=== PATIENT | female | born 1955 | race Caucasian/White ===

== ENCOUNTER → 2016-12-19 | Outpatient (REF) | payer MEDICARE, MEDICAID ==
[~2016-12-19] MED LIST: ABIL15TA2 PO; AMBI10TA PO; ASPI81TA85 PO; BUPR15TA PO; CELE-19 PO; COMBAER6 INH; CYCL10TA PO; HYDR-2807 PO; LISI10TA4 PO; LYRI150C PO; METF1000 PO; MULTCAP8 PO; NEXI40CA PO; NORV5TAB PO; PLAV75TA38 PO; PLETAL PO; SIMV40TA2 PO; VITA100037 PO; VITAMIN B12
== END ==
LOC: M LAB REF 09:59
PROVIDERS: ATTEND Physician Assistant Medical
DX: R19.7 Diarrhea, unspecified (principal)

== ENCOUNTER → 2017-02-01 | Outpatient (CLI) | payer MEDICARE, MEDICAID ==
[2017-02-01 11:25] LABS: BASO % 0.5 % (0.0-1.0); EOS # 0.2 K/mm3 (0.0-0.50); EOS % 2.7 % (0.0-3.0); LARGE UNSTAINED CELL # 0.1 K/mm3 (0.0-0.4); LARGE UNSTAINED CELL % 1.5 % (0.0-4.0); LYMPH # 1.6 K/mm3 (1.5-4.5); LYMPH % 22.5 % (24.0-44.0); MEAN CORPUSCULAR HEMOGLOBIN 26.4 pg (27.0-33.0); MEAN CORPUSCULAR VOLUME 79.9 fl (80.0-96.0); MONO # 0.4 K/mm3 (0.0-0.8); MONO % 5.4 % (0.0-5.0); NEUTROPHILS # 4.5 K/mm3 (1.8-7.7); NEUTROPHILS % 67.5 % (36.0-66.0); PLATELET COUNT, AUTOMATED 337 k/mm3 (150-450); WHITE BLOOD COUNT 6.6 K/mm3 (4.0-10.0)
[2017-02-01 12:06] LABS: ALBUMIN 3.3 GM/DL (3.2-5.2); ALBUMIN/GLOBULIN RATIO 1.14 (1.00-1.93); ALKALINE PHOSPHATASE 115 U/L (45-117); ALT/SGPT 19 U/L (12-78); ANION GAP 9 MEQ/L (8-16); AST/SGOT 15 U/L (15-37); BILIRUBIN,TOTAL 0.2 MG/DL (0.2-1.0); BLOOD UREA NITROGEN 8 MG/DL (7-18); CALCIUM LEVEL 8.5 MG/DL (8.8-10.2); CARBON DIOXIDE LEVEL 29 MEQ/L (21-32); CHLORIDE LEVEL 99 MEQ/L (98-107); CHOLESTEROL LEVEL 149 MG/DL (<200); CREATININE FOR GFR 0.88 MG/DL (0.55-1.02); GLOMERULAR FILTRATION RATE > 60.0 (>45); GLUCOSE, FASTING 124 MG/DL (80-110); POTASSIUM SERUM 4.1 MEQ/L (3.5-5.1); SODIUM LEVEL 137 MEQ/L (136-145); TOTAL PROTEIN 6.2 GM/DL (6.4-8.2); TRIGLYCERIDES LEVEL 395 MG/DL (<150)
== END ==
LOC: M LAB 10:42
PROVIDERS: ATTEND Nurse Practitioner Family
DX: I10 Essential (primary) hypertension (principal); E78.4 Other hyperlipidemia; K21.9 Gastro-esophageal reflux disease without esophagitis; E11.9 Type 2 diabetes mellitus without complications; M81.0 Age-related osteoporosis without current pathological fracture

== ENCOUNTER → 2017-07-13 | Outpatient (CLI) | payer MEDICARE, MEDICAID ==
[~2017-07-13] MED LIST changes: -ABIL15TA2 PO; +ABIL1TAB12 PO; -CELE-19 PO; +CELE1CAP4 PO; -METF1000 PO; +METF10004 PO; +PLAV1TAB2 PO; -PLAV75TA38 PO; +RANI150T PO; -VITA100037 PO; +VITA100067 PO
--- NOTE | 2017-07-13 14:53 | REP ---
KUB: Two views. History: Sitz marker study. Sitz marker capsule ingested on July 08, 2017. Findings: No sitz markers are visible. Bowel gas pattern is unremarkable. There is a right common iliac artery vascular stent and there are clips in the groin bilaterally. There are surgical clips in the right upper quadrant of the abdomen and clips and sutures are seen in the left upper quadrant. Vascular calcification is noted. There are old healed rib fractures on the right. Impression: No observable sitz marker. Bowel gas pattern unremarkable. Clips and sutures. Signed by Xander Santos MD 07/13/2017 05:44 P
== END ==
LOC: M RAD 11:31
PROVIDERS: ATTEND Physician Assistant Medical
DX: R19.8 Other specified symptoms and signs involving the digestive system and abdomen (principal); R19.7 Diarrhea, unspecified

== ENCOUNTER 2017-08-05 08:20 | Day surgery (SDC) | payer MEDICARE, MEDICAID ==
[~2017-08-05] VITALS: Ht 162.6 cm; Wt 97.5 kg
[2017-08-05] MEDS ORDERED: NS 1,000 ML IV SCH (09:30)
[2017-08-05] MEDS ORDERED: LIDOCAINE 2% INJ 100 MG/5 ML SDV (FOR ANES.) As Ordered ONE (10:44)
[2017-08-05] MEDS ORDERED: PROPOFOL 200 MG/20 ML VIAL As Ordered ONE (10:44)
--- NOTE | 2017-08-05 11:04 | ROOR ---
Patient Name: Judy Lopez Procedure Date: 08/05/2017 10:30 AM Date of : 1955 Age: 61 Room: [facility] Gender: Female Note Status: Finalized Procedure: Colonoscopy Indications: High risk colon cancer surveillance: Personal history of colonic polyps Providers: Amol ARROYO MD Referring MD: Speedy Gallardo NP Requesting Provider: Medicines: Monitored Anesthesia Care Complications: No immediate complications. Procedure: Pre-Anesthesia Assessment: - The heart rate, respiratory rate, oxygen saturations, blood pressure, adequacy of pulmonary ventilation, and response to care were monitored throughout the procedure. The Colonoscope was introduced through the anus and advanced to the cecum, identified by appendiceal orifice and ileocecal valve. The colonoscopy was performed without difficulty. The patient tolerated the procedure well. The quality of the bowel preparation was good. Findings: The perianal and digital rectal examinations were normal. (Exam: Complete, Prep: Good or Excellent.) A 7 mm polyp was found in the appendiceal orifice. The polyp was semi-sessile. The polyp was removed with a piecemeal technique using a cold snare. Polyp resection was incomplete, and the resected tissue was partially retrieved. Two semi-sessile polyps were found in the hepatic flexure and ascending colon. The polyps were 5 mm in size. These polyps were removed with a hot snare. Resection and retrieval were complete. A 4 mm polyp was found in the rectum. The polyp was sessile. The polyp was removed with a cold snare. Resection and retrieval were complete. The exam was otherwise without abnormality. Impression: - (Exam: Complete, Prep: Good or Excellent.) - One 7 mm polyp in the appendiceal orifice, removed piecemeal using a cold snare. Polyp resection was incomplete, and the resected tissue was partially retrieved. - Two 5 mm polyps at the hepatic flexure and in the ascending colon, removed with a hot snare. Resected and retrieved. - One 4 mm polyp in the rectum, removed with a cold snare. Resected and retrieved. - The examination was otherwise normal. Recommendation: - Await pathology results. - Intra appendiceal polyp was unable to be completely removed, as a portion retracts into appendix after resection. IF appendiceal polyp is adenomatous, then recommend surgical resection of appendix with cecal floor surrounding appendix. IF polyp pathology is hyperplastic, then nothing else needs to be done. - Telephone endoscopist for pathology results in 2 weeks. Amol Arroyo MD Amol ARROYO MD 08/05/2017 11:04:21 AM This report has been signed electronically. Number of Addenda: 0 Note Initiated On: 08/05/2017 10:30 AM Estimated Blood Loss: Estimated blood loss: none.
[2017-08-05 11:20] VITALS: BP 141/65
== END 2017-08-05 11:30 | disposition home or self-care (01) ==
LOC: M OPP 08:20
PROVIDERS: ATTEND Internal Medicine Gastroenterology
DX: Z12.11 Encounter for screening for malignant neoplasm of colon (principal); K62.1 Rectal polyp; D12.3 Benign neoplasm of transverse colon; D12.2 Benign neoplasm of ascending colon; Z86.010 Personal history of colon polyps; I48.91 Unspecified atrial fibrillation; E11.9 Type 2 diabetes mellitus without complications; I10 Essential (primary) hypertension; K44.9 Diaphragmatic hernia without obstruction or gangrene; E78.00 Pure hypercholesterolemia, unspecified; K21.9 Gastro-esophageal reflux disease without esophagitis; I73.9 Peripheral vascular disease, unspecified; F32.9 Major depressive disorder, single episode, unspecified; M19.90 Unspecified osteoarthritis, unspecified site; Z79.82 Long term (current) use of aspirin; Z79.84 Long term (current) use of oral hypoglycemic drugs; Z79.899 Other long term (current) drug therapy; Z88.0 Allergy status to penicillin; Z91.041 Radiographic dye allergy status; Z88.1 Allergy status to other antibiotic agents; Z80.0 Family history of malignant neoplasm of digestive organs; Z80.49 Family history of malignant neoplasm of other genital organs

== ENCOUNTER → 2017-09-02 | Outpatient (CLI) | payer MEDICARE, MEDICAID ==
[2017-09-02 15:07] LABS: BASO # 0.1 10^3/uL (0.0-0.2); BASO % 0.7 % (0.0-1.0); EOS # 0.3 10^3/uL (0.0-0.50); EOS % 4.2 % (0.0-3.0); IMMATURE GRANULOCYTE % 0.6 % (0-0); LYMPH # 1.7 10^3/uL (1.5-4.5); LYMPH % 24.2 % (24.0-44.0); MEAN CORPUSCULAR HEMOGLOBIN 26.1 pg (27.0-33.0); MEAN CORPUSCULAR HGB CONC 32.5 g/dl (32.0-36.5); MEAN CORPUSCULAR VOLUME 80.1 fl (80.0-96.0); MONO # 0.4 10^3/uL (0.0-0.8); MONO % 5.8 % (0.0-5.0); NEUTROPHILS # 4.7 10^3/uL (1.8-7.7); NEUTROPHILS % 64.5 % (36.0-66.0); PLATELET COUNT, AUTOMATED 325 10^3/uL (150-450); RED CELL DISTRIBUTION WIDTH 14.3 % (11.5-14.5); WHITE BLOOD COUNT 7.2 10^3/uL (4.0-10.0)
[2017-09-02 15:31] LABS: ALKALINE PHOSPHATASE 118 U/L (45-117); ALT/SGPT 21 U/L (12-78); ANION GAP 9 MEQ/L (8-16); AST/SGOT 14 U/L (7-37); BILIRUBIN,TOTAL 0.2 MG/DL (0.2-1.0); BLOOD UREA NITROGEN 12 MG/DL (7-18); CALCIUM LEVEL 8.4 MG/DL (8.8-10.2); CARBON DIOXIDE LEVEL 27 MEQ/L (21-32); CHLORIDE LEVEL 100 MEQ/L (98-107); CHOLESTEROL LEVEL 157 MG/DL (<200); CREATININE FOR GFR 0.94 MG/DL (0.55-1.02); GLOMERULAR FILTRATION RATE > 60.0 (>45); GLUCOSE, FASTING 145 MG/DL (80-110); POTASSIUM SERUM 4.3 MEQ/L (3.5-5.1); SODIUM LEVEL 136 MEQ/L (136-145); TRIGLYCERIDES LEVEL 299 MG/DL (<150)
[2017-09-02 15:32] LABS: ALBUMIN 3.5 GM/DL (3.2-5.2); ALBUMIN/GLOBULIN RATIO 1.17 (1.00-1.93); TOTAL PROTEIN 6.5 GM/DL (6.4-8.2)
== END ==
LOC: M LAB 14:14
PROVIDERS: ATTEND Nurse Practitioner Family
DX: K21.9 Gastro-esophageal reflux disease without esophagitis (principal); M81.0 Age-related osteoporosis without current pathological fracture; E11.9 Type 2 diabetes mellitus without complications; E78.4 Other hyperlipidemia; I10 Essential (primary) hypertension

== ENCOUNTER → 2017-09-08 | Outpatient (CLI) | payer MEDICARE, MEDICAID ==
--- NOTE | 2017-09-08 15:23 | REPMRS ---
Patient History The patient states she has not had a clinical breast exam in over a year. Patient is postmenopausal and is nulliparous. Family history of unknown cancer in sister at age 35. Took hormonal contraceptives for 1 year. Took estrogen for 6 months. Took progesterone for 6 months. Digital Mammo Screening Bilat: September 08, 2017 - Exam #: [id number] Bilateral CC and MLO view(s) were taken. Technologist: Arabella Rivera, Technologist Prior study comparison: March 02, 2013, bilateral bilat screen digital mammo, performed at [facility] ([facility]). FINDINGS: There are scattered fibroglandular densities. There has been no change in the appearance of the mammogram from the prior studies. There is a mild amount of residual fibroglandular tissue which is fairly symmetric. There is no interval development of dominant mass, architectural distortion, or clustered microcalcification suggestive of malignancy. ASSESSMENT: BI-RADS/ACR category 1 mammogram. Negative. Recommendation Routine screening mammogram in 1 year (for women over age 40). This mammogram was interpreted with the aid of an FDA-approved computer-aided dectection system. Electronically Signed By: Mejia Flynn MD 09/08/17 [id number]
== END ==
LOC: M RAD 14:31
PROVIDERS: ATTEND Nurse Practitioner Family
DX: Z12.31 Encounter for screening mammogram for malignant neoplasm of breast (principal); Z78.0 Asymptomatic menopausal state; Z92.0 Personal history of contraception; Z92.23 Personal history of estrogen therapy

== ENCOUNTER → 2017-11-02 | Outpatient (CLI) | payer MEDICARE, MEDICAID ==
[2017-11-02 15:35] LABS: ESTIMATED AVERAGE GLUCOSE 223 MG/DL (60-110); HEMOGLOBIN A1c 9.4 %
== END ==
LOC: M LAB 14:43
DX: E11.9 Type 2 diabetes mellitus without complications (principal)
CPT/HCPCS: 83036

== ENCOUNTER → 2018-03-24 | Outpatient (CLI) | payer MEDICARE, MEDICAID ==
[2018-03-24 14:15] LABS: BASO % 0.4 % (0.0-1.0); EOS # 0.1 10^3/uL (0.0-0.50); EOS % 2.3 % (0.0-3.0); HEMATOCRIT 31.4 % (36.0-47.0); HEMOGLOBIN 9.4 g/dl (12.0-15.5); IMMATURE GRANULOCYTE % 0.2 % (0-3.0); LYMPH # 1.3 10^3/uL (1.5-4.5); LYMPH % 22.8 % (24.0-44.0); MEAN CORPUSCULAR HEMOGLOBIN 21.8 pg (27.0-33.0); MEAN CORPUSCULAR HGB CONC 29.9 g/dl (32.0-36.5); MEAN CORPUSCULAR VOLUME 72.9 fl (80.0-96.0); MONO # 0.3 10^3/uL (0.0-0.8); MONO % 5.6 % (0.0-5.0); NEUTROPHILS # 3.9 10^3/uL (1.8-7.7); NEUTROPHILS % 68.7 % (36.0-66.0); PLATELET COUNT, AUTOMATED 330 10^3/uL (150-450); RED BLOOD COUNT 4.31 10^6/uL (4.00-5.40); WHITE BLOOD COUNT 5.7 10^3/uL (4.0-10.0)
[2018-03-24 14:25] LABS: INR 0.93; PARTIAL THROMBOPLASTIN TIME 25.2 SECONDS (25.4-37.6); PROTHROMBIN TIME 12.6 SECONDS (12.1-14.4)
[2018-03-24 14:38] LABS: ANION GAP 10 MEQ/L (8-16); BLOOD UREA NITROGEN 11 MG/DL (7-18); CALCIUM LEVEL 8.9 MG/DL (8.8-10.2); CARBON DIOXIDE LEVEL 26 MEQ/L (21-32); CHLORIDE LEVEL 102 MEQ/L (98-107); CREATININE FOR GFR 1.05 MG/DL (0.55-1.30); GLOMERULAR FILTRATION RATE 56.3 (>45); GLUCOSE, FASTING 146 MG/DL (70-100); POTASSIUM SERUM 4.1 MEQ/L (3.5-5.1); SODIUM LEVEL 138 MEQ/L (136-145)
== END ==
LOC: M LAB 13:33
DX: D69.8 Other specified hemorrhagic conditions (principal)
CPT/HCPCS: 80048

== ENCOUNTER → 2018-04-04 | Outpatient (CLI) | payer MEDICARE, MEDICAID ==
[2018-04-04 14:43] LABS: CREATININE FOR GFR 0.89 MG/DL (0.55-1.30); GLOMERULAR FILTRATION RATE > 60.0 (>45)
[2018-04-04 14:43] LABS: BLOOD UREA NITROGEN 8 MG/DL (7-18)
== END ==
LOC: M LAB 13:49
DX: R94.4 Abnormal results of kidney function studies (principal)
CPT/HCPCS: 82565

== ENCOUNTER → 2018-04-25 | Outpatient (CLI) | payer MEDICARE, MEDICAID ==
[2018-04-25 16:02] LABS: IRON (FE) 27 UG/DL (50-170)
[2018-04-25 16:09] LABS: TOTAL 25(OH) VITAMIN D 48.8 NG/ML (30.0-100.0); VITAMIN B12 LEVEL 268 PG/ML (247-911)
[2018-05-01 14:28] LABS: VITAMIN B1 LEVEL WHOLE BLOOD 90.1 nmol/L (66.5-200.0)
== END ==
LOC: M LAB 14:53
DX: Z13.29 Encounter for screening for other suspected endocrine disorder (principal); Z13.21 Encounter for screening for nutritional disorder; Z13.0 Encounter for screening for diseases of the blood and blood-forming organs and certain disorders involving the immune mechanism; Z13.228 Encounter for screening for other metabolic disorders; E55.9 Vitamin D deficiency, unspecified
CPT/HCPCS: 83540

== ENCOUNTER → 2018-05-11 | Outpatient (CLI) | payer MEDICARE, MEDICAID | LOC: M EKG 13:43 | DX: Z01.818 Encounter for other preprocedural examination (principal); R00.1 Bradycardia, unspecified | CPT/HCPCS: 93005 ==

== ENCOUNTER → 2018-06-08 | Outpatient (CLI) | payer MEDICARE, MEDICAID ==
[2018-06-08 08:54] LABS: CHOLESTEROL LEVEL 116 MG/DL (<200); CHOLESTEROL RISK RATIO 2.468 (<5); ESTIMATED AVERAGE GLUCOSE 134 MG/DL (60-110); HDL CHOLESTEROL 47 MG/DL (>40); HEMOGLOBIN A1c 6.3 %; LDL CHOLESTEROL 32 MG/DL (<100); NON-HDL-C 69 MG/DL; TRIGLYCERIDES LEVEL 186 MG/DL (<150)
== END ==
LOC: M LAB 07:45
DX: E11.9 Type 2 diabetes mellitus without complications (principal); E78.5 Hyperlipidemia, unspecified
CPT/HCPCS: 83036

== ENCOUNTER 2018-10-22 12:42 | Emergency (ER) | payer MEDICARE, MEDICAID ==
[~2018-10-22] VITALS: Ht 160 cm; Wt 84.1 kg
[2018-10-22] MEDS ORDERED: CALC600T60 PO (12:55)
[2018-10-22] MEDS ORDERED: SERT-138 PO (12:55)
[2018-10-22] MEDS ORDERED: TRAZ-163 PO (12:55)
[2018-10-22] MEDS ORDERED: ONDANSETRON 4MG/2ML VIAL (J2405) IV ONE (13:00)
[2018-10-22] MEDS ORDERED: NS 1,000 ML IV ONE (13:00)
[2018-10-22 13:18] LABS: BASO # 0.1 10^3/uL (0.0-0.2); BASO % 0.7 % (0.0-1.0); EOS # 0.2 10^3/uL (0.0-0.50); EOS % 2.2 % (0.0-3.0); HEMATOCRIT 33.3 % (36.0-47.0); HEMOGLOBIN 10.9 g/dl (12.0-15.5); LYMPH # 1.9 10^3/uL (1.5-4.5); LYMPH % 25.9 % (24.0-44.0); MEAN CORPUSCULAR HEMOGLOBIN 25.5 pg (27.0-33.0); MEAN CORPUSCULAR HGB CONC 32.7 g/dl (32.0-36.5); MONO # 0.4 10^3/uL (0.0-0.8); MONO % 5.9 % (0.0-5.0); NEUTROPHILS # 4.7 10^3/uL (1.8-7.7); PLATELET COUNT, AUTOMATED 261 10^3/uL (150-450); RED BLOOD COUNT 4.27 10^6/uL (4.00-5.40); WHITE BLOOD COUNT 7.3 10^3/uL (4.0-10.0)
[2018-10-22] MEDS: GASTROGRAFIN SOLUTION 30ML PO SCH ×2 (13:29→14:00)
[2018-10-22 13:53] LABS: ALBUMIN 3.6 GM/DL (3.2-5.2); ALT/SGPT 22 U/L (12-78); BILIRUBIN,DIRECT < 0.1 MG/DL (0.0-0.2); BILIRUBIN,TOTAL 0.3 MG/DL (0.2-1.0); BLOOD UREA NITROGEN 10 MG/DL (7-18); CALCIUM LEVEL 8.4 MG/DL (8.8-10.2); CARBON DIOXIDE LEVEL 28 MEQ/L (21-32); CHLORIDE LEVEL 92 MEQ/L (98-107); CREATININE FOR GFR 0.86 MG/DL (0.55-1.30); GLOMERULAR FILTRATION RATE > 60.0 (>45); GLUCOSE, FASTING 102 MG/DL (70-100); POTASSIUM SERUM 4.2 MEQ/L (3.5-5.1); SODIUM LEVEL 128 MEQ/L (136-145); TOTAL PROTEIN 6.6 GM/DL (6.4-8.2)
--- NOTE | 2018-10-22 15:10 | REP ---
Clinical: Hernia. Technique: Axial noncontrast images from the lung bases to the pubic symphysis with coronal and sagittal re-formations. Comparison: 07/24/2016. Findings: A broad-based ventral hernia and/or eventration of the rectus sheath contains mesenteric fat (images 70-100). Liver, spleen, pancreas, bilateral adrenal glands are normal. Evidence of prior cholecystectomy. Kidneys demonstrate bilateral cysts similar to prior examination. The enteric system demonstrates prior gastric bypass surgery along with prior appendectomy and no evidence for bowel obstruction or acute inflammatory process. Pelvis demonstrates normal bladder and age-appropriate uterus/right adnexa. 3.4 cm septated cystic left adnexal lesion is nonspecific. No ascites. No free air. No adenopathy. Evidence for aorto right iliac stent graft as well as fem-fem graft. Musculoskeletal structures demonstrate age-related degenerative changes without focal osseous abnormality. Lung bases are clear. Impression: 1. Broad-based fat containing ventral hernia and/or eventration of the rectus sheath. 2. Bilateral renal cysts similar to prior examination. 3. 3.4 cm septated left adnexal cyst lesion may warrant pelvic ultrasound confirmation. 4. Postsurgical changes. Electronically Signed by Juwan Sanchez MD 10/22/2018 03:02 P
--- NOTE | 2018-10-22 16:30 | REP ---
Clinical: Left adnexal cyst . Technique: Transabdominal pelvic ultrasound followed by transvaginal examination for better evaluation of the endometrium and adnexa with color Doppler evaluation of the ovaries. Findings: Bladder is unremarkable and measures 10.4 x 8.7 x 10.4 cm . Normal anteverted uterus measures 4.3 x 1.9 x 2.7 cm. The endometrial complex measures 1.0 mm thickness. No discrete uterine or endometrial abnormalities are appreciated. The patient is status post right oophorectomy. The left ovary measures 4.2 x 2.6 x 4.2 cm and includes 3.6 x 2.2 x 3.7 cm septated cyst. No evidence for ovarian torsion; RI 0.50. Impression: 1. 3.7 cm septated left ovarian cyst. Findings otherwise nonspecific in appearance. No left ovarian torsion. 2. Normal age-appropriate uterus. Status post right oophorectomy. Electronically Signed by Juwan Sanchez MD 10/22/2018 04:22 P
[2018-10-22 16:34] VITALS: BP 141/64
[2018-10-22] MEDS ORDERED: ZOFR4TAB16 PO (16:41)
--- NOTE | 2018-10-23 17:12 | ED PDOC ---
Post-Departure Follow-Up carolyn lopez faxed formal report of ct abd/p for fu William Becker MD Oct 23, 2018 17:12
== END 2018-10-22 17:05 | disposition home or self-care (01) ==
LOC: M ED 12:42
DX: N83.202 Unspecified ovarian cyst, left side (principal); I10 Essential (primary) hypertension; E78.5 Hyperlipidemia, unspecified; Z98.84 Bariatric surgery status; Z79.899 Other long term (current) drug therapy; Z79.82 Long term (current) use of aspirin; Z88.0 Allergy status to penicillin; Z88.1 Allergy status to other antibiotic agents; Z91.041 Radiographic dye allergy status
CPT/HCPCS: 36415; 74176; 76830; 76856; 80048; 80076; 85025; 93976; 96361; 96374; 99284; J2405; Q9963

== ENCOUNTER 2018-11-05 15:40 | Emergency (ER) | payer MEDICARE, MEDICAID ==
[~2018-11-05] VITALS: Ht 160 cm; Wt 86.4 kg
[~2018-11-05 15:40] MED LIST changes: +CALC600T60 PO; +SERT-138 PO; +TRAZ-163 PO; +ZOFR4TAB16 PO
[2018-11-05] MEDS ORDERED: MULTCAP PO (16:07)
[2018-11-05] MEDS ORDERED: FISH7.5C PO (16:07)
[2018-11-05] MEDS ORDERED: LOSA25TA14 PO (16:07)
[2018-11-05] MEDS ORDERED: ATOR1TAB21 PO (16:07)
[2018-11-05 16:43] LABS: BASO % 0.5 % (0.0-1.0); EOS # 0.2 10^3/uL (0.0-0.50); EOS % 2.6 % (0.0-3.0); HEMATOCRIT 35.9 % (36.0-47.0); HEMOGLOBIN 11.7 g/dl (12.0-15.5); LYMPH # 1.7 10^3/uL (1.5-4.5); LYMPH % 22.2 % (24.0-44.0); MEAN CORPUSCULAR HEMOGLOBIN 25.4 pg (27.0-33.0); MEAN CORPUSCULAR HGB CONC 32.6 g/dl (32.0-36.5); MONO # 0.4 10^3/uL (0.0-0.8); MONO % 5.1 % (0.0-5.0); NEUTROPHILS # 5.4 10^3/uL (1.8-7.7); NEUTROPHILS % 69.3 % (36.0-66.0); PLATELET COUNT, AUTOMATED 307 10^3/uL (150-450); WHITE BLOOD COUNT 7.8 10^3/uL (4.0-10.0)
[2018-11-05 16:54] LABS: INR 0.93; PROTHROMBIN TIME 12.6 SECONDS (12.1-14.4)
[2018-11-05 16:55] LABS: PARTIAL THROMBOPLASTIN TIME 25.3 SECONDS (25.4-37.6)
[2018-11-05 17:17] LABS: ALBUMIN 3.7 GM/DL (3.2-5.2); ALT/SGPT 23 U/L (12-78); BILIRUBIN,DIRECT 0.1 MG/DL (0.0-0.2); BILIRUBIN,TOTAL 0.3 MG/DL (0.2-1.0); BLOOD UREA NITROGEN 10 MG/DL (7-18); CALCIUM LEVEL 8.6 MG/DL (8.8-10.2); CARBON DIOXIDE LEVEL 30 MEQ/L (21-32); CHLORIDE LEVEL 92 MEQ/L (98-107); CPK CREATINE PHOSPHOKINASE 123 U/L (26-192); CREATININE FOR GFR 0.99 MG/DL (0.55-1.30); FREE T4 0.98 NG/DL (0.76-1.46); GLOMERULAR FILTRATION RATE > 60.0 (>45); GLUCOSE, FASTING 139 MG/DL (70-100); LIPASE 233 U/L (73-393); MB/CK RELATIVE INDEX 1.79 (< OR =4); SODIUM LEVEL 130 MEQ/L (136-145); TOTAL PROTEIN 6.4 GM/DL (6.4-8.2); TROPONIN I < 0.02 NG/ML (< 0.10)
[2018-11-05] MEDS ORDERED: NORCO, ANEXSIA 5/325MG TABLET (HYDROcodone/ACETAMINOPHEN) PO ONE (22:30)
[2018-11-05 23:01] LABS: CPK CREATINE PHOSPHOKINASE 189 U/L (26-192); MB/CK RELATIVE INDEX 1.16 (< OR =4); TROPONIN I < 0.02 NG/ML (< 0.10)
[2018-11-06 00:15] VITALS: BP 164/72
--- NOTE | 2018-11-06 08:18 | REP ---
AP PORTABLE CHEST: 11/05/2018. COMPARISON: PA chest 04/30/2016. CLINICAL HISTORY: Chest pain. FINDINGS: Lungs are well inflated. CP angles are sharply defined. There is some minor linear scarring left lateral base unchanged and minimally in the right CP angle. Some minor atelectatic or fibrotic change just above the right diaphragm. There is no effusion, dense consolidation, or parenchymal mass visible. Heart not enlarged. The aorta is mildly tortuous. Airway is intact. Bones show some degenerative changes in the spine. There is an anterior cervical discectomy plate and screw fusion device in the lower cervical spine as before. Visualized ribs intact with an old healed and remodeled right posterolateral 6th rib, unchanged. Shoulders and the clavicles intact. IMPRESSION: 1. No gross cardiomegaly, vascular redistribution or effusion. There is linear fibrotic change left lateral base and right CP angle and some likely along the diaphragmatic surface on the right. 2. Aorta without aneurysm or interval change. The airway is intact. There is no abnormal widening of the mediastinum. Electronically Signed by Job Fung MD 11/06/2018 08:26 A
--- NOTE | 2018-11-06 16:32 | ECGEPIP ---
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
--- NOTE | 2018-11-06 16:37 | ECGEPIP ---
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
== END 2018-11-06 00:56 | disposition home or self-care (01) ==
LOC: M ED 15:40 → EDBD 15:40 → M ED 11-06 00:56
DX: R07.89 Other chest pain (principal); R00.1 Bradycardia, unspecified; I25.10 Atherosclerotic heart disease of native coronary artery without angina pectoris; I20.1 Angina pectoris with documented spasm; I73.9 Peripheral vascular disease, unspecified; Z98.61 Coronary angioplasty status; Z87.891 Personal history of nicotine dependence; Z79.82 Long term (current) use of aspirin; Z79.899 Other long term (current) drug therapy; Z88.0 Allergy status to penicillin; Z88.1 Allergy status to other antibiotic agents; Z91.041 Radiographic dye allergy status

== ENCOUNTER → 2019-01-03 | Outpatient (REF) | payer MEDICARE, MEDICAID ==
[~2019-01-03] MED LIST changes: +ATOR1TAB21 PO; +FISH7.5C PO; +LOSA25TA14 PO; +MULTCAP PO
== END ==
LOC: M SFHCWAGY 15:53
PROVIDERS: ATTEND Nurse Practitioner Family
DX: Z12.4 Encounter for screening for malignant neoplasm of cervix (principal); N95.2 Postmenopausal atrophic vaginitis
CPT/HCPCS: G0101; G0123

== ENCOUNTER → 2019-01-17 | Outpatient (CLI) | payer MEDICARE, MEDICAID ==
--- NOTE | 2019-01-17 15:41 | REPMRS ---
Patient History The patient states she had a clinical breast exam in 12/2018. Patient is postmenopausal and is nulliparous. Family history of colorectal cancer at age 78 in brother. Took hormonal contraceptives for 1 year. Took estrogen for 6 months. Took progesterone for 6 months. 3D TOMOSYNTHESIS WAS PERFORMED. Digital Woman Screen Mammo: January 17, 2019 - Exam #: [id number] Bilateral CC and MLO view(s) were taken. Technologist: Kourtney Yusuf, Technologist Prior study comparison: September 08, 2017, bilateral digital mammo screening bilat, performed at [facility]. March 02, 2013, bilateral bilat screen digital mammo, performed at [facility] ([facility]). FINDINGS: There are scattered fibroglandular densities. There has been no change in the appearance of the mammogram from the prior studies. There is a mild amount of residual fibroglandular tissue which is fairly symmetric. There is no interval development of dominant mass, architectural distortion, or clustered microcalcification suggestive of malignancy. Assessment: BI-RADS/ACR category 1 mammogram. Negative Mammogram. Recommendation Routine screening mammogram in 1 year (for women over age 40). This mammogram was interpreted with the aid of an FDA-approved computer-aided dectection system. Electronically Signed By: Mejia Flynn MD 01/17/19 [id number]
== END ==
LOC: M WHC 14:55
PROVIDERS: ATTEND Nurse Practitioner Family
DX: Z12.31 Encounter for screening mammogram for malignant neoplasm of breast (principal); Z80.0 Family history of malignant neoplasm of digestive organs

== ENCOUNTER → 2019-01-20 | Outpatient (CLI) | payer MEDICAID, MEDICARE ==
[2019-01-20 08:50] LABS: BASO % 0.6 % (0.0-1.0); EOS # 0.1 10^3/uL (0.0-0.50); EOS % 2.2 % (0.0-3.0); HEMATOCRIT 34.1 % (36.0-47.0); HEMOGLOBIN 11.2 g/dl (12.0-15.5); LYMPH # 1.8 10^3/uL (1.5-4.5); LYMPH % 29.5 % (24.0-44.0); MEAN CORPUSCULAR HEMOGLOBIN 26.4 pg (27.0-33.0); MEAN CORPUSCULAR HGB CONC 32.8 g/dl (32.0-36.5); MEAN CORPUSCULAR VOLUME 80.4 fl (80.0-96.0); MONO # 0.4 10^3/uL (0.0-0.8); MONO % 5.9 % (0.0-5.0); NEUTROPHILS # 3.8 10^3/uL (1.8-7.7); NEUTROPHILS % 61.6 % (36.0-66.0); PLATELET COUNT, AUTOMATED 244 10^3/uL (150-450); RED BLOOD COUNT 4.24 10^6/uL (4.00-5.40); WHITE BLOOD COUNT 6.2 10^3/uL (4.0-10.0)
[2019-01-20 09:25] LABS: ALBUMIN 3.7 GM/DL (3.2-5.2); ALT/SGPT 20 U/L (12-78); BILIRUBIN,TOTAL 0.2 MG/DL (0.2-1.0); BLOOD UREA NITROGEN 11 MG/DL (7-18); CALCIUM LEVEL 8.7 MG/DL (8.8-10.2); CARBON DIOXIDE LEVEL 30 MEQ/L (21-32); CHLORIDE LEVEL 96 MEQ/L (98-107); CHOLESTEROL LEVEL 119 MG/DL (<200); CHOLESTEROL RISK RATIO 2.902 (<5); CREATININE FOR GFR 0.85 MG/DL (0.55-1.30); GLOMERULAR FILTRATION RATE > 60.0 (>45); GLUCOSE, FASTING 113 MG/DL (70-100); HDL CHOLESTEROL 41 MG/DL (>40); IRON (FE) 32 UG/DL (50-170); LDL CHOLESTEROL 43 MG/DL (<100); NON-HDL-C 78 MG/DL; POTASSIUM SERUM 4.5 MEQ/L (3.5-5.1); SODIUM LEVEL 131 MEQ/L (136-145); TOTAL PROTEIN 5.9 GM/DL (6.4-8.2); TRIGLYCERIDES LEVEL 174 MG/DL (<150)
[2019-01-20 09:32] LABS: TOTAL 25(OH) VITAMIN D 58.8 NG/ML (30.0-100.0)
[2019-01-20 09:33] LABS: VITAMIN B12 LEVEL 1468 PG/ML (247-911)
== END ==
LOC: M LAB 08:09
PROVIDERS: ATTEND Nurse Practitioner Family
DX: I10 Essential (primary) hypertension (principal); E66.09 Other obesity due to excess calories; E11.9 Type 2 diabetes mellitus without complications; E78.5 Hyperlipidemia, unspecified

== ENCOUNTER 2019-05-03 11:01 | Emergency (ER) | payer MEDICARE, MEDICAID ==
[~2019-05-03] VITALS: Ht 162.6 cm; Wt 86.4 kg
[2019-05-03] MEDS ORDERED: MM S100C PO (11:33)
[2019-05-03] MEDS ORDERED: FERR1TAB8 PO (11:33)
[2019-05-03] MEDS ORDERED: NEUR100C PO (11:33)
[2019-05-03] MEDS ORDERED: CALC250T PO (11:33)
[2019-05-03] MEDS ORDERED: CHOL100029 PO (11:33)
--- NOTE | 2019-05-03 12:29 | REP ---
REASON: Trauma. COMPARISON: None. Patient complains of lower rib pain. There is no accompanying frontal view of the chest. Four views of the right ribs shows an old healed fracture of the 6th rib. There is no evidence of an acute fracture or destructive osseous lesion. IMPRESSION: Old healed rib fracture as described above. Electronically Signed by Oswaldo Kim DO 05/03/2019 12:30 P
[2019-05-03] MEDS ORDERED: ACETAMINOPHEN 325 MG TAB PO ONE (13:00)
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
--- NOTE | 2019-05-03 14:11 | REP ---
Right shoulder: Three views. History: Right shoulder pain. After a fall. Comparison study: March 01, 2015. Findings: Right acromioclavicular joint is normally aligned. There is moderate osteoarthritic spurring and narrowing. This is new when compared with the 2015 study. There is mild inferolateral acromion process spurring. Glenohumeral joint is normally aligned. No fractures seen. There is diffuse osteopenia. There is an old appearing fracture involving the right posterior 6th rib. This is new in the interval since the 2014 prior study as well but appears to be healed. The patient is status post cervical discectomy and fusion plating. Impression: No acute fracture seen. 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 Old healed right posterior 6th rib fracture. Electronically Signed by Xander Santos MD 05/03/2019 08:59 P
[2019-05-03 14:46] VITALS: BP 135/61
== END 2019-05-03 15:02 | disposition home or self-care (01) ==
LOC: M ED 11:01
DX: S40.011A Contusion of right shoulder, initial encounter (principal); S20.211A Contusion of right front wall of thorax, initial encounter; M19.011 Primary osteoarthritis, right shoulder; V00.831A Fall from motorized mobility scooter, initial encounter; Y92.410 Unspecified street and highway as the place of occurrence of the external cause; I67.82 Cerebral ischemia; Z87.81 Personal history of (healed) traumatic fracture; E11.40 Type 2 diabetes mellitus with diabetic neuropathy, unspecified; E78.5 Hyperlipidemia, unspecified; I10 Essential (primary) hypertension; J44.9 Chronic obstructive pulmonary disease, unspecified; F41.9 Anxiety disorder, unspecified; F32.9 Major depressive disorder, single episode, unspecified; D50.9 Iron deficiency anemia, unspecified; M81.0 Age-related osteoporosis without current pathological fracture; Z98.84 Bariatric surgery status; Z87.891 Personal history of nicotine dependence; Z91.041 Radiographic dye allergy status; Z88.0 Allergy status to penicillin; Z88.1 Allergy status to other antibiotic agents; Z79.899 Other long term (current) drug therapy; Z79.82 Long term (current) use of aspirin

== ENCOUNTER → 2019-05-12 | Outpatient (CLI) | payer MEDICARE, MEDICAID ==
[~2019-05-12] MED LIST changes: +ARIP1TAB10 PO; +ATOR1TAB21; +CALC250T PO; +CELE1CAP9; +CHOL100029 PO; +ESOM40CA35 PO; +FERR1TAB8 PO; +HYDR-4517 PO; +MAGN400T2 PO; +MM S100C PO; +NEUR100C PO; +PRED20TA PO; -SIMV40TA2 PO; +SIMV40TA20 PO; +TRAM50TA2 PO; -TRAZ-163 PO; +TRAZ-252 PO; +TRAZ-257 PO; +ULTR50TA8 PO; +VITA500045
[2019-05-12 13:34] LABS: BASO % 0.5 % (0.0-1.0); EOS # 0.1 10^3/uL (0.0-0.50); EOS % 2.3 % (0.0-3.0); HEMATOCRIT 37.4 % (36.0-47.0); HEMOGLOBIN 12.3 g/dl (12.0-15.5); INR 0.94; LYMPH # 1.1 10^3/uL (1.5-4.5); LYMPH % 17.3 % (24.0-44.0); MEAN CORPUSCULAR HEMOGLOBIN 27.4 pg (27.0-33.0); MEAN CORPUSCULAR HGB CONC 32.9 g/dl (32.0-36.5); MEAN CORPUSCULAR VOLUME 83.3 fl (80.0-96.0); MONO # 0.3 10^3/uL (0.0-0.8); MONO % 4.4 % (0.0-5.0); NEUTROPHILS # 4.7 10^3/uL (1.8-7.7); NEUTROPHILS % 75.2 % (36.0-66.0); PLATELET COUNT, AUTOMATED 251 10^3/uL (150-450); PROTHROMBIN TIME 12.3 SECONDS (11.8-14.0); RED BLOOD COUNT 4.49 10^6/uL (4.00-5.40); WHITE BLOOD COUNT 6.2 10^3/uL (4.0-10.0)
[2019-05-12 13:35] LABS: PARTIAL THROMBOPLASTIN TIME 27.5 SECONDS (25.0-38.4)
[2019-05-12 13:47] LABS: BLOOD UREA NITROGEN 10 MG/DL (7-18); CALCIUM LEVEL 8.4 MG/DL (8.8-10.2); CARBON DIOXIDE LEVEL 29 MEQ/L (21-32); CHLORIDE LEVEL 98 MEQ/L (98-107); CREATININE FOR GFR 0.83 MG/DL (0.55-1.30); GLOMERULAR FILTRATION RATE > 60.0 (>45); GLUCOSE, FASTING 141 MG/DL (70-100); POTASSIUM SERUM 4.6 MEQ/L (3.5-5.1); SODIUM LEVEL 134 MEQ/L (136-145)
== END ==
LOC: M LAB 12:48
PROVIDERS: ATTEND Surgery Vascular Surgery
DX: Z01.818 Encounter for other preprocedural examination (principal); I70.211 Atherosclerosis of native arteries of extremities with intermittent claudication, right leg; D69.8 Other specified hemorrhagic conditions

== ENCOUNTER 2019-05-25 12:27 | Emergency (ER) | payer MEDICARE, MEDICAID ==
[~2019-05-25] VITALS: Ht 160 cm; Wt 88.6 kg
[~2019-05-25 12:27] MED LIST changes: -ARIP1TAB10 PO; -ATOR1TAB21; -CELE1CAP9; -ESOM40CA35 PO; -HYDR-4517 PO; -MAGN400T2 PO; -PRED20TA PO; +SIMV40TA2 PO; -SIMV40TA20 PO; -TRAM50TA2 PO; +TRAZ-163 PO; -TRAZ-252 PO; -TRAZ-257 PO; -ULTR50TA8 PO; -VITA500045
[2019-05-25 12:28] VITALS: BP 162/70
[2019-05-25] MEDS ORDERED: CELE1CAP9 (12:35)
[2019-05-25] MEDS ORDERED: VITA500045 (12:35)
[2019-05-25] MEDS ORDERED: ATOR1TAB21 (12:35)
[2019-05-25] MEDS ORDERED: CYCL10TA PO (13:14)
[2019-05-25] MEDS ORDERED: TRAM50TA2 PO (13:14)
== END 2019-05-25 13:19 | disposition home or self-care (01) ==
LOC: M ED 12:27
DX: S46.001A Unspecified injury of muscle(s) and tendon(s) of the rotator cuff of right shoulder, initial encounter (principal); W05.2XXA Fall from non-moving motorized mobility scooter, initial encounter; Y92.9 Unspecified place or not applicable; Y99.8 Other external cause status; E78.00 Pure hypercholesterolemia, unspecified; I10 Essential (primary) hypertension; J44.9 Chronic obstructive pulmonary disease, unspecified; Z87.891 Personal history of nicotine dependence; G47.30 Sleep apnea, unspecified; Z79.82 Long term (current) use of aspirin; Z79.899 Other long term (current) drug therapy; Z98.84 Bariatric surgery status; Z88.0 Allergy status to penicillin; Z88.1 Allergy status to other antibiotic agents; Z91.041 Radiographic dye allergy status

== ENCOUNTER → 2019-06-13 | Outpatient (REF) | payer MEDICARE, MEDICAID ==
[~2019-06-13] MED LIST changes: +ATOR1TAB21; +CELE1CAP9; +PRED20TA PO; +TRAM50TA2 PO; +ULTR50TA8 PO; +VITA500045
[2019-06-13 13:12] LABS: BASO % 0.6 % (0.0-1.0); EOS % 1.5 % (0.0-3.0); LYMPH # 1.2 10^3/uL (1.5-5.0); LYMPH % 18.3 % (24.0-44.0); MEAN CORPUSCULAR HEMOGLOBIN 27.3 pg (27.0-33.0); MEAN CORPUSCULAR HGB CONC 33.3 g/dl (32.0-36.5); MEAN CORPUSCULAR VOLUME 81.8 fl (80.0-96.0); MONO % 5.9 % (0.0-5.0); NEUTROPHILS % 73.4 % (36.0-66.0); PLATELET COUNT, AUTOMATED 262 10^3/uL (150-450); RED BLOOD COUNT 4.77 10^6/uL (4.00-5.40); WHITE BLOOD COUNT 6.8 10^3/uL (4.0-10.0)
[2019-06-13 13:13] LABS: EOS # 0.1 10^3/uL (0.0-0.5); MONO # 0.4 10^3/uL (0.0-0.8)
[2019-06-13 13:40] LABS: ALBUMIN 3.8 GM/DL (3.2-5.2); ALT/SGPT 21 U/L (12-78); BILIRUBIN,TOTAL 0.3 MG/DL (0.2-1.0); BLOOD UREA NITROGEN 9 MG/DL (7-18); CALCIUM LEVEL 9.2 MG/DL (8.8-10.2); CARBON DIOXIDE LEVEL 29 MEQ/L (21-32); CHLORIDE LEVEL 96 MEQ/L (98-107); CREATININE FOR GFR 0.82 MG/DL (0.55-1.30); FERRITIN 29 NG/ML (8-252); GLOMERULAR FILTRATION RATE > 60.0 (>45); GLUCOSE, FASTING 112 MG/DL (70-100); IRON (FE) 50 UG/DL (50-170); MAGNESIUM LEVEL 1.4 MG/DL (1.8-2.4); PERCENT SATURATION 14.2 % (13.2-45.0); PHOSPHORUS LEVEL 4.2 MG/DL (2.5-4.9); POTASSIUM SERUM 4.3 MEQ/L (3.5-5.1); SODIUM LEVEL 132 MEQ/L (136-145); TOTAL IRON BINDING CAPACITY 351 UG/DL (250-450); TOTAL PROTEIN 6.6 GM/DL (6.4-8.2)
[2019-06-13 13:45] LABS: HEMOGLOBIN A1c 6.3 %
[2019-06-13 13:47] LABS: CREATININE, URINE 44.1 MG/DL; MALB URINE SIEMENS < 5.0 MG/L; MAU/CREAT RATIO 11.3 MCG/MG (0.0-30.0)
[2019-06-18 00:12] LABS: CREATININE, URINE 48.7 mg/dL (20.0-300.0); VITAMIN A, RETINOL LEVEL 67.2 ug/dL (22.0-69.5); VITAMIN B1 LEVEL WHOLE BLOOD 119.4 nmol/L (66.5-200.0)
== END ==
LOC: M SFHCPLAZ 09:40
PROVIDERS: ATTEND Family Medicine
DX: D50.9 Iron deficiency anemia, unspecified (principal); E87.1 Hypo-osmolality and hyponatremia; E11.9 Type 2 diabetes mellitus without complications; K91.2 Postsurgical malabsorption, not elsewhere classified; M25.572 Pain in left ankle and joints of left foot; Z51.81 Encounter for therapeutic drug level monitoring
CPT/HCPCS: 36415; 80053; 80307; 82043; 82728; 83036; 83550; 83735; 84100; 84425; 84590; 85025; G0463

== ENCOUNTER → 2019-06-14 | Outpatient (CLI) | payer MEDICARE, MEDICAID ==
--- NOTE | 2019-06-14 11:32 | REP ---
LEFT ANKLE SERIES: Four views. HISTORY: Left ankle pain. FINDINGS: Four views left ankle demonstrate an intact ankle mortise. There is talonavicular spurring visible on the lateral view. There is also an Achilles calcaneal spur. There is mild anterior soft tissue swelling at the ankle joint. No fractures seen. IMPRESSION: No fracture noted. Achilles calcaneal spurring and mild midfoot spurring noted. Electronically Signed by Xander Santos MD 06/14/2019 03:37 P
== END ==
LOC: M RAD 10:58
PROVIDERS: ATTEND Family Medicine
DX: M25.572 Pain in left ankle and joints of left foot (principal)

== ENCOUNTER 2019-06-18 18:23 | Emergency (ER) | payer MEDICARE, MEDICAID ==
[~2019-06-18] VITALS: Ht 162.6 cm; Wt 90.8 kg
[~2019-06-18 18:23] MED LIST changes: -PRED20TA PO; -ULTR50TA8 PO
[2019-06-18] MEDS ORDERED: ACETAMINOPHEN 325 MG TAB PO ONE (19:00)
[2019-06-18] MEDS ORDERED: traMADol 50 MG TAB PO ONE (19:00)
[2019-06-18] MEDS ORDERED: predniSONE 20 MG TAB PO ONE (19:00)
[2019-06-18] MEDS ORDERED: ULTR50TA8 PO (19:03)
[2019-06-18] MEDS ORDERED: PRED20TA PO (19:03)
[2019-06-18 19:25] VITALS: BP 133/60
== END 2019-06-18 19:25 | disposition home or self-care (01) ==
LOC: M ED 18:23
DX: M48.07 Spinal stenosis, lumbosacral region (principal); M62.830 Muscle spasm of back; Z98.84 Bariatric surgery status; E78.00 Pure hypercholesterolemia, unspecified; I10 Essential (primary) hypertension; J44.9 Chronic obstructive pulmonary disease, unspecified; G47.30 Sleep apnea, unspecified; E11.9 Type 2 diabetes mellitus without complications; M81.0 Age-related osteoporosis without current pathological fracture; D64.9 Anemia, unspecified; F31.89 Other bipolar disorder; Z79.82 Long term (current) use of aspirin; Z79.899 Other long term (current) drug therapy; Z91.041 Radiographic dye allergy status; Z88.0 Allergy status to penicillin; Z88.1 Allergy status to other antibiotic agents

== ENCOUNTER 2019-07-07 13:25 | Emergency (ER) | payer MEDICARE, MEDICAID ==
[~2019-07-07] VITALS: Ht 162.6 cm; Wt 90.9 kg
[~2019-07-07 13:25] MED LIST changes: +PRED20TA PO; +ULTR50TA8 PO
[2019-07-07] MEDS ORDERED: MAGN400T2 PO (14:30)
[2019-07-07] MEDS ORDERED: HYDR-4517 PO (14:30)
[2019-07-07] MEDS ORDERED: TRAZ-252 PO (14:30)
[2019-07-07] MEDS ORDERED: ARIP1TAB10 PO (14:30)
[2019-07-07] MEDS ORDERED: ESOM40CA35 PO (14:30)
--- NOTE | 2019-07-07 15:57 | REP ---
Five views right ribs. Comparison: . Findings: There is no evidence of acute fracture. Multiple chronic right-sided rib fractures are present. There is no evidence of lung contusion or additional abnormalities within the thorax. Impression: No acute fracture detected. Multiple right-sided chronic rib fractures. Electronically Signed by Burton Klein DO 07/07/2019 03:48 P
[2019-07-07 16:21] VITALS: BP 177/76
== END 2019-07-07 16:28 | disposition home or self-care (01) ==
LOC: M ED 13:25
DX: S22.41XA Multiple fractures of ribs, right side, initial encounter for closed fracture (principal); W19.XXXA Unspecified fall, initial encounter; Y92.9 Unspecified place or not applicable; Y93.9 Activity, unspecified; Y99.9 Unspecified external cause status; I10 Essential (primary) hypertension; E78.5 Hyperlipidemia, unspecified; Z98.84 Bariatric surgery status; Z95.820 Peripheral vascular angioplasty status with implants and grafts; Z95.1 Presence of aortocoronary bypass graft; Z87.891 Personal history of nicotine dependence; Z79.82 Long term (current) use of aspirin; Z79.899 Other long term (current) drug therapy; Z91.041 Radiographic dye allergy status; Z88.0 Allergy status to penicillin; Z88.1 Allergy status to other antibiotic agents

== ENCOUNTER 2019-08-11 13:28 | Outpatient (RCR) | payer MEDICARE, MEDICAID ==
[~2019-08-11 13:28] MED LIST changes: -SIMV40TA2 PO; +SIMV40TA20 PO
== END 2019-08-19 ==
LOC: M PT 13:28
PROVIDERS: ATTEND Physician Assistant
DX: M41.26 Other idiopathic scoliosis, lumbar region (principal); M43.16 Spondylolisthesis, lumbar region; M47.817 Spondylosis without myelopathy or radiculopathy, lumbosacral region; M51.37 Other intervertebral disc degeneration, lumbosacral region

== ENCOUNTER → 2019-08-11 | Outpatient (CLI) | payer MEDICARE, MEDICAID ==
[~2019-08-11] MED LIST changes: +ARIP1TAB10 PO; +ESOM40CA35 PO; +HYDR-4517 PO; +MAGN400T2 PO; +TRAZ-252 PO
== END ==
LOC: M LAB 13:06
PROVIDERS: ATTEND Family Medicine
DX: E83.42 Hypomagnesemia (principal)

== ENCOUNTER 2019-08-29 07:18 | Outpatient (RCR) | payer MEDICARE, MEDICAID | END 2019-09-19 | LOC: M PT 07:18 | PROVIDERS: ATTEND Physician Assistant | DX: M41.26 Other idiopathic scoliosis, lumbar region (principal); M43.16 Spondylolisthesis, lumbar region; M47.817 Spondylosis without myelopathy or radiculopathy, lumbosacral region; M51.37 Other intervertebral disc degeneration, lumbosacral region ==

== ENCOUNTER → 2019-09-25 | Outpatient (CLI) | payer MEDICARE, MEDICAID ==
[2019-09-25 09:55] LABS: BLOOD UREA NITROGEN 12 MG/DL (7-18); CALCIUM LEVEL 8.7 MG/DL (8.8-10.2); CARBON DIOXIDE LEVEL 28 MEQ/L (21-32); CHLORIDE LEVEL 98 MEQ/L (98-107); CREATININE FOR GFR 0.91 MG/DL (0.55-1.30); GLOMERULAR FILTRATION RATE > 60.0 (>45); GLUCOSE, FASTING 129 MG/DL (70-100); POTASSIUM SERUM 4.2 MEQ/L (3.5-5.1); SODIUM LEVEL 135 MEQ/L (136-145)
== END ==
LOC: M LAB 08:53
PROVIDERS: ATTEND Family Medicine
DX: I10 Essential (primary) hypertension (principal)

== ENCOUNTER 2019-10-03 08:15 | Outpatient (RCR) | payer MEDICARE, MEDICAID ==
[~2019-10-03 08:15] MED LIST changes: -TRAZ-163 PO; +TRAZ-257 PO
== END 2019-10-03 12:33 | disposition home or self-care (01) ==
LOC: M PT 08:15
DX: M19.072 Primary osteoarthritis, left ankle and foot (principal)

== ENCOUNTER → 2019-10-11 | Outpatient (CLI) | payer MEDICARE, MEDICAID ==
[2019-10-11 15:01] LABS: HEMOGLOBIN 12.5 g/dl (12.0-15.5); MEAN CORPUSCULAR HEMOGLOBIN 27.7 pg (27.0-33.0); MEAN CORPUSCULAR HGB CONC 32.1 g/dl (32.0-36.5); MEAN CORPUSCULAR VOLUME 86.3 fl (80.0-96.0); PLATELET COUNT, AUTOMATED 255 10^3/uL (150-450); RED BLOOD COUNT 4.52 10^6/uL (4.00-5.40); WHITE BLOOD COUNT 7.7 10^3/uL (4.0-10.0)
[2019-10-11 15:28] LABS: ALBUMIN 3.6 GM/DL (3.2-5.2); ALT/SGPT 28 U/L (12-78); BILIRUBIN,TOTAL 0.2 MG/DL (0.2-1.0); BLOOD UREA NITROGEN 8 MG/DL (7-18); CALCIUM LEVEL 8.6 MG/DL (8.8-10.2); CARBON DIOXIDE LEVEL 29 MEQ/L (21-32); CHLORIDE LEVEL 93 MEQ/L (98-107); FERRITIN 23 NG/ML (8-252); GLOMERULAR FILTRATION RATE > 60.0 (>45); GLUCOSE, FASTING 118 MG/DL (70-100); POTASSIUM SERUM 4.4 MEQ/L (3.5-5.1); SODIUM LEVEL 131 MEQ/L (136-145); TOTAL PROTEIN 6.2 GM/DL (6.4-8.2)
[2019-10-11 15:29] LABS: FOLATE > 24.0 NG/ML (>5.4); TOTAL 25(OH) VITAMIN D 57.9 NG/ML (30.0-100.0); VITAMIN B12 LEVEL 1484 PG/ML (247-911)
== END ==
LOC: M LAB 13:21
PROVIDERS: ATTEND Surgery
DX: Z98.84 Bariatric surgery status (principal); R63.5 Abnormal weight gain; R53.83 Other fatigue; Z86.39 Personal history of other endocrine, nutritional and metabolic disease; Z86.2 Personal history of diseases of the blood and blood-forming organs and certain disorders involving the immune mechanism; E55.9 Vitamin D deficiency, unspecified

== ENCOUNTER → 2019-10-13 | Outpatient (CLI) | payer MEDICARE, MEDICAID ==
--- NOTE | 2019-10-16 08:00 | REP ---
MRI LUMBAR SPINE WITHOUT CONTRAST 10/13/2019. CLINICAL HISTORY: Low back pain, stenosis. Prior laminectomy at L4-5 TECHNIQUE: Sagittal T1, T2 STIR with axial T1 - and T2 sequences. COMPARISON: Bone windows, CT abdomen and pelvis 10/22/2018. FINDINGS: Normal lordosis maintained on the sagittal images. Disc space heights and water signal are normal and T12-L1, L1-2 and L3-4. Disc height maintained with loss of water signal at L2-3. Loss of disc height and water signal at L4-5 and L5-S1. There is no compression deformity. There is a few millimeters of anterolisthesis of L4 on 5 on the sagittal images. There are postoperative changes at that level. Partial laminectomy. Pars defects are suggested. The conus terminates at L1-2. At T12-L1, L1-2, L2-3 and L3-4 disc levels all show no central canal stenosis, disc bulge herniation. There is no foraminal encroachment at these levels. L4-5, partial laminectomy with sclerosis and diffusion of posterior elements with spondylolysis suggested. The central canal is deformed by the grade 1 anterolisthesis. There is facet and ligamentum hypertrophy, left greater than right. There is foraminal encroachment bilaterally with loss of perineural fat present but the L4 nerve roots do not show significant compression within the foramina. At L5-S1, there is extensive facet and ligamentous hypertrophy and a central disc protrusion. This causes a tight spinal stenosis. The foramina show some encroachment with loss of perineural fat bilaterally and mild nerve root compression on the right L5 root as well as the left. IMPRESSION: 1. 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 Central canal stenosis is mild at the lateral recesses. Cross-sectional area of the canal adequate. 2. Combined factors causing tight spinal stenosis of L5-S1 with central disc protrusion and prominent ligamentum and facet hypertrophy at this level. Some foraminal encroachment with mild compression L5 nerve roots on both sides. 3. The L3-4 levels and above do not show any spinal or foraminal stenosis. Electronically Signed by Job Fung MD 10/16/2019 09:33 A
== END ==
LOC: M RAD 17:21
PROVIDERS: ATTEND Physician Assistant
DX: M41.26 Other idiopathic scoliosis, lumbar region (principal); M48.061 Spinal stenosis, lumbar region without neurogenic claudication; M51.26 Other intervertebral disc displacement, lumbar region

== ENCOUNTER → 2019-10-17 | Outpatient (CLI) | payer MEDICARE, MEDICAID ==
--- NOTE | 2019-10-24 15:46 | DEXA ---
AP SPINE L1 - L4 1.218 0.2 1.8 LT FEMUR TOTAL 0.870 -1.1 0.1 LT NECK 0.772 -1.9 -0.8 RT FEMUR TOTAL 0.924 -0.7 0.5 RT NECK 0.806 -1.7 -0.2 TOTAL BODY TOTAL OTHER COMMENTS: Normal bone densitometry of the spine. There is low bone density of the hips. FOLLOW-UP: Recommendation for the next bone density exam: 2 years. [place]
== END ==
LOC: M WHC 09:31
PROVIDERS: ATTEND Family Medicine
DX: M81.0 Age-related osteoporosis without current pathological fracture (principal); M85.851 Other specified disorders of bone density and structure, right thigh; M85.852 Other specified disorders of bone density and structure, left thigh

== ENCOUNTER 2019-10-18 08:51 | Outpatient (RCR) | payer MEDICARE, MEDICAID | END 2019-10-20 | LOC: M PT 08:51 | PROVIDERS: ATTEND Physician Assistant Surgical | DX: M17.12 Unilateral primary osteoarthritis, left knee (principal); M22.2X2 Patellofemoral disorders, left knee ==

== ENCOUNTER → 2019-11-07 | Outpatient (CLI) | payer MEDICARE, MEDICAID ==
[~2019-11-07] MED LIST changes: +GABA-845 PO; +LATU40TA PO; +VITA200028 PO
[2019-11-07 09:24] LABS: BLOOD UREA NITROGEN 12 MG/DL (7-18); CALCIUM LEVEL 8.9 MG/DL (8.8-10.2); CARBON DIOXIDE LEVEL 31 MEQ/L (21-32); CHLORIDE LEVEL 95 MEQ/L (98-107); CHOLESTEROL LEVEL 135 MG/DL (<200); CHOLESTEROL RISK RATIO 3.214 (<5); CREATININE FOR GFR 0.93 MG/DL (0.55-1.30); FREE T4 1.03 NG/DL (0.76-1.46); GLOMERULAR FILTRATION RATE > 60.0 (>45); GLUCOSE, FASTING 172 MG/DL (70-100); HDL CHOLESTEROL 42 MG/DL (>40); LDL CHOLESTEROL 29 MG/DL (<100); MAGNESIUM LEVEL 1.7 MG/DL (1.8-2.4); NON-HDL-C 93 MG/DL; POTASSIUM SERUM 4.3 MEQ/L (3.5-5.1); SODIUM LEVEL 132 MEQ/L (136-145); TRIGLYCERIDES LEVEL 319 MG/DL (<150)
[2019-11-07 10:30] LABS: HEMOGLOBIN A1c 6.5 %
== END ==
LOC: M LAB 07:43
PROVIDERS: ATTEND Family Medicine
DX: Z01.812 Encounter for preprocedural laboratory examination (principal); R79.89 Other specified abnormal findings of blood chemistry; E78.2 Mixed hyperlipidemia; E11.9 Type 2 diabetes mellitus without complications; E83.42 Hypomagnesemia; I10 Essential (primary) hypertension; M47.817 Spondylosis without myelopathy or radiculopathy, lumbosacral region

== ENCOUNTER → 2019-11-07 | Outpatient (CLI) | payer MEDICARE, MEDICAID ==
[2019-11-07 08:57] LABS: PLATELET COUNT, AUTOMATED 256 10^3/uL (150-450)
[2019-11-07 09:25] LABS: INR 0.9; PROTHROMBIN TIME 11.8 SECONDS (11.8-14.0)
[2019-11-07 09:26] LABS: PARTIAL THROMBOPLASTIN TIME 25.5 SECONDS (25.0-38.4)
== END ==
LOC: M LAB 07:47
PROVIDERS: ATTEND Physician Assistant
DX: Z01.812 Encounter for preprocedural laboratory examination (principal); M47.817 Spondylosis without myelopathy or radiculopathy, lumbosacral region

== ENCOUNTER → 2020-01-12 | Outpatient (CLI) | payer MEDICARE, MEDICAID ==
[~2020-01-12] MED LIST changes: -ASPI81TA85 PO; +ASPI81TA86 PO; -CELE1CAP9; +CELE1CAP9 PO; +CYCL-707 PO; -CYCL10TA PO; +D31000TA2 PO; +FLUT44IN INH; -HYDR-2807 PO; +HYDR-3713 PO; +HYDR-4433 PO; +LISI10TA22 PO; -LISI10TA4 PO; +METF750T36 PO; +VENTAER INH; +VITA50005 PO
--- NOTE | 2020-01-12 17:32 | REP ---
BILATERAL MAMMOGRAM WITH 3D TOMOSYNTHESIS, DIAGNOSTIC MAMMOGRAM LEFT BREAST, AND LEFT BREAST ULTRASOUND: Patient reports a history of a small palpable lump upper outer quadrant left breast. She cannot palpate it today, nor can the referring provider. She does complain of pain in the upper outer quadrant of the left breast. There is no family history of breast cancer. [facility] lifetime risk of breast cancer 8.6%. COMPARISON: Mammogram 01/17/2019 and 09/08/2017. There is scattered fibroglandular density bilaterally, more so on the right than on the left. The findings are stable. There is no new mass or architectural distortion. No clustered microcalcifications are seen. There are coarse benign-type calcifications seen bilaterally. Real-time sonographic evaluation of left breast performed in the upper outer quadrant demonstrates no cystic or solid nodule. IMPRESSION: BIRADS 2: BI-RADS/ACR category 2 mammogram. Benign Findings. ACR 2 benign. No mass or clustered microcalcifications. There is no mammographic or sonographic evidence of a mass in the upper outer quadrant of the left breast where the patient reports a history of a small palpable lump and pain. Followup mammogram recommended in 1 year. This mammogram was interpreted with the aid of an FDA-approved computer-aided detection system. The patient states she/he had a clinical breast exam in 12/2019. The patient letter being requested is M2. [place] breast density score A.
== END ==
LOC: M WHC 10:44
PROVIDERS: ATTEND Nurse Practitioner Family
DX: N63.21 Unspecified lump in the left breast, upper outer quadrant (principal)
CPT/HCPCS: 76642; 77066; G0279; G0463

== ENCOUNTER → 2020-02-14 | Outpatient (CLI) | payer MEDICARE, MEDICAID ==
[~2020-02-14] MED LIST changes: +ASPI81TA85 PO; -ASPI81TA86 PO; +CELE1CAP9; -CELE1CAP9 PO; -D31000TA2 PO; -FLUT44IN INH; +HYDR-2807 PO; -HYDR-3713 PO; -HYDR-4433 PO; -LISI10TA22 PO; +LISI10TA4 PO; -METF750T36 PO; -VENTAER INH; -VITA50005 PO
[2020-02-14 14:49] LABS: BLOOD UREA NITROGEN 11 MG/DL (7-18); CALCIUM LEVEL 8.7 MG/DL (8.8-10.2); CARBON DIOXIDE LEVEL 28 MEQ/L (21-32); CHLORIDE LEVEL 98 MEQ/L (98-107); CREATININE FOR GFR 0.82 MG/DL (0.55-1.30); GLOMERULAR FILTRATION RATE > 60.0 (>45); GLUCOSE, FASTING 131 MG/DL (70-100); POTASSIUM SERUM 4.4 MEQ/L (3.5-5.1); SODIUM LEVEL 132 MEQ/L (136-145)
== END ==
LOC: M LAB 13:39
PROVIDERS: ATTEND Family Medicine
DX: E03.9 Hypothyroidism, unspecified (principal)

== ENCOUNTER → 2020-02-18 | Outpatient (CLI) | payer MEDICARE, MEDICAID | LOC: M LABSMTC 09:05 | PROVIDERS: ATTEND Orthopaedic Surgery Hand Surgery ==

== ENCOUNTER → 2020-03-12 | Outpatient (CLI) | payer MEDICARE, MEDICAID | LOC: M LABSMTC 10:35 | PROVIDERS: ATTEND Physical Medicine & Rehabilitation | DX: Z03.818 Encounter for observation for suspected exposure to other biological agents ruled out (principal); Z11.59 Encounter for screening for other viral diseases ==

== ENCOUNTER → 2020-03-28 | Outpatient (REF) | payer MEDICARE, MEDICAID ==
[~2020-03-28] MED LIST changes: -ASPI81TA85 PO; +ASPI81TA86 PO; -CELE1CAP9; +CELE1CAP9 PO; +D31000TA2 PO; +FLUT44IN INH; -HYDR-2807 PO; +HYDR-3713 PO; +HYDR-4433 PO; +METF750T36 PO; +VENTAER INH; +VITA50005 PO
[2020-03-28 17:05] LABS: HEMATOCRIT 36.9 % (36.0-47.0); HEMOGLOBIN 12.4 g/dl (12.0-15.5); MEAN CORPUSCULAR HEMOGLOBIN 28.3 pg (27.0-33.0); MEAN CORPUSCULAR HGB CONC 33.6 g/dl (32.0-36.5); MEAN CORPUSCULAR VOLUME 84.2 fl (80.0-96.0); PLATELET COUNT, AUTOMATED 230 10^3/uL (150-450); RED BLOOD COUNT 4.38 10^6/uL (4.00-5.40)
[2020-03-28 17:21] LABS: BLOOD UREA NITROGEN 12 MG/DL (7-18); CALCIUM LEVEL 9.1 MG/DL (8.8-10.2); CARBON DIOXIDE LEVEL 29 MEQ/L (21-32); CHLORIDE LEVEL 97 MEQ/L (98-107); CREATININE FOR GFR 0.86 MG/DL (0.55-1.30); GLOMERULAR FILTRATION RATE > 60.0 (>45); GLUCOSE, FASTING 137 MG/DL (70-100); POTASSIUM SERUM 4.1 MEQ/L (3.5-5.1); SODIUM LEVEL 134 MEQ/L (136-145)
[2020-03-28 17:52] LABS: HEMOGLOBIN A1c 7.6 %
== END ==
LOC: M SFHCPLAZ 14:25
PROVIDERS: ATTEND Family Medicine
DX: Z01.818 Encounter for other preprocedural examination (principal); E11.9 Type 2 diabetes mellitus without complications; I10 Essential (primary) hypertension
CPT/HCPCS: 36415; 80048; 83036; 85027; 93005; G0463

== ENCOUNTER → 2020-03-31 | Outpatient (CLI) | payer MEDICARE, MEDICAID | LOC: M LABSMTC 09:18 | PROVIDERS: ATTEND Anesthesiology | DX: Z01.818 Encounter for other preprocedural examination (principal); Z11.59 Encounter for screening for other viral diseases; Z20.828 Contact with and (suspected) exposure to other viral communicable diseases ==

== ENCOUNTER → 2020-05-06 | Outpatient (CLI) | payer MEDICARE, MEDICAID ==
--- NOTE | 2020-06-26 17:55 | REP ---
EXAM: CHEST X-RAY: TWO VIEWS. HISTORY: Cough. FINDINGS: Patient is status post ventral discectomy and fusion plating in the cervical spine. There are scattered upper abdominal clips. The lungs are well inflated and free of infiltrates. There is minimal linear fibrosis in both lung bases. An old healed rib fracture is noted on the right. Pleural angles are sharp. Heart is not enlarged. Pulmonary vascular is not increased. IMPRESSION: No infiltrate seen. Minimal bilateral basilar linear fibrosis. Otherwise, no acute disease. MTDD
== END ==
LOC: M RAD 08:50
PROVIDERS: ATTEND Family Medicine
DX: R05 Cough (principal); M43.22 Fusion of spine, cervical region; Z87.81 Personal history of (healed) traumatic fracture

== ENCOUNTER → 2020-05-12 | Outpatient (CLI) | payer MEDICARE, MEDICAID | LOC: M LABSMTC 08:11 | PROVIDERS: ATTEND Anesthesiology | DX: Z11.59 Encounter for screening for other viral diseases (principal) ==

== ENCOUNTER 2020-05-17 10:11 | Day surgery (SDC) | payer MEDICARE, MEDICAID ==
[~2020-05-17] VITALS: Ht 162.6 cm; Wt 97.1 kg
[~2020-05-17 10:11] MED LIST changes: -FLUT44IN INH; -HYDR-3713 PO; -METF750T36 PO; -VENTAER INH; -VITA50005 PO
[2020-05-17] MEDS ORDERED: NS 1,000 ML IV ONE (10:45)
[2020-05-17] MEDS ORDERED: GLUCAGON INJ 1MG VIAL As Ordered ONE (11:18)
[2020-05-17] MEDS ORDERED: LIDOCAINE 2% 100MG/5ML SDV (FOR ANES.) As Ordered ONE (11:35)
[2020-05-17] MEDS ORDERED: propofoL 200 MG/20 ML VIAL As Ordered ONE (11:35)
[2020-05-17 11:55] VITALS: BP 137/63
[2020-05-23] MEDS ORDERED: METF750T36 PO (14:32)
[2020-05-23] MEDS ORDERED: VITA50005 PO (14:32)
--- NOTE | 2020-05-29 11:36 | ROOR ---
Patient Name: Judy Lopez Procedure Date: 05/17/2020 8:29 AM Date of : 1955 Age: 64 Room: [facility] Gender: Female Note Status: Finalized Procedure: Colonoscopy Indications: High risk colon cancer surveillance: Personal history of colonic polyps Providers: Amol COLE MD Referring MD: Chrissy Mckeon MD Requesting Provider: Medicines: Monitored Anesthesia Care Complications: No immediate complications. Procedure: Pre-Anesthesia Assessment: - The heart rate, respiratory rate, oxygen saturations, blood pressure, adequacy of pulmonary ventilation, and response to care were monitored throughout the procedure. The Colonoscope was introduced through the anus and advanced to the cecum, identified by appendiceal orifice and ileocecal valve. The colonoscopy was performed without difficulty. The patient tolerated the procedure well. The quality of the bowel preparation was adequate. Findings: The perianal and digital rectal examinations were normal. A diminutive polyp was found in the cecum. The polyp was sessile. The polyp was removed with a cold snare. Resection and retrieval were complete. A diminutive polyp was found in the hepatic flexure. The polyp was sessile. The polyp was removed with a cold snare. Resection and retrieval were complete. Mild sigmoid diverticulosis and small internal hemorrhoids. The exam was otherwise without abnormality on direct and retroflexion views. Impression: - One diminutive polyp in the cecum, removed with a cold snare. Resected and retrieved. - One diminutive polyp at the hepatic flexure, removed with a cold snare. Resected and retrieved. - Mild sigmoid diverticulosis and small internal hemorrhoids. - The examination was otherwise normal on direct and retroflexion views. Recommendation: - Repeat colonoscopy in 5 years for surveillance. Amol COLE MD 05/17/2020 11:38:13 AM Number of Addenda: 0 Note Initiated On: 05/17/2020 8:29 AM Estimated Blood Loss: Estimated blood loss: none.
== END 2020-05-17 12:08 | disposition home or self-care (01) ==
LOC: M OPP 10:11
PROVIDERS: ATTEND Internal Medicine Gastroenterology
DX: Z12.11 Encounter for screening for malignant neoplasm of colon (principal); Z86.010 Personal history of colon polyps; Z80.0 Family history of malignant neoplasm of digestive organs; D12.0 Benign neoplasm of cecum; D12.4 Benign neoplasm of descending colon; K57.30 Diverticulosis of large intestine without perforation or abscess without bleeding; K64.8 Other hemorrhoids; K21.9 Gastro-esophageal reflux disease without esophagitis; E11.9 Type 2 diabetes mellitus without complications; J44.9 Chronic obstructive pulmonary disease, unspecified; Z79.82 Long term (current) use of aspirin; Z79.899 Other long term (current) drug therapy; Z88.0 Allergy status to penicillin; Z88.1 Allergy status to other antibiotic agents; Z91.041 Radiographic dye allergy status; Z98.84 Bariatric surgery status; Z87.891 Personal history of nicotine dependence
CPT/HCPCS: 45385; 88305; J1610

== ENCOUNTER → 2020-05-20 | Outpatient (CLI) | payer MEDICARE, MEDICAID ==
[~2020-05-20] MED LIST changes: +FLUT44IN INH; +HYDR-3713 PO; +METF750T36 PO; +VENTAER INH; +VITA50005 PO
--- NOTE | 2020-05-30 11:55 | PFTRPT ---
Height: 64.00 Inches Weight: 215.00 Lbs BSA: 2.02 Diagnosis: CHRONIC COUGH DATE OF STUDY: 05/20/2020 ORDERING PHYSICIAN: Dr. Mckeon Pre and post bronchodilator therapy have excellent technical quality. Forced vital capacity is normal. FEV1 proportionate with adequate exchange normal. Despite these normal parameters, a significant bronchodilator response is identified in both flow rates and volumes. Total lung capacity elevated. Residual volumes suggest air trapping. Diffusion capacity is normal. No hemoglobin available for correction. Airway resistance minimally elevated with concomitant decrease in airway conductance. IMPRESSION: Improvement in flow rates and volumes after post bronchodilator administer despite normal baseline values with underlying air trapping. Please correlate clinically. MTDD
== END ==
LOC: M CARPUL 12:32
PROVIDERS: ATTEND Family Medicine
DX: R05 Cough (principal)

== ENCOUNTER → 2020-06-01 | Outpatient (CLI) | payer MEDICARE, MEDICAID | LOC: M LABSMTC 08:06 | PROVIDERS: ATTEND Anesthesiology | DX: Z01.812 Encounter for preprocedural laboratory examination (principal); Z20.828 Contact with and (suspected) exposure to other viral communicable diseases | CPT/HCPCS: C9803; U0003 ==

== ENCOUNTER → 2020-06-28 | Outpatient (CLI) | payer MEDICARE, MEDICAID ==
[2020-06-28 10:23] LABS: BLOOD UREA NITROGEN 12 MG/DL (7-18); CALCIUM LEVEL 8.4 MG/DL (8.8-10.2); CARBON DIOXIDE LEVEL 28 MEQ/L (21-32); CHLORIDE LEVEL 93 MEQ/L (98-107); CREATININE FOR GFR 0.92 MG/DL (0.55-1.30); GLOMERULAR FILTRATION RATE > 60.0 (>45); GLUCOSE, FASTING 210 MG/DL (70-100); SODIUM LEVEL 130 MEQ/L (136-145)
[2020-06-28 10:46] LABS: HEMOGLOBIN A1c 6.4 %
== END ==
LOC: M LAB 08:09
PROVIDERS: ATTEND Family Medicine
DX: E11.9 Type 2 diabetes mellitus without complications (principal); I10 Essential (primary) hypertension

== ENCOUNTER → 2020-06-29 | Outpatient (CLI) | payer MEDICARE, MEDICAID | LOC: M LABSMTC 07:58 | PROVIDERS: ATTEND Anesthesiology | DX: Z01.812 Encounter for preprocedural laboratory examination (principal); Z20.828 Contact with and (suspected) exposure to other viral communicable diseases | CPT/HCPCS: C9803; U0003 ==

== ENCOUNTER → 2020-07-03 | Outpatient (REF) | payer MEDICARE, MEDICAID ==
[2020-07-03 16:13] LABS: OSMOLALITY URINE 214 MOSM/KG (500-800)
[2020-07-03 16:45] LABS: SODIUM,RANDOM URINE 44 MEQ/L
== END ==
LOC: M PLALAB 13:46
PROVIDERS: ATTEND Family Medicine
DX: E87.1 Hypo-osmolality and hyponatremia (principal)

== ENCOUNTER 2020-07-04 11:05 | Inpatient (IN) | payer MEDICARE, MEDICAID ==
[2020-07-04] VITALS (7 sets, daily range): BP systolic 118–159; BP diastolic 60–74
[~2020-07-04] VITALS: Ht 162.6 cm; Wt 97.8 kg
[~2020-07-04 11:05] MED LIST changes: +CLINDAMYCIN 900 MG in IV 1 EA IV ONE; -FLUT44IN INH; -HYDR-3713 PO; +LR 1,000 ML IV ONE; -VENTAER INH
[2020-07-04] MEDS ORDERED: VENTAER INH (11:37)
[2020-07-04] MEDS ORDERED: FLUT44IN INH (11:37)
[2020-07-04] MEDS ORDERED: fentaNYL 100 MCG/2 ML INJECTION (J3010) As Ordered ONE ×2 (11:48→12:19)
[2020-07-04] MEDS ORDERED: propofoL 200 MG/20 ML VIAL As Ordered ONE (11:48)
[2020-07-04] MEDS ORDERED: LIDOCAINE 2% 100MG/5ML SDV (FOR ANES.) As Ordered ONE (11:48)
[2020-07-04] MEDS ORDERED: MIDAZOLAM INJ 2MG/2ML VIAL (J2250 PER 1MG) As Ordered ONE ×2 (11:48→12:19)
[2020-07-04] MEDS ORDERED: dexameTHASONE 4 MG/ML 1ML VIAL (J1100 PER 1MG) As Ordered ONE (11:48)
[2020-07-04] MEDS ORDERED: ONDANSETRON 4MG/2ML VIAL As Ordered ONE (11:48)
[2020-07-04] MEDS: MIDAZOLAM INJ 2MG/2ML VIAL (J2250 PER 1MG) IV SCH ×2 (12:33→12:34)
[2020-07-04] MEDS: fentaNYL 100 MCG/2 ML INJECTION (J3010) IV SCH ×2 (12:33→12:35)
--- NOTE | 2020-07-04 14:26 | HPE ---
DATE OF ADMISSION: 07/04/2020 PHYSICIAN: Dr. Rica Coon CHIEF COMPLAINT: Left foot pain. HISTORY OF PRESENT ILLNESS: Judy presented with a left foot navicular fracture approximately a year ago. She did to on to partially heal but has failed to fully improve with conservative treatment. She has pain with weightbearing and her activities of daily living. CT was notable for partial healing of a nondisplaced navicular fracture on the left. She has consented for left navicular open reduction, internal fixation (ORIF). MEDICAL HISTORY: 1. Hypertension. 2. Hyperlipidemia. 3. Type 2 diabetes. 4. Spinal stenosis. 5. Spinal osteoarthritis. 6. Obstructive sleep apnea. 7. Chronic opioid use. 8. History of anemia since gastric bypass. 9. Vitamin D deficiency. 10. Bilateral sciatica. 11. Osteopenia. CURRENT MEDICATIONS: - trazodone 5 mg at bedtime - aspirin 81 mg a day - calcium citrate 315/200 mg/units by mouth twice a day - sertraline 100 mg a day - Latuda 80 mg a day - multivitamin once a day - cyclobenzaprine 10 mg by mouth three times a day - gabapentin 800 mg by mouth twice a day - celecoxib 100 mg by mouth daily - Voltaren 1% gel to the left foot topically as needed - atorvastatin 20 mg - omeprazole 40 mg - amlodipine 10 mg - vitamin D 50,000 units a week - metformin 750 twice a day - losartan 50 mg two tablets once a day - magnesium oxide 400 mg twice a day - hydrocodone/acetaminophen 10/325 ALLERGIES: PENICILLIN, KEFLEX, and CONTRAST DYE PAST SURGICAL HISTORY: 1. Cholecystectomy. 2. Tubal in 1981. 3. Right oophorectomy in 2002. 4. Appendectomy in 2017. 5. Gastric bypass in 2017. 6. Hernia repair January 2019. 7. Left knee meniscectomy and chondroplasty in March 2020. REVIEW OF SYSTEMS: Patient denies chest pain, heart palpitations, cough, wheezing, difficulty, and shortness of breath. She denies abdominal pain, nausea, vomiting, diarrhea, or constipation. She denies recent upper respiratory infection or urinary tract infection symptoms. She does complain of persistent pain in the left foot. PHYSICAL EXAMINATION: GENERAL: She is alert and oriented times three. NECK: Supple. There were no carotid bruits appreciated upon auscultation. LUNGS: Clear to auscultation. HEART: Regular rate and rhythm . ABDOMEN: Bowel sounds were present. Inspection of the foot revealed intact skin. She is tender over the navicular on the left. Otherwise shows good range of motion in the ankle and foot and is neurovascularly intact. IMAGES: As above. IMPRESSION: Partial union of a left nondisplaced navicular fracture. PLAN: Consented for a left foot ORIF for nondisplaced navicular fracture with partial healing. AIYANAD
[2020-07-04] MEDS ORDERED: ROPIvacaine 0.5% 30ML INJECTION (J2795 PER 1MG) ONE (14:44)
[2020-07-04] MEDS ORDERED: dexameTHASONE 10MG/1ML VIAL PRES.FREE (J1100 PER 1MG) ONE (14:44)
[2020-07-04] MEDS ORDERED: LIDOCAINE 1% MDV 20ML VIAL ONE (14:44)
--- NOTE | 2020-07-04 16:18 | REP ---
INDICATION: LEFT FOOT NAVICULAR FRACTURE NONUNION COMPARISON: None. TECHNIQUE: Intraoperative fluoroscopic imaging using portable C-arm technique. FINDINGS: Multiple images demonstrate the patient to be status post fixation for navicular fracture. Total fluoroscopic time 116 seconds. IMPRESSION: Status post fixation for navicular fracture. <Electronically signed by Juwan Sanchez > 07/04/20 [id number]
[2020-07-04] MEDS ORDERED: traZODone 50 MG TAB PO PRN (17:00)
[2020-07-04] MEDS ORDERED: DEXTROSE 50% 50 ML SYRINGE IV PRN (17:00)
[2020-07-04] MEDS ORDERED: GLUCOSE 4GM CHEW TABLET PO PRN (17:00)
[2020-07-04] MEDS ORDERED: GLUCAGON INJ 1MG VIAL SC PRN (17:00)
--- NOTE | 2020-07-04 17:07 | HPEPDOC ---
[facility] Medical History & Physical Date of Admission Jul 04, 2020 Date of Service: Jul 04, 2020 Attending Physician: KELLIE LÓPEZ MD History and Physical CHIEF COMPLAINT: Observation s/p left foot ORIF for nondisplaced navicular fracture with partial healing. HISTORY OF PRESENT ILLNESS: 64 yo W with a history of NIDDM, HTN, HLD, osteopenia, CBP with spinal stenosis and osteoarthritic disease, sciatica, on chronic opioid therapies and obesity who had a left foot navicular fracture ~1 year ago that was managed conservatively without complete healing and persistent pain prompting her presentation today for an elective left navicular open reduction, internal fixation (ORIF) with Dr. Coon. PAST MEDICAL HISTORY: 1. Hypertension. 2. Hyperlipidemia. 3. Type 2 diabetes. 4. Spinal stenosis. 5. Spinal osteoarthritis. 6. Obstructive sleep apnea. 7. Chronic opioid use. 8. History of anemia since gastric bypass. 9. Vitamin D deficiency. 10. Bilateral sciatica. 11. Osteopenia. ALLERGIES: PENICILLIN, KEFLEX, and CONTRAST DYE PAST SURGICAL HISTORY: 1. Cholecystectomy. 2. Tubal in 1981. 3. Right oophorectomy in 2002. 4. Appendectomy in 2017. 5. Gastric bypass in 2017. 6. Hernia repair January 2019. 7. Left knee meniscectomy and chondroplasty in March 2020. REVIEW OF SYSTEMS: On evaluation, she denies recent experience of fevers, chills, shortness of breath, palpitations, cough, nasal congestion, abdominal pain, nausea, emesis, diarrhea or constipation. A 10 point ROS was otherwise negative except for the L foot pain as described above. PHYSICAL EXAMINATION: GENERAL: NAD, pleasant, cooperative Head: NCAT Eyes: Anicteric, PERRLA, EOMI ENT: MMM, no oral lesions NECK: Supple. There were no carotid bruits appreciated upon auscultation. LUNGS: Clear to auscultation bilaterally, breathing comfortably on room air HEART: Regular rate and rhythm, no noted mrg ABDOMEN: Normoactive bowel sounds in all 4 quadrants, obese, soft, NTND Ext: WWP, L foot with postop dressing, c/d/i NEURO: CN3-12 intact, moving all 4 extremities Assessment: 64 yo W with a history of NIDDM, HTN, HLD, osteopenia, CBP with spinal stenosis and osteoarthritic disease, sciatica, on chronic opioid therapy and obesity who had a left foot navicular fracture ~1 year ago that was managed conservatively without complete healing and persistent pain prompting her presentation today for an elective left navicular open reduction, internal fixation. L foot pain s/p ORIF: -Pain management, DVT ppx and PT/OT per surgical team Chronic back wilfredo: -for now will follow pain regimen per surgical team while immediately post op and hold off automatically starting home pain regimen until surgery team recomm ends it DM: -hold home metformin and place on SSI -FSBG AC/HS -hypoglycemia protocol HTN: -hold home ARB, to restart tomorrow AM HLD: -continue statin therapy GERD: -substitute esomeprazole to protonix 40 PO daily while inpatient COPD: -continue home mdi Depression: -continue home meds ROBERT: -home CPAP DVT ppx: per ortho primary team Vital Signs Vital Signs Date Time Temp Pulse Resp B/P (MAP) Pulse Ox O2 Delivery O2 Flow Rate FiO2 07/04/20 16:06 96.8 88 18 138/63 (88) 98 Non-Rebreather 10 Laboratory Data Labs 24H Laboratory Tests 2 07/04/20 12:00: Bedside Glucose (Misc Panel) 137H Home Medications Scheduled Aspirin (Aspir 81) 81 Mg Tab, 81 MG PO DAILY Atorvastatin Calcium (Atorvastatin Calcium) 20 Mg Tablet, DAILY Calcium Citrate (Calcium Citrate) 250 Mg Tablet, 2 TAB PO BID Docusate Sodium (Stool Softener) 100 Mg Capsule, 2 CAP PO DAILY Ergocalciferol (Vitamin D2) (Vitamin D2) 50,000 Units Cap, 1 CAP PO QWEEK Esomeprazole Magnesium (Esomeprazole Magnesium Dr) 40 Mg Capsule.dr, PO DAILY Fluticasone Propionate (Flovent Hfa) 44 Mcg/Act Aer.w.adap, 2 PUFF INH BID Gabapentin (Neurontin) 100 Mg Capsule, 800 MG PO BID Gabapentin (Gabapentin) 400 Mg Capsule, 1,100 MG PO QHS Losartan Potassium (Losartan Potassium) 25 Mg Tab, 100 MG PO DAILY Lurasidone Hydrochloride (Latuda) 40 Mg Tablet, 80 MG PO DAILY Magnesium Oxide (Magnesium Oxide) 400 Mg Tablet, PO BID Metformin HCl (Metformin HCl ER) 750 Mg Tab.er.24h, 750 MG PO BID Multivitamin (Multivitamins) 1 Cap Cap, 1 CAP PO DAILY Sertraline HCl (Sertraline HCl) 100 Mg Tab, 150 MG PO DAILY Scheduled PRN Albuterol Sulfate (Ventolin Hfa) 18 Gm Hfa.aer.ad, 2 PUFF INH Q4-6HP PRN for wheezing Celecoxib (Celecoxib) 200 Mg Capsule, 100 MG PO QAM PRN for PAIN additional 100mg as needed Cyclobenzaprine HCl (Cyclobenzaprine HCl) 10 Mg Tablet, 10 MG PO PRN PRN for MUSCLE SPASMS Hydrocodone/Acetaminophen (Hydrocodone-Acetamin 10-325 mg) 1 Each Tablet, PO PRN PRN for pain Trazodone HCl (Trazodone HCl) 50 Mg Tablet, PO QHS PRN for SLEEP Allergies Coded Allergies: Contrast Media (Verified Allergy, Mild, rash, 06/27/20) Penicillins (Verified Allergy, Mild, rash, 06/27/20) cephalexin (Verified Allergy, Mild, rash, 06/27/20) A-FIB/CHADSVASC A-FIB History Current/History of A-Fib/PAF?: No Current PO Anticoag Therapy: No Age/Risk Factor Scoring CHADSVASC: CHADSVASC Response (Comments) Value Age Risk Factor Age 65-74 years old 1 Gender Risk Factor Female 1 Hx of CHF No 0 Hx of HTN Yes 1 Hx of Stroke/TIA/or VTE No 0 Hx of Diabetes Yes 1 Hx of Vascular Disease No 0 Total 4 Treatment Treatment ordered: NONE Reason Anticoagulant not given: Not indicated/[id number] KELLIE LÓPEZ MD Jul 04, 2020 16:40
[2020-07-04] MEDS ORDERED: oxyCODONE 5MG TAB PO PRN (17:15)
[2020-07-04] MEDS ORDERED: LR 1,000 ML IV SCH ×2 (17:15→17:30)
[2020-07-04] MEDS ORDERED: fentaNYL 100 MCG/2 ML INJECTION (J3010) IV PRN (17:15)
[2020-07-04] MEDS ORDERED: ONDANSETRON 4MG/2ML VIAL IV PRN (17:15)
[2020-07-04] MEDS ORDERED: traMADol 50 MG TAB PO PRN (17:30)
[2020-07-04] MEDS: HumaLOG INSULIN (NovoLOG) PER UNIT SC SCH (18:33)
[2020-07-04] MEDS ORDERED: NORCO, ANEXSIA 5/325MG TABLET (HYDROcodone/ACETAMINOPHEN) PO PRN (18:45)
[2020-07-04] MEDS ORDERED: HumaLOG INSULIN (NovoLOG) PER UNIT SC SCH (21:00)
[2020-07-04] MEDS: MAGNESIUM OXIDE 400 MG TAB (MAG-OX) PO SCH (21:47)
[2020-07-04] MEDS: CLINDAMYCIN 900 MG in IV 1 EA IV SCH (21:47)
[2020-07-04] MEDS: ACETAMINOPHEN 500 MG TAB PO SCH (21:48)
[2020-07-04] MEDS: NORCO, ANEXSIA 5/325MG TABLET (HYDROcodone/ACETAMINOPHEN) PO PRN (23:26)
[2020-07-05 02:00] VITALS: BP 140/66
[2020-07-05] MEDS: CLINDAMYCIN 900 MG in IV 1 EA IV SCH (03:22)
[2020-07-05 03:23] VITALS: O2SAT 95
[2020-07-05] MEDS: NORCO, ANEXSIA 5/325MG TABLET (HYDROcodone/ACETAMINOPHEN) PO PRN ×2 (04:34→08:42)
[2020-07-05] MEDS: ACETAMINOPHEN 500 MG TAB PO SCH (05:58)
[2020-07-05 06:00] VITALS: BP 133/68
[2020-07-05 06:02] LABS: HEMATOCRIT 36.5 % (36.0-47.0); HEMOGLOBIN 11.9 g/dl (12.0-15.5); MEAN CORPUSCULAR HEMOGLOBIN 27.2 pg (27.0-33.0); MEAN CORPUSCULAR HGB CONC 32.6 g/dl (32.0-36.5); MEAN CORPUSCULAR VOLUME 83.3 fl (80.0-96.0); PLATELET COUNT, AUTOMATED 224 10^3/uL (150-450); RED BLOOD COUNT 4.38 10^6/uL (4.00-5.40); WHITE BLOOD COUNT 7.2 10^3/uL (4.0-10.0)
[2020-07-05 06:09] LABS: BLOOD UREA NITROGEN 13 MG/DL (7-18); CALCIUM LEVEL 8.2 MG/DL (8.8-10.2); CARBON DIOXIDE LEVEL 26 MEQ/L (21-32); CHLORIDE LEVEL 97 MEQ/L (98-107); CREATININE FOR GFR 0.83 MG/DL (0.55-1.30); GLOMERULAR FILTRATION RATE > 60.0 (>45); GLUCOSE, FASTING 149 MG/DL (70-100); POTASSIUM SERUM 4.1 MEQ/L (3.5-5.1); SODIUM LEVEL 131 MEQ/L (136-145)
[2020-07-05] MEDS ORDERED: HYDR-3713 PO (06:21)
[2020-07-05] MEDS ORDERED: PREVNAR 13 VACCINE SYRINGE IM ONE (06:30)
[2020-07-05] MEDS: HumaLOG INSULIN (NovoLOG) PER UNIT SC SCH (07:58)
[2020-07-05] MEDS: MAGNESIUM OXIDE 400 MG TAB (MAG-OX) PO SCH (07:59)
[2020-07-05 08:00] VITALS: BP 133/68
[2020-07-05] MEDS ORDERED: LURASIDONE HCL 40 MG TAB (LATUDA) PO SCH (09:00)
[2020-07-05] MEDS ORDERED: PANTOPRAZOLE 40MG TAB (PROTONIX) PO SCH (09:00)
[2020-07-05] MEDS ORDERED: ASPIRIN 81 MG CHEW TABLET PO SCH (09:00)
[2020-07-05] MEDS ORDERED: MULTIVITAMINS/MINERALS THERAP 1 TAB PO SCH (09:00)
[2020-07-05] MEDS ORDERED: SERTRALINE HCL 50 MG TAB PO SCH (09:00)
[2020-07-05] MEDS ORDERED: LOSARTAN 50MG TABLET PO SCH (09:00)
[2020-07-05] MEDS ORDERED: DOCUSATE SODIUM 100 MG CAP PO SCH (09:00)
[2020-07-05] MEDS ORDERED: ATORVASTATIN 20 MG TAB PO SCH (09:00)
--- NOTE | 2020-07-05 10:40 | RO ---
DATE OF OPERATION: 07/04/2020 PREOPERATIVE DIAGNOSIS: Left navicular stress fracture. POSTOPERATIVE DIAGNOSIS: Left navicular stress fracture. PROCEDURE: Left navicular open reduction and internal fixation; use of mini C- arm. SURGEON: Rica Coon MD CONTINUITY EDITOR: CAREN Hassan EBL: 25 mL. ANESTHESIA: LMA. COMPLICATIONS: None. CONDITION: Stable to recovery. IMPLANTS: Arthrex 3.5 mm cannulated mini compression screw which is headless. INDICATIONS: Judy Humphreys is a 64-year-old female who has had longstanding pain due to a stress fracture of the navicular. There is a small amount of healing evident on CT but fracture is still visible. She wishes to proceed with ORIF. Risks and benefits of surgery were discussed with her which include but are not limited to infection, damage to nerves and blood vessels, continued pain and stiffness, need for additional procedures. Informed consent was obtained. DESCRIPTION OF PROCEDURE: The patient was met in the holding area where her left lower extremity was marked as the correct operative side. She was taken to the operating room where the left lower extremity was prepped and draped in normal sterile fashion. She received antibiotics within 60 minutes prior to incision. An official time out was held where correct patient, operative side and operative procedure were verified. Using the mini C-arm the lateral aspect of the navicular was identified. Incision was made over the dorsolateral foot. Careful dissection to avoid the superficial peroneal nerve branches was performed. The lateral aspect of the navicular was identified and confirmed on mini C-arm. There was a small area of the fracture line visible and this area was debrided. There was some partial healing here but again a small area of the fracture was apparent. I did do drilling of this apparent region of the fracture site with 0.045 K-wire. Following this a 3.5 mm cannulated headless screw was placed in the fracture fragment laterally to medially into the body of the navicular. There was good compression. There was not enough of a gap to be able to warrant calcaneal bone graft so a small amount of fresh frozen Allograft mixed with DBX putty was placed in the region of the fracture site. X-rays performed in AP, oblique and lateral views using the mini C-arm showed satisfactory reduction and hardware placement. Irrigation was performed. Wound was closed using 3-0 Vicryl and 3-0 nylon. The patient was placed into a well padded splint. She was extubated and brought to the recovery room in stable condition. PLAN: The patient will be nonweightbearing on left lower extremity for six weeks. She will return in two weeks for suture removal and placement into a cast. [place]
--- NOTE | 2020-07-05 11:36 | IPNPDOC ---
Text Note Date of Service The patient was seen on 07/05/20. NOTE SUBJECTIVE: -No acute issues overnight PHYSICAL EXAMINATION: GENERAL: NAD, pleasant, cooperative Head: NCAT Eyes: Anicteric, PERRLA, EOMI ENT: MMM, no oral lesions NECK: Supple. There were no carotid bruits appreciated upon auscultation. LUNGS: Clear to auscultation bilaterally, breathing comfortably on room air HEART: Regular rate and rhythm, no noted mrg ABDOMEN: Normoactive bowel sounds in all 4 quadrants, obese, soft, NTND Ext: WWP, L foot dressed with postop bandaging/cast, still some numbness from block NEURO: CN3-12 intact, moving all 4 extremities Labs: WBC 7.2 Hgb 11.9 platelets 224 Na 131 K 4.1 Cr 0.83 Assessment: 64 yo W with a history of NIDDM, HTN, HLD, osteopenia, CBP with spinal stenosis and osteoarthritic disease, sciatica, on chronic opioid therapy and obesity who had a left foot navicular fracture ~1 year ago that was managed conservatively without complete healing and persistent pain prompting s/p elective left navicular open reduction, internal fixation. L foot pain s/p ORIF: -Pain management, DVT ppx and PT/OT per surgical team Chronic back wilfredo: -pain regimen per surgical team DM: -continue holding home metformin -SSI -FSBG AC/HS -hypoglycemia protocol HTN: -continue home ARB HLD: -continue statin therapy GERD: -continue protonix 40 PO daily while inpatient COPD: -continue home mdi Depression: -continue home meds ROBERT: -home CPAP DVT ppx: per ortho primary team. Medically stable, dispo per primary ortho team. VS,Fishbone, I+O VS, Fishbone, I+O Laboratory Tests 07/05/20 05:38 Vital Signs Date Time Temp Pulse Resp B/P (MAP) Pulse Ox O2 Delivery O2 Flow Rate FiO2 07/05/20 06:00 97.6 76 16 133/68 (89) 95 NIPPV (BIPAP/CPAP) 07/04/20 22:00 2.0 I&O- Last 24 Hours up to 6 AM 07/05/20 06:00 Intake Total 3095 ml Output Total 2900 ml Balance 195 ml KELLIE LÓPEZ MD Jul 05, 2020 07:12
[2020-07-07] MEDS ORDERED: VITAMIN D 50,000 UNITS CAPSULE (ERGOCALCIFEROL 1.25MG) PO SCH (09:00)
--- NOTE | 2020-07-10 07:24 | DS ---
DATE OF ADMISSION: 07/04/2020 DATE OF DISCHARGE: 07/05/2020 ATTENDING PHYSICIAN: Dr. Rica Coon ADMITTING DIAGNOSIS: Nondisplaced left navicular fracture of the ankle. OTHER DIAGNOSES: 1. Hypertension. 2. Hyperlipidemia. 3. Diabetes. 4. Obstructive sleep apnea. 5. Vitamin D deficiency. 6. Sciatica. 7. Spinal stenosis. 8. Chronic opioid use. 9. Osteopenia. DISCHARGE DIAGNOSIS: Left ankle navicular fracture, status post open reduction, internal fixation. HISTORY: Patient is a 64-year-old female who had a nondisplaced left ankle navicular fracture. Injury was sustained greater than 1 year ago. She had advanced imaging showing only partial healing. She was continuing to have symptoms despite multiple conservative treatments. She was having symptoms with weightbearing activities and activities of daily living. She elected for an open reduction, internal fixation of this fracture with Dr. Rica Coon. OPERATION PERFORMED: Left navicular open reduction, internal fixation. HOSPITAL COURSE: The patient underwent a left ankle navicular open reduction, internal fixation with laryngeal mask airway (LMA) anesthesia. Surgery was uneventful, and her hospital course was without complication. She was discharged on oral pain medications and will resume her preoperative medications and diet. She will remain nonweightbearing in her cast for 6 weeks. she will followup in our office in 2 weeks for suture removal and cast exchange. She will give us a call sooner if there is any increase in pain, redness, drainage, numbness or tingling in the extremity, fever greater than 101 degrees, or any other concerns. Please see medical records for additional details. leatha Jaime [facility] HOSPITALPardeep
== END 2020-07-05 11:25 | disposition home or self-care (01) | DRG 505 ==
LOC: M OR 11:05 → M MS5PR 16:40
PROVIDERS: ADMIT Orthopaedic Surgery; ATTEND Orthopaedic Surgery
PROC: 0QSL04Z Reposition Right Tarsal with Internal Fixation Device, Open Approach (ICD-10-PCS; principal; 2020-07-04 12:45)
DX: S92.254K Nondisplaced fracture of navicular [scaphoid] of right foot, subsequent encounter for fracture with nonunion (principal); I10 Essential (primary) hypertension; E78.5 Hyperlipidemia, unspecified; E11.9 Type 2 diabetes mellitus without complications; G47.33 Obstructive sleep apnea (adult) (pediatric); E55.9 Vitamin D deficiency, unspecified; M54.31 Sciatica, right side; M54.32 Sciatica, left side; M85.80 Other specified disorders of bone density and structure, unspecified site; Z79.82 Long term (current) use of aspirin; Z79.899 Other long term (current) drug therapy; Z79.84 Long term (current) use of oral hypoglycemic drugs; Z79.891 Long term (current) use of opiate analgesic; Z90.49 Acquired absence of other specified parts of digestive tract; Z87.891 Personal history of nicotine dependence; Z88.0 Allergy status to penicillin; Z88.1 Allergy status to other antibiotic agents; X50.0XXA Overexertion from strenuous movement or load, initial encounter; Y92.9 Unspecified place or not applicable; Y99.9 Unspecified external cause status

== ENCOUNTER → 2020-07-09 | Outpatient (CLI) | payer MEDICARE, MEDICAID ==
[~2020-07-09] MED LIST changes: -CLINDAMYCIN 900 MG in IV 1 EA IV ONE; +FLUT44IN INH; +HYDR-3713 PO; -LR 1,000 ML IV ONE; +VENTAER INH
== END ==
LOC: M LAB 06:05
PROVIDERS: ATTEND Family Medicine
DX: E87.1 Hypo-osmolality and hyponatremia (principal)

== ENCOUNTER → 2020-09-24 | Outpatient (CLI) | payer MEDICARE, MEDICAID | LOC: M LABSMTC 11:36 | PROVIDERS: ATTEND Family Medicine | DX: Z20.822 Contact with and (suspected) exposure to COVID-19 (principal) ==

== ENCOUNTER → 2020-10-22 | Outpatient (CLI) | payer SELFPAY | LOC: M LABSMTC 09:44 | PROVIDERS: ATTEND Pediatrics | DX: Z20.822 Contact with and (suspected) exposure to COVID-19 (principal) ==

== ENCOUNTER → 2020-10-23 | Outpatient (CLI) | payer MEDICARE, MEDICAID ==
[~2020-10-23] MED LIST changes: +LISI10TA22 PO; -LISI10TA4 PO
--- NOTE | 2020-10-23 15:31 | REP ---
INDICATION: CIGARETTE DEPENDENCE IN REMISSION COMPARISON: None. TECHNIQUE: Axial noncontrast images from the thoracic inlet to the upper abdomen using low-dose lung screening technique (LDCT). FINDINGS: Lung dumont are well aerated and relatively symmetric/clear. Minimal age-related basilar scarring noted. 3 mm noncalcified nodule in the lateral subpleural left lower lobe (series 301; image 67). No further consolidation, significant nodule, or mass lesion. Tracheobronchial tree is patent. No effusion. No pneumothorax. Atherosclerotic changes to the thoracic aorta and coronary arteries noted. IMPRESSION: Lung rads category 2. 3 mm likely benign subpleural nodule in the left lower lobe. Management recommendations include annual low-dose CT evaluation. <Electronically signed by Juwan Sanchez > 10/23/20 [id number]
== END ==
LOC: M RAD 13:58
PROVIDERS: ATTEND Family Medicine
DX: Z12.2 Encounter for screening for malignant neoplasm of respiratory organs (principal); F17.211 Nicotine dependence, cigarettes, in remission

== ENCOUNTER → 2020-11-29 | Outpatient (REF) | payer MEDICARE, MEDICAID ==
[2020-11-29 19:29] LABS: APPEARANCE, URINE CLOUDY (CLEAR); BACTERIA, URINE AUTO NEGATIVE (NEGATIVE); BILIRUBIN, URINE AUTO NEGATIVE (NEGATIVE); BLOOD, URINE BLOOD NEGATIVE (NEGATIVE); COLOR, URINE YELLOW (YELLOW); GLUCOSE, URINE (UA) AUTO NEGATIVE (NEGATIVE); KETONE, URINE AUTO NEGATIVE (NEGATIVE); LEUKOCYTE ESTERASE, URINE AUTO 3+ (NEGATIVE); MUCUS, URINE SMALL (NEGATIVE); NITRITE, URINE AUTO NEGATIVE (NEGATIVE); PROTEIN, URINE AUTO NEGATIVE (NEGATIVE); RBC, URINE AUTO 3 /HPF (0-3); SPECIFIC GRAVITY URINE AUTO 1.012 (1.002-1.035); SQUAMOUS EPITHELIAL CELL UR AU 7 /HPF (0-6); TRANSITIONAL EPITHELIAL AUTO 2 /HPF; UROBILINOGEN, URINE AUTO 0.2 mg/dL (0.0-2.0); WBC, URINE AUTO 95 /HPF (0-3)
== END ==
LOC: M SFHCPLAZ 17:50
PROVIDERS: ATTEND Family Medicine
DX: N39.43 Post-void dribbling (principal)

== ENCOUNTER → 2020-11-30 | Outpatient (CLI) | payer MEDICARE, MEDICAID ==
[2020-11-30 08:50] LABS: HEMATOCRIT 35.5 % (36.0-47.0); HEMOGLOBIN 12.1 g/dl (12.0-15.5); MEAN CORPUSCULAR HEMOGLOBIN 28.5 pg (27.0-33.0); MEAN CORPUSCULAR HGB CONC 34.1 g/dl (32.0-36.5); MEAN CORPUSCULAR VOLUME 83.5 fl (80.0-96.0); PLATELET COUNT, AUTOMATED 254 10^3/uL (150-450); RED BLOOD COUNT 4.25 10^6/uL (4.00-5.40); WHITE BLOOD COUNT 6.1 10^3/uL (4.0-10.0)
[2020-11-30 09:15] LABS: HEMOGLOBIN A1c 5.9 %
[2020-11-30 09:24] LABS: ALBUMIN 3.8 GM/DL (3.2-5.2); ALT/SGPT 20 U/L (12-78); BILIRUBIN,TOTAL 0.3 MG/DL (0.2-1.0); BLOOD UREA NITROGEN 10 MG/DL (7-18); CALCIUM LEVEL 8.5 MG/DL (8.8-10.2); CARBON DIOXIDE LEVEL 28 MEQ/L (21-32); CHLORIDE LEVEL 95 MEQ/L (98-107); CHOLESTEROL LEVEL 115 MG/DL (<200); CHOLESTEROL RISK RATIO 3.026 (<5); CREATININE FOR GFR 0.82 MG/DL (0.55-1.30); FERRITIN 40 NG/ML (8-252); FREE T4 0.98 NG/DL (0.76-1.46); GLOMERULAR FILTRATION RATE > 60.0 (>45); GLUCOSE, FASTING 124 MG/DL (70-100); HDL CHOLESTEROL 38 MG/DL (>40); IRON (FE) 58 UG/DL (50-170); LDL CHOLESTEROL 27 MG/DL (<100); MAGNESIUM LEVEL 1.6 MG/DL (1.8-2.4); NON-HDL-C 77 MG/DL; PERCENT SATURATION 19.3 % (13.2-45.0); PHOSPHORUS LEVEL 4.2 MG/DL (2.5-4.9); POTASSIUM SERUM 4.5 MEQ/L (3.5-5.1); SODIUM LEVEL 130 MEQ/L (136-145); TOTAL IRON BINDING CAPACITY 300 UG/DL (250-450); TOTAL PROTEIN 6.1 GM/DL (6.4-8.2); TRIGLYCERIDES LEVEL 248 MG/DL (<150)
[2020-11-30 09:24] LABS: CREATININE, URINE 31.6 MG/DL; MALB URINE SIEMENS 12.5 MG/L; MAU/CREAT RATIO 39.5 MCG/MG (0.0-30.0)
[2020-12-02 10:45] LABS: TOTAL 25(OH) VITAMIN D 72.5 NG/ML (30.0-100.0); VITAMIN B12 LEVEL 415 PG/ML (247-911)
== END ==
LOC: M LAB 08:15
PROVIDERS: ATTEND Family Medicine
DX: E78.2 Mixed hyperlipidemia (principal); I10 Essential (primary) hypertension; E11.9 Type 2 diabetes mellitus without complications; K91.2 Postsurgical malabsorption, not elsewhere classified; E55.9 Vitamin D deficiency, unspecified; E03.9 Hypothyroidism, unspecified

== ENCOUNTER → 2020-12-11 | Outpatient (CLI) | payer SELFPAY | LOC: M LABSMTC 12:59 | PROVIDERS: ATTEND Pediatrics | DX: Z20.822 Contact with and (suspected) exposure to COVID-19 (principal) ==

== ENCOUNTER → 2020-12-17 | Outpatient (REF) | payer MEDICARE, MEDICAID ==
[2020-12-17 11:27] LABS: APPEARANCE, URINE CLEAR (CLEAR); BACTERIA, URINE AUTO NEGATIVE (NEGATIVE); BILIRUBIN, URINE AUTO NEGATIVE (NEGATIVE); BLOOD, URINE BLOOD NEGATIVE (NEGATIVE); COLOR, URINE STRAW (YELLOW); GLUCOSE, URINE (UA) AUTO NEGATIVE (NEGATIVE); KETONE, URINE AUTO NEGATIVE (NEGATIVE); LEUKOCYTE ESTERASE, URINE AUTO TRACE (NEGATIVE); MUCUS, URINE SMALL (NEGATIVE); NITRITE, URINE AUTO POSITIVE (NEGATIVE); PROTEIN, URINE AUTO NEGATIVE (NEGATIVE); RBC, URINE AUTO 0 /HPF (0-3); SPECIFIC GRAVITY URINE AUTO 1.002 (1.002-1.035); SQUAMOUS EPITHELIAL CELL UR AU 0 /HPF (0-6); UROBILINOGEN, URINE AUTO 0.2 mg/dL (0.0-2.0); WBC, URINE AUTO 2 /HPF (0-3)
== END ==
LOC: M SMT 09:39
PROVIDERS: ATTEND Nurse Practitioner Women's Health
DX: R39.198 Other difficulties with micturition (principal)

== ENCOUNTER → 2020-12-27 | Outpatient (CLI) | payer MEDICARE, MEDICAID ==
--- NOTE | 2020-12-27 14:43 | REP ---
INDICATION: DIFFICULTY VOIDING, UTI, INCOMPLETE BLADDER EMPTYING. COMPARISON: None. TECHNIQUE: Real-time sonographic evaluation of the kidneys is performed. FINDINGS: Renal cortical echogenicity pattern is normal bilaterally and contours are smooth. There is no hydronephrosis bilaterally. There are multiple bilateral renal cysts present. A cyst in the mid right kidney measures 3.1 cm in diameter and another in the lower pole measures 9 mm. The cyst in the upper left kidney measures 1.6 cm, mid aspect 4.0 cm and lower pole 3.6 cm. The right kidney measures 10.6 x 4.3 x 4.8 cm. Left renal dimensions are 12.5 x 5.7 x 6.0 cm. Incidental note is made of diffuse increased echotexture of the liver suggesting diffuse fibrofatty infiltration. IMPRESSION: Bilateral renal cysts. No hydronephrosis. <Electronically signed by Mejia Flynn > 12/27/20 [id number]
--- NOTE | 2020-12-27 14:44 | REP ---
INDICATION: DIFFICULTY VOIDING, UTI, INCOMPLETE BLADDER EMPTYING. COMPARISON: None. TECHNIQUE: Real-time sonographic evaluation of urinary bladder performed. FINDINGS: Bladder measures 10.1 x 6.5 x 9.7 cm for total volume of 416 cc. Postvoid residual is 53 cc which is 13% of the regional volume. No bladder wall thickening or mass is seen. No bladder calculus is seen. Ureteral jets are seen in the urinary bladder bilaterally with Doppler color evaluation. IMPRESSION: Unremarkable bladder ultrasound. Mild postvoid residual 13%. <Electronically signed by Mejia Flynn > 12/27/20 [id number]
== END ==
LOC: M RAD 12:53
PROVIDERS: ATTEND Nurse Practitioner Women's Health
DX: R39.198 Other difficulties with micturition (principal); N39.0 Urinary tract infection, site not specified; R33.9 Retention of urine, unspecified; N28.1 Cyst of kidney, acquired

== ENCOUNTER → 2021-01-06 | Outpatient (CLI) | payer MEDICARE, MEDICAID ==
[2021-01-06 16:40] LABS: APPEARANCE, URINE HAZY (CLEAR); BACTERIA, URINE AUTO 1+ (NEGATIVE); BILIRUBIN, URINE AUTO NEGATIVE (NEGATIVE); BLOOD, URINE BLOOD NEGATIVE (NEGATIVE); COLOR, URINE STRAW (YELLOW); GLUCOSE, URINE (UA) AUTO NEGATIVE (NEGATIVE); KETONE, URINE AUTO NEGATIVE (NEGATIVE); LEUKOCYTE ESTERASE, URINE AUTO 2+ (NEGATIVE); NITRITE, URINE AUTO NEGATIVE (NEGATIVE); PROTEIN, URINE AUTO NEGATIVE (NEGATIVE); RBC, URINE AUTO 2 /HPF (0-3); SPECIFIC GRAVITY URINE AUTO 1.004 (1.002-1.035); SQUAMOUS EPITHELIAL CELL UR AU 2 /HPF (0-6); UROBILINOGEN, URINE AUTO 0.2 mg/dL (0.0-2.0); WBC, URINE AUTO 16 /HPF (0-3)
== END ==
LOC: M LAB 15:55
PROVIDERS: ATTEND Nurse Practitioner Women's Health
DX: N39.0 Urinary tract infection, site not specified (principal)

== ENCOUNTER → 2021-02-22 | Outpatient (CLI) | payer MEDICARE, MEDICAID ==
[~2021-02-22] MED LIST changes: +GABA-283 PO; -GABA-845 PO
--- NOTE | 2021-02-23 11:44 | REPVR ---
PROCEDURE INFORMATION: Exam: CT Cervical Spine Without Contrast Exam date and time: 02/22/2021 1:47 PM Age: 65 years old Clinical indication: Condition or disease; Spondylosis; Cervical region; Additional info: Cervical spondylosis w/ fusion ? hnp vs stenosis TECHNIQUE: Imaging protocol: Computed tomography images of the cervical spine without contrast. Radiation optimization: All CT scans at this facility use at least one of these dose optimization techniques: automated exposure control; mA and/or kV adjustment per patient size (includes targeted exams where dose is matched to clinical indication); or iterative reconstruction. COMPARISON: CT Spine,cervical w/o contrast 06/30/2016 8:11 AM FINDINGS: Vertebrae: Anterior cervical fusion with disc spacer placement at C5/C6. Surgical hardware is intact. Minimal anterolisthesis of C3 on C4. Multilevel anterior osteophyte formation and facet joint arthropathy. C2-C3: No significant disc protrusion. No severe spinal canal stenosis. No significant neural foraminal narrowing. C3-C4: Mild posterior disc osteophyte formation, and bilateral facet joint arthropathy with uncovertebral hypertrophy causing mild indentation on thecal sac, severe left and mild to moderate right neural foraminal narrowing. C4-C5: Mild posterior disc osteophyte formation, bilateral facet joint arthropathy and uncovertebral hypertrophy causing mild indentation on thecal sac, and mild right neural foraminal narrowing. Severe left neural foraminal narrowing. C5-C6: Bilateral uncovertebral hypertrophy and facet joint arthropathy without any significant central spinal canal stenosis or neural foraminal narrowing. C6-C7: Posterior disc osteophyte formation with bilateral uncovertebral hypertrophy and facet joint arthropathy resulting in moderate central spinal canal stenosis and severe bilateral neural foraminal narrowing. C7-T1: No significant disc protrusion. No severe spinal canal stenosis. No significant neural foraminal narrowing. Soft tissues: Unremarkable. Thyroid: Nodule in the right lobe of the thyroid gland measuring 11.2 x 11.8 mm. Left lobe of the thyroid gland is unremarkable. Lungs: Lung apices are normal. IMPRESSION: Multilevel degenerative changes as described in detail above. Please see above dictation for individual levels. No acute fracture or traumatic subluxation. Stables surgical hardware. COMMENTS: Consistent with the [employer]'s Incidental Findings Committee white paper (J Am Laney Radiol 2015): In patients aged 35 years and older with an incidental thyroid nodule equal to or greater than 1.[address], MRI or extrathyroidal US, further evaluation with dedicated thyroid US is recommended for patients with normal life expectancy and without comorbidities. For smaller nodules without suspicious features, no further evaluation or follow up is recommended. Electronically signed by: Miriam Garcia On 02/23/2021 11:44:00 AM
== END ==
LOC: M RAD 13:38
PROVIDERS: ATTEND Physician Assistant
DX: M47.892 Other spondylosis, cervical region (principal); M50.321 Other cervical disc degeneration at C4-C5 level; M50.31 Other cervical disc degeneration, high cervical region; M50.322 Other cervical disc degeneration at C5-C6 level; M50.323 Other cervical disc degeneration at C6-C7 level; Z98.1 Arthrodesis status

== ENCOUNTER 2021-03-13 11:36 | Outpatient (RCR) | payer MEDICARE, MEDICAID ==
[~2021-03-13 11:36] MED LIST changes: +ERGO500029 PO; -VITA50005 PO
== END 2021-03-19 ==
LOC: M PT 11:36
PROVIDERS: ATTEND Physician Assistant
DX: M50.30 Other cervical disc degeneration, unspecified cervical region (principal); M48.00 Spinal stenosis, site unspecified; M54.10 Radiculopathy, site unspecified

== ENCOUNTER 2021-03-20 13:14 | Outpatient (RCR) | payer MEDICARE, MEDICAID | END 2021-04-19 | LOC: M PT 13:14 | PROVIDERS: ATTEND Physician Assistant | DX: M47.812 Spondylosis without myelopathy or radiculopathy, cervical region (principal); M50.30 Other cervical disc degeneration, unspecified cervical region ==

== ENCOUNTER → 2021-04-03 | Outpatient (CLI) | payer MEDICARE, MEDICAID ==
--- NOTE | 2021-04-03 08:50 | REP ---
INDICATION: E04.1 THYROID NODULE. COMPARISON: Comparison CT study of the cervical spine 22 February 2021.. TECHNIQUE: High-resolution bilateral thyroid sonography. FINDINGS: Thyroid isthmus measures 0.3 cm in thickness. Right thyroid lobe dimensions are 3.9 x 2.3 x 1.7 cm. The left lobe measures 3.8 x 1.7 x 1.8 cm. No extrathyroidal mass or adenopathy is seen. There is a mixed cystic and solid nodule in the right lobe measuring 1.8 x 1.1 x 1.4 cm. This is felt to correspond with the low-density areas seen in the right thyroid on C-spine CT images. It has a somewhat irregular lobulated margin. There is also a 0.6 cm complex nodule deep or posterior to this in the right lobe. In the left thyroid lobe, there is a solid 0.6 cm x 0.5 cm x 0.3 cm nodule in the upper pole. There is a complex 1.0 x 1.1 x 0.7 cm nodule in which appears predominantly cystic in the lower pole. IMPRESSION: Mixed cystic and solid nodule right thyroid lobe 1.8 cm in greatest diameter. Consider FNA of this lesion. Multiple smaller complex nodules. <Electronically signed by David Santos > 04/03/21 [id number]
== END ==
LOC: M WHC 07:52
PROVIDERS: ATTEND Family Medicine
DX: E04.1 Nontoxic single thyroid nodule (principal)

== ENCOUNTER → 2021-05-06 | Outpatient (REF) | payer MEDICARE, MEDICAID | LOC: M LAB REF 19:15 | PROVIDERS: ATTEND Internal Medicine Endocrinology, Diabetes & Metabolism | DX: E04.1 Nontoxic single thyroid nodule (principal) ==

== ENCOUNTER 2021-06-09 14:15 | Emergency (ER) | payer MEDICARE, MEDICAID ==
[~2021-06-09] VITALS: Ht 162.6 cm; Wt 93.4 kg
[2021-06-09] MEDS ORDERED: LYRI150C PO (17:55)
--- NOTE | 2021-06-09 19:08 | REP ---
INDICATION: pain. COMPARISON: None. TECHNIQUE: AP view of the pelvis and AP and frogleg views of the right hip are provided. FINDINGS: Bony pelvic ring is intact. No sacral fracture is seen. There is some sclerosis of the SI joints mild in degree, right more so than left. There are bilateral inguinal surgical clips in the soft tissues. The femoral heads are smooth and rounded. Periarticular soft tissues are unremarkable. Mild vascular calcification is seen. No fracture or bony destructive lesion. IMPRESSION: No acute bony abnormality. Mild vascular calcification. <Electronically signed by David Santos > 06/09/21 [id number]
[2021-06-09 19:41] VITALS: BP 136/63
== END 2021-06-09 19:43 | disposition home or self-care (01) ==
LOC: M ED 14:15
DX: M25.551 Pain in right hip (principal); I10 Essential (primary) hypertension; E78.5 Hyperlipidemia, unspecified; Z88.0 Allergy status to penicillin; Z91.041 Radiographic dye allergy status; Z98.84 Bariatric surgery status

== ENCOUNTER → 2021-06-13 | Outpatient (CLI) | payer MEDICARE, MEDICAID ==
[2021-06-13 18:24] LABS: BLOOD UREA NITROGEN 12 MG/DL (7-18); CALCIUM LEVEL 8.6 MG/DL (8.8-10.2); CARBON DIOXIDE LEVEL 29 MEQ/L (21-32); CHLORIDE LEVEL 94 MEQ/L (98-107); CREATININE FOR GFR 0.82 MG/DL (0.55-1.30); GLOMERULAR FILTRATION RATE > 60.0 (>45); GLUCOSE, FASTING 126 MG/DL (70-100); POTASSIUM SERUM 4.4 MEQ/L (3.5-5.1); SODIUM LEVEL 130 MEQ/L (136-145)
[2021-06-13 21:20] LABS: HEMOGLOBIN A1c 6.1 %
== END ==
LOC: M PLALAB 14:56
PROVIDERS: ATTEND Family Medicine
DX: I10 Essential (primary) hypertension (principal); E11.9 Type 2 diabetes mellitus without complications

== ENCOUNTER 2021-07-16 10:12 | Outpatient (RCR) | payer MEDICARE, MEDICAID ==
[~2021-07-16 10:12] MED LIST changes: -ATOR1TAB21
[2021-07-17] MEDS ORDERED: AMLO1TAB25 PO (12:54)
[2021-07-17] MEDS ORDERED: LATU80TA PO (20:15)
[2021-07-17] MEDS ORDERED: ZOLO50TA PO (20:15)
[2021-07-17] MEDS ORDERED: VITMTA PO (20:15)
[2021-07-17] MEDS ORDERED: CELE1CAP7 PO (20:15)
[2021-07-17] MEDS ORDERED: ECOT81TA5 PO (20:15)
[2021-07-17] MEDS ORDERED: ZOLO100T PO (20:15)
[2021-07-17] MEDS ORDERED: LOSA50TA88 PO (20:21)
== END 2021-07-20 ==
LOC: M PT 10:12
PROVIDERS: ATTEND Physician Assistant
DX: M48.07 Spinal stenosis, lumbosacral region (principal); M43.16 Spondylolisthesis, lumbar region; M54.2 Cervicalgia

== ENCOUNTER 2021-07-17 12:36 | Inpatient (IN) | payer MEDICARE, MEDICAID ==
[~2021-07-17] VITALS: Ht 162.6 cm; Wt 92.4 kg
[2021-07-17] MEDS ORDERED: AMLO1TAB25 PO (12:54)
[2021-07-17] MEDS ORDERED: MECLIZINE 25 MG TABLET PO ONE (13:05)
--- OUTSIDE RECORDS SUMMARY | 2021-07-17 13:15 | CCD | Continuity of Care Document ---
Author Author Judy Vickers Organization Unknown Address [address] [place] [address] Phone [phone] Care Team Providers Care Sack Department Supervisor Name Role Phone Speedy Gallardo LOSS PREVENTION MANAGER AUTM [phone] Chrissy Mckeon MD AUTM [phone] Problems Active Problems Provider Date Abdominal pain Onset: Arthritis of acromioclavicular joint Ons et: Atypical chest pain Onset: Cerebrovascular disease Onset: 0 Contusion of rib Onset: Contusion of shoulder region Onset: Cyst of ovary Onset: Patient encounter status Onset: 00 Injury of right rotator cuff Onset: Low back pain Onset: Spasm Onset: Spinal stenosis Onset: Essential hypertension CAREN Ryan Onset: 07/28/2019 Pure hypercholesterolemia CAREN Ryan Onset: 019 Social History Type Date Description Comments Sex Unknown ETOH Use Denies alcohol use Tobacco Use Start: Unknown Patient is a current smoker, smo kes every day Smoking Status Reviewed: 07/28/19 Patient is a current smoker, smokes every day Allergies and adverse reactions Active Allergies Criticality Reaction | Severity Comments Date IVP Dye Unable to assess criticality 07/28/2019 Penicillin Unable to assess criticality 07/28/2019 Keflex Unable to assess criticality 07/28/2019 Cephalexin Unable to assess criticality 06/19/2019 Medications Active Medications SIG Qnty Indications Ordering Provide r Date Celebrex 100mg Capsules 1 by mouth daily with food, january increase to twice a day as needed 60marion Almeida MD 05/02/2021 Flovent HFA 44mcg/Act Aerosol Inhale 1 puff By Mouth Twice Daily Unknown Nitrofurantoin Monohydrate/Macrocrystals 100mg Capsules Taniya Laguerre WHNP Vitamin D (Ergocalciferol) 1.25mg (78518 Ut) Capsules Take One Capsule By Mouth Every Wednesday @8Am Unknown Nitrofurantoin Monohydrate/Macrocrystals 100mg Capsules Take One Capsule By Mouth Twice Daily Unk nown Trazodone HCL 50mg Tablets Take One Tablet By Mouth @8PM as Needed Bottle Unknown 0 Hydrocodone-Acetaminophen 10-325mg Tablets Take One Tablet By Mouth Three Times Key ly as Needed For Pain Max Daily Dose Three Tablets Unknown Pregabalin 150mg Capsules Take One Capsule By Mouth Twice Daily Max Daily Dose Two Capsules 60marion Clement MD Vitamin D (Ergocalciferol) 1.25mg (96532 Ut) Capsules Take One Capsule By Mouth Every Wednesday @8Am Unknown Latuda 80mg Tablets Take One Tablet By Mouth @8Am Unknown Sertraline HCL 100mg Tablets Unknown Atorvastatin Calcium 20mg Tablets Take One Tablet By Mouth @8Am Unknown Celecoxib 100mg Capsules Take One Capsule By Mouth @8Am and Take One Capsule By Mouth @8PM Unknown Losartan Potassium 50mg Tablets Take Two Tablets By Mouth @8Am Unknown Magnesium Oxide 400(241.3Mg) mg Ta blets Take One Tablet By Mouth @8Am and Take One Tablet @8PM Unknown Metformin HCL ER 750mg Tablets ER 24HR Take One Tablet By Mouth @8Am and Take One Tablet By Mouth @5PM Unknown Omeprazole 40mg Capsules DR Take One Capsule By Mouth @8Am (30 Minutes Before Morning Meal) Unknown Sertraline HCL 100mg Tablets Take 1 And 1/2 Tablets By Mouth @8Am Unknown Amlodipine Besylate 10mg Tablets Alexis Celaya MD Ventolin HFA 108(90Base) mcg/Act A erosol Inhale Two Puffs By Mouth Every 4 Hours as Needed Unknown History Medications Pregabalin 150mg Capsules take one capsule by mouth twice a day 60caps Lamonte De Paz MD 03/04/20 21 - 04/30/2021 Immunizations Description No Information Available Vital Signs Date Vital Result Comment 07/14/2021 10:27am Body Temperature 98.0 F 06/13/2021 2:00pm Body Temperature 97.2 F Results Test Acquired Date Facility Test Result H/L Range Note Laboratory test finding 06/13/2021 In House Covid Rapid Testing Negative Laboratory test finding 06/04/2021 In House Covid Rapid Testing NEGATIVE 1 1 [facility] COVID-19 ANTIGEN LOT #[id number] 06/30/21 1:21 P.M. Procedures Date Code Description Status 06/16/2021 21247 Office/Outpatient Established Mo d MDM 30-39 Min Completed 06/16/2021 03198 X-Ray Spine Lumbosacral Complete Inc Bending Views Min Of 6 Completed 05/01/2021 02250 Office/Outpatient Established Mo d MDM 30-39 Min Completed 05/01/2021 78265 X-Ray Foot Complete Completed 03/04/2021 61191 Office/Outpatient Established Lo w MDM 20-29 Min Completed 01/17/2021 46821 Office/Outpatient Established Mo d MDM 30-39 Min Completed 01/17/2021 18436 X-Ray Spine Cervical 6 Or More V iews Completed Medical Devices Description No Information Available Encounters Type Date Location Provider Dx Diagnosis Office Visit 06/16/2021 3:30p Rigoberto Munoz PA-C M4 3.16 Spondylolisthesis, lumbar region M48.07 Spinal stenosis, lumbosacral region M70.61 Trochanteric bursitis, right hip M54.2 Cervicalgia Office Visit 05/01/2021 1:00p Rigoberto Munoz PA-C M7 7.52 Other enthesopathy of left foot and ankle M50.30 Other cervical disc degenera tion, unsp cervical region Z98.1 Arthrodesis status Office Visit 03/04/2021 1:45p [place] Derrick Munoz PA-C M5 0.30 Other cervical disc degeneration, unsp cervical region Z98.1 Arthrodesis status Office Visit 01/17/2021 9:30a [place] Derrick Munoz PA-C M5 0.30 Other cervical disc degeneration, unsp cervical region Z98.1 Arthrodesis status Assessments Date Code Description Provider 07/14/2021 M43.16 Spondylolisthesis, lumbar region Derrick Munoz PA-C 07/14/2021 Z01.818 Encounter for other preprocedura l examination Lab 07/14/2021 M48.07 Spinal stenosis, lumbosacral reg ion Derrick Munoz PA-C 07/14/2021 Z20.828 Contact with and (recinos spected) exposure to other viral communicable diseases Lab 07/14/2021 M70.61 Trochanteric bursitis, right hip Derrick Munoz PA-C 07/14/2021 M54.2 Cervicalgia Derrick zhao PA-C 06/30/2021 Z01.818 Encounter for other preprocedura l examination Holden Clement MD 06/30/2021 Z01.818 Encounter for other preprocedura l examination Lab 06/30/2021 Z20.828 Contact with and (recinos spected) exposure to other viral communicable diseases Holden Clement MD 06/30/2021 Z20.828 Contact with and (recinos spected) exposure to other viral communicable diseases Lab 06/16/2021 M43.16 Spondylolisthesis, lumbar region Derrick Munoz PA-C 06/16/2021 M48.07 Spinal stenosis, lumbosacral reg ion Derrick Munoz PA-C 06/16/2021 M70.61 Trochanteric bursitis, right hip Derrick Munoz PA-C 06/16/2021 M54.2 Cervicalgia Derrick zhao PA-C 06/13/2021 Z01.818 Encounter for other preprocedura l examination Holden Clement MD 06/13/2021 Z01.818 Encounter for other preprocedura l examination Lab 06/13/2021 Z20.828 Contact with and (recinos spected) exposure to other viral communicable diseases Holden Clement MD 06/13/2021 Z20.828 Contact with and (recinos spected) exposure to other viral communicable diseases Lab 06/13/2021 Z20.828 Contact with and (recinos spected) exposure to other viral communicable diseases Derrick Munoz PA-C 05/01/2021 M77.52 Other enthesopathy of left foot and ankle Derrick Munoz PA-C 05/01/2021 M50.30 Other cervical disc degeneration , unspecified cervical region Derrick Munoz PA-C 05/01/2021 Z98.1 Arthrodesis status Derrick monroe PA-C 03/04/2021 M50.30 Other cervical disc degeneration , unspecified cervical region Derrick Munoz PA-C 03/04/2021 Z98.1 Arthrodesis status Derrick monroe PA-C 01/17/2021 M50.30 Other cervical disc degeneration , unspecified cervical region Derrick Munoz PA-C 01/17/2021 Z98.1 Arthrodesis status Derrick monroe PA-C Plan of Treatment Future Appointment(s):* 07/17/2021 3:35 pm - [facility] 07/14/2021 - Derrick Munoz PA-C* M43.16 Spondylolisthesis, lumbar region * M48.07 Spinal stenosis, lumbosacral region * M70.61 Trochanteric bursitis, right hip * M54.2 Cervicalgia Functional Status Description No Information Available Mental Status Description No Information Available Referrals Refer to Dr Reason for Referral Status Appt Date Derrick Munoz PA-C [facility]([id number] [place] [id number]) NO AUTH REQUIRED TO SURGERY NT Created [address] [place] [address] [phone] Derrick Munoz PA-C CT NO AUTH REQUIRED FOR CT O F CERVICAL SPINE ([id number]) TO NATALY Yang DG Created [address] [place] [address] [phone] Derrick Munoz PA-C CT NO AUTH REQUIRED FOR CT O F CERVICAL SPINE ([id number]) TO NATALY ISSA Created [address] [place], [place] [id number] [phone]"
--- OUTSIDE RECORDS SUMMARY | 2021-07-17 13:15 | CCD | Continuity of Care Document ---
Author Organization Unknown Address Unknown Phone Unavailable Care Team Providers Care Babbitt Spinner Name Role Phone Speedy Gallardo AUTM [phone] Chrissy Mckeon MD AUTM [phone] Problems Active Problems Provider Date Abdominal pain [...] Capsules 1 by mouth daily with food, may increase to twice a day as needed 60caps D. Sd Almeida MD 05/02/2021 Flovent HFA 44mcg/Act Aerosol Inhale 1 puff By Mouth Twice Daily Unknown Nitrofurantoin Monohydrate/Macrocrystals 100mg Capsules Taniya Laguerre WHNP Vitamin D (Ergocalciferol) 1.25mg (31731 Ut) Capsules Take One Capsule By Mouth [...] Twice Daily Max Daily Dose Two Capsules 60caps Holden Clement MD Vitamin D (Ergocalciferol) 1.25mg (97493 Ut) Capsules Take One Capsule By Mouth [...] Available Vital Signs Date Vital Result Comment 06/13/2021 2:00pm Body Temperature 97.2 F 05/01/2021 1:11pm Height 63 inches 5'3" Weight 195.00 lb BMI (Body Mass Index) 34.5 kg/m2 Results Test Acquired Date Facility Test Result H/L Range Note Laboratory test finding 06/13/2021 In House Covid Rapid Testing Negative Procedures Date Code Description Status 06/16/2021 08066 Office/Outpatient Established Mo d MDM 30-39 Min Completed 06/16/2021 81415 X-Ray Spine Lumbosacral Complete Inc Bending Views Min Of 6 Completed 05/01/2021 63777 Office/Outpatient Established Mo d MDM 30-39 Min Completed 05/01/2021 54067 X-Ray Foot Complete Completed 03/04/2021 64773 Office/Outpatient Established Lo w MDM 20-29 Min Completed 01/17/2021 14537 Office/Outpatient Established Mo d MDM 30-39 Min Completed 01/17/2021 78249 X-Ray Spine Cervical 6 Or More V [...] Z98.1 Arthrodesis status Office Visit 03/04/2021 1:45p Rigoberto Munoz PA-C M5 0.30 Other cervical disc degeneration, unsp cervical region Z98.1 Arthrodesis status Office Visit 01/17/2021 9:30a Rigoberto Munoz PA-C M5 0.30 Other cervical disc degeneration, unsp cervical region Z98.1 Arthrodesis status Assessments Date Code Description Provider 06/16/2021 M43.16 Spondylolisthesis, lumbar region Derrick Munoz [...] monroe PA-C Plan of Treatment Future Appointment(s):* 07/14/2021 10:30 am - Derrick Munoz PA-C at [place] * 07/17/2021 3:35 pm - [facility] * 07/02/2021 1:30 pm - [facility] * 07/14/2021 10:30 am - [facility] * 06/30/2021 1:30 pm - [facility] 06/16/2021 - Derrick Munoz PA-C* M43.16 Spondylolisthesis, lumbar region* Follow up:* f/u 4 weeks for back recheck with BMS * M48.07 Spinal stenosis, lumbosacral region * M70.61 Trochanteric bursitis, right hip * M54.2 Cervicalgia Functional Status Description No Information Available Mental Status Description No Information Available Referrals Refer to Reason for Referral Status Appt Date Derrick Munoz PA-C [facility]([id number] [place] [id number]) NO AUTH REQUIRED TO SURGERY NT Created [address] [place] [address] [phone] Derrick Munoz PA-C CT NO AUTH REQUIRED FOR CT O F CERVICAL SPINE ([id number]) TO NATALY Yang DG Created [address] [place] [address] [phone] [address]rick Munoz PA-C CT NO AUTH REQUIRED FOR CT O F CERVICAL SPINE ([id number]) TO NATALY ISSA Created [address] [place] [address] [phone]
--- OUTSIDE RECORDS SUMMARY | 2021-07-17 13:15 | CCD ---
"Continuity of Care Document (CCD) Created on: 07/14/2021 Judy Humphreys External Reference #: [id number] : [id number] Sex: Female Author Author Judy Vickers Organization Unknown Address [address] [place] [address] Phone [phone] Care Team Providers Care Switch House Operator Name Role Phone Speedy Gallardo INTERNATIONAL GUEST COORDINATOR AUTM [phone] Chrissy Mckeon MD AUTM [phone] Problems Active Problems Provider Date Abdominal pain [...] Taniya Laguerre WHNP Vitamin D (Ergocalciferol) 1.25mg (22868 Ut) Capsules Take One Capsule By Mouth [...] 60marion Clement MD Vitamin D (Ergocalciferol) 1.25mg (06385 Ut) Capsules Take One Capsule By Mouth [...] Result H/L Range Note Laboratory test finding 07/14/2021 In House Covid Rapid Testing Negative 1 Laboratory test finding 06/13/2021 In House Covid Rapid Testing Negative Laboratory test finding 06/04/2021 In House Covid Rapid Testing NEGATIVE 2 1 [facility] Covid-19 Antigen T est Lot# [id number] 07/14/21 at 10:36am 2 [facility] COVID-19 ANTIGEN LOT #[id number] 06/30/21 1:21 P.M. Procedures Date Code Description Status 07/14/2021 89304 Office/Outpatient Established Mo d MDM 30-39 Min Completed 06/16/2021 03087 Office/Outpatient Established Mo d MDM 30-39 Min Completed 06/16/2021 79913 X-Ray Spine Lumbosacral Complete Inc Bending Views Min Of 6 Completed 05/01/2021 11242 Office/Outpatient Established Mo d MDM 30-39 Min Completed 05/01/2021 91352 X-Ray Foot Complete Completed 03/04/2021 92097 Office/Outpatient Established Lo w MDM 20-29 Min Completed 01/17/2021 12516 Office/Outpatient Established Mo d MDM 30-39 Min Completed 01/17/2021 64467 X-Ray Spine Cervical 6 Or More V iews Completed Medical Devices Description No Information Available Encounters Type Date Location Provider Dx Diagnosis Office Visit 07/14/2021 10:30a Rigoberto Munoz PA-C M4 3.16 Spondylolisthesis, lumbar region M48.07 Spinal stenosis, lumbosacral region M70.61 Trochanteric bursitis, right hip M54.2 Cervicalgia M54.6 Pain in thoracic spine Office Visit 06/16/2021 3:30p [place] Derrick Munoz PA-C M4 3.16 Spondylolisthesis, lumbar region M48.07 Spinal stenosis, lumbosacral region M70.61 Trochanteric bursitis, right hip M54.2 Cervicalgia Office Visit 05/01/2021 1:00p [place] Derrick Munoz PA-C M7 7.52 Other enthesopathy of left foot and ankle M50.30 Other cervical disc degenera tion, unsp cervical region Z98.1 Arthrodesis status Office Visit 03/04/2021 1:45p [place] Derrick Munoz PA-C M5 0.30 Other cervical disc degeneration, unsp cervical region Z98.1 Arthrodesis status Office Visit 01/17/2021 9:30a [place] Derrick Munoz PA-C M5 0.30 Other cervical disc degeneration, unsp cervical region Z98.1 Arthrodesis status Assessments Date Code Description Provider 07/14/2021 Z01.818 Encounter for other preprocedura l examination Holden Clement MD 07/14/2021 M43.16 Spondylolisthesis, lumbar region Derrick Munoz PA-C 07/14/2021 Z20.828 Contact with and (recinos spected) exposure to other viral communicable diseases Holden Clement MD 07/14/2021 M48.07 Spinal stenosis, lumbosacral reg ion Derrick Munoz PA-C 07/14/2021 M43.16 Spondylolisthesis, lumbar region Holden Clement MD 07/14/2021 Z01.818 Encounter for other preprocedura l examination Lab 07/14/2021 M70.61 Trochanteric bursitis, right hip Derrick Munoz PA-C 07/14/2021 M54.2 Cervicalgia Derrick zhao PA-C 07/14/2021 Z20.828 Contact with and (recinos spected) exposure to other viral communicable diseases Lab 07/14/2021 M54.6 Pain in thoracic spine Derrick Munoz PA-C 07/14/2021 M43.16 Spondylolisthesis, lumbar region Lab 06/30/2021 Z01.818 Encounter for other preprocedura l [...] - [facility] 07/14/2021 - Derrick Munoz PA-C* M43.16 Spondylolisthesis, lumbar region* New Xrays:* MRI Lumbar Spine, Ordered: 07/14/21 * Follow up:* lumbar/thoracic mri results with BMS * M48.07 Spinal stenosis, lumbosacral region * M70.61 Trochanteric bursitis, right hip * M54.2 Cervicalgia * M54.6 Pain in thoracic spine* New Xrays:* MRI Thoracic Spine, Ordered: 07/14/21 Functional Status Description No Information Available Mental Status Description No Information Available Referrals Refer to Dr Reason for Referral Status Appt Date Derrick Munoz PA-C [facility]([id number] [place] [address]) NO AUTH REQUIRED TO SURGERY NT Created [address] [place] [address] [phone] Derrick Munoz PA-C CT NO AUTH REQUIRED FOR CT O F CERVICAL SPINE ([id number]) TO NATALY ISSA Created [address] [place] [address] [phone] Derrick Munoz PA-C CT NO AUTH REQUIRED FOR CT O F CERVICAL SPINE ([id number]) TO NATALY ISSA Created [address] [place] [address] [phone]"
--- OUTSIDE RECORDS SUMMARY | 2021-07-17 13:15 | CCD | Continuity of Care Document ---
Author Author Judy Vickers Organization Unknown Address [address] [place] [address] Phone [phone] Care Team Providers Care Acute Care Surgeon Name Role Phone Speedy Gallardo FOLDER TIER AUTM [phone] Chrissy Mckeon MD AUTM [phone] Problems Active Problems Provider Date Abdominal pain [...] Taniya Laguerre WHNP Vitamin D (Ergocalciferol) 1.25mg (17709 Ut) Capsules Take One Capsule By Mouth [...] 60marion Clement MD Vitamin D (Ergocalciferol) 1.25mg (02944 Ut) Capsules Take One Capsule By Mouth [...] 1 1 [facility] COVID-19 ANTIGEN LOT #[id number] 06/30/21 1:21 P.M. Procedures Date Code Description Status 06/16/2021 64205 Office/Outpatient Established Mo d MDM 30-39 Min Completed 06/16/2021 15666 X-Ray Spine Lumbosacral Complete Inc Bending Views Min Of 6 Completed 05/01/2021 77658 Office/Outpatient Established Mo d MDM 30-39 Min Completed 05/01/2021 46525 X-Ray Foot Complete Completed 03/04/2021 91833 Office/Outpatient Established Lo w MDM 20-29 Min Completed 01/17/2021 81062 Office/Outpatient Established Mo d MDM 30-39 Min Completed 01/17/2021 41476 X-Ray Spine Cervical 6 Or More V iews Completed Medical Devices Description No Information Available Encounters Type Date Location Provider Dx Diagnosis Office Visit 06/16/2021 3:30p [place] Derrick Munoz PA-C M4 3.16 Spondylolisthesis, lumbar region M48.07 Spinal stenosis, lumbosacral region M70.61 Trochanteric bursitis, right hip M54.2 Cervicalgia Office Visit 05/01/2021 1:00p [place] Derrick Munoz PA-C M7 7.52 Other enthesopathy of left foot and ankle M50.30 Other cervical disc degenera tion, unsp cervical region Z98.1 Arthrodesis status Office Visit 03/04/2021 1:45p [place] Derrick Munoz PA-C M5 0.30 Other cervical disc degeneration, unsp cervical region Z98.1 Arthrodesis status Office Visit 01/17/2021 9:30a [place] Derrick Munoz PA-C M5 0.30 Other cervical disc degeneration, unsp cervical region Z98.1 Arthrodesis status Assessments Date Code Description Provider 06/30/2021 Z01.818 Encounter for other preprocedura l [...] 10:30 am - Derrick Munoz PA-C at [place] * 07/17/2021 3:35 pm - [facility] * 07/02/2021 1:30 pm - [facility] * 07/14/2021 10:30 am - Lab at [facility] 06/16/2021 - [...] Status Appt Date Derrick Munoz PA-C [facility]([id number] [place] [address]) NO AUTH REQUIRED TO SURGERY NT Created [address] [place] [address] [phone] Derrick Munoz PA-C CT NO AUTH REQUIRED FOR CT O F CERVICAL SPINE ([id number]) TO NATALY ISSA Created [address] [place] [address] [phone] [address]rick Munoz PA-C CT NO AUTH REQUIRED FOR CT O F CERVICAL SPINE ([id number]) TO NATALY ISSA Created [address] [place] [address] [phone] [place] [id number] [phone]
--- OUTSIDE RECORDS SUMMARY | 2021-07-17 13:15 | CCD | Continuity of Care Document ---
Author Author Judy MUNOZ PAJerodC Organization Unknown Address [address] [address] Phone [phone] Care Team Providers Care Carbider Name Role Phone Speedy Gallardo AUTM [phone] Chrissy Mckeon MD AUTM [phone] Problems Active Problems Provider Date Abdominal pain [...] increase to twice a day as needed pennie Almeida MD 05/02/2021 Flovent HFA 44mcg/Act Aerosol Inhale 1 puff By Mouth Twice Daily Unknown Nitrofurantoin Monohydrate/Macrocrystals 100mg Capsules Taniya Laguerre WHNP Vitamin D (Ergocalciferol) 1.25mg (36625 Ut) Capsules Take One Capsule By Mouth [...] Twice Daily Max Daily Dose Two Capsules pennie Clement MD Vitamin D (Ergocalciferol) 1.25mg (21256 Ut) Capsules Take One Capsule By Mouth [...] 1 [facility] Covid-19 Antigen T est Lot# [id number] 07/14/21 at 10:36am 2 [facility] COVID-19 ANTIGEN LOT #[id number] 06/30/21 1:21 P.M. Procedures Date Code Description Status 07/14/2021 92452 Office/Outpatient Established Mo d MDM 30-39 Min Completed 06/16/2021 76628 Office/Outpatient Established Mo d MDM 30-39 Min Completed 06/16/2021 44252 X-Ray Spine Lumbosacral Complete Inc Bending Views Min Of 6 Completed 05/01/2021 96518 Office/Outpatient Established Mo d MDM 30-39 Min Completed 05/01/2021 10447 X-Ray Foot Complete Completed 03/04/2021 80245 Office/Outpatient Established Lo w MDM 20-29 Min Completed 01/17/2021 43419 Office/Outpatient Established Mo d MDM 30-39 Min Completed 01/17/2021 97463 X-Ray Spine Cervical 6 Or More V iews Completed Medical Devices Description No Information Available Encounters Type Date Location Provider Dx Diagnosis Office Visit 07/14/2021 10:30a Rigoberto Munoz PA-C M4 3.16 Spondylolisthesis, lumbar region M48.07 Spinal stenosis, lumbosacral region M70.61 Trochanteric bursitis, right hip M54.2 Cervicalgia M54.6 Pain in thoracic spine Office Visit 06/16/2021 3:30p [place] Derrick Munoz PA-C M4 3.16 Spondylolisthesis, lumbar region M48.07 Spinal stenosis, lumbosacral region M70.61 Trochanteric bursitis, right hip M54.2 Cervicalgia Office Visit 05/01/2021 1:00p [place] Derrick Munoz PA-C M7 7.52 Other enthesopathy of left foot and ankle M50.30 Other cervical disc degenera tion, unsp cervical region Z98.1 Arthrodesis status Office Visit 03/04/2021 1:45p [place] Derrick Munoz PA-C M5 0.30 Other cervical disc degeneration, unsp cervical region Z98.1 Arthrodesis status Office Visit 01/17/2021 9:30a [place] Munoz PA-C M5 0.30 Other cervical disc degeneration, unsp cervical region Z98.1 Arthrodesis status Assessments Date Code Description Provider 07/14/2021 M43.16 Spondylolisthesis, lumbar region Derrick Munoz PA-C 07/14/2021 M48.07 Spinal stenosis, lumbosacral reg ion Derrick Munoz PA-C 07/14/2021 Z01.818 Encounter for other preprocedura l examination Lab 07/14/2021 M70.61 Trochanteric bursitis, right hip Derrick Munoz PA-C 07/14/2021 M54.2 Cervicalgia Derrick hzao PA-C 07/14/2021 Z20.828 Contact with and (recinos [...] exposure to other viral communicable diseases Derrick uMnoz PA-C 05/01/2021 M77.52 Other enthesopathy of left [...] Status Appt Date Derrick Munoz PA-C [facility]([id number] [place] [id number]) NO AUTH REQUIRED TO SURGERY NT Created [address] [place] [address] [phone] Derrick Munoz PA-C CT NO AUTH REQUIRED FOR CT O F CERVICAL SPINE ([id number]) TO NATALY ISSA Created [address] [place] [address] [phone] [address]rick Munoz PA-C CT NO AUTH REQUIRED FOR CT O F CERVICAL SPINE ([id number]) TO NATALY ISSA Created [address] [place] [address] [phone]"
--- OUTSIDE RECORDS SUMMARY | 2021-07-17 13:15 | CCD | Continuity of Care Document ---
Author Author Judy MUNOZ PAJerodC Organization Unknown Address [address] [address] Phone [phone] Care Team Providers Care Violin Mechanic Name Role Phone Speedy Gallardo AUTM [phone] Chrissy Mckeon MD AUTM [phone] Problems Active Problems Provider Date Abdominal pain [...] is a current smoker, smokes every day Allergies, Adverse Reactions, Alerts Active Allergies Criticality Reaction | Severity Comments [...] Twice Daily Unknown Nitrofurantoin Monohydrate/Macrocrystals 100mg Capsules AcostateeTaniya WHNP Vitamin D (Ergocalciferol) 1.25mg (26961 Ut) Capsules Take One Capsule By Mouth [...] 60marion Clement MD Vitamin D (Ergocalciferol) 1.25mg (22811 Ut) Capsules Take One Capsule By Mouth [...] Negative Procedures Date Code Description Status 06/16/2021 28532 Office/Outpatient Established Mo d MDM 30-39 Min Completed 06/16/2021 99985 X-Ray Spine Lumbosacral Complete Inc Bending Views Min Of 6 Completed 05/01/2021 59784 Office/Outpatient Established Mo d MDM 30-39 Min Completed 05/01/2021 48083 X-Ray Foot Complete Completed 03/04/2021 13211 Office/Outpatient Established Lo w MDM 20-29 Min Completed 01/17/2021 52042 Office/Outpatient Established Mo d MDM 30-39 Min Completed 01/17/2021 69041 X-Ray Spine Cervical 6 Or More V [...] Z98.1 Arthrodesis status Office Visit 01/17/2021 9:30a [place] Derrick Munoz PA-C M5 0.30 Other cervical [...] 10:30 am - Derrick Munoz PA-C at [place] * 07/17/2021 3:35 pm - [facility] * 07/02/2021 1:30 pm - [facility] * 07/14/2021 10:30 am - Lab [...] Status Appt Date Derrick Munoz PA-C [place]([id number] [place] [id number]) NO AUTH REQUIRED TO SURGERY NT Created [address] [place] [address] [phone] Derrick Munoz PA-C CT NO AUTH REQUIRED FOR CT O F CERVICAL SPINE ([id number]) TO NATALY ISSA Created [address] [place] [address] [phone] Derrick Munoz PA-C CT NO AUTH REQUIRED FOR CT O F CERVICAL SPINE ([id number]) TO NATALY ISSA Created [address] [place] [address] [phone]
--- OUTSIDE RECORDS SUMMARY | 2021-07-17 13:15 | CCD ---
Continuity of Care Document (CCD) Created on: 07/01/2021 Judy Humphreys External Reference #: [id number] : [id number] Sex: Female Author Author Judy FANG Organization Unknown Address [address] [place] [address] Phone [phone] Care Team Providers Care Sheet Finisher Name Role Phone Speedy GallardoP AUTM [phone] Chrissy Mckeon MD AUTM [phone] Problems Active Problems Provider Date Abdominal pain [...] Taniya Laguerre WHNP Vitamin D (Ergocalciferol) 1.25mg (93682 Ut) Capsules Take One Capsule By Mouth [...] 60marion Clement MD Vitamin D (Ergocalciferol) 1.25mg (13192 Ut) Capsules Take One Capsule By Mouth [...] Mouth @8Am Unknown Amlodipine Besylate 10mg Tablets Yomi, Espinoza, MD Ventolin HFA 108(90Base) mcg/Act A erosol [...] 1 1 CARE START COVID-19 ANTIGEN LOT #[id number] 06/30/21 1:21 P.M. Procedures Date Code Description Status 06/16/2021 00683 Office/Outpatient Established Mo d MDM 30-39 Min Completed 06/16/2021 27375 X-Ray Spine Lumbosacral Complete Inc Bending Views Min Of 6 Completed 05/01/2021 79928 Office/Outpatient Established Mo d MDM 30-39 Min Completed 05/01/2021 26704 X-Ray Foot Complete Completed 03/04/2021 64946 Office/Outpatient Established Lo w MDM 20-29 Min Completed 01/17/2021 17991 Office/Outpatient Established Mo d MDM 30-39 Min Completed 01/17/2021 26177 X-Ray Spine Cervical 6 Or More V iews Completed Medical Devices Description No Information Available Encounters Type Date Location Provider Dx Diagnosis Office Visit 06/16/2021 3:30p [place] Derrick Munoz PA-C M4 3.16 Spondylolisthesis, lumbar region M48.07 Spinal stenosis, lumbosacral region M70.61 Trochanteric bursitis, right hip M54.2 Cervicalgia Office Visit 05/01/2021 1:00p [place] Derrick Munoz PA-C M7 7.52 Other enthesopathy of left foot and ankle M50.30 Other cervical disc degenera tion, unsp cervical region Z98.1 Arthrodesis status Office Visit 03/04/2021 1:45p [place] Derrick Munoz PA-C M5 0.30 Other cervical disc degeneration, unsp cervical region Z98.1 Arthrodesis status Office Visit 01/17/2021 9:30a [place] Derrcik Munoz PA-C M5 0.30 Other cervical disc [...] exposure to other viral communicable diseases Holden Cleemnt MD 06/13/2021 Z20.828 Contact with and (recinos [...] 10:30 am - Derrick Munoz PA-C at [place] * 07/17/2021 3:35 pm - [facility] * 07/02/2021 1:30 pm - [facility] * 07/14/2021 10:30 am - Lab [...] Status Appt Date Derrick Munoz PA-C [place]([id number] [place] [id number]) NO AUTH REQUIRED TO SURGERY NT Created [address] [place] [address] [phone] Derrick Munoz PA-C CT NO AUTH REQUIRED FOR CT O F CERVICAL SPINE ([id number]) TO NATALY ISSA Created [address] [place] [address] [phone] Derrick Munoz PA-C CT NO AUTH REQUIRED FOR CT O F CERVICAL SPINE ([id number]) TO NATALY ISSA Created [facility] [id number] [place] [id number] [phone]
--- OUTSIDE RECORDS SUMMARY | 2021-07-17 13:15 | CCD | Continuity of Care Document ---
Author Author Judy SANDOVAL HISTORY TUTOR-C Organization Unknown Address [address], [address] [place] [address] Phone [phone] Care Team Providers Care Stock Preparation Operator Name Role Phone Chrissy Mckeon MD [facility] [phone] Problems Description No Information Available Social History Type Date Description Comments Sex Unknown ETOH Use Rarely consumes alcohol Tobacco Use Start: Unknown End: Unknown Patient is a former smoker Quit 2015 Sun Exposure minimum amount of sun exposure Sun Exposure Has experienced blistering from sunburns Sun Exposure Uses > 30 SPF Allergies and adverse reactions Active Allergies Criticality Reaction | Severity Comments Date Keflex Unable to assess criticality 10/16/2016 IVP Dye Unable to assess criticality 10/16/2016 Penicillin Unable to assess criticality 10/16/2016 Medications Active Medications SIG Qnty Indications Ordering Provide r Date Clindamycin Phosphate 1% Solution apply to labia sparingly twice daily x 5 days and then as needed if flaring. 60ml L72.3 RICKEY Moore 06/24/2021 Sertraline HCL Unknown Hydroxyzine HCL Unknown 0 Magnesium Oxide Unknown 0 Multivitamin Adult Unknown Calcium 500 + D3 Unknown 00 Colace Unknown Voltaren Unknown Aspirin 81 Unknown Cyclobenzaprine HCL Unknown Celecoxib Unknown Metformin HCL Unknown Latuda Unknown Losartan Potassium Unknown Omeprazole Unknown Atorvastatin Calcium Unknown Proair HFA Unknown Flovent HFA Unknown Vitamin D Unknown Lyrica Unknown Amlodipine Besylate Unknown Trazodone HCL Unknown Immunizations Description No Information Available Vital Signs Date Vital Result Comment 01/07/2021 1:31pm BP Systolic 139 mmHg BP Diastolic 74 mmHg Weight 194.00 lb Body Temperature 96.5 F 01/01/2021 9:43am BP Systolic 146 mmHg BP Diastolic 72 mmHg Weight 194.00 lb Body Temperature 97.4 F Results Description No Information Available Procedures Date Code Description Status 06/24/2021 10610 Office/Outpatient Established Mo d MDM 30-39 Min Completed 06/24/2021 81421 I & D Abscess Simple Completed 01/07/2021 07349 Destruction Benign L esions Other Than Skin Tags Or Cutan Vascular Completed Medical Devices Description No Information Available Encounters Type Date Location Provider Dx Diagnosis Office Visit 06/24/2021 2:30p Main Office RICKEY Moore L 72.3 Sebaceous cyst R20.8 Other disturbances of skin s ensation Assessments Date Code Description Provider 06/24/2021 L72.3 Sebaceous cyst RICKEY Melvin 06/24/2021 R20.8 Other disturbances of skin sensa tion RICKEY Moore 01/07/2021 L82.1 Other seborrheic keratosis RICKEY Bautista 01/07/2021 R20.8 Other disturbances of skin sensa tion RICKEY Moore Plan of Treatment Future Appointment(s):* 07/31/2021 3:15 pm - RICKEY Moore at Main Office * 01/05/2022 1:15 pm - RICKEY Moore at Main Office 06/24/2021 - RICKEY Moore* L72.3 Sebaceous cyst* New Medication:* Clindamycin Phosphate 1 % - apply to labia sparingly twice daily x 5 days and then as needed if flaring. * Comments:* I&D to 6 cysts today, due to irritation.Judy tolerated procedure well.Start Clindamycin Phosphate 1% solution, BID x 5 days and as needed for flares. Call with any problems. * R20.8 Other disturbances of skin sensation* Comments:* See above. * Follow up:* 1 month - cyst follow up Functional Status Description No Information Available Mental Status Description No Information Available Referrals Refer to Reason for Referral Status Appt Date Callie Sandoval NP Created [address] [place] [address] [phone]"
--- OUTSIDE RECORDS SUMMARY | 2021-07-17 13:15 | CCD | Continuity of Care Document ---
Author Author Judy GEORGES MD Organization Unknown Address [address] [place] [address] Phone [phone] Care Team Providers Care Medical Record Transcriber Name Role Phone Speedy Gallardo TESTING CONSULTANT AUTM [phone] Chrissy Mckeon MD AUTM [phone] Problems Active Problems Provider Date Abdominal pain [...] Taniya Laguerre WHNP Vitamin D (Ergocalciferol) 1.25mg (96966 Ut) Capsules Take One Capsule By Mouth [...] 60marion Clement MD Vitamin D (Ergocalciferol) 1.25mg (49523 Ut) Capsules Take One Capsule By Mouth [...] 1 1 CARE START COVID-19 ANTIGEN LOT #[id number] 06/30/21 1:21 P.M. Procedures Date Code Description Status 06/16/2021 89217 Office/Outpatient Established Mo d MDM 30-39 Min Completed 06/16/2021 69665 X-Ray Spine Lumbosacral Complete Inc Bending Views Min Of 6 Completed 05/01/2021 40536 Office/Outpatient Established Mo d MDM 30-39 Min Completed 05/01/2021 00252 X-Ray Foot Complete Completed 03/04/2021 48429 Office/Outpatient Established Lo w MDM 20-29 Min Completed 01/17/2021 51355 Office/Outpatient Established Mo d MDM 30-39 Min Completed 01/17/2021 18802 X-Ray Spine Cervical 6 Or More V iews Completed Medical Devices Description No Information Available Encounters Type Date Location Provider Dx Diagnosis Office Visit 06/16/2021 3:30p [place] Derrick Munoz PA-C M4 3.16 Spondylolisthesis, lumbar region M48.07 Spinal stenosis, lumbosacral region M70.61 Trochanteric bursitis, right hip M54.2 Cervicalgia Office Visit 05/01/2021 1:00p [place] Derrick Munoz PA-C M7 7.52 Other enthesopathy of left foot and ankle M50.30 Other cervical disc degenera tion, unsp cervical region Z98.1 Arthrodesis status Office Visit 03/04/2021 1:45p [place] Derrick Munoz PA-C M5 0.30 Other cervical disc degeneration, unsp cervical region Z98.1 Arthrodesis status Office Visit 01/17/2021 9:30a [place] Derrick Munoz PA-C M5 0.30 Other cervical [...] 10:30 am - Derrick Munoz PA-C at [place] * 07/17/2021 3:35 pm - [facility] * 07/02/2021 1:30 pm - [facility] * 07/14/2021 10:30 am - Lab [...] Status Appt Date Derrick Munoz PA-C [place]([id number] [place] [id number]) NO AUTH REQUIRED TO SURGERY NT Created [address] [place] [address] [phone] Derrick Munoz PA-C CT NO AUTH REQUIRED FOR CT O F CERVICAL SPINE ([id number]) TO NATALY ISSA Created [address] [place] [address] [phone] Derrick Munoz PA-C CT NO AUTH REQUIRED FOR CT O F CERVICAL SPINE ([id number]) TO NATALY ISSA Created [facility] [id number] [place] [phone]
--- OUTSIDE RECORDS SUMMARY | 2021-07-17 13:15 | CCD | Continuity of Care Document ---
Author Author Judy Vickers Organization Unknown Address [address] [place] [address] Phone [phone] Care Team Providers Care Manager Drilling Name Role Phone Speedy Gallardo TILESETTER AUTM [phone] Chrissy Mckeon MD AUTM [phone] Problems Active Problems Provider Date Abdominal pain [...] Taniya Laguerre WHNP Vitamin D (Ergocalciferol) 1.25mg (60259 Ut) Capsules Take One Capsule By Mouth [...] 60marion Clement MD Vitamin D (Ergocalciferol) 1.25mg (15971 Ut) Capsules Take One Capsule By Mouth [...] 1 1 CARE START COVID-19 ANTIGEN LOT #[id number] 06/30/21 1:21 P.M. Procedures Date Code Description Status 06/16/2021 56033 Office/Outpatient Established Mo d MDM 30-39 Min Completed 06/16/2021 48349 X-Ray Spine Lumbosacral Complete Inc Bending Views Min Of 6 Completed 05/01/2021 65484 Office/Outpatient Established Mo d MDM 30-39 Min Completed 05/01/2021 32900 X-Ray Foot Complete Completed 03/04/2021 75489 Office/Outpatient Established Lo w MDM 20-29 Min Completed 01/17/2021 50076 Office/Outpatient Established Mo d MDM 30-39 Min Completed 01/17/2021 71787 X-Ray Spine Cervical 6 Or More V iews Completed Medical Devices Description No Information Available Encounters Type Date Location Provider Dx Diagnosis Office Visit 06/16/2021 3:30p [place] Derrick Munoz PA-C M4 3.16 Spondylolisthesis, lumbar region M48.07 Spinal stenosis, lumbosacral region M70.61 Trochanteric bursitis, right hip M54.2 Cervicalgia Office Visit 05/01/2021 1:00p [place] Derrick Munoz PA-C M7 7.52 Other enthesopathy of left foot and ankle M50.30 Other cervical disc degenera tion, unsp cervical region Z98.1 Arthrodesis status Office Visit 03/04/2021 1:45p [place] Derrick Munoz PA-C M5 0.30 Other cervical disc degeneration, unsp cervical region Z98.1 Arthrodesis status Office Visit 01/17/2021 9:30a [place] Derrick Munoz PA-C M5 0.30 Other cervical [...] 10:30 am - Derrick Munoz PA-C at [place] * 07/17/2021 3:35 pm - [facility] * 07/02/2021 1:30 pm - [facility] * 07/14/2021 10:30 am - Lab at [...] Status Appt Date Derrick Munoz PA-C [place]([id number] [place] [address]) NO AUTH REQUIRED TO SURGERY NT Created [address] [place] [address] [phone] Derrick Munoz PA-C CT NO AUTH REQUIRED FOR CT O F CERVICAL SPINE ([id number]) TO NATALY ISSA Created [address] [place] [address] [phone] Derrick Munoz PA-C CT NO AUTH REQUIRED FOR CT O F CERVICAL SPINE ([id number]) TO NATALY ISSA Created [address] [place] [address] [address] [place] [phone]
--- OUTSIDE RECORDS SUMMARY | 2021-07-17 13:15 | CCD | Continuity of Care Document ---
Author Author Judy FANG Organization Unknown Address [address] [place] [address] Phone [phone] Care Team Providers Care Weaving Professor Name Role Phone Speedy GallardoP AUTM [phone] Chrissy Mckeon MD AUTM [phone] Problems Active Problems Provider Date Abdominal pain [...] Taniya Laguerre WHNP Vitamin D (Ergocalciferol) 1.25mg (43821 Ut) Capsules Take One Capsule By Mouth [...] 60marion Clement MD Vitamin D (Ergocalciferol) 1.25mg (89709 Ut) Capsules Take One Capsule By Mouth [...] 1 1 CARE START COVID-19 ANTIGEN LOT #[id number] 06/30/21 1:21 P.M. Procedures Date Code Description Status 06/16/2021 93818 Office/Outpatient Established Mo d MDM 30-39 Min Completed 06/16/2021 84525 X-Ray Spine Lumbosacral Complete Inc Bending Views Min Of 6 Completed 05/01/2021 95447 Office/Outpatient Established Mo d MDM 30-39 Min Completed 05/01/2021 81046 X-Ray Foot Complete Completed 03/04/2021 70810 Office/Outpatient Established Lo w MDM 20-29 Min Completed 01/17/2021 31152 Office/Outpatient Established Mo d MDM 30-39 Min Completed 01/17/2021 19145 X-Ray Spine Cervical 6 Or More V iews Completed Medical Devices Description No Information Available Encounters Type Date Location Provider Dx Diagnosis Office Visit 06/16/2021 3:30p [place] Derrick Munoz PA-C M4 3.16 Spondylolisthesis, lumbar region M48.07 Spinal stenosis, lumbosacral region M70.61 Trochanteric bursitis, right hip M54.2 Cervicalgia Office Visit 05/01/2021 1:00p [place] Derrick Munoz PA-C M7 7.52 Other enthesopathy of left foot and ankle M50.30 Other cervical disc degenera tion, unsp cervical region Z98.1 Arthrodesis status Office Visit 03/04/2021 1:45p [place] Derrick Munoz PA-C M5 0.30 Other cervical disc degeneration, unsp cervical region Z98.1 Arthrodesis status Office Visit 01/17/2021 9:30a [place] Derrick Munoz PA-C M5 0.30 Other cervical [...] 10:30 am - Derrick Munoz PA-C at [place] * 07/17/2021 3:35 pm - [facility] * 07/02/2021 1:30 pm - [facility] * 07/14/2021 10:30 am - Lab [...] Status Appt Date Derrick Munoz PA-C [place]([id number] [place] [address]) NO AUTH REQUIRED TO SURGERY NT Created [address] [place] [address] [phone] [address]rick Munoz PA-C CT NO AUTH REQUIRED FOR CT O F CERVICAL SPINE ([id number]) TO NATALY ISSA Created [address] [place] [address] [phone] Derrick Munoz PA-C CT NO AUTH REQUIRED FOR CT O F CERVICAL SPINE ([id number]) TO NATALY ISSA Created [facility] [address] [place] [phone]
--- OUTSIDE RECORDS SUMMARY | 2021-07-17 13:16 | CCD | Continuity of Care Document ---
Author Author Judy Vickers Organization Unknown Address [address] [place] [address] Phone [phone] Care Team Providers Care Licensed Therapist Name Role Phone Speedy Gallardo DOCTOR OF MEDICINE AUTM [phone] Chrissy Mckeon MD AUTM [phone] Problems Active Problems Provider Date Abdominal pain [...] Taniya Laguerre WHNP Vitamin D (Ergocalciferol) 1.25mg (02647 Ut) Capsules Take One Capsule By Mouth [...] 60marion Clement MD Vitamin D (Ergocalciferol) 1.25mg (36602 Ut) Capsules Take One Capsule By Mouth [...] day 60caps Lamonte De Paz MD 03/04/20 - 04/30/2021 Gabapentin 800mg Tablets Take One Tablet By Mouth @8Am and Take One Tablet @2PM and Take One Tablet @8PM 90tabs Baudilio Luu MD 12/16/2020 - 04/30/2021 Immunizations Description No Information Available Vital Signs Date Vital Result Comment 06/13/2021 2:00pm Body Temperature 97.2 F 05/01/2021 1:11pm Height 63 inches 5'3" Weight 195.00 lb BMI (Body Mass Index) 34.5 kg/m2 Results Test Acquired Date Facility Test Result H/L Range Note Laboratory test finding 06/13/2021 In House Covid Rapid Testing Negative Procedures Date Code Description Status 05/01/2021 23207 Office/Outpatient Established Mo d MDM 30-39 Min Completed 05/01/2021 61160 X-Ray Foot Complete Completed 03/04/2021 67612 Office/Outpatient Established Lo w MDM 20-29 Min Completed 01/17/2021 36792 Office/Outpatient Established Mo d MDM 30-39 Min Completed 01/17/2021 73795 X-Ray Spine Cervical 6 Or More V iews Completed Medical Devices Description No Information Available Encounters Type Date Location Provider Dx Diagnosis Office Visit 05/01/2021 1:00p [place] Munoz PA-C M7 7.52 Other enthesopathy of left foot and ankle M50.30 Other cervical disc degenera tion, unsp cervical region Z98.1 Arthrodesis status Office Visit 03/04/2021 1:45p Rigoberto Munoz PA-C M5 0.30 Other cervical disc degeneration, unsp cervical region Z98.1 Arthrodesis status Office Visit 01/17/2021 9:30a Rigoberto Muonz PA-C M5 0.30 Other cervical disc degeneration, unsp cervical region Z98.1 Arthrodesis status Assessments Date Code Description Provider 06/13/2021 Z01.818 Encounter for other preprocedura l [...] 3:35 pm - [facility] * 07/02/2021 1:30 pm - [facility] * 06/17/2021 2:45 pm - [facility] * 07/14/2021 10:30 am - Lab at [facility] * 06/30/2021 1:30 pm - Lab at [facility] * 06/16/2021 3:30 pm - Derrick Munoz PA-C at [place] 05/01/2021 - Derrick Munoz PA-C* M77.52 Other enthesopathy of left foot and ankle * M50.30 Other cervical disc degeneration, unspecified cervical region* Follow up:* with bms after inj 2 weeks for lt foot re-check * Z98.1 Arthrodesis status Functional Status Description No Information Available Mental Status Description No Information Available Referrals Refer to Reason for Referral Status Appt Date Derrick Munoz PA-C [place]([id number] [place] [address]) NO AUTH REQUIRED TO SURGERY NT Created [address] [place] [address] [phone] Derrick Munoz PA-C CT NO AUTH REQUIRED FOR CT O F CERVICAL SPINE ([id number]) TO NATALY ISSA Created [address] [place] [address] [phone] [address]rick Munoz PA-C CT NO AUTH REQUIRED FOR CT O F CERVICAL SPINE ([id number]) TO NATALY ISSA Created [address] [place] [address] [phone]
--- OUTSIDE RECORDS SUMMARY | 2021-07-17 13:16 | CCD | Continuity of Care Document ---
Author Author Judy ARMSTRONG Organization Unknown Address [address] [place] [address] Phone [phone] Care Team Providers Care Associate Attorney Name Role Phone Marco Zaragoza D.P.M. AUTM [phone] [facility] AUTM [phone] [facility] Care Everywhere AUTM Chrissy Mckeon M.D. AUTM [phone] Problems Active Problems Provider Date Anemia Justice Armstrong M.D. Onset: 11/30/2013 Angina pectoris Justice Armstrong M.D. Onset: 11/30/2013 Pure hypercholesterolemia Justice Armstrong M.D. Onset: 014 Essential hypertension Justice Armstrong M.D. Onset: 11/30/2013 Varicose veins of lower extremity Justice Armstrong M.D. Onset: 11/30/2013 Anxiety state Justice Armstrong M.D. Onset: 12/01/2013 Atherosclerosis of arteries of the extremities Justice Armstrong M.D. Onset: 12/01/2013 Intermittent claudication due to atherosclerosis of ar alexys of limb Justice Armstrong M.D. Onset: 06/10/2015 Social History Type Date Description Comments Sex Unknown ETOH Use Denies alcohol use Tobacco Use Start: Unknown End: Patient is a former smoker Smoking Status Reviewed: 04/23/21 Patient is a former smoker Allergies, Adverse Reactions, Alerts Active Allergies Reaction Severity Comments Date Contrast Dye rash 12/22/2013 Keflex Contact dermatitis 4 Penicillins rash 11/28/2013 Medications Active Medications SIG Qnty Indications Ordering Provide r Date Abilify 15mg Tablets qd Unknown Hydrocodone/Acetaminophen 10-325mg 1 bid, prn Unknown Aspirin [address] qd Unknown Celebrex 200mg Capsules qd Unknown Bath/Shower Seat Misc as nee ded 1units Justice Armstrong M.D. Nexium 40mg Capsules DR every day Unknown Zoloft 100mg qd Unknown Losartan Potassium 25mg Tablets qd Speedy Gallardo N.P. Ondansetron 4mg Tablets Dispers take 1 tablet (4 mg total) by mouth every 8 (eight) hours as needed for nausea Unknown Atorvastatin Calcium 40mg Tablets every day Unknown Bariatric Multivitamins/Iron Capsules qd Unknown Cyclobenzaprine HCL 10mg Tablets Take One Tablet By Mouth Every Evening Unknown Lyrica 150mg Capsules 1 by mouth once a day Unknown Latuda 120mg Tablets Unknown Sertraline HCL 25mg Tablets e very day Unknown Immunizations Description No Information Available Vital Signs Date Vital Result Comment 04/23/2021 8:33am BP Systolic Right Arm 150 mmHg BP Diastolic Right Arm 90 mmHg BP Systolic Left Arm 140 mmHg BP Diastolic Left Arm 72 mmHg Heart Rate 70 /min Body Temperature 91.8 F Height 62.5 inches 5'2.50" Weight 195.00 lb Weight 88.452 kg BMI (Body Mass Index) 35.1 kg/m2 12/12/2020 2:09pm Body Temperature 91.8 F Results Test Acquired Date Facility Test Result H/L Range Note Xray 04/23/2021 Main Office [phone] [facility] Ultrasound <pending> Xray 12/12/2020 Main Office [phone] Cross Femoral Bypass Ultrasound <pending> Procedures Date Code Description Status 12/12/2020 48061 Duplex Scan Lower Extremity, Fol low-Up Or Limited Completed 12/12/2020 84440 Duplex Scan Lower Extremity, Fol low-Up Or Limited Completed Medical Devices Description No Information Available Encounters Type Date Location Provider Dx Diagnosis Office Visit 04/23/2021 8:30a Main Office Justice Armstrong M.D. Z48.81 2 Encntr for surgical aftcr following surgery on the circ sys R20.8 Other disturbances of skin s ensation I70.213 [facility] [place] arteries of ex trm w intrmt krysta, bi legs Assessments Date Code Description Provider 04/23/2021 Z48.812 Encounter for surgic al aftercare following surgery on the circulatory system Justice Armstrong M.D. 04/23/2021 I70.213 [facility] [place] arteries of extrm w intrmt krysta, bi legs Vascular Lab 04/23/2021 R20.8 Other disturbances of skin sensa tion Justice Armstrong M.D. 04/23/2021 I70.213 Atherosclerosis of n ative arteries of extremities with intermittent claudication, bilateral legs Justice Armstrong M.D. 12/12/2020 Z48.812 Encounter for surgic al aftercare following surgery on the circulatory system Justice Armstrong M.D. 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
--- OUTSIDE RECORDS SUMMARY | 2021-07-17 13:16 | CCD | Continuity of Care Document ---
Author Author Judy MUNOZ PAJerodC Organization Unknown Address [address] [address] Phone [phone] Care Team Providers Care Cable Swager Name Role Phone Speedy Gallardo AUTM [phone] Chrissy Mckeon MD AUTM [phone] Problems Active Problems Provider Date Abdominal pain [...] to twice a day as needed 60caps DNeil Almeida MD 05/02/2021 Flovent HFA 44mcg/Act Aerosol Inhale 1 puff By Mouth Twice Daily Unknown Nitrofurantoin Monohydrate/Macrocrystals 100mg Capsules Taniya Laguerre WHNP Vitamin D (Ergocalciferol) 1.25mg (54425 Ut) Capsules Take One Capsule By Mouth [...] Twice Daily Max Daily Dose Two Capsules Unknown Vitamin D (Ergocalciferol) 1.25mg (89032 Ut) Capsules Take One Capsule By Mouth [...] De Paz MD 03/04/20 21 - 04/30/2021 Gabapentin 800mg Tablets Take One Tablet By Mouth @8Am and Take One Tablet @2PM and Take One Tablet @8PM 90tabs Baudilio Luu MD 12/16/2020 - 04/30/2021 Immunizations Description No Information Available Vital Signs Date Vital Result Comment 05/01/2021 1:11pm Height 63 inches 5'3" Weight 195.00 lb BMI (Body Mass Index) 34.5 kg/m2 09/19/2020 3:18pm Body Temperature 96.6 F Results Test Acquired Date Facility Test Result H/L Range Note Order 05/06/2021 [facility] [address] [address] [facility] <pending> Procedures Date Code Description Status 05/01/2021 54035 Office/Outpatient Established Mo d MDM 30-39 Min Completed 05/01/2021 51488 X-Ray Foot Complete Completed 03/04/2021 26006 Office/Outpatient Established Lo w MDM 20-29 Min Completed 01/17/2021 51639 Office/Outpatient Established Mo d MDM 30-39 Min Completed 01/17/2021 27893 X-Ray Spine Cervical 6 Or More V iews Completed Medical Devices Description No Information Available Encounters Type Date Location Provider Dx Diagnosis Office Visit 05/01/2021 1:00p iRgoberto Munoz PA-C M7 7.52 Other enthesopathy of [...] Arthrodesis status Assessments Date Code Description Provider 05/01/2021 M77.52 Other enthesopathy of left foot [...] status Derrick monroe PA-C Plan of Treatment 05/01/2021 - Derrick Munoz PA-C* M77.52 Other [...] Status Appt Date Derrick Munoz PA-C [facility]([id number] [place] [id number]) NO AUTH REQUIRED TO SURGERY NT Created [address] [place] [address] [phone] Derrick Munoz PA-C CT NO AUTH REQUIRED FOR CT O F CERVICAL SPINE ([id number]) TO NATALY ISSA Created [address] [place] [address] [phone] Derrick Munoz PA-C CT NO AUTH REQUIRED FOR CT O F CERVICAL SPINE ([id number]) TO NATALY ISSA Created [address] [place] [address] [phone]
--- OUTSIDE RECORDS SUMMARY | 2021-07-17 13:16 | CCD | Continuity of Care Document ---
Author Author Judy MUNOZ PAJerodC Organization Unknown Address [address] [address] Phone [phone] Care Team Providers Care Paper Folding Machine Operator Name Role Phone Speedy Gallardo AUTM [phone] Chrissy Mckeon MD AUTM [phone] Problems Active Problems Provider Date Abdominal pain [...] Capsules AcostateeTaniya WHNP Vitamin D (Ergocalciferol) 1.25mg (57719 Ut) Capsules Take One Capsule By Mouth [...] 60marion Clement MD Vitamin D (Ergocalciferol) 1.25mg (20199 Ut) Capsules Take One Capsule By Mouth [...] Negative Procedures Date Code Description Status 06/16/2021 30790 X-Ray Spine Lumbosacral Complete Inc Bending Views Min Of 6 Completed 05/01/2021 38064 Office/Outpatient Established Mo d MDM 30-39 Min Completed 05/01/2021 14888 X-Ray Foot Complete Completed 03/04/2021 29126 Office/Outpatient Established Lo w MDM 20-29 Min Completed 01/17/2021 79624 Office/Outpatient Established Mo d MDM 30-39 Min Completed 01/17/2021 80688 X-Ray Spine Cervical 6 Or More V [...] Z98.1 Arthrodesis status Office Visit 01/17/2021 9:30a CAREN Holcomb-C M5 0.30 Other cervical disc degeneration, unsp cervical region Z98.1 Arthrodesis status Assessments Date Code Description Provider 06/16/2021 M43.16 Spondylolisthesis, lumbar region Derrick Munoz PA-C 06/16/2021 M48.07 Spinal stenosis, lumbosacral reg ion Derrick Munoz PA-C 06/16/2021 M70.61 Trochanteric bursitis, right hip Derrick Munoz PA-C 06/16/2021 Z47.89 Encounter for other orthopedic a ftercare Derrick Munoz PA-C 06/16/2021 M54.2 Cervicalgia Derrick [...] 10:30 am - Derrick Munoz PA-C at [facility] * 07/17/2021 3:35 pm - [facility] * 07/02/2021 1:30 pm - [facility] * 06/17/2021 2:45 pm - [facility] * 07/14/2021 10:30 am - Lab at [facility] * 06/30/2021 1:30 pm - Lab at [facility] 06/16/2021 - Derrick Munoz PA-C* M43.16 Spondylolisthesis, lumbar region* Follow up:* f/u 4 weeks for back recheck with BMS * M48.07 Spinal stenosis, lumbosacral region * M70.61 Trochanteric bursitis, right hip * Z47.89 Encounter for other orthopedic aftercare * M54.2 Cervicalgia Functional Status Description No Information Available Mental Status Description No Information Available Referrals Refer to Dr Reason for Referral Status Appt Date Derrick Munoz PA-C [place]([id number] [place] [id number]) NO AUTH REQUIRED TO SURGERY NT Created [facility] [place] [address] [phone] Derrick Munoz PA-C CT NO AUTH REQUIRED FOR CT O F CERVICAL SPINE ([id number]) TO NATALY ISSA Created [address] [place] [address] [phone] Derrick Munoz PA-C CT NO AUTH REQUIRED FOR CT O F CERVICAL SPINE ([id number]) TO NATALY ISSA Created [address] [place] [address] [phone]
--- OUTSIDE RECORDS SUMMARY | 2021-07-17 13:16 | CCD | Continuity of Care Document ---
Author Author Judy CRAWFORD MD Organization Unknown Address [address] [place] [address], [address] [place] [address] Phone [phone] Care Team Providers Care Leasing Sales Consultant Name Role Phone Chrissy Mckeon MD [facility] [phone] Problems Active Problems Provider Date Essential hypertension Onset: 04/14/2021 Social History Type Date Description Comments Sex Unknown Cigarette Use Former Cigarette Smoker 1 Pack D aily quit > 7 years ago ETOH Use Never used alcohol Tobacco Use Start: Unknown End: Unknown Patient is a former smoker Smoking Status Reviewed: 04/17/21 Patient is a former smoker Allergies, Adverse Reactions, Alerts Active Allergies Criticality Reaction | Severity Comments Date Penicillin V Unable to assess criticality 04/14/2021 Keflex Unable to assess criticality 04/14/2021 Medications Active Medications SIG Qnty Indications Ordering Provide r Date Ventolin HFA 108(90Base) mcg/Act A erosol Chrissy Mckeon MD Flovent HFA 44mcg/Act Aerosol prn Chrissy Mckeon MD Omeprazole 40mg Capsules DR Take One Capsule By Mouth @8Am (30 Minutes Before Morning Meal) Unknown Sertraline HCL 100mg Tablets Take 1 And 1/2 Tablets By Mouth @8Am Unknown Metformin HCL ER 750mg Tablets ER 24HR Take One Tablet By Mouth @8Am and Take One Tablet By Mouth @5PM Unknown Magnesium Oxide 400(241.3Mg) mg Ta blets Take One Tablet By Mouth @8Am and Take One Tablet @8PM Unknown Losartan Potassium 50mg Tablets Take Two Tablets By Mouth @8Am Unknown Atorvastatin Calcium 20mg Tablets Take One Tablet By Mouth @8Am Unknown Amlodipine Besylate 10mg Tablets Take One Tablet By Mouth @8Am Unknown Latuda 80mg Tablets Take One Tablet By Mouth @8Am Unknown Pregabalin 150mg Capsules Take One Capsule By Mouth Twice Daily Max Daily Dose Two Capsules Unknown Hydrocodone-Acetaminophen 10-325mg Tablets Take One Tablet By Mouth Three Times Key ly as Needed For Pain Max Daily Dose Three Tablets Unknown Vitamin D (Ergocalciferol) 1.25mg (07041 Ut) Capsules Take One Capsule By Mouth Every Wednesday @8Am Unknown Hydroxyzine HCL 25mg Tablets Take One Tablet By Mouth Twice Daily as Needed For Anxiety Max Daily Dose Two Tablets Unknown Immunizations Description No Information Available Vital Signs Date Vital Result Comment 05/06/2021 10:40am BP Systolic 136 mmHg BP Diastolic 80 mmHg Heart Rate 80 /min Height 61.7 inches 5'1.70" Weight 201.00 lb BMI (Body Mass Index) 37.1 kg/m2 O2 % BldC Oximetry 96 % 04/17/2021 2:46pm BP Systolic 142 mmHg BP Diastolic 64 mmHg Heart Rate 78 /min Height 61.7 inches 5'1.70" Weight 199.25 lb BMI (Body Mass Index) 36.8 kg/m2 O2 % BldC Oximetry 95 % Results Test Acquired Date Facility Test Result H/L Range Note Laboratory test finding 05/06/[facility] [address] [place] [address] [phone] Non Facility Specialist/Cytology Req For Servi (SEE NOTE) 1 1 SPECIMEN: FNA Rig ht upper lobe thyroid nodule Specimen received in Cytolyt (pink tinged) SPECIMEN ADEQUACY: Satisfactory for evaluation CATEGORIZATION: Benign DESCRIPTIONS: Reactive follicular cells some exhibiting hurthle cell changes. The background consists of abundant hemosiderin laden macrophages and scattered lymphocytes. 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 05/07/2021 - 1046 Signed KALANI RIVERA(ASCP) 05/07/2021 0733 (Prelim) Signed Sacha Sy MD 05/07/2021 1046 Procedures Date Code Description Status 05/06/2021 13927 Fine Needle Aspiration Biopsy In lcd Ultrasound Guidance Completed 04/17/2021 19832 Office/Outpatient [facility] 6 0-74 Minutes Completed Medical Devices Description No Information Available Encounters Type Date Location Provider Dx Diagnosis Office Visit 05/06/2021 10:30a DR. 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 Magalys Crawford 05/06/2021 - Magalys Crawford MD* E04.2 Nontoxic multinodular goiter* Comments: * Patient is referred for complex nodule in the right upper lobe. Per the patient she has never had a thyroid nodule noticed before even though she has been scan due to chronic neck pain.. She had Covid in October 2020. It may be that this was a solid nodule that now has a cystic component due to "inflammation". Thyroid function tests are normal. 12/02/20, TSH = 2.45, free T4 = 0.8 Biopsy completed without difficulty. Follow up in one week. * Follow up:* virtual follow up- results biopsy- dc or steffany * All * Comments:* Procedure:Informed consent was obtained. Risk and benefits including but not limited to the possibility of bleeding infection and medication reaction was discussed. The patient signed informed consent.Patient was placed in the supine position with the head and neck slightly hyperextended.Dr. Crawford performed both PRE- procedure screening Ultrasound with permanently recorded images and also performed the biopsy with needle site verification (localization) and additionally obtained permanently recorded images of the localization process.Procedure:1% lidocaine was used for anesthesia.Under ultrasound guidance 4 passes were made into the right upper lobe mixed nodule thyroid nodule with needle site verification. Permanent images were obtained under ultrasound guidance Functional Status Description No Information Available Mental Status Description No Information Available Referrals Description No Information Available
--- OUTSIDE RECORDS SUMMARY | 2021-07-17 13:16 | CCD | Continuity of Care Document ---
Author Author Judy MUNOZ PAJerodC Organization Unknown Address [address] [address] Phone [phone] Care Team Providers Care Lunch Counter Manager Name Role Phone Speedy Gallardo AUTM [phone] Chrissy Mckeon MD AUTM [phone] Problems Active Problems Provider Date Abdominal pain [...] Capsules AcostateeTaniya WHNP Vitamin D (Ergocalciferol) 1.25mg (71192 Ut) Capsules Take One Capsule By Mouth [...] 60marion Clement MD Vitamin D (Ergocalciferol) 1.25mg (93693 Ut) Capsules Take One Capsule By Mouth [...] Negative Procedures Date Code Description Status 06/16/2021 13113 X-Ray Spine Lumbosacral Complete Inc Bending Views Min Of 6 Completed 05/01/2021 70578 Office/Outpatient Established Mo d MDM 30-39 Min Completed 05/01/2021 55186 X-Ray Foot Complete Completed 03/04/2021 09820 Office/Outpatient Established Lo w MDM 20-29 Min Completed 01/17/2021 98050 Office/Outpatient Established Mo d MDM 30-39 Min Completed 01/17/2021 48312 X-Ray Spine Cervical 6 Or More V [...] 10:30 am - Derrick Munoz PA-C at [facility] * 07/17/2021 3:35 pm - [facility] [...] Status Appt Date Derrick Munoz PA-C [facility]([id number] [place] [address]) NO AUTH REQUIRED TO SURGERY NT Created [facility] [place] [address] [phone] Derrick Munoz PA-C CT NO AUTH REQUIRED FOR CT O F CERVICAL SPINE ([id number]) TO NATALY ISSA Created [address] [place] [address] [phone] [address]rick Munoz PA-C CT NO AUTH REQUIRED FOR CT O F CERVICAL SPINE ([id number]) TO NATALY ISSA Created [address] [place] [address] [phone]
--- OUTSIDE RECORDS SUMMARY | 2021-07-17 13:16 | CCD | Continuity of Care Document ---
Author Author Judy Vickers Organization Unknown Address [address] [place] [address] Phone [phone] Care Team Providers Care Outside Industrial Sales Representative Name Role Phone Speedy Gallardo INSTRUMENTAL MUSICIAN AUTM [phone] Chrissy Mckeon MD AUTM [phone] Problems Active Problems Provider Date Abdominal pain [...] Taniya Laguerre WHNP Vitamin D (Ergocalciferol) 1.25mg (00884 Ut) Capsules Take One Capsule By Mouth [...] 60marion Clement MD Vitamin D (Ergocalciferol) 1.25mg (55753 Ut) Capsules Take One Capsule By Mouth [...] BMI (Body Mass Index) 34.5 kg/m2 Results Description No Information Available Procedures Date Code Description Status 05/01/2021 43708 Office/Outpatient Established Mo d MDM 30-39 Min Completed 05/01/2021 62760 X-Ray Foot Complete Completed 03/04/2021 24968 Office/Outpatient Established Lo w MDM 20-29 Min Completed 01/17/2021 90602 Office/Outpatient Established Mo d MDM 30-39 Min Completed 01/17/2021 19668 X-Ray Spine Cervical 6 Or More V [...] cervical disc degeneration , unspecified cervical region Drerick Munoz PA-C 01/17/2021 Z98.1 Arthrodesis status Derrick monroe PA-C Plan of Treatment Future Appointment(s):* 07/17/2021 3:35 pm - [facility] * 07/02/2021 1:30 pm - [facility] * 06/17/2021 2:45 pm - [facility] * 07/14/2021 10:30 am - Lab at [facility] * 06/30/2021 1:30 pm - Lab at [facility] * 06/16/2021 3:30 pm - Derrick Munoz PA-C at [facility] 05/01/2021 - Derrick Munoz PA-C* M77.52 Other [...] Status Appt Date Derrick Munoz PA-C [place]([address] [place] [address]) NO AUTH REQUIRED TO SURGERY NT Created [address] [place] [address] [phone] Derrick Munoz PA-C CT NO AUTH REQUIRED FOR CT O F CERVICAL SPINE ([id number]) TO NATALY ISSA Created [address] [place] [address] [phone] Derrick Munoz PA-C CT NO AUTH REQUIRED FOR CT O F CERVICAL SPINE ([id number]) TO NATALY ISSA Created [address] [place] [address] [phone]
--- OUTSIDE RECORDS SUMMARY | 2021-07-17 13:16 | CCD ---
Author Author [facility] Organization [facility] Address Unknown Phone Unavailable Care Team Providers Care Corporate Account Executive Name Role Phone Chrissy Mckeon Unavailable PROBLEMS Type Condition ICD9-CM Code VDJ56-[id number] Code Onset Dates Condition S tatus W/U Status Risk SNOMED Code Notes Problem Psychophysiologic insomnia F51.04 Active confirmed 097800203 Problem Other chronic pain G89.29 Active confirmed 8 8117751 Problem Mixed hyperlipidemia E78.2 Active confirmed 632255960 Problem Generalized anxiety disorder F41.1 Active confirme d 47677974 Problem Essential hypertension I10 Active confirmed 55490275 Problem ROBERT (obstructive sleep apnea) G47.33 Active confirm ed 52363303 Problem Sciatica, left side M54.32 Active confirmed 42139601 Problem Iron deficiency anemia, unspecified iron deficiency an emia type D50.9 Active confirmed 68322032 Problem Spinal stenosis of lumbar re gion, unspecified whether neurogenic claudication present M48.061 Active confirmed 87288396 Problem 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.211 Active confirmed 337402585 Problem Chronic instability of left knee M23.52 Active confirmed 482346841986052 Problem Unable to balance when standing R27.8 Active confi rmed 310158766 Problem Type 2 diabetes mellitus wit hout complication, without long-term current use of insulin E11.9 Active confirmed 604488186 Problem Vitamin D deficiency E55.9 Active confirmed 38737666 Problem Postsurgical malabsorption K91.2 Active confirmed 818465210 Problem Thyroid nodule E04.1 Active confirmed 29318 5005 Problem Sciatica, right side M54.31 Active confirmed 54449903810405145 Problem Gastroesophageal reflux disease without esophagitis K21.9 Active confirmed 080785289 Problem Recurrent major depressive disorder, in partial remission F33.41 Active confirmed 68016376 Problem Scoliosis of lumbar spine, unspecified scoliosis type M41.9 Active confirmed 190681722 Problem DDD (degenerative disc disease), lumbar M51.36 Active confirmed 08333890 Problem Moderate persistent asthma without complication J4 5.40 Active confirmed 983853892 Problem Urinary dribbling N39.43 Active confirmed 58 055090 ALLERGIES Allergen (clinical drug ingredient) Drug/Non Drug Allergy do cumented on EMR Reaction Allergy Type Onset Date Status cephalexin Keflex([facility] Code:[address]-53) rash Drug Allergy Active contrast dye itching Non Drug Allergy Active Penicillin (For Allergies Use Only) rash Drug Allerg y Active ENCOUNTERS from 1955 to 2021-06-17 Encounter Location Date Provider Diagnosis [facility] [address] [facility] [address] [phone] [place] [address] May, Chrissy Mckeon Essential hypertension I10 ; Type 2 diabetes mellitus without complication, without long-term current use of insulin E11.9 ; Thyroid nodule E04.1 ; 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.211 and Moderate persistent asthma without complication J45.40 IMMUNIZATIONS Vaccine Route Administration Date Status Influenza 18 yrs & older Flublok Unknown Jun 20, 2020 Administered Influenza 18 yrs & older Flublok IM Intramuscular Jul 20, 2019 Administered Pneumococcal 0.5mL Prevnar 13 IM Intramuscular Aug 23, 2019 A dministered SOCIAL HISTORY Tobacco Use: Social History Observation Description Date Details (start date - stop date) Former Smoker Sex Assigned At : Social History Observation Description Sex Assigned At Unknown Education: Question Answer Notes 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 No LMP: overy removal Have you ever had an STD? No Drug and Alcohol Question Answer Notes Total Score: 0 Interpretation: No problems reported Alcohol Screening: Question Answer Notes Did you have a drink containing alcohol in the past year? No Points 0 Interpretation Negative BMI Care Goal Follow-Up Question Answer Notes Above Normal BMI Follow-Up Lifestyle education regarding t Tobacco Use: Question Answer Notes Are you a: former smoker 1 PPD x 20 years How long has it been since you last smoked? 1-5 years REASON FOR REFERRAL No Information VITAL SIGNS Weight 197 lbs May, Height 63.5 in May, BMI 34.35 kg/m2 May, Heart Rate 88 /min May, Respiratory Rate 18 /min May, Temperature 97.2 degrees Fahrenheit May, Oximetry 98 May, Blood pressure systolic 130 mm Hg May, Blood pressure diastolic 70 mm Hg May, MEDICATIONS Medication SIG (Take, Route, Frequency, Duration) Notes Start Da te End Date Status Walker - with wheels and seat Dx M23.52, R27.8 duplicate January, Not-Taking Matheny 10-325 MG 1 tablet as needed Orally bid; MDD__#2 Sep, Active Latuda 80 MG 1 tablet with food Orally Once a day Active amLODIPine Besylate 10 MG 1 tablet Orally Once a day Active ProAir HFA 108 (90 Base) MCG/ACT 2 puff as needed Inhalation capri ry 4 hrs Jun, Active traZODone HCl 50 MG 1 tablet at bedtime Orally Once a day as needed Active Voltaren 1 % to left foot topically as needed Active Colace 100 MG 1 capsule as needed Orally Once a day for 30 day(s) Active Celecoxib 100 MG 1 capsule with food Orally Twice a day as neede d Oct, Active metFORMIN HCl ER 750 MG Take 1 tablet By Mouth twice a day Active Cyclobenzaprine HCl 5 MG 1 tablet as needed Orally Three times a day Active Losartan Potassium 50 MG 2 tablets to equal 100mg Orally Once a day Active Vitamin D (Ergocalciferol) 1.25 MG (94920 UT) TAKE ONE CAPSULE BY MOUTH Every Wednesday @8AM for 27 Active Omeprazole 40 MG 1 capsule 30 minutes before morning meal Orally Once a day for 28 Active Lyrica 150 MG 1 capsule Orally twice a day Active Walker - with seat and wheels Dx: M25.56 January, Active Magnesium Oxide 400 MG 1 tablet Orally twice daily for 28 Active Aspir-81 81 MG 1 tablet Orally Once a day Active hydrOXYzine HCl 25 mg 1 tablet as needed Orally BID Active Atorvastatin Calcium 20 MG TAKE ONE TABLET BY MOUTH @8AM for 28 Active Calcium Citrate + 315-200 MG-UNIT 1 tablet Orally Twice a day Active Multivital 1 tab orally Daily/bariatric with iron Active Flovent HFA 44 MCG/ACT 1 puff Inhalation Twice a day 08 , 2019 Active PROCEDURES No Information RESULTS Component Value Reference Range HEMOGLOBIN A1c Reviewed date:06/16/2021 06:53:26 Interpretation:Abnormal Performing Lab:[facility] [address] [facility] [address] , ,[place] [address] HEMOGLOBIN A1c 6.1 ESTIMATED AVERAGE GLUCOSE 128 60-110 Basic Metabolic Profile (BMP) Reviewed date:06/16/2021 06:53:26 Interpretation:Abnormal Performing Lab:[facility] [address] [facility] [address] , ,[place] [address] GLUCOSE, FASTING 126 70-100 BLOOD UREA NITROGEN 12 7-18 CREATININE FOR GFR 0.82 0.55-1.30 GLOMERULAR FILTRATION RATE > 60.0 >45 SODIUM LEVEL 130 136-145 POTASSIUM SERUM 4.4 3.5-5.1 CHLORIDE LEVEL 94 98-107 CARBON DIOXIDE LEVEL 29 21-32 CALCIUM LEVEL 8.6 8.8-10.2 REASON FOR VISIT F/u thyroid nodule MEDICAL (GENERAL) HISTORY Type Description Date Medical History HTN Medical History Hyperlipidemia Medical History Arthritis in back, left foot Medical History Spinal stenosis - Celia Leiva Medical History DM2 - diet controlled Medical History Depression/anxiety - Saray Kelly Medical History ROBERT - uses CPAP; Dr. Saenz Medical History Chronic opioid use Medical History History of gastric bypass surgery Medical History Anemia since gastric bypass surgery Medical History Vitamin D deficiency Medical History Former tobacco use - quit in 2013, smoked 1 ppd x 30 years; 3 mm nodule in LLL on LDLCT 10/2020 Medical History Left foot fracture without trauma - Dr. Lopez Medical History Bilateral sciatica Medical History Osteopenia - FRAX risk Major fx 13%, hip fx 1.3% on Dexa in 10/2019 Surgical History Cholecystectomy 1981 Surgical History Tubal 1981 Surgical History Right oopherectomy 2002 Surgical History Colonoscopy/EGD- adenomatous polyps - Dr Neil Arroyo 07/2017 Surgical History Appendectomy 2018 Surgical History Gastric bypass 2018 Surgical History Hernia repair 01/2019 Surgical History left foot surgery 06/2020 Hospitalization History surgery related Goals Section No Information Health Concerns No Information MEDICAL EQUIPMENT No Information MENTAL STATUS No Information FUNCTIONAL STATUS No Information ASSESSMENTS Encounter Date Diagnosis Assessment Notes Treatment Notes Treatm ent Clinical Notes May, Essential hypertension (ICD-10 - I10) Per JNC 8 guidelines, goal BP < 140/90; is meeting goal on current regimen. Advised heart-healthy diet, sodium restriction. May, Type 2 diabetes mellitus wit hout complication, without long-term current use of insulin (ICD-10 - E11.9) A1c has been at goal; recheck. May, Thyroid nodule (ICD-10 - E04.1) FNA benign; Dr. De Paz recommended f/u u/s in 1 year. May, Cigarette nicotine dependence in remission (ICD- 10 - F17.211) I discussed increased risk of lung cancer due to smoking history, and demonstrated benefit from selective screening with low-dose CT scanning. I counseled the patient on importance of adherence to annual screening, impact of comorbidities, and subsequent testing and treatment that may be indicated if test is positive. I reinforced abstinence. May, Moderate persistent asthma without compl ication (ICD-10 - J45.40) She has only used proair a couple of times in the last 6 months. PLAN OF TREATMENT Medication Medication Name Sig Start Date Stop Date ProAir HFA 108 (90 Base) MCG/ACT 2 puff as needed Inhalation every 4 hrs Jun, metFORMIN HCl ER 750 MG Take 1 tablet By Mouth twice a day Aspir-81 81 MG 1 tablet Orally Once a day Losartan Potassium 50 MG 2 tablets to equal 100mg Orally Once a day amLODIPine Besylate 10 MG 1 tablet Orally Once a day Flovent HFA 44 MCG/ACT 1 puff Inhalation Twice a day Jun, 0 Treatment Notes Assessment Notes Clinical Notes Essential hypertension Per JNC 8 guideli soren, goal BP < 140/90; is meeting goal on current regimen. Advised heart-healthy diet, sodium restriction. Type 2 diabetes mellitus without complic ation, without long-term current use of insulin A1c has been at goal; rechec k. Thyroid nodule FNA benign; Dr. De Paz recommended f/u u/s in 1 year. Cigarette nicotine dependence in remission I discussed increased risk of lung cancer due to smoking history, and demonstrated benefit from selective screening with low-dose CT scanning. I counseled the patient on importance of adherence to annual screening, impact of comorbidities, and subsequent testing and treatment that may be indicated if test is positive. I reinforced abstinence. Moderate persistent asthma without complication She has only used proair a couple of times in the last 6 months. Future Test Test Name Order Date Low Dose Lung Screening CT Chest 20211023 Basic Metabolic Profile (BMP) 20210613 HEMOGLOBIN A1c 20210613 Next Appt Details 11/2021; 30 min Reason:AWV Provider Name:Gabrielle Norwood, 2021-08-07 04:00:00 PM, [address] [place] [address], , [place], [address], Provider Name:Chrissy Bryan Mckeon, 2021-12-12 01:00:00 PM, [address] [facility] [facility] [address], , [place], [address], Follow Up:11/2021; 30 minAWV Insurance Providers Payer Name Payer Address Payer Phone Insured Name Patient Relati onship to Insured Coverage Start Date Coverage End Date MEDICARE Part A and B [address] [facility] [id number] ANDREW CHAIDEZ self [id number] [address] [facility] [address] [phone] ANDREW CHAIDEZ self
--- OUTSIDE RECORDS SUMMARY | 2021-07-17 13:16 | CCD | Continuity of Care Document ---
Author Author Judy CRAWFORD MD Organization Unknown Address [address] [place] [address], [address] [place] [address] Phone [phone] Care Team Providers Care Helper Animal Laboratory Name Role Phone Chrissy Mckeon MD [facility] [phone] Problems Active Problems Provider Date Essential hypertension [...] Three Tablets Unknown Vitamin D (Ergocalciferol) 1.25mg (38920 Ut) Capsules Take One Capsule By Mouth [...] H/L Range Note Laboratory test finding [facility]20[facility] [address] [place] [address] [phone] - Non Crack Off Person/Cytology Req For Servi (SEE NOTE) 1 1 [...] 05/07/2021 1046 Procedures Date Code Description Status 05/19/2021 33911 Office/Outpatient Established Lo w MDM 20-29 Min Completed 05/06/2021 96552 Fine Needle Aspiration Biopsy In lcd Ultrasound Guidance Completed 04/17/2021 74278 Office/Outpatient New High MDM 6 0-74 Minutes Completed Medical Devices Description No Information Available Encounters Type Date Location Provider Dx Diagnosis Office Visit 05/19/2021 12:45p DR. 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
--- OUTSIDE RECORDS SUMMARY | 2021-07-17 13:17 | CCD ---
Author Author [facility] Organization [facility] Address Unknown Phone Unavailable Care Team Providers Care Scrum Project Manager Name Role Phone Ruma Munoz Unavailable Unavailable Ruma Munoz Unavailable Unavailable Ruma Munoz Unavailable Unavailable Ruma Munoz Unavailable Unavailable Ruma Munoz Unavailable Unavailable Ruma Munoz Unavailable Unavailable Ruma Munoz Unavailable Unavailable Ruma Munoz Unavailable Unavailable Ruma Munoz Unavailable Unavailable Ruma Munoz Unavailable Unavailable Ruma Munoz Unavailable Unavailable Ruma Munoz Unavailable Unavailable Ruma Munoz Unavailable Unavailable Ruma Munoz Unavailable Unavailable Ruma Munoz Unavailable Unavailable Ruma Munoz Unavailable Unavailable Ruma Munoz Unavailable Unavailable Ruma Munoz Unavailable Unavailable Ruma Munoz Unavailable Unavailable Ruma Munoz Unavailable Unavailable Ruma Munoz Unavailable Unavailable Munoz, M Barratt PA Unavailable Unavailable Munoz, M Barratt PA Unavailable Unavailable Munoz, M Barratt PA Unavailable Unavailable Munoz, M Barratt PA Unavailable Unavailable Munoz, M Barratt PA Unavailable Unavailable Munoz, M Barratt PA Unavailable Unavailable Munoz, M Barratt PA Unavailable Unavailable Munoz, M Barratt PA Unavailable Unavailable Jamey NICHOLS [id number] Unavailable Unavailable RICA GERMAN MD Unavailable Unavailable RICA GERMAN MD Unavailable Unavailable RICA GERMAN MD Unavailable Unavailable RICA GERMAN MD Unavailable Unavailable RICA GERMAN MD Unavailable Unavailable RICA GERMAN MD Unavailable Unavailable RICA GERMAN MD Unavailable Unavailable RICA GERMAN MD Unavailable Unavailable RICA GERMAN MD Unavailable Unavailable RICA GERMAN MD Unavailable Unavailable RICA GERMAN MD Unavailable Unavailable RICA GERMAN MD Unavailable Unavailable RICA GERMAN MD Unavailable Unavailable RICA GERMAN MD Unavailable Unavailable RICA GERMAN MD Unavailable Unavailable RICA GERMAN MD Unavailable Unavailable RICA GERMAN MD Unavailable Unavailable RICA GERMAN MD Unavailable Unavailable RICA GERMAN MD Unavailable Unavailable RICA GERMAN MD Unavailable Unavailable RICA GERMAN MD Unavailable Unavailable RICA GERMAN MD Unavailable Unavailable RICA GERMAN MD Unavailable Unavailable RICA GERMAN MD Unavailable Unavailable RICA GERMAN MD Unavailable Unavailable RICA GERMAN MD Unavailable Unavailable RICA GERMAN MD Unavailable Unavailable RICA GERMAN MD Unavailable Unavailable RICA GERMAN MD Unavailable Unavailable RICA GERMAN MD Unavailable Unavailable RICA GERMAN MD Unavailable Unavailable LEONCIO, M SINTIA PA Unavailable Unavailable LEONCIO, M SINTIA PA Unavailable Unavailable LEONCIO, M SINTIA PA Unavailable Unavailable LEONCIO, M SINTIA PA Unavailable Unavailable LEONCIO, M SINTIA PA Unavailable Unavailable LEONCIO, M SINTIA PA Unavailable Unavailable LEONCIO, M SINTIA PA Unavailable Unavailable LEONCIO, M SINTIA PA Unavailable Unavailable LEONCIO, M SINTIA PA Unavailable Unavailable LEONCIO, M SINTIA PA Unavailable Unavailable LEONCIO, M SINTIA PA Unavailable Unavailable LEONCIO, M SINTIA PA Unavailable Unavailable LEONCIO, M SINTIA PA Unavailable Unavailable LEONCIO, M SINTIA PA Unavailable Unavailable LEONCIO, M SINTIA PA Unavailable Unavailable LEONCIO, M SINTIA PA Unavailable Unavailable LEONCIO, M SINTIA PA Unavailable Unavailable LEONCIO, M SINTIA PA Unavailable Unavailable LEONCIO, M SINTIA PA Unavailable Unavailable LEONCIO, M SINTIA PA Unavailable Unavailable LEONCIO, M SINTIA PA Unavailable Unavailable LEONCIO, M SINTIA PA Unavailable Unavailable LEONCIO, M SINTIA PA Unavailable Unavailable LEONCIO, M SINTIA PA Unavailable Unavailable EASTON, AOM MOUSTAFA Unavailable Unavailable MARQUES, FARZANA VENEGAS Unavailable Unavailable MARQUES, FARZANA VENEGAS Unavailable Unavailable MARQUES, FARZANA VENEGAS Unavailable Unavailable MARQUES, YANES MD Unavailable Unavailable MARQUES, YANES MD Unavailable Unavailable MARQUES, YANES MD Unavailable Unavailable MARQUES, YANES MD Unavailable Unavailable MARQUES, YANES MD Unavailable Unavailable MARQUES, YANES MD Unavailable Unavailable MARQUES, YANES MD Unavailable Unavailable MARQUES, YANES MD Unavailable Unavailable MARQUES, YANES MD Unavailable Unavailable MARQUES, YANES MD Unavailable Unavailable MARQUES, YANES MD Unavailable Unavailable MARQUES, YANES MD Unavailable Unavailable MARQUES, YANES MD Unavailable Unavailable MARQUES, YANES MD Unavailable Unavailable MARQUES, YANES MD Unavailable Unavailable MARQUES, YANES MD Unavailable Unavailable MARQUES, YANES MD Unavailable Unavailable MARQUES, YANES MD Unavailable Unavailable MARQUES, YANES MD Unavailable Unavailable MARQUES, YANES MD Unavailable Unavailable MARQUES, YANES MD Unavailable Unavailable MARQUES, YANES MD Unavailable Unavailable MARQUES, YANES MD Unavailable Unavailable MARQUES, YANES MD Unavailable Unavailable MARQUES, YANES MD Unavailable Unavailable MARQUES, YANES MD Unavailable Unavailable MARQUES, YANES MD Unavailable Unavailable MARQUES, YANES MD Unavailable Unavailable MARQUES, YANES MD Unavailable Unavailable MARQUES, YANES MD Unavailable Unavailable MARQUES, YANES MD Unavailable Unavailable MARQUES, YANES MD Unavailable Unavailable MARQUES, YANES MD Unavailable Unavailable MARQUES, YANES MD Unavailable Unavailable MARQUES, YANES MD Unavailable Unavailable MARQUES, YANES MD Unavailable Unavailable MARQUES, YANES MD Unavailable Unavailable MARQUES, YANES MD Unavailable Unavailable MARQUES, YANES MD Unavailable Unavailable MARQUES, YANES MD Unavailable Unavailable MARQUES, YANES MD Unavailable Unavailable MARQUES, YANES MD Unavailable Unavailable MARQUES, YANES MD Unavailable Unavailable MARQUES, YANES MD Unavailable Unavailable MARQUES, YANES MD Unavailable Unavailable MARQUES, YANES MD Unavailable Unavailable MARQUES, YANES MD Unavailable Unavailable MARQUES, FARZANA VENEGAS Unavailable Unavailable MARQUES, FARZANA VENEGAS Unavailable Unavailable MARQUES, FARZANA VENEGAS Unavailable Unavailable MARQUES, FARZANA VENEGAS Unavailable Unavailable MARQUES, FARZANA VENEGAS Unavailable Unavailable MEREDITH GEORGES MD Unavailable Unavailable MEREDITH GEORGES MD Unavailable Unavailable MEREDITH GEORGES MD Unavailable Unavailable MEREDITH GEORGES MD Unavailable Unavailable MEREDITH GEORGES MD Unavailable Unavailable MEREDITH GEORGES MD Unavailable Unavailable MEREDITH GEORGES MD Unavailable Unavailable MEREDITH GEORGES MD Unavailable Unavailable MEREDITH GEORGES MD Unavailable Unavailable MEREDITH GEORGES MD Unavailable Unavailable MEREDITH GEORGES MD Unavailable Unavailable MEREDITH GEORGES MD Unavailable Unavailable MEREDITH GEORGES MD Unavailable Unavailable MEREDITH GEORGES MD Unavailable Unavailable MEREDITH GEORGES MD Unavailable Unavailable MEREDITH GEORGES MD Unavailable Unavailable MEREDITH GEORGES MD Unavailable Unavailable MEREDITH GEORGES MD Unavailable Unavailable MEREDITH GEORGES MD Unavailable Unavailable MEREDITH GEORGES MD Unavailable Unavailable MEREDITH GEORGES MD Unavailable Unavailable MEREDITH GEORGES MD Unavailable Unavailable MEREDITH GEORGES MD Unavailable Unavailable MEREDITH GEORGES MD Unavailable Unavailable MEREDITH GEORGES MD Unavailable Unavailable MEREDITH GEORGES MD Unavailable Unavailable MEREDITH GEORGES MD Unavailable Unavailable MEREDITH GEORGES MD Unavailable Unavailable MEREDITH GEORGES MD Unavailable Unavailable MEREDITH GEORGES MD Unavailable Unavailable MEREDITH EGORGES MD Unavailable Unavailable MEREDITH GEORGES MD Unavailable Unavailable MEREDITH GEORGES MD Unavailable Unavailable Ali Dottie MD Unavailable Unavailable Ali Dottie Unavailable Unavailable AliDottie MD Unavailable Unavailable Ali Dottie Unavailable Unavailable Ali, Dottie MD Unavailable Unavailable Ali, Dottie MD Unavailable Unavailable Ali, Dottie MD Unavailable Unavailable Ali, Dottie MD Unavailable Unavailable Ali, Dottie MD Unavailable Unavailable Ali, Dottie MD Unavailable Unavailable Ali, Dottie MD Unavailable Unavailable Ali, Dottie MD Unavailable Unavailable Ali, Dottie MD Unavailable Unavailable Ali, Dottie MD Unavailable Unavailable Ali, Dottie MD Unavailable Unavailable Ali, Dottie MD Unavailable Unavailable Ali, Dottie MD Unavailable Unavailable Ali, Dottie MD Unavailable Unavailable Ali, Dottie MD Unavailable Unavailable Ali, Dottie MD Unavailable Unavailable Ali Dottie MD Unavailable Unavailable Ali, Dottie MD Unavailable Unavailable Ali, Dottie MD Unavailable Unavailable Ali, Dottie MD Unavailable Unavailable Ali, Dottie MD Unavailable Unavailable Ali, Dottie MD Unavailable Unavailable Ali, Dottie MD Unavailable Unavailable Ali, Dottie MD Unavailable Unavailable Ali, Dottie MD Unavailable Unavailable Ali, Dottie MD Unavailable Unavailable Ali, Dottie MD Unavailable Unavailable Ali, Dottie MD Unavailable Unavailable Ali, Dottie MD Unavailable Unavailable Ali, Dottie MD Unavailable Unavailable Ali, Dottie MD Unavailable Unavailable Ali, Dottie MD Unavailable Unavailable Ali, Dottie MD Unavailable Unavailable Ali, Dottie MD Unavailable Unavailable Ali, Dottie MD Unavailable Unavailable Ali Dottie Unavailable Unavailable Ali, Dottie MD Unavailable Unavailable Ali, Dottie MD Unavailable Unavailable Ali, Dottie MD Unavailable Unavailable Ali, Dottie MD Unavailable Unavailable Dottie Saenz MD Unavailable Unavailable Dottie Saenz MD Unavailable Unavailable Dottie Saenz MD Unavailable Unavailable Dottie Saenz MD Unavailable Unavailable Dottie Saenz MD Unavailable Unavailable Dottie Saenz MD Unavailable Unavailable Ashby, D Callie FILM PRINTER-C Unavailable Unavailable Ashby, D Callie FILM PRINTER-C Unavailable Unavailable Ashby, D Callie FILM PRINTER-C Unavailable Unavailable Ashby, D Callie FILM PRINTER-C Unavailable Unavailable Ashby, D Callie FILM PRINTER-C Unavailable Unavailable Ashby, D Callie FILM PRINTER-C Unavailable Unavailable Ashby, D Callie FILM PRINTER-C Unavailable Unavailable Fish, B Magalys VENEGAS Unavailable Unavailable Fish, B Magalys VENEGAS Unavailable Unavailable Fish, B Magalys VENEGAS Unavailable Unavailable Fish, B Magalys VENEGAS Unavailable Unavailable Fish, B Magalys VENEGAS Unavailable Unavailable Fish, B Magalys VENEGAS Unavailable Unavailable Fish, B Magalys VENEGAS Unavailable Unavailable Fish, B Magalys VENEGAS Unavailable Unavailable Fish, B Magalys VENEGAS Unavailable Unavailable Fish, B Magalys VENEGAS Unavailable Unavailable Fish, B Magalys VENEGAS Unavailable Unavailable Fish, B Magalys VENEGAS Unavailable Unavailable Fish, B Magalys VENEGAS Unavailable Unavailable Fish, B Magalys VENEGAS Unavailable Unavailable Fish, B Magalys VENEGAS Unavailable Unavailable Fish, B Magalys VENEGAS Unavailable Unavailable Fish, B Magalys VENEGAS Unavailable Unavailable Fish, B Magalys VENEGAS Unavailable Unavailable Fish, B Magalys VENEGAS Unavailable Unavailable Fish, B Magalys VENEGAS Unavailable Unavailable Fish, B Magalys VENEGAS Unavailable Unavailable Fish, B Magalys VENEGAS Unavailable Unavailable Fish, B Magalys VENEGAS Unavailable Unavailable Fish, B Magalys VENEGAS Unavailable Unavailable Fish, B Magalys VENEGAS Unavailable Unavailable Fish, B Magalys VENEGAS Unavailable Unavailable Fish, B Magalys VENEGAS Unavailable Unavailable Fish, B Magalys VENEGAS Unavailable Unavailable Fish, B Magalys VENEGAS Unavailable Unavailable Fish, Lyle Dowell MD Unavailable Unavailable Fish, B Magalys VENEGAS Unavailable Unavailable Fish, Lyle Dowell MD Unavailable Unavailable Fish, Lyle Dowell MD Unavailable Unavailable Fish, B Magalys VENEGAS Unavailable Unavailable Fish, B Magalys VENEGAS Unavailable Unavailable Fish, B Magalys VENEGAS Unavailable Unavailable Fish, B Magalys VENEGAS Unavailable Unavailable Fish, B Magalys VENEGAS Unavailable Unavailable Fish, B Magalys VENEGAS Unavailable Unavailable Fish, B Magalys VENEGAS Unavailable Unavailable Fish, B Magalys VENEGAS Unavailable Unavailable Fish, B Magalys VENEGAS Unavailable Unavailable Fish, B Magalys VENEGAS Unavailable Unavailable Fish, B Magalys VENEGAS Unavailable Unavailable Fish, B Magalys VENEGAS Unavailable Unavailable Fish, B Magalys VENEGAS Unavailable Unavailable Fish, B Magalys MD Unavailable Unavailable Lyle De Paz MD Unavailable Unavailable Lyle De Paz MD Unavailable Unavailable Lyle De Paz MD Unavailable Unavailable Lyle De Paz MD Unavailable Unavailable Lyle De Paz MD Unavailable Unavailable Lyle De Paz MD Unavailable Unavailable Lyle De Paz MD Unavailable Unavailable Lyle De Paz MD Unavailable Unavailable Lyle De Paz MD Unavailable Unavailable Baldev B Magalys VENEGAS Unavailable Unavailable Baldev B Magalys VENEGAS Unavailable Unavailable Baldev B Magalys VNEEGAS Unavailable Unavailable Baldev B Magalys VENEGAS Unavailable Unavailable Baldev B Magalys VENEGAS Unavailable Unavailable Baldev B Magalys VENEGAS Unavailable Unavailable Baldev B Magalys VENEGAS Unavailable Unavailable Baldev B Magalys VENEGAS Unavailable Unavailable Baldev B Magalys VENEGAS Unavailable Unavailable Fabien Farah MD Unavailable Unavailable Fabien Farahed Unavailable Unavailable Fabien Farah MD Unavailable Unavailable Fabien Farah Justice MD Unavailable Unavailable Fabien Farah Justice MD Unavailable Unavailable Fabien Farah Justice MD Unavailable Unavailable Fabien Farah Justice Unavailable Unavailable Fabien Farah Justice MD Unavailable Unavailable Fabien Farah Justice MD Unavailable Unavailable Fabien Farah Justice MD Unavailable Unavailable GaganFabien fernandez Justice MD Unavailable Unavailable Fabien Farah Justice MD Unavailable Unavailable GaganFabien fernandez Justice MD Unavailable Unavailable Fabien Farah Justice MD Unavailable Unavailable Fabien Farah Justice MD Unavailable Unavailable Fabien Farah Justice MD Unavailable Unavailable GaganFabien fernandez Justice MD Unavailable Unavailable GaganFabien fernandez Justice MD Unavailable Unavailable Fabien Farah Justice MD Unavailable Unavailable Fabien Farah Justice MD Unavailable Unavailable Fabien Farah Justice MD Unavailable Unavailable Fabien Farah Justice MD Unavailable Unavailable GaganFabien fernandez Justice MD Unavailable Unavailable Gagan N Justice MD Unavailable Unavailable Gagan N Justice MD Unavailable Unavailable Gagan N Justice MD Unavailable Unavailable Gagan N Justice MD Unavailable Unavailable Gagan N Justice MD Unavailable Unavailable Fabien Farah Justice MD Unavailable Unavailable GaganFabien fernandez Justice MD Unavailable Unavailable GaganFabien Justice MD Unavailable Unavailable Gagan N Justice MD Unavailable Unavailable Gagan N Justice MD Unavailable Unavailable Gagan N Justice MD Unavailable Unavailable Gagan N Justice MD Unavailable Unavailable GaganFabien Justice MD Unavailable Unavailable Gagan N Justice MD Unavailable Unavailable Gagan N Justice MD Unavailable Unavailable Gagan, N Justice MD Unavailable Unavailable Gagan, N Justice MD Unavailable Unavailable Gagan, N Justice MD Unavailable Unavailable Gagan, N Justice MD Unavailable Unavailable Gagan, N Justice MD Unavailable Unavailable Gagan, N Justice MD Unavailable Unavailable Gagan, N Justice MD Unavailable Unavailable Gagan, N Justice MD Unavailable Unavailable Gagan, N Justice MD Unavailable Unavailable Gagan, N Justice MD Unavailable Unavailable Gagan, N Justice MD Unavailable Unavailable Gagan, N Justice MD Unavailable Unavailable Gagan, N Justice MD Unavailable Unavailable Gagan, N Justice MD Unavailable Unavailable Gagan, N Justice MD Unavailable Unavailable Gagan, N Justice MD Unavailable Unavailable Gagan, N Justice MD Unavailable Unavailable Gagan, N Justice MD Unavailable Unavailable Gagan, N Justice MD Unavailable Unavailable Gagan, N Justice MD Unavailable Unavailable Gagan, N Justice MD Unavailable Unavailable Gagan, N Justice MD Unavailable Unavailable Gagan, N Justice MD Unavailable Unavailable Gagan, N Justice MD Unavailable Unavailable Gagan, N Justice MD Unavailable Unavailable Gagan, N Justice MD Unavailable Unavailable Gagan, N Jsutice MD Unavailable Unavailable Gagan, N Justice MD Unavailable Unavailable Gagan, N Justice MD Unavailable Unavailable Gagan, N Justice MD Unavailable Unavailable Gagan, N Justice MD Unavailable Unavailable Gagan, N Justice MD Unavailable Unavailable Gagan, N Justice MD Unavailable Unavailable Gagan, N Justice MD Unavailable Unavailable Gagan, N Justice MD Unavailable Unavailable Gagan, N Justice MD Unavailable Unavailable Gagan, N Justice MD Unavailable Unavailable Gagan, N Justice MD Unavailable Unavailable Gagan, N Justice MD Unavailable Unavailable Gagan, N Justice MD Unavailable Unavailable Gagan, N Justice MD Unavailable Unavailable Gagan, N Justice MD Unavailable Unavailable Gagan, N Justice MD Unavailable Unavailable Gagan, N Justice MD Unavailable Unavailable Gagan, N Justice MD Unavailable Unavailable Gagan, N Justice MD Unavailable Unavailable MACQUEEN, MARCELLA COLLATING MACHINE OPERATOR Unavailable Unavailable MACQUEEN, MARCELLA COLLATING MACHINE OPERATOR Unavailable Unavailable MACQUEEN, MARCELLA COLLATING MACHINE OPERATOR Unavailable Unavailable MACQUEEN, MARCELLA COLLATING MACHINE OPERATOR Unavailable Unavailable MACQUEEN, MARCELLA COLLATING MACHINE OPERATOR Unavailable Unavailable MACQUEEN, MARCELLA COLLATING MACHINE OPERATOR Unavailable Unavailable MACQUEEN, MARCELLA COLLATING MACHINE OPERATOR Unavailable Unavailable MACQUEEN, MARCELLA COLLATING MACHINE OPERATOR Unavailable Unavailable MACQUEEN, MARCELLA COLLATING MACHINE OPERATOR Unavailable Unavailable MACQUEEN, MARCELLA COLLATING MACHINE OPERATOR Unavailable Unavailable SCOT I WILLY PA Unavailable Unavailable DRAZEK, I WILLY PA Unavailable Unavailable DRAZEK, I WILLY PA Unavailable Unavailable DRAZEK, I WILLY PA Unavailable Unavailable DRAZEK, I WILLY PA Unavailable Unavailable DRAZEK, I WILLY PA Unavailable Unavailable DRAZEK, I WILLY PA Unavailable Unavailable DRAZEK, I WILLY PA Unavailable Unavailable DRAZEK, I WILLY PA Unavailable Unavailable DRAZEK, I WILLY PA Unavailable Unavailable DRAZEK, I WILLY PA Unavailable Unavailable DRAZEK, I WILLY PA Unavailable Unavailable DRAZEK, I WILLY PA Unavailable Unavailable DRAZEK, I WILLY PA Unavailable Unavailable DRAZEK, I WILLY PA Unavailable Unavailable DRAZEK, I WILLY PA Unavailable Unavailable DRAZEK, I WILLY PA Unavailable Unavailable DRAZEK, I WILLY PA Unavailable Unavailable DRAZEK, I WILLY PA Unavailable Unavailable DRAZEK, I WILLY PA Unavailable Unavailable DRAZEK, I WILLY PA Unavailable Unavailable DRAZEK, I WILLY PA Unavailable Unavailable DRAZEK, I WILLY PA Unavailable Unavailable DRAZEK, I WILLY PA Unavailable Unavailable DRAZEK, I WILLY PA Unavailable Unavailable DRAZEK, I WILLY PA Unavailable Unavailable DRAZEK, I WILLY PA Unavailable Unavailable DRAZEK, I WILLY PA Unavailable Unavailable DRAZEK, I WILLY PA Unavailable Unavailable DRAZEK, I WILLY PA Unavailable Unavailable Re-disclosure Warning The records that you are about to access may contain information from federally-assisted alcohol or drug abuse programs. If such information is present, then the following federally mandated warning applies: This information has been disclosed to you from records protected by federal confidentiality rules (42 CFR part 2). The federal rules prohibit you from making any further disclosure of this information unless further disclosure is expressly permitted by the written consent of the person to whom it pertains or as otherwise permitted by 42 CFR part 2. A general authorization for the release of medical or other information is NOT sufficient for this purpose. The Federal rules restrict any use of the information to criminally investigate or prosecute any alcohol or drug abuse patient.The records that you are about to access may contain highly sensitive health information, the redisclosure of which is protected by Article 27-F of the [place] Public Health law. If you continue you may have access to information: Regarding HIV / AIDS; Provided by facilities licensed or operated by the [facility] Office of Mental Health; or Provided by the [facility] Office for People With Developmental Disabilities. If such information is present, then the following [facility] mandated warning applies: This information has been disclosed to you from confidential records which are protected by state law. State law prohibits you from making any further disclosure of this information without the specific written consent of the person to whom it pertains, or as otherwise permitted by law. Any unauthorized further disclosure in violation of state law may result in a fine or usp sentence or both. A general authorization for the release of medical or other information is NOT sufficient authorization for further disc losure. Allergies and Adverse Reactions Type Description Substance Reaction Status Data Source(s ) Propensity to adverse reactions to substance Penicillins Penicillins Active [facility] ([facility]) Propensity to adverse reactions to substance Keflex Cephalexin 250 MG Oral Capsule [Keflex] Active [facility] ([facility] Propensity to adverse reactions to substance Chantix S tarting Month Box (varenicline) Chantix Starting Month Box (varenicline) Active [facility] ([facility]) Family History Family Member Name Family Member Gender Family Member Status Date o f Status Description Data Source(s) Unknown Unknown Problem [facility] ([facility]) sister Dx age 50s Unknown Female Problem [facility] ([facility] ) Encounters Encounter Providers Location Date Indications Data Source(s ) Outpatient Attender: Derrick FABIAN Physical Therapy 10:30:00 AM EDT [facility] ([facility] ) Outpatient Attender: Callie GONZALEZ-C Main Office 06/24/2021 02:30:00 PM EDT [facility] ([facility]) Outpatient Attender: Derrick FABIAN Physical Therapy 03:30:00 PM EDT [facility] ([facility] ) Office Visit, Est Pt., Level [address] [place] [address] 06/13/2021 12:00:00 AM EDT eCW1 ([facility]) OFFICE OUTPATIENT VISIT 15 MINUTES Attender: Magalys De Paz MD Phy sical Therapy 05/19/2021 12:45:00 PM EDT [facility] ([facility]) Office Visit Attender: Magalys De Paz MD Physical Therapy 05/06 10:30:00 AM EDT [facility] ([facility]) Outpatient Attender: Derrick FABIAN Physical Therapy 01:00:00 PM EDT [facility] ([facility]) Outpatient Attender: MARCELLA COLE NP [facility] 04/30/2021 02:30:00 AM EDT - 04/30/2021 02:30:00 AM EDT [facility] ([facility]) Attender: MARCELLA COLE NP 04/30/2021 12:00:00 AM EDT [facility] ([facility]) [place] [address] [facility] [address] 04/25/2021 12:00:00 AM EDT [facility] Outpatient Attender: Justice Farah MD Main Office 04/23/2021 08:30:00 AM EDT [facility] ([facility]) OFFICE OUTPATIENT NEW 60 MINUTES Attender: Magalys De Paz MD Physi cindy Therapy 04/17/2021 02:45:00 PM EDT [facility] ([facility]) [place] [address] [facility] [address] 04/03/2021 12:00:00 AM EDT eCW1 ([facility]) [place] [address] [facility] [facility] [address] 04/03/2021 12:00:00 AM EDT eCW1 ([facility]) [place] [address] [facility] [address] 03/18/2021 12:00:00 AM EDT eCW1 ([facility]) [place] [address] [facility] [address] 03/07/2021 12:00:00 AM EDT eCW1 ([facility]) [place] [address] [facility] [address] 03/05/2021 12:00:00 AM EDT eCW1 ([facility]) [place] [address] [facility] [address] 03/05/2021 12:00:00 AM EDT eCW1 ([facility]) OFFICE OUTPATIENT VISIT 15 MINUTES Attender: Derrick FABIAN Physical Therapy 03/04/2021 01:45:00 PM EDT [facility] ([facility]) Outpatient Attender: MARCELLA COLE NP [facility] 01/30/2021 02:30:00 AM EDT - 01/30/2021 02:30:00 AM EDT [facility] ([facility]) Attender: MARCELLA COLE NP 01/30/2021 12:00:00 AM EDT [facility] ([facility]) [place] [address] [facility] [address] 01/29/2021 12:00:00 AM EDT eCW1 ([facility]) [place] [address] [facility] [address] 01/21/2021 12:00:00 AM EDT eCW1 ([facility]) Outpatient Attender: Derrick FABIAN Physical Therapy 09:30:00 AM EDT [facility] ([facility]) Outpatient Attender: FARZANA MOHAN MD [email or web address] 12:00:00 AM EDT - 01/10/2021 03:35:46 PM EDT [facility] Unknown [address] [facility] [address] 01/01/2021 12:00:00 AM EDT eCW1 ([facility]) [place] [address] [facility] [address] 12/31/2020 12:00:00 AM EDT eCW1 ([facility]) Unknown [address] [facility] [address] 12/24/2020 12:00:00 AM EDT eCW1 ([facility]) [place] [address] [facility] [address] 12/19/2020 12:00:00 AM EDT eCW1 ([facility]) Outpatient [address] [facility] [address] 12/16/2020 12:00:00 AM EDT eCW1 ([facility]) [place] [address] [facility] [address] 12/02/2020 12:00:00 AM EDT eCW1 ([facility]) Outpatient [address] [facility] [address] 11/29/2020 12:00:00 AM EST eCW1 ([facility]) Unknown [address] [facility] [address] 10/24/2020 12:00:00 AM EST eCW1 ([facility]) Unknown [address] [facility] [address] 10/11/2020 12:00:00 AM EST eCW1 ([facility]) Unknown [address] [facility] [address] 10/10/2020 12:00:00 AM EST eCW1 ([facility]) Unknown [address] [facility] [address] 10/10/2020 12:00:00 AM EST eCW1 ([facility]) Outpatient Attender: PEG NICHOLS [id number] 10/04/2020 12:00 :00 AM [facility] Office Visit Attender: MEREDITH GEORGES MD Physical Therapy 10:00:00 AM EST [facility] ([facility]) Office Visit Attender: RICA GERMAN MD Physical Therapy 02:15:00 PM EST [facility] ([facility]) Unknown [address] [facility] [address] 09/11/2020 12:00:00 AM EST eCW1 ([facility]) Unknown [address] [facility] [address] 09/10/2020 12:00:00 AM EST eCW1 ([facility]) Outpatient Attender: MEREDITH GEORGES MD Physical Therapy 01:15:00 PM EST [facility] ([facility]) Outpatient Attender: SINTIA FABIAN Physical Therapy 08/20 04:00:00 PM EST [facility] ([facility]) Outpatient [address] [facility] [address] 09/05/2020 12:00:00 AM EST eCW1 ([facility]) Outpatient Attender: Dottie Saenz MD Main office - [place] 09/04/2020 10:45:00 AM EST [facility] ([facility]) Unknown [address] [facility] [address] 08/28/2020 12:00:00 AM EST eCW1 ([facility]) Office Visit Attender: RICA GERMAN MD Physical Therapy 12:30:00 PM EST [facility] ([facility]) Office Visit Attender: WILLY FABIAN Physical Therapy 2019 10:15:00 AM EST [facility] ([facility]) Office Visit Attender: RICA GERMAN MD Physical Therapy 07:00:00 AM EST [facility] ([facility]) Unknown [address] [facility] [address] 07/16/2020 12:00:00 AM EDT eCW1 ([facility]) Unknown [address] [facility] [address] 07/16/2020 12:00:00 AM EDT eCW1 ([facility]) Unknown [address] [facility] [address] 07/10/2020 12:00:00 AM EDT eCW1 ([facility]) Unknown [address] [facility] [address] 07/08/2020 12:00:00 AM EDT eCW1 ([facility]) Unknown [address] [facility] [address] 07/05/2020 12:00:00 AM EDT eCW1 ([facility]) Outpatient Attender: MARCELLA COLE NP [facility] 07/04/2020 02:00:00 AM EDT - 07/04/2020 02:00:00 AM EDT [facility] ([facility]) Attender: MARCELLA COLE NP 07/04/2020 12:00:00 AM EDT [facility] ([facility]) Unknown [address] [facility] [address] 07/01/2020 12:00:00 AM EDT eCW1 ([facility]) Outpatient [address] [facility] [address] 06/27/2020 12:00:00 AM EDT eCW1 ([facility]) Unknown [address] [facility] [address] 06/24/2020 12:00:00 AM EDT eCW1 ([facility]) Unknown [address] [facility] [address] 06/24/2020 12:00:00 AM EDT eCW1 ([facility]) Outpatient Attender: MAGALIS EASTON 06/10/2020 12:00:00 A [facility] Outpatient Attender: Dottie Saenz MD Main office - [place] 06/05/2020 10:30:00 AM EDT [facility] ([facility]) Outpatient Attender: RICA GERMAN MD Physical Therapy 02:45:00 PM EDT [facility] ([facility]) Functional Status Immunizations Vaccine Date Status Description Data Source(s) COVID-19 VACCINE Moderna 12/20/2020 12:00:00 AM EDT completed [facility] Vaccine Series Complete: YESThis Data wa s Submitted to [facility]. COVID-19 VACCINE, MRNA-1273, LNP-S (MODERNA)/PF 12/20/2020 1 2:00:00 AM EDT completed [facility] COVID-19 VACCINE Moderna 11/22/2020 12:00:00 AM EST completed [facility] Vaccine Series Complete: NOThis Data was Submitted to [facility] Via [facility]. COVID-19 VACCINE, MRNA-1273, LNP-S (MODERNA)/PF 11/22/2020 1 2:00:00 AM EST completed [facility] influenza, recombinant, quadrIvalent,injectable, prese rvative free 06/20/2020 02:36:00 PM EDT completed eCW1 ([facility]) influenza, recombinant, quadrIvalent,injectable, prese rvative free 06/20/2020 02:36:00 PM EDT completed eCW1 ([facility]) influenza, recombinant, quadrIvalent,injectable, prese rvative free 06/20/2020 02:36:00 PM EDT completed eCW1 ([facility]) influenza, recombinant, quadrIvalent,injectable, prese rvative free 06/20/2020 02:36:00 PM EDT completed eCW1 ([facility]) influenza, recombinant, quadrIvalent,injectable, prese rvative free 06/20/2020 02:36:00 PM EDT completed eCW1 ([facility]) influenza, recombinant, quadrIvalent,injectable, prese rvative free 06/20/2020 02:36:00 PM EDT completed eCW1 ([facility]) influenza, recombinant, quadrIvalent,injectable, prese rvative free 06/20/2020 02:36:00 PM EDT completed eCW1 ([facility]) influenza, recombinant, quadrIvalent,injectable, prese rvative free 06/20/2020 02:36:00 PM EDT completed eCW1 ([facility]) influenza, recombinant, quadrIvalent,injectable, prese rvative free 06/20/2020 02:36:00 PM EDT completed eCW1 ([facility]) influenza, recombinant, quadrIvalent,injectable, prese rvative free 06/20/2020 02:36:00 PM EDT completed eCW1 ([facility]) influenza, recombinant, quadrIvalent,injectable, prese rvative free 06/20/2020 02:36:00 PM EDT completed eCW1 ([facility]) influenza, recombinant, quadrIvalent,injectable, prese rvative free 06/20/2020 02:36:00 PM EDT completed eCW1 ([facility]) influenza, recombinant, quadrIvalent,injectable, prese rvative free 06/20/2020 02:36:00 PM EDT completed eCW1 ([facility]) influenza, recombinant, quadrIvalent,injectable, prese rvative free 06/20/2020 02:36:00 PM EDT completed eCW1 ([facility]) influenza, recombinant, quadrIvalent,injectable, prese rvative free 06/20/2020 02:36:00 PM EDT completed eCW1 ([facility]) influenza, recombinant, quadrIvalent,injectable, prese rvative free 06/20/2020 02:36:00 PM EDT completed eCW1 ([facility]) influenza, recombinant, quadrIvalent,injectable, prese rvative free 06/20/2020 02:36:00 PM EDT completed eCW1 ([facility]) influenza, recombinant, quadrIvalent,injectable, prese rvative free 06/20/2020 02:36:00 PM EDT completed eCW1 ([facility]) influenza, recombinant, quadrIvalent,injectable, prese rvative free 06/20/2020 02:36:00 PM EDT completed eCW1 ([facility]) influenza, recombinant, quadrIvalent,injectable, prese rvative free 06/20/2020 02:36:00 PM EDT completed eCW1 ([facility]) influenza, recombinant, quadrIvalent,injectable, prese rvative free 06/20/2020 02:36:00 PM EDT completed eCW1 ([facility]) influenza, recombinant, quadrIvalent,injectable, prese rvative free 06/20/2020 02:36:00 PM EDT completed eCW1 ([facility]) influenza, recombinant, quadrIvalent,injectable, prese rvative free 06/20/2020 02:36:00 PM EDT completed eCW1 ([facility]) influenza, recombinant, quadrIvalent,injectable, prese rvative free 06/20/2020 02:36:00 PM EDT completed eCW1 ([facility]) influenza, recombinant, quadrIvalent,injectable, prese rvative free 06/20/2020 02:36:00 PM EDT completed eCW1 ([facility]) influenza, recombinant, quadrIvalent,injectable, prese rvative free 06/20/2020 02:36:00 PM EDT completed eCW1 ([facility]) influenza, recombinant, quadrIvalent,injectable, prese rvative free 06/20/2020 02:36:00 PM EDT completed eCW1 ([facility]) influenza, recombinant, quadrIvalent,injectable, prese rvative free 06/20/2020 02:36:00 PM EDT completed eCW1 ([facility]) influenza, recombinant, quadrIvalent,injectable, prese rvative free 06/20/2020 02:36:00 PM EDT completed eCW1 ([facility]) influenza, recombinant, quadrIvalent,injectable, prese rvative free 06/20/2020 02:36:00 PM EDT completed eCW1 ([facility]) influenza, recombinant, quadrIvalent,injectable, prese rvative free 06/20/2020 02:36:00 PM EDT completed eCW1 ([facility]) influenza, recombinant, quadrIvalent,injectable, prese rvative free 06/20/2020 02:36:00 PM EDT completed eCW1 ([facility]) INFLUENZA VIRUS VACCINE QUADRIVAL [id number](6 MOS AND UP)/PF 06/18/2020 12:00:00 AM EDT completed [facility] Medications Medication Brand Name Start Date Product Form Dose Route Admi nistrative Instructions Pharmacy Instructions Status Indications Reaction Description Data Source(s) Clindamycin 10 MG/ML Topical Solution Clindamycin Phosphate 06/24/2021 12:00:00 AM EDT active [facility] ([facility] celecoxib 100 MG Oral Capsule [Celebrex] Celebrex 05/02/2021 12 :00:00 AM EDT ORAL active [facility] ([facility] ) pregabalin 150 MG Oral Capsule Pregabalin 03/04/2021 12:00:00 AM EDT ORAL completed [facility] ([facility] ) Amlodipine 10 MG Oral Tablet amLODIPine (NORVASC) 10 M G tablet amLODIPine (NORVASC) 10 MG tablet 01/10/2021 12:00:00 AM EDT 10 mg Oral active Hypertension, essentialCoronary artery disease involving [place] tribes coronary artery of [place] tribes heart without angina pectoris Take 1 tablet (10 mg total) by mouth daily [facility] Hypertension, essential Coronary artery disease involving [place] coronary artery of [place] heart without angina pectoris pregabalin 100 MG Oral Capsule pregabalin (LYRICA) 100 MG capsule pregabalin (LYRICA) 100 MG capsule 12/24/2020 12:00:00 AM EDT active TAKE ONE CAPSULE BY MOUTH TWICE DAILY MAX DAILY DOSE TWO CAPSULES [facility] NITROFURANTOIN, MACROCRYSTALS 25 MG / Ni trofurantoin, Monohydrate 75 MG Oral Capsule [Macrobid] Macrobid 100 MG Macrobid 100 MG 12/19/2020 12:00:00 AM EDT active Macrobid 100 MG eCW1 ([facility]) NITROFURANTOIN, MACROCRYSTALS 25 MG / Ni trofurantoin, Monohydrate 75 MG Oral Capsule [Macrobid] Macrobid 100 MG Macrobid 100 MG 12/19/2020 12:00:00 AM EDT suspended Macrobid 100 MG eCW1 ( [facility]) NITROFURANTOIN, MACROCRYSTALS 25 MG / Ni trofurantoin, Monohydrate 75 MG Oral Capsule [Macrobid] Macrobid 100 MG Macrobid 100 MG 12/19/2020 12:00:00 AM EDT active Macrobid 100 MG eCW1 ([facility]) NITROFURANTOIN, MACROCRYSTALS 25 MG / Ni trofurantoin, Monohydrate 75 MG Oral Capsule [Macrobid] Macrobid 100 MG Macrobid 100 MG 12/19/2020 12:00:00 AM EDT suspended Macrobid 100 MG eCW1 ( [facility]) NITROFURANTOIN, MACROCRYSTALS 25 MG / Ni trofurantoin, Monohydrate 75 MG Oral Capsule [Macrobid] Macrobid 100 MG Macrobid 100 MG 12/19/2020 12:00:00 AM EDT suspended Macrobid 100 MG eCW1 ( [facility]) NITROFURANTOIN, MACROCRYSTALS 25 MG / Ni trofurantoin, Monohydrate 75 MG Oral Capsule [Macrobid] Macrobid 100 MG Macrobid 100 MG 12/19/2020 12:00:00 AM EDT suspended Macrobid 100 MG eCW1 ( [facility]) NITROFURANTOIN, MACROCRYSTALS 25 MG / Ni trofurantoin, Monohydrate 75 MG Oral Capsule [Macrobid] Macrobid 100 MG Macrobid 100 MG 12/19/2020 12:00:00 AM EDT suspended Macrobid 100 MG eCW1 ( [facility]) NITROFURANTOIN, MACROCRYSTALS 25 MG / Ni trofurantoin, Monohydrate 75 MG Oral Capsule [Macrobid] Macrobid 100 MG Macrobid 100 MG 12/19/2020 12:00:00 AM EDT active Macrobid 100 MG eCW1 ([facility]) NITROFURANTOIN, MACROCRYSTALS 25 MG / Ni trofurantoin, Monohydrate 75 MG Oral Capsule [Macrobid] Macrobid 100 MG Macrobid 100 MG 12/19/2020 12:00:00 AM EDT active Macrobid 100 MG eCW1 ([facility]) NITROFURANTOIN, MACROCRYSTALS 25 MG / Ni trofurantoin, Monohydrate 75 MG Oral Capsule [Macrobid] Macrobid 100 MG Macrobid 100 MG 12/19/2020 12:00:00 AM EDT suspended Macrobid 100 MG eCW1 ( [facility]) NITROFURANTOIN, MACROCRYSTALS 25 MG / Ni trofurantoin, Monohydrate 75 MG Oral Capsule [Macrobid] Macrobid 100 MG Macrobid 100 MG 12/19/2020 12:00:00 AM EDT active Macrobid 100 MG eCW1 ([facility]) NITROFURANTOIN, MACROCRYSTALS 25 MG / Ni trofurantoin, Monohydrate 75 MG Oral Capsule [Macrobid] Macrobid 100 MG Macrobid 100 MG 12/19/2020 12:00:00 AM EDT suspended Macrobid 100 MG eCW1 ( [facility]) NITROFURANTOIN, MACROCRYSTALS 25 MG / Ni trofurantoin, Monohydrate 75 MG Oral Capsule [Macrobid] Macrobid 100 MG Macrobid 100 MG 12/19/2020 12:00:00 AM EDT suspended Macrobid 100 MG eCW1 ( [facility]) gabapentin 800 MG Oral Tablet Gabapentin 12/16/2020 12:00:00 AM EDT completed [facility] ([facility]) NITROFURANTOIN, MACROCRYSTALS 25 MG / Ni trofurantoin, Monohydrate 75 MG Oral Capsule Nitrofurantoin Monohyd Macro 100 MG Nitrofurantoin Monohyd Macro 100 MG 12/02/2020 12:00:00 AM EDT suspended Nitrofurantoin Monohyd Macro 100 MG eCW1 ([facility]) NITROFURANTOIN, MACROCRYSTALS 25 MG / Ni trofurantoin, Monohydrate 75 MG Oral Capsule Nitrofurantoin Monohyd Macro 100 MG Nitrofurantoin Monohyd Macro 100 MG 12/02/2020 12:00:00 AM EDT active Nitrofurantoin Monohyd Macro 100 MG eCW1 ([facility]) NITROFURANTOIN, MACROCRYSTALS 25 MG / Ni trofurantoin, Monohydrate 75 MG Oral Capsule Nitrofurantoin Monohyd Macro 100 MG Nitrofurantoin Monohyd Macro 100 MG 12/02/2020 12:00:00 AM EDT active Nitrofurantoin Monohyd Macro 100 MG eCW1 ([facility]) NITROFURANTOIN, MACROCRYSTALS 25 MG / Ni trofurantoin, Monohydrate 75 MG Oral Capsule Nitrofurantoin Monohyd Macro 100 MG Nitrofurantoin Monohyd Macro 100 MG 12/02/2020 12:00:00 AM EDT suspended Nitrofurantoin Monohyd Macro 100 MG eCW1 ([facility]) NITROFURANTOIN, MACROCRYSTALS 25 MG / Ni trofurantoin, Monohydrate 75 MG Oral Capsule Nitrofurantoin Monohyd Macro 100 MG Nitrofurantoin Monohyd Macro 100 MG 12/02/2020 12:00:00 AM EDT suspended Nitrofurantoin Monohyd Macro 100 MG eCW1 ([facility]) NITROFURANTOIN, MACROCRYSTALS 25 MG / Ni trofurantoin, Monohydrate 75 MG Oral Capsule Nitrofurantoin Monohyd Macro 100 MG Nitrofurantoin Monohyd Macro 100 MG 12/02/2020 12:00:00 AM EDT suspended Nitrofurantoin Monohyd Macro 100 MG eCW1 ([facility]) NITROFURANTOIN, MACROCRYSTALS 25 MG / Ni trofurantoin, Monohydrate 75 MG Oral Capsule Nitrofurantoin Monohyd Macro 100 MG Nitrofurantoin Monohyd Macro 100 MG 12/02/2020 12:00:00 AM EDT suspended Nitrofurantoin Monohyd Macro 100 MG eCW1 ([facility]) NITROFURANTOIN, MACROCRYSTALS 25 MG / Ni trofurantoin, Monohydrate 75 MG Oral Capsule Nitrofurantoin Monohyd Macro 100 MG Nitrofurantoin Monohyd Macro 100 MG 12/02/2020 12:00:00 AM EDT active Nitrofurantoin Monohyd Macro 100 MG eCW1 ([facility]) NITROFURANTOIN, MACROCRYSTALS 25 MG / Ni trofurantoin, Monohydrate 75 MG Oral Capsule Nitrofurantoin Monohyd Macro 100 MG Nitrofurantoin Monohyd Macro 100 MG 12/02/2020 12:00:00 AM EDT active Nitrofurantoin Monohyd Macro 100 MG eCW1 ([facility]) NITROFURANTOIN, MACROCRYSTALS 25 MG / Ni trofurantoin, Monohydrate 75 MG Oral Capsule Nitrofurantoin Monohyd Macro 100 MG Nitrofurantoin Monohyd Macro 100 MG 12/02/2020 12:00:00 AM EDT suspended Nitrofurantoin Monohyd Macro 100 MG eCW1 ([facility]) NITROFURANTOIN, MACROCRYSTALS 25 MG / Ni trofurantoin, Monohydrate 75 MG Oral Capsule Nitrofurantoin Monohyd Macro 100 MG Nitrofurantoin Monohyd Macro 100 MG 12/02/2020 12:00:00 AM EDT active Nitrofurantoin Monohyd Macro 100 MG eCW1 ([facility]) NITROFURANTOIN, MACROCRYSTALS 25 MG / Ni trofurantoin, Monohydrate 75 MG Oral Capsule Nitrofurantoin Monohyd Macro 100 MG Nitrofurantoin Monohyd Macro 100 MG 12/02/2020 12:00:00 AM EDT suspended Nitrofurantoin Monohyd Macro 100 MG eCW1 ([facility]) NITROFURANTOIN, MACROCRYSTALS 25 MG / Ni trofurantoin, Monohydrate 75 MG Oral Capsule Nitrofurantoin Monohyd Macro 100 MG Nitrofurantoin Monohyd Macro 100 MG 12/02/2020 12:00:00 AM EDT active Nitrofurantoin Monohyd Macro 100 MG eCW1 ([facility]) NITROFURANTOIN, MACROCRYSTALS 25 MG / Ni trofurantoin, Monohydrate 75 MG Oral Capsule Nitrofurantoin Monohyd Macro 100 MG Nitrofurantoin Monohyd Macro 100 MG 12/02/2020 12:00:00 AM EDT active Nitrofurantoin Monohyd Macro 100 MG eCW1 ([facility]) NITROFURANTOIN, MACROCRYSTALS 25 MG / Ni trofurantoin, Monohydrate 75 MG Oral Capsule Nitrofurantoin Monohyd Macro 100 MG Nitrofurantoin Monohyd Macro 100 MG 12/02/2020 12:00:00 AM EDT active Nitrofurantoin Monohyd Macro 100 MG eCW1 ([facility]) NITROFURANTOIN, MACROCRYSTALS 25 MG / Ni trofurantoin, Monohydrate 75 MG Oral Capsule Nitrofurantoin Monohyd Macro 100 MG Nitrofurantoin Monohyd Macro 100 MG 12/02/2020 12:00:00 AM EDT suspended Nitrofurantoin Monohyd Macro 100 MG eCW1 ([facility]) gabapentin 300 MG Oral Capsule Gabapentin 10/15/2020 12:00:00 AM EST active [facility] Acetaminophen 325 MG / Hydrocodone Karli trate 10 MG Oral Tablet [[place]] [place] 10-325 MG [place] 10-325 MG 10/11/2020 12:00:00 AM EST 1.0 {tablet_as_ needed} active [place] 10-325 MG eCW1 ([facility]) Acetaminophen 325 MG / Hydrocodone Karli trate 10 MG Oral Tablet [[place]] [place] 10-325 MG [place] 10-325 MG 10/11/2020 12:00:00 AM EST 1.0 {tablet_as_ needed} active [place] 10-325 MG eCW1 ([facility]) [place] 10-325 MG UNK 10/11/2020 12:00:00 AM EST 1.0 {tablet_a s_needed} active [place] 10-325 MG eCW1 ([facility]) [place] 10-325 MG UNK 10/11/2020 12:00:00 AM EST 1.0 {tablet_a s_needed} active [place] 10-325 MG eCW1 ([facility]) [place] 10-325 MG UNK 10/11/2020 12:00:00 AM EST 1.0 {tablet_a s_needed} active [place] 10-325 MG eCW1 ([facility]) Acetaminophen 325 MG / Hydrocodone Karli trate 10 MG Oral Tablet [[place]] [place] 10-325 MG [place] 10-325 MG 10/11/2020 12:00:00 AM EST 1.0 {tablet_as_ needed} active [place] 10-325 MG eCW1 ([facility]) [place] 10-325 MG UNK 10/11/2020 12:00:00 AM EST 1.0 {tablet_a s_needed} active [place] 10-325 MG eCW1 ([facility]) [place] 10-325 MG UNK 10/11/2020 12:00:00 AM EST 1.0 {tablet_a s_needed} active [place] 10-325 MG eCW1 ([facility]) [place] 10-325 MG UNK 10/11/2020 12:00:00 AM EST 1.0 {tablet_a s_needed} active [place] 10-325 MG eCW1 ([facility]) [place] 10-325 MG UNK 10/11/2020 12:00:00 AM EST 1.0 {tablet_a s_needed} active [place] 10-325 MG eCW1 ([facility]) [place] 10-325 MG UNK 10/11/2020 12:00:00 AM EST 1.0 {tablet_a s_needed} active [place] 10-325 MG eCW1 ([facility]) [place] 10-325 MG UNK 10/11/2020 12:00:00 AM EST 1.0 {tablet_a s_needed} active [place] 10-325 MG eCW1 ([facility]) [place] 10-325 MG UNK 10/11/2020 12:00:00 AM EST 1.0 {tablet_a s_needed} active [place] 10-325 MG eCW1 ([facility]) [place] 10-325 MG UNK 10/11/2020 12:00:00 AM EST 1.0 {tablet_a s_needed} active [place] 10-325 MG eCW1 ([facility]) [place] 10-325 MG UNK 10/11/2020 12:00:00 AM EST 1.0 {tablet_a s_needed} active [place] 10-325 MG eCW1 ([facility]) [place] 10-325 MG UNK 10/11/2020 12:00:00 AM EST 1.0 {tablet_a s_needed} active [place] 10-325 MG eCW1 ([facility]) [place] 10-325 MG UNK 10/11/2020 12:00:00 AM EST 1.0 {tablet_a s_needed} active [place] 10-325 MG eCW1 ([facility]) [place] 10-325 MG UNK 10/11/2020 12:00:00 AM EST 1.0 {tablet_a s_needed} active [place] 10-325 MG eCW1 ([facility]) [place] 10-325 MG UNK 10/11/2020 12:00:00 AM EST 1.0 {tablet_a s_needed} active [place] 10-325 MG eCW1 ([facility]) Acetaminophen 325 MG / Hydrocodone Karli trate 10 MG Oral Tablet [[place]] [place] 10-325 MG [place] 10-325 MG 10/11/2020 12:00:00 AM EST 1.0 {tablet_as_ needed} active [place] 10-325 MG eCW1 ([facility]) [place] 10-325 MG UNK 10/11/2020 12:00:00 AM EST 1.0 {tablet_a s_needed} active [place] 10-325 MG eCW1 ([facility]) pregabalin 100 MG Oral Capsule Pregabalin 10/10/2020 12:00:00 AM EST ORAL active [facility] ([facility] ) Acetaminophen 325 MG / Hydrocodone Karli trate 10 MG Oral Tablet [[place]] [place] 10-325 MG [place] 10-325 MG 09/11/2020 12:00:00 AM EST 1.0 {tablet_as_ needed} active [place] 10-325 MG eCW1 ([facility]) pregabalin 50 MG Oral Capsule Pregabalin 09/05/2020 12:00:00 AM EST ORAL completed [facility] ([facility] ) Acetaminophen 325 MG / Hydrocodone Karli trate 10 MG Oral Tablet [[place]] [place] 10-325 MG [place] 10-325 MG 08/14/2020 12:00:00 AM EST 1.0 {tablet_as_ needed} active [place] 10-325 MG eCW1 ([facility]) Acetaminophen 325 MG / Hydrocodone Karli trate 10 MG Oral Tablet [[place]] [place] 10-325 MG [place] 10-325 MG 08/14/2020 12:00:00 AM EST 1.0 {tablet_as_ needed} active [place] 10-325 MG eCW1 ([facility]) Acetaminophen 325 MG / Hydrocodone Karli trate 10 MG Oral Tablet [[place]] [place] 10-325 MG [place] 10-325 MG 08/14/2020 12:00:00 AM EST 1.0 {tablet_as_ needed} active [place] 10-325 MG eCW1 ([facility]) Amlodipine 10 MG Oral Tablet amLODIPine (NORVASC) 10 M G tablet amLODIPine (NORVASC) 10 MG tablet 08/09/2020 12:00:00 AM EST aborted Coronary artery disease involving [place] coronary artery of [place] heart without angina pectorisHypertension, essential TAKE ONE TABLET BY MOUTH @8A M [facility] Coronary artery disease involving [place] coronary artery of [place] heart without angina pectoris Hypertension, essential Acetaminophen 325 MG / Hydrocodone Karli trate 10 MG Oral Tablet [[place]] [place] 10-325 MG [place] 10-325 MG 07/16/2020 12:00:00 AM EDT 1.0 {tablet_as_ needed} active [place] 10-325 MG eCW1 ([facility]) Acetaminophen 325 MG / Hydrocodone Karli trate 10 MG Oral Tablet [[place]] [place] 10-325 MG [place] 10-325 MG 07/16/2020 12:00:00 AM EDT 1.0 {tablet_as_ needed} active [place] 10-325 MG eCW1 ([facility]) 200 ACTUAT Albuterol 0.09 MG/ACTUAT Mete red Dose Inhaler [ProAir] ProAir HFA 108 (90 Base) MCG/ACT ProAir HFA 108 (90 Base) MCG/ACT 06/27/2020 12:00:00 AM EDT 2.0 {puff_as_needed} active Pro Air HFA 108 (90 Base) MCG/ACT eCW1 ([facility]) 120 ACTUAT Fluticasone propionate 0.044 MG/ACTUAT Metered Dose Inhaler [Flovent] Flovent HFA 44 MCG/ACT Flovent HFA 44 MCG/ACT 06/27/2020 12:00:00 AM EDT 1.0 {puff} active Flovent HFA 44 MCG/ACT e CW1 ([facility]) 200 ACTUAT Albuterol 0.09 MG/ACTUAT Mete red Dose Inhaler [ProAir] ProAir HFA 108 (90 Base) MCG/ACT ProAir HFA 108 (90 Base) MCG/ACT 06/27/2020 12:00:00 AM EDT 2.0 {puff_as_needed} active Pro Air HFA 108 (90 Base) MCG/ACT eCW1 ([facility]) 200 ACTUAT Albuterol 0.09 MG/ACTUAT Mete red Dose Inhaler [ProAir] ProAir HFA 108 (90 Base) MCG/ACT ProAir HFA 108 (90 Base) MCG/ACT 06/27/2020 12:00:00 AM EDT 2.0 {puff_as_needed} active Pro Air HFA 108 (90 Base) MCG/ACT eCW1 ([facility]) 200 ACTUAT Albuterol 0.09 MG/ACTUAT Mete red Dose Inhaler [ProAir] ProAir HFA 108 (90 Base) MCG/ACT ProAir HFA 108 (90 Base) MCG/ACT 06/27/2020 12:00:00 AM EDT 2.0 {puff_as_needed} active Pro Air HFA 108 (90 Base) MCG/ACT eCW1 ([facility]) 120 ACTUAT Fluticasone propionate 0.044 MG/ACTUAT Metered Dose Inhaler [Flovent] Flovent HFA 44 MCG/ACT Flovent HFA 44 MCG/ACT 06/27/2020 12:00:00 AM EDT 1.0 {puff} active Flovent HFA 44 MCG/ACT e CW1 ([facility]) 120 ACTUAT Fluticasone propionate 0.044 MG/ACTUAT Metered Dose Inhaler [Flovent] Flovent HFA 44 MCG/ACT Flovent HFA 44 MCG/ACT 06/27/2020 12:00:00 AM EDT 1.0 {puff} active Flovent HFA 44 MCG/ACT e CW1 ([facility]) 120 ACTUAT Fluticasone propionate 0.044 MG/ACTUAT Metered Dose Inhaler [Flovent] Flovent HFA 44 MCG/ACT Flovent HFA 44 MCG/ACT 06/27/2020 12:00:00 AM EDT 1.0 {puff} active Flovent HFA 44 MCG/ACT e CW1 ([facility]) 200 ACTUAT Albuterol 0.09 MG/ACTUAT Mete red Dose Inhaler [ProAir] ProAir HFA 108 (90 Base) MCG/ACT ProAir HFA 108 (90 Base) MCG/ACT 06/27/2020 12:00:00 AM EDT 2.0 {puff_as_needed} active Pro Air HFA 108 (90 Base) MCG/ACT eCW1 ([facility]) 120 ACTUAT Fluticasone propionate 0.044 MG/ACTUAT Metered Dose Inhaler [Flovent] Flovent HFA 44 MCG/ACT Flovent HFA 44 MCG/ACT 06/27/2020 12:00:00 AM EDT 1.0 {puff} active Flovent HFA 44 MCG/ACT e CW1 ([facility]) 200 ACTUAT Albuterol 0.09 MG/ACTUAT Mete red Dose Inhaler [ProAir] ProAir HFA 108 (90 Base) MCG/ACT ProAir HFA 108 (90 Base) MCG/ACT 06/27/2020 12:00:00 AM EDT 2.0 {puff_as_needed} active Pro Air HFA 108 (90 Base) MCG/ACT eCW1 ([facility]) 120 ACTUAT Fluticasone propionate 0.044 MG/ACTUAT Metered Dose Inhaler [Flovent] Flovent HFA 44 MCG/ACT Flovent HFA 44 MCG/ACT 06/27/2020 12:00:00 AM EDT 1.0 {puff} active Flovent HFA 44 MCG/ACT e CW1 ([facility]) 120 ACTUAT Fluticasone propionate 0.044 MG/ACTUAT Metered Dose Inhaler [Flovent] Flovent HFA 44 MCG/ACT Flovent HFA 44 MCG/ACT 06/27/2020 12:00:00 AM EDT 1.0 {puff} active Flovent HFA 44 MCG/ACT e CW1 ([facility]) 120 ACTUAT Fluticasone propionate 0.044 MG/ACTUAT Metered Dose Inhaler [Flovent] Flovent HFA 44 MCG/ACT Flovent HFA 44 MCG/ACT 06/27/2020 12:00:00 AM EDT 1.0 {puff} active Flovent HFA 44 MCG/ACT e CW1 ([facility]) 120 ACTUAT Fluticasone propionate 0.044 MG/ACTUAT Metered Dose Inhaler [Flovent] Flovent HFA 44 MCG/ACT Flovent HFA 44 MCG/ACT 06/27/2020 12:00:00 AM EDT 1.0 {puff} active Flovent HFA 44 MCG/ACT e CW1 ([facility]) 120 ACTUAT Fluticasone propionate 0.044 MG/ACTUAT Metered Dose Inhaler [Flovent] Flovent HFA 44 MCG/ACT Flovent HFA 44 MCG/ACT 06/27/2020 12:00:00 AM EDT 1.0 {puff} active Flovent HFA 44 MCG/ACT e CW1 ([facility]) 200 ACTUAT Albuterol 0.09 MG/ACTUAT Mete red Dose Inhaler [ProAir] ProAir HFA 108 (90 Base) MCG/ACT ProAir HFA 108 (90 Base) MCG/ACT 06/27/2020 12:00:00 AM EDT 2.0 {puff_as_needed} active Pro Air HFA 108 (90 Base) MCG/ACT eCW1 ([facility]) 120 ACTUAT Fluticasone propionate 0.044 MG/ACTUAT Metered Dose Inhaler [Flovent] Flovent HFA 44 MCG/ACT Flovent HFA 44 MCG/ACT 06/27/2020 12:00:00 AM EDT 1.0 {puff} active Flovent HFA 44 MCG/ACT e CW1 ([facility]) 120 ACTUAT Fluticasone propionate 0.044 MG/ACTUAT Metered Dose Inhaler [Flovent] Flovent HFA 44 MCG/ACT Flovent HFA 44 MCG/ACT 06/27/2020 12:00:00 AM EDT 1.0 {puff} active Flovent HFA 44 MCG/ACT e CW1 ([facility]) 120 ACTUAT Fluticasone propionate 0.044 MG/ACTUAT Metered Dose Inhaler [Flovent] Flovent HFA 44 MCG/ACT Flovent HFA 44 MCG/ACT 06/27/2020 12:00:00 AM EDT 1.0 {puff} active Flovent HFA 44 MCG/ACT e CW1 ([facility]) 120 ACTUAT Fluticasone propionate 0.044 MG/ACTUAT Metered Dose Inhaler [Flovent] Flovent HFA 44 MCG/ACT Flovent HFA 44 MCG/ACT 06/27/2020 12:00:00 AM EDT 1.0 {puff} active Flovent HFA 44 MCG/ACT e CW1 ([facility]) 120 ACTUAT Fluticasone propionate 0.044 MG/ACTUAT Metered Dose Inhaler [Flovent] Flovent HFA 44 MCG/ACT Flovent HFA 44 MCG/ACT 06/27/2020 12:00:00 AM EDT 1.0 {puff} active Flovent HFA 44 MCG/ACT e CW1 ([facility]) 200 ACTUAT Albuterol 0.09 MG/ACTUAT Mete red Dose Inhaler [ProAir] ProAir HFA 108 (90 Base) MCG/ACT ProAir HFA 108 (90 Base) MCG/ACT 06/27/2020 12:00:00 AM EDT 2.0 {puff_as_needed} active Pro Air HFA 108 (90 Base) MCG/ACT eCW1 ([facility]) 200 ACTUAT Albuterol 0.09 MG/ACTUAT Mete red Dose Inhaler [ProAir] ProAir HFA 108 (90 Base) MCG/ACT ProAir HFA 108 (90 Base) MCG/ACT 06/27/2020 12:00:00 AM EDT 2.0 {puff_as_needed} active Pro Air HFA 108 (90 Base) MCG/ACT eCW1 ([facility]) 120 ACTUAT Fluticasone propionate 0.044 MG/ACTUAT Metered Dose Inhaler [Flovent] Flovent HFA 44 MCG/ACT Flovent HFA 44 MCG/ACT 06/27/2020 12:00:00 AM EDT 1.0 {puff} active Flovent HFA 44 MCG/ACT e CW1 ([facility]) 200 ACTUAT Albuterol 0.09 MG/ACTUAT Mete red Dose Inhaler [ProAir] ProAir HFA 108 (90 Base) MCG/ACT ProAir HFA 108 (90 Base) MCG/ACT 06/27/2020 12:00:00 AM EDT 2.0 {puff_as_needed} active Pro Air HFA 108 (90 Base) MCG/ACT eCW1 ([facility]) 120 ACTUAT Fluticasone propionate 0.044 MG/ACTUAT Metered Dose Inhaler [Flovent] Flovent HFA 44 MCG/ACT Flovent HFA 44 MCG/ACT 06/27/2020 12:00:00 AM EDT 1.0 {puff} active Flovent HFA 44 MCG/ACT e CW1 ([facility]) 200 ACTUAT Albuterol 0.09 MG/ACTUAT Mete red Dose Inhaler [ProAir] ProAir HFA 108 (90 Base) MCG/ACT ProAir HFA 108 (90 Base) MCG/ACT 06/27/2020 12:00:00 AM EDT 2.0 {puff_as_needed} active Pro Air HFA 108 (90 Base) MCG/ACT eCW1 ([facility]) 200 ACTUAT Albuterol 0.09 MG/ACTUAT Mete red Dose Inhaler [ProAir] ProAir HFA 108 (90 Base) MCG/ACT ProAir HFA 108 (90 Base) MCG/ACT 06/27/2020 12:00:00 AM EDT 2.0 {puff_as_needed} active Pro Air HFA 108 (90 Base) MCG/ACT eCW1 ([facility]) 120 ACTUAT Fluticasone propionate 0.044 MG/ACTUAT Metered Dose Inhaler [Flovent] Flovent HFA 44 MCG/ACT Flovent HFA 44 MCG/ACT 06/27/2020 12:00:00 AM EDT 1.0 {puff} active Flovent HFA 44 MCG/ACT e CW1 ([facility]) 200 ACTUAT Albuterol 0.09 MG/ACTUAT Mete red Dose Inhaler [ProAir] ProAir HFA 108 (90 Base) MCG/ACT ProAir HFA 108 (90 Base) MCG/ACT 06/27/2020 12:00:00 AM EDT 2.0 {puff_as_needed} active Pro Air HFA 108 (90 Base) MCG/ACT eCW1 ([facility]) 120 ACTUAT Fluticasone propionate 0.044 MG/ACTUAT Metered Dose Inhaler [Flovent] Flovent HFA 44 MCG/ACT Flovent HFA 44 MCG/ACT 06/27/2020 12:00:00 AM EDT 1.0 {puff} active Flovent HFA 44 MCG/ACT e CW1 ([facility]) 200 ACTUAT Albuterol 0.09 MG/ACTUAT Mete red Dose Inhaler [ProAir] ProAir HFA 108 (90 Base) MCG/ACT ProAir HFA 108 (90 Base) MCG/ACT 06/27/2020 12:00:00 AM EDT 2.0 {puff_as_needed} active Pro Air HFA 108 (90 Base) MCG/ACT eCW1 ([facility]) 200 ACTUAT Albuterol 0.09 MG/ACTUAT Mete red Dose Inhaler [ProAir] ProAir HFA 108 (90 Base) MCG/ACT ProAir HFA 108 (90 Base) MCG/ACT 06/27/2020 12:00:00 AM EDT 2.0 {puff_as_needed} active Pro Air HFA 108 (90 Base) MCG/ACT eCW1 ([facility]) 200 ACTUAT Albuterol 0.09 MG/ACTUAT Mete red Dose Inhaler [ProAir] ProAir HFA 108 (90 Base) MCG/ACT ProAir HFA 108 (90 Base) MCG/ACT 06/27/2020 12:00:00 AM EDT 2.0 {puff_as_needed} active Pro Air HFA 108 (90 Base) MCG/ACT eCW1 ([facility]) 120 ACTUAT Fluticasone propionate 0.044 MG/ACTUAT Metered Dose Inhaler [Flovent] Flovent HFA 44 MCG/ACT Flovent HFA 44 MCG/ACT 06/27/2020 12:00:00 AM EDT 1.0 {puff} active Flovent HFA 44 MCG/ACT e CW1 ([facility]) 120 ACTUAT Fluticasone propionate 0.044 MG/ACTUAT Metered Dose Inhaler [Flovent] Flovent HFA 44 MCG/ACT Flovent HFA 44 MCG/ACT 06/27/2020 12:00:00 AM EDT 1.0 {puff} active Flovent HFA 44 MCG/ACT e CW1 ([facility]) 200 ACTUAT Albuterol 0.09 MG/ACTUAT Mete red Dose Inhaler [ProAir] ProAir HFA 108 (90 Base) MCG/ACT ProAir HFA 108 (90 Base) MCG/ACT 06/27/2020 12:00:00 AM EDT 2.0 {puff_as_needed} active Pro Air HFA 108 (90 Base) MCG/ACT eCW1 ([facility]) 200 ACTUAT Albuterol 0.09 MG/ACTUAT Mete red Dose Inhaler [ProAir] ProAir HFA 108 (90 Base) MCG/ACT ProAir HFA 108 (90 Base) MCG/ACT 06/27/2020 12:00:00 AM EDT 2.0 {puff_as_needed} active Pro Air HFA 108 (90 Base) MCG/ACT eCW1 ([facility]) 200 ACTUAT Albuterol 0.09 MG/ACTUAT Mete red Dose Inhaler [ProAir] ProAir HFA 108 (90 Base) MCG/ACT ProAir HFA 108 (90 Base) MCG/ACT 06/27/2020 12:00:00 AM EDT 2.0 {puff_as_needed} active Pro Air HFA 108 (90 Base) MCG/ACT eCW1 ([facility]) 120 ACTUAT Fluticasone propionate 0.044 MG/ACTUAT Metered Dose Inhaler [Flovent] Flovent HFA 44 MCG/ACT Flovent HFA 44 MCG/ACT 06/27/2020 12:00:00 AM EDT 1.0 {puff} active Flovent HFA 44 MCG/ACT e CW1 ([facility]) 120 ACTUAT Fluticasone propionate 0.044 MG/ACTUAT Metered Dose Inhaler [Flovent] Flovent HFA 44 MCG/ACT Flovent HFA 44 MCG/ACT 06/27/2020 12:00:00 AM EDT 1.0 {puff} active Flovent HFA 44 MCG/ACT e CW1 ([facility]) 120 ACTUAT Fluticasone propionate 0.044 MG/ACTUAT Metered Dose Inhaler [Flovent] Flovent HFA 44 MCG/ACT Flovent HFA 44 MCG/ACT 06/27/2020 12:00:00 AM EDT 1.0 {puff} active Flovent HFA 44 MCG/ACT e CW1 ([facility]) 120 ACTUAT Fluticasone propionate 0.044 MG/ACTUAT Metered Dose Inhaler [Flovent] Flovent HFA 44 MCG/ACT Flovent HFA 44 MCG/ACT 06/27/2020 12:00:00 AM EDT 1.0 {puff} active Flovent HFA 44 MCG/ACT e CW1 ([facility]) 200 ACTUAT Albuterol 0.09 MG/ACTUAT Mete red Dose Inhaler [ProAir] ProAir HFA 108 (90 Base) MCG/ACT ProAir HFA 108 (90 Base) MCG/ACT 06/27/2020 12:00:00 AM EDT 2.0 {puff_as_needed} active Pro Air HFA 108 (90 Base) MCG/ACT eCW1 ([facility]) 120 ACTUAT Fluticasone propionate 0.044 MG/ACTUAT Metered Dose Inhaler [Flovent] Flovent HFA 44 MCG/ACT Flovent HFA 44 MCG/ACT 06/27/2020 12:00:00 AM EDT 1.0 {puff} active Flovent HFA 44 MCG/ACT e CW1 ([facility]) 200 ACTUAT Albuterol 0.09 MG/ACTUAT Mete red Dose Inhaler [ProAir] ProAir HFA 108 (90 Base) MCG/ACT ProAir HFA 108 (90 Base) MCG/ACT 06/27/2020 12:00:00 AM EDT 2.0 {puff_as_needed} active Pro Air HFA 108 (90 Base) MCG/ACT eCW1 ([facility]) 200 ACTUAT Albuterol 0.09 MG/ACTUAT Mete red Dose Inhaler [ProAir] ProAir HFA 108 (90 Base) MCG/ACT ProAir HFA 108 (90 Base) MCG/ACT 06/27/2020 12:00:00 AM EDT 2.0 {puff_as_needed} active Pro Air HFA 108 (90 Base) MCG/ACT eCW1 ([facility]) 200 ACTUAT Albuterol 0.09 MG/ACTUAT Mete red Dose Inhaler [ProAir] ProAir HFA 108 (90 Base) MCG/ACT ProAir HFA 108 (90 Base) MCG/ACT 06/27/2020 12:00:00 AM EDT 2.0 {puff_as_needed} active Pro Air HFA 108 (90 Base) MCG/ACT eCW1 ([facility]) 120 ACTUAT Fluticasone propionate 0.044 MG/ACTUAT Metered Dose Inhaler [Flovent] Flovent HFA 44 MCG/ACT Flovent HFA 44 MCG/ACT 06/27/2020 12:00:00 AM EDT 1.0 {puff} active Flovent HFA 44 MCG/ACT e CW1 ([facility]) 200 ACTUAT Albuterol 0.09 MG/ACTUAT Mete red Dose Inhaler [ProAir] ProAir HFA 108 (90 Base) MCG/ACT ProAir HFA 108 (90 Base) MCG/ACT 06/27/2020 12:00:00 AM EDT 2.0 {puff_as_needed} active Pro Air HFA 108 (90 Base) MCG/ACT eCW1 ([facility]) 200 ACTUAT Albuterol 0.09 MG/ACTUAT Mete red Dose Inhaler [ProAir] ProAir HFA 108 (90 Base) MCG/ACT ProAir HFA 108 (90 Base) MCG/ACT 06/27/2020 12:00:00 AM EDT 2.0 {puff_as_needed} active Pro Air HFA 108 (90 Base) MCG/ACT eCW1 ([facility]) 200 ACTUAT Albuterol 0.09 MG/ACTUAT Mete red Dose Inhaler [ProAir] ProAir HFA 108 (90 Base) MCG/ACT ProAir HFA 108 (90 Base) MCG/ACT 06/27/2020 12:00:00 AM EDT 2.0 {puff_as_needed} active Pro Air HFA 108 (90 Base) MCG/ACT eCW1 ([facility]) 200 ACTUAT Albuterol 0.09 MG/ACTUAT Mete red Dose Inhaler [ProAir] ProAir HFA 108 (90 Base) MCG/ACT ProAir HFA 108 (90 Base) MCG/ACT 06/27/2020 12:00:00 AM EDT 2.0 {puff_as_needed} active Pro Air HFA 108 (90 Base) MCG/ACT eCW1 ([facility]) 120 ACTUAT Fluticasone propionate 0.044 MG/ACTUAT Metered Dose Inhaler [Flovent] Flovent HFA 44 MCG/ACT Flovent HFA 44 MCG/ACT 06/27/2020 12:00:00 AM EDT 1.0 {puff} active Flovent HFA 44 MCG/ACT e CW1 ([facility]) 200 ACTUAT Albuterol 0.09 MG/ACTUAT Mete red Dose Inhaler [ProAir] ProAir HFA 108 (90 Base) MCG/ACT ProAir HFA 108 (90 Base) MCG/ACT 06/27/2020 12:00:00 AM EDT 2.0 {puff_as_needed} active Pro Air HFA 108 (90 Base) MCG/ACT eCW1 ([facility]) 200 ACTUAT Albuterol 0.09 MG/ACTUAT Mete red Dose Inhaler [ProAir] ProAir HFA 108 (90 Base) MCG/ACT ProAir HFA 108 (90 Base) MCG/ACT 06/27/2020 12:00:00 AM EDT 2.0 {puff_as_needed} active Pro Air HFA 108 (90 Base) MCG/ACT eCW1 ([facility]) 120 ACTUAT Fluticasone propionate 0.044 MG/ACTUAT Metered Dose Inhaler [Flovent] Flovent HFA 44 MCG/ACT Flovent HFA 44 MCG/ACT 06/27/2020 12:00:00 AM EDT 1.0 {puff} active Flovent HFA 44 MCG/ACT e CW1 ([facility]) 120 ACTUAT Fluticasone propionate 0.044 MG/ACTUAT Metered Dose Inhaler [Flovent] Flovent HFA 44 MCG/ACT Flovent HFA 44 MCG/ACT 06/27/2020 12:00:00 AM EDT 1.0 {puff} active Flovent HFA 44 MCG/ACT e CW1 ([facility]) 120 ACTUAT Fluticasone propionate 0.044 MG/ACTUAT Metered Dose Inhaler [Flovent] Flovent HFA 44 MCG/ACT Flovent HFA 44 MCG/ACT 06/27/2020 12:00:00 AM EDT 1.0 {puff} active Flovent HFA 44 MCG/ACT e CW1 ([facility]) 200 ACTUAT Albuterol 0.09 MG/ACTUAT Mete red Dose Inhaler [ProAir] ProAir HFA 108 (90 Base) MCG/ACT ProAir HFA 108 (90 Base) MCG/ACT 06/27/2020 12:00:00 AM EDT 2.0 {puff_as_needed} active Pro Air HFA 108 (90 Base) MCG/ACT eCW1 ([facility]) 200 ACTUAT Albuterol 0.09 MG/ACTUAT Mete red Dose Inhaler [ProAir] ProAir HFA 108 (90 Base) MCG/ACT ProAir HFA 108 (90 Base) MCG/ACT 06/27/2020 12:00:00 AM EDT 2.0 {puff_as_needed} active Pro Air HFA 108 (90 Base) MCG/ACT eCW1 ([facility]) 120 ACTUAT Fluticasone propionate 0.044 MG/ACTUAT Metered Dose Inhaler [Flovent] Flovent HFA 44 MCG/ACT Flovent HFA 44 MCG/ACT 06/27/2020 12:00:00 AM EDT 1.0 {puff} active Flovent HFA 44 MCG/ACT e CW1 ([facility]) 200 ACTUAT Albuterol 0.09 MG/ACTUAT Mete red Dose Inhaler [ProAir] ProAir HFA 108 (90 Base) MCG/ACT ProAir HFA 108 (90 Base) MCG/ACT 06/27/2020 12:00:00 AM EDT 2.0 {puff_as_needed} active Pro Air HFA 108 (90 Base) MCG/ACT eCW1 ([facility]) Trazodone Hydrochloride 50 MG Oral Tablet trazodone 2019 12:00:00 AM EDT 50 mg by mouth completed <td ID="Medic ationRxNorm_3">170289</td><td ID="MedicationMedication_3">trazodone</td><td ID="MedicationRoute_3">by mouth</td><td ID="MedicationRouteConcept_3">W38148</td><td ID="MedicationStartDate_3">06/19/2020</td><td ID="MedicationStopDate_3"></td><td ID="MedicationDosageFrequency_3">at bedtime</td><td ID="MedicationDuration_3"></td><td ID="MedicationFormulaStrength_3">50 mg</td><td ID="MedicationDosageForm_3">tablet</td><td ID="MedicationDosageFormCode_3"></td><td ID="MedicationDosageDescription_3">as needed</td><td ID="MedicationMedicationId_3">[id number]</td><td ID="MedicationAccount_3">[id number]</td><td ID="MedicationNpid_3">[id number]</td><td ID="MedicationAuthorFirstName_3">Chloe</td><td ID="MedicationAuthorLastName_3">Kareem</td><td ID="MedicationTaxonomyCode_3">[id number]</td><td ID="MedicationTaxonomyDesc_3">Psychiatric/Mental Health</td><td ID="MedicationPhoneNumber_3">[phone]</td> [facility] ([facility]) chlorhexidine gluconate 40 MG/ML Medicated Liquid Soap [Hibi clens] Hibiclens 06/12/2020 12:00:00 AM EDT TOPICAL active MED[facility] ([facility] ) gabapentin 300 MG Oral Capsule gabapentin (NEURONTIN) 300 MG capsule gabapentin (NEURONTIN) 300 MG capsule 04/15/2020 12:00:00 AM EDT aborted TAKE ONE CAPSULE BY MOUTH @8PM [facility] Famotidine 10 MG Oral Tablet ACID FIXING MACHINE OPERATOR 10 MG tablet ACID FIXING MACHINE OPERATOR 10 MG tablet 04/03/2020 12:00:00 AM EDT aborted TAKE ONE TABLET BY MOUTH ONE HOUR PRIOR TO PROCEDURE [facility] Methylprednisolone 32 MG Oral Tablet methylPREDNISolon e (MEDROL) 32 MG tablet methylPREDNISolone (MEDROL) 32 MG tablet 02/20/2020 12:00:00 AM EDT aborted TAKE ONE TABLET BY M OUTH 12 HOURS BEFORE PROCEDURE, THEN TAKE ONE TABLET TWO HOURS BEFORE PROCEDURE [facility] Diphenhydramine Hydrochloride 25 MG Oral Capsule [Banophen] BANOPHEN 25 MG capsule BANOPHEN 25 MG capsule 02/20/2020 12:00:00 AM EDT aborted TAKE TWO CAPSULES BY MOUTH ONE HOUR BEFORE PROCEDURE [facility] gabapentin 800 MG Oral Tablet gabapentin (NEURONTIN) 8 00 MG tablet gabapentin (NEURONTIN) 800 MG tablet 02/19/2020 12:00:00 AM EDT aborted TAKE ONE TABLET BY MOUTH @8AM and TAKE ONE TABLET BY MOUTH @2PM and TAKE ONE TABLET BY MOUTH @8PM [facility] Estradiol 0.1 MG/ML Vaginal Cream [Estra ce] ESTRACE VAGINAL 0.1 MG/GM vaginal cream ESTRACE VAGINAL 0.1 MG/GM vaginal cream 07/11/2019 12:00:00 AM EDT aborted INSERT ONE GRAM VAGINALLY TWICE A WEEK [facility] Insurance Providers Payer name Policy type / Coverage type Policy ID Covered democrat ID Covered democrat's relationship to terry Policy Terry Plan Information MEDICARE 4 [id number] A MEDICARE [id number] Liz [id number] A MEDICARE [id number] Liz [id number] MEDICARE A [id number] Self [id number] [id number] MEDICARE [id number] SP [id number] A MEDICARE [id number] SP [id number] A MEDICARE [id number] [id number] MEDICARE [id number] SP [id number] [id number] MEDICARE A [id number] Self [id number] A MEDICARE [id number] SP [id number] A MEDICAID [id number] Liz [id number] MEDICAID [id number] Liz [id number] MEDICAID [id number] xxxxxxxx [id number] MEDICAID [id number] SP [id number] MEDICAID [id number] SP [id number] MEDICAID M [id number] Self [id number] MEDICAID PENDING [id number] Liz [id number] Medicaid [facility] Part B [id number] Self [id number] MEDICARE C [id number] S [id number] [place] [id number] Self [id number] [place] [id number] Self [id number] Medicaid [facility] Part B [id number] [place] Primary [id number] Self SELF PAY UNAVAILABLE SP UNAVAILA BLE SELF PAY 2 UNAVAILABLE 1 UNAVAILA BLE MEDICAID [facility] 3 [id number] T [facility] MEDICAID [id number] SP [id number] T [id number] A MEDICARE [id number] SP [id number] [id number] [place] [id number] SP [id number] SELF PAY ONLY [id number] SP [id number] MEDICARE C [id number] S [id number] MEDICAID M [id number] S [id number] MEDICARE C [id number] S [id number] [id number] Medicare P [id number] S [id number] [id number] Medicaid S UNAVAILABLE S UNAVAILA BLE MEDICAID [id number] SP [id number] ANS-Medicare Part [id number] ANS-Medicaid [id number] [place] Medicare Primary [id number] Self [id number] [place] Medicare Primary [id number] Self [id number] MEDICARE PI PI MEDICAID PI PI Problems, Conditions, and Diagnoses Code Display Name Description Problem Type Effective Dates Data Source(s) I10 Essential (primary) hypertension Essential (primary) h ypertension Diagnosis 01/10/2021 02:56:28 PM EDT [facility] I25.10 Atherosclerotic heart diseas e of [place] coronary artery without angina pectoris Atherosclerotic heart disease of [place] Diagnosis 01/10/2021 02:56:28 PM EDT [facility] E11.9 [id number] Type 2 diabetes cole itus without complication, without long-term current use of insulin Problem 06/13/2021 12:00:00 AM EDT eCW1 ([facility]) F31.9 Bipolar disorder, unspecified Unspecified [place] r and Related Disorder Condition 04/30/2021 12:00:00 AM EDT [facility] ([facility]) [id number] Essential hypertension Essential hypertension Problem 04/14/2021 12:00:00 AM EDT [facility] ([facility] ) E04.1 [id number] Thyroid nodule Problem 03/07/2021 12:00:00 A M EDT eCW1 ([facility]) N39.43 [id number] Urinary dribbling Problem 11/29/2020 12:00:0 0 AM EST eCW1 ([facility]) J45.40 [id number] Moderate persistent asthma without compli cation Problem 06/27/2020 12:00:00 AM EDT eCW1 ([facility]) 626502202 Hypoxemia Hypoxemia Problem 06/05/2020 12:00:00 AM ED T [facility] ([facility] ) [id number] Lesion of ulnar nerve Lesion of ulnar nerve Problem 06/05/2020 12:00:00 AM EDT [facility] ([facility] ) Surgeries/Procedures Procedure Description Date Indications Data Source(s) OFFICE OUTPATIENT VISIT 25 MINUTES 07/14/2021 12:00:00 AM EDT [facility] ([facility]) INCISION & DRAINAGE ABSCESS SIMPLE/SINGLE 06/24/2021 1 2:00:00 AM EDT [facility] ([facility]) OFFICE OUTPATIENT VISIT 25 MINUTES 06/24/2021 12:00:00 AM EDT [facility] ([facility]) X-Ray Spine Lumbosacral Complete Inc Bending Views Min Of 6 06/16/2021 12:00:00 AM EDT [facility] ([facility]) OFFICE OUTPATIENT VISIT 25 MINUTES 06/16/2021 12:00:00 AM EDT [facility] ([facility] ) OFFICE OUTPATIENT VISIT 15 MINUTES 05/19/2021 12:00:00 AM EDT [facility] ([facility] ) Fine Needle Aspiration Biopsy Inlcd Ultrasound Guidance 05/06/2021 12:00:00 AM EDT [facility] ([facility] ) RADEX FOOT COMPLETE MINIMUM 3 VIEWS 05/01/2021 12:00:0 0 AM EDT [facility] ([facility] ) OFFICE OUTPATIENT VISIT 25 MINUTES 05/01/2021 12:00:00 AM EDT [facility] ([facility] ) MHC Telemed E/M Lvl 3--Est pt 04/30/2021 12:00:00 AM EDT - 04/30/2021 12:00:00 AM EDT [facility] ([facility]) Telemed A/O 30" 04/30/2021 12:00:00 AM EDT [facility] ([facility]) MHC Telemed E/M Lvl 3--Est pt 04/30/2021 12:00:00 AM E DT [facility] ([facility]) OFFICE OUTPATIENT NEW 60 MINUTES 04/17/2021 12:00:00 A M EDT [facility] ([facility] ) OFFICE OUTPATIENT VISIT 15 MINUTES 03/04/2021 12:00:00 AM EDT [facility] ([facility] ) MHC Telemed E/M Lvl 3--Est pt 01/30/2021 12:00:00 AM EDT - 01/30/2021 12:00:00 AM EDT [facility] ([facility]) MHC Telemed E/M Lvl 3--Est pt 01/30/2021 12:00:00 AM E DT [facility] ([facility]) RADEX SPINE CRV COMPL W/OBLQ&FLEX&/XTN STDS 01/17/2021 12:00:00 AM EDT [facility] ([facility] ) OFFICE OUTPATIENT VISIT 25 MINUTES 01/17/2021 12:00:00 AM EDT [facility] ([facility] ) POCT AMB EKG <td>POCT AMB EKG</td><td>Rou ellis</td><td>01/10/2021 3:55 PM EDT</td><td> Coronary artery disease involving grand [place] tribes coronary artery of [place] tribes heart without angina pectoris Hypertension, essential</td><td> </td> 01/10/2021 03:55:00 PM EDT Hypertension, essentialCoronary artery d isease involving [place] tribes coronary artery of [place] heart without angina pectoris [facility] Hypertension, essential Coronary artery disease involving [place] tribes coronary artery of [place] heart without angina pectoris DESTRUCTION BENIGN LESIONS UP TO 14 01/07/2021 12:00:0 0 AM EDT [facility] ([facility]) DUP-SCAN LXTR ART/ARTL BPGS UNI/LMTD STUDY 12/12/2020 12:00:00 AM EDT [facility] ([facility]) DUP-SCAN LXTR ART/ARTL BPGS UNI/LMTD STUDY 12/12/2020 12:00:00 AM EDT [facility] ([facility]) PHYSICIAN TELEPHONE EVALUATION 5-10 MIN 10/01/2020 12: 00:00 AM EST [facility] ([facility] ) RADEX FOOT COMPLETE MINIMUM 3 VIEWS 09/19/2020 12:00:0 0 AM EST [facility] ([facility] ) MRI Lower Extremity Any Joint 09/18/2020 12:00:[address] [facility] ([facility] ) MRI Lower Extremity Any Joint 09/18/2020 12:00:[address] [facility] ([facility] ) ARTHROCENTESIS ASPIR&/INJECTION MAJOR JT/BURSA 020 12:00:00 AM EST [facility] ([facility] ) RADIOLOGIC EXAM KNEE COMPLETE 4/MORE VIEWS 09/09/2020 12:00:00 AM EST [facility] ([facility] ) RADEX FOOT COMPLETE MINIMUM 3 VIEWS 08/09/2020 12:00:0 0 AM EST [facility] ([facility] ) APPLICATION SHORT LEG CAST BELOW KNEE-TOE 08/07/2020 1 2:00:00 AM EST [facility] ([facility] ) RADEX FOOT COMPLETE MINIMUM 3 VIEWS 08/07/2020 12:00:0 0 AM EST [facility] ([facility] ) Polysomnography Sleep Staging 4+ Parameters W/Cpap 08/01/2020 12:00:00 AM EST [facility] ([facility]) RADEX FOOT COMPLETE MINIMUM 3 VIEWS 07/22/2020 12:00:0 0 AM EST [facility] ([facility]) APPLICATION SHORT LEG CAST BELOW KNEE-TOE 07/22/2020 1 2:00:00 AM EST [facility] ([facility]) APPLICATION SHORT LEG CAST BELOW KNEE-TOE 07/11/2020 1 2:00:00 AM EDT [facility] ([facility]) RADEX FOOT COMPLETE MINIMUM 3 VIEWS 07/11/2020 12:00:0 0 AM EDT [facility] ([facility]) MHC Telemed E/M Lvl 3--Est pt 07/04/2020 12:00:00 AM EDT - 07/04/2020 12:00:00 AM EDT [facility] ([facility]) MHC Telemed E/M Lvl 3--Est pt 07/04/2020 12:00:00 AM E DT [facility] ([facility]) FX Tarsal Bone Open TX W/Fixation 07/04/2020 12:00:00 AM EDT [facility] ([facility]) Results ID Date Data Source [id number] 07/14/2021 10:29:00 AM EDT [facility] ([facility]) Name Value Range Interpretation Code Description Data Nadia rce(s) Supporting Document(s) Covid Rapid Testing Laboratory test result [facility] ([facility]) [facility] Covid-19 Antigen Test Lot# [id number] 07/14/21 at 10:36am ID Date Data Source [id number] 06/30/2021 12:00:00 AM EDT [facility] Name Value Range Interpretation Code Description Data Nadia rce(s) Supporting Document(s) Covid Rapid Testing Negative [facility] This lab was ordered by [place] and re ported by [facility]. ID Date Data Source [id number] 06/13/2021 01:59:00 PM EDT [facility] ([facility]) Name Value Range Interpretation Code Description Data Nadia rce(s) Supporting Document(s) Covid Rapid Testing Laboratory test result [facility] ([facility]) ID Date Data Source [id number] 06/13/2021 12:00:00 AM EDT [facility] Name Value Range Interpretation Code Description Data Nadia rce(s) Supporting Document(s) Covid Rapid Testing Negative [facility] This lab was ordered by [facility] and re ported by [facility]. ID Date Data Source Basic Metabolic Profile (BMP) 06/13/2021 12:00:00 AM EDT eCW 1 ([facility]) Name Value Range Interpretation Code Description Data Nadia rce(s) Supporting Document(s) 126 70-100 GLUCOSE, FASTING eCW1 ([facility]) 12 7-18 BLOOD UREA NITROGEN eCW1 ([facility]) 4.4 3.5-5.1 POTASSIUM SERUM eCW1 ([facility]) > 60.0 >45 GLOMERULAR FILTRATION RATE eCW 1 ([facility]) 130 136-145 SODIUM LEVEL eCW1 ([facility]) 0.82 0.55-1.30 CREATININE FOR GFR eCW1 ([facility]) 94 98-107 CHLORIDE LEVEL eCW1 ([facility]) 8.6 8.8-10.2 CALCIUM LEVEL eCW1 ([facility]) 29 21-32 CARBON DIOXIDE LEVEL eCW1 ([facility]) ID Date Data Source [id number] 06/13/2021 12:00:00 AM EDT eCW1 ([facility]) Name Value Range Interpretation Code Description Data Nadia rce(s) Supporting Document(s) Hemoglobin A1c/Hemoglobin.total in Blood 6.1 HEMOGLOBIN A1c eCW1 ([facility]) ID Date Data Source [id number] 06/04/2021 08:57:00 AM EDT [facility] ([facility] ) Name Value Range Interpretation Code Description Data Nadia rce(s) Supporting Document(s) Covid Rapid Testing [facility] ) CARE START COVID-19 ANTIGEN LOT #[id number] 06/30/21 1:21 P.M. ID Date Data Source [id number] 05/06/2021 10:27:00 AM EDT [facility] ([facility] ) Name Value Range Interpretation Code Description Data Nadia rce(s) Supporting Document(s) Laboratory test finding (navigational concept) Laboratory test result [facility] ([facility]) ID Date Data Source [id number] 05/06/2021 04:55:00 AM EDT [facility] ([facility]) Name Value Range Interpretation Code Description Data Nadia rce(s) Supporting Document(s) Microscopic observation [Identifier] in Unspecified specimen by Non- gynecological cytology method Laboratory test result [facility] ([facility]) SPECIMEN: FNA Right upper lob e thyroid nodule Specimen received in Cytolyt (pink tinged) SPECIMEN ADEQUACY: Satisfactory for evaluation CATEGORIZATION: Benign DESCRIPTIONS: Reactive follicular cells some exhibiting hurthle cell changes. The background consists of abundant hemosiderin laden macrophages and scattered lymphocytes. 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 05/07/2021 - 1046 Signed KALANI RIVERA(ASCP) 05/07/2021 0733 (Prelim) Signed Sacha Sy MD 05/07/2021 1046 ID Date Data Source [id number] 04/23/2021 09:01:00 AM EDT KENDAL ([facility]) Name Value Range Interpretation Code Description Data Nadia rce(s) Supporting Document(s) Cross Femoral Bypass Ultrasound Laboratory test [facility] ([facility]) ID Date Data Source URINE CULTURE 12/17/2020 12:00:00 AM EDT eCW1 ([facility]) Name Value Range Interpretation Code Description Data Nadia rce(s) Supporting Document(s) URINE CULTURE eCW1 ([facility]) ID Date Data Source UA URINALYSIS 12/17/2020 12:00:00 AM EDT eCW1 ([facility]) Name Value Range Interpretation Code Description Data Nadia rce(s) Supporting Document(s) UA URINALYSIS eCW1 ([facility]) ID Date Data Source [id number] 12/12/2020 02:11:00 PM EDT MED[facility]AM[facility] ([facility]) Name Value Range Interpretation Code Description Data Nadia rce(s) Supporting Document(s) Cross Femoral Bypass Ultrasound Laboratory test [facility] ([facility]) ID Date Data Source [id number] 12/11/2020 01:05:00 PM EDT [facility] Name Value Range Interpretation Code Description Data Nadia rce(s) Supporting Document(s) SARS-CoV-2 (COVID-19) RNA [Presence] in Respiratory specimen by JACKI with probe detection Not Detected [facility] This lab was ordered by [facility] and reported by [employer] ID Date Data Source RBC FOLATE PROFILE 11/30/2020 12:00:00 AM EST eCW1 ([facility]) Name Value Range Interpretation Code Description Data Nadia rce(s) Supporting Document(s) 35.5 36.0-47.0 eCW1 ([facility]) 632 [id number] eCW1 ([facility]) ID Date Data Source VITAMIN [id number] 11/30/2020 12:00:00 AM EST eCW1 ([facility]) Name Value Range Interpretation Code Description Data Nadia rce(s) Supporting Document(s) 72.5 30.0-100.0 eCW1 ([facility]) ID Date Data Source VITAMIN B12 LEVEL 11/30/2020 12:00:00 AM EST eCW1 ([facility]) Name Value Range Interpretation Code Description Data Nadia rce(s) Supporting Document(s) [id number] eCW1 ([facility]) ID Date Data Source [id number] 11/30/2020 12:00:00 AM EST eCW1 ([facility]) Name Value Range Interpretation Code Description Data Nadia rce(s) Supporting Document(s) Microalbumin/Creatinine [Ratio] in Urine 39.5 0.0-30.0 eCW1 ([facility]) Microalbumin/Creatinine [Mass Ratio] in Urine 31.6 eCW1 ([facility]) Albumin/Creatinine [Mass Ratio] in Urine 12.5 eCW1 ([facility]) ID Date Data Source FREE T4 & TSH PANEL 11/30/2020 12:00:00 AM EST eCW1 ([facility]) Name Value Range Interpretation Code Description Data Nadia rce(s) Supporting Document(s) 2.450 0.358-3.740 eCW1 ([facility]) 0.98 0.76-1.46 eCW1 ([facility]) ID Date Data Source TOTAL IRON BINDING CAPACIT 11/30/2020 12:00:00 AM EST eCW1 ( [facility]) Name Value Range Interpretation Code Description Data Nadia rce(s) Supporting Document(s) 58 50-170 eCW1 ([facility]) 300 250-450 eCW1 ([facility]) 19.3 13.2-45.0 eCW1 ([facility]) ID Date Data Source MAGNESIUM LEVEL 11/30/2020 12:00:00 AM EST eCW1 ([facility]) Name Value Range Interpretation Code Description Data Nadia rce(s) Supporting Document(s) 1.6 1.8-2.4 eCW1 ([facility]) ID Date Data Source PHOSPHOROUS LEVEL 11/30/2020 12:00:00 AM EST eCW1 ([facility]) Name Value Range Interpretation Code Description Data Nadia rce(s) Supporting Document(s) 4.2 2.5-4.9 eCW1 ([facility]) ID Date Data Source LIPID PANEL (CARDIAC RISK) 11/30/2020 12:00:00 AM EST eCW1 ( [facility]) Name Value Range Interpretation Code Description Data Nadia rce(s) Supporting Document(s) Cholesterol [Moles/volume] in Serum or Plasma 115 <200 eCW1 ([facility]) Triglyceride [Mass/volume] in Serum or Plasma by calculation 248 <150 eCW1 ([facility]) Cholesterol in HDL [Moles/volume] in Serum or Plasma 38 >40 eCW1 ([facility]) 3.026 <5 eCW1 ([facility]) Cholesterol in LDL [Mass/volume] in Serum or Plasma by calculation 27 <100 eCW1 ([facility]) 77 eCW1 ([facility]) ID Date Data Source FERRITIN 11/30/2020 12:00:00 AM EST eCW1 ([facility]) Name Value Range Interpretation Code Description Data Nadia rce(s) Supporting Document(s) 40 8-252 eCW1 ([facility]) ID Date Data Source Comprehensive Metabolic Profile (CMP) 11/30/2020 12:00:00 AM EST eCW1 ([facility]) Name Value Range Interpretation Code Description Data Nadia rce(s) Supporting Document(s) 124 70-100 eCW1 ([facility]) 10 7-18 eCW1 ([facility]) 130 136-145 eCW1 ([facility]) 95 98-107 eCW1 ([facility]) > 60.0 >45 eCW1 ([facility]) 4.5 3.5-5.1 eCW1 ([facility]) 0.82 0.55-1.30 eCW1 ([facility]) 20 12-78 eCW1 ([facility]) 11 7-37 eCW1 ([facility]) 8.5 8.8-10.2 eCW1 ([facility]) 28 21-32 eCW1 ([facility]) 113 45-117 eCW1 ([facility]) 6.1 6.4-8.2 eCW1 ([facility]) 0.3 0.2-1.0 eCW1 ([facility]) 3.8 3.2-5.2 eCW1 ([facility]) 1.7 1.2-2.2 eCW1 ([facility]) ID Date Data Source CBC - Complete Blood Count 11/30/2020 12:00:00 AM EST eCW1 ( [facility]) Name Value Range Interpretation Code Description Data Nadia rce(s) Supporting Document(s) 4.25 4.00-5.40 RED BLOOD COUNT eCW1 ([facility]) 6.1 4.0-10.0 WHITE BLOOD COUNT eCW1 ([facility]) 34.1 32.0-36.5 MEAN CORPUSCULAR HGB CONC eCW1 ([facility]) 12.1 12.0-15.5 HEMOGLOBIN eCW1 ([facility]) 35.5 36.0-47.0 HEMATOCRIT eCW1 ([facility]) 28.5 27.0-33.0 MEAN CORPUSCULAR HEMOGLOB IN eCW1 ([facility]) 83.5 80.0-96.0 MEAN CORPUSCULAR VOLUME e CW1 ([facility]) 13.0 11.5-14.5 RED CELL DISTRIBUTION WID TH eCW1 ([facility]) 254 150-450 PLATELET COUNT, AUTOMATED eCW1 ([facility]) ID Date Data Source [id number] 10/22/2020 12:00:00 AM EST [facility] Name Value Range Interpretation Code Description Data Nadia rce(s) Supporting Document(s) SARS-CoV-2 (COVID-19) RNA [Presence] in Respiratory specimen by JACKI with probe detection Positive for 2019-nCoV [facility] This lab was ordered by [facility] and reported by [employer] ID Date Data Source [id number] 10/10/2020 10:27:00 AM EST [facility] ([facility]) Name Value Range Interpretation Code Description Data Nadia rce(s) Supporting Document(s) Covid Rapid Testing Laboratory test result [facility] ([facility]) ID Date Data Source [id number] 09/24/2020 01:00:00 PM EST [facility] Name Value Range Interpretation Code Description Data Nadia rce(s) Supporting Document(s) SARS coronavirus 2 RNA Detected [facility] This lab was ordered by [facility] and reported by [facility]. ID Date Data Source [id number] 09/23/2020 10:21:00 AM EST [facility] ([facility]) Name Value Range Interpretation Code Description Data Nadia rce(s) Supporting Document(s) Laboratory test finding (navigational concept) Laboratory test result [facility] ([facility]) ID Date Data Source [id number] 06/29/2020 09:00:00 AM EDT [facility] Name Value Range Interpretation Code Description Data Nadia rce(s) Supporting Document(s) SARS coronavirus 2 RNA [facility] This lab was ordered by [facility] and reported by [facility]. ID Date Data Source [id number] 06/28/2020 08:18:00 AM EDT [facility] ([facility]) Name Value Range Interpretation Code Description Data Nadia rce(s) Supporting Document(s) Hemoglobin A1c 6.4 % [facility] ([facility]) <content>REFERENCE RANGES:</content><br/ ><content></content>
<content><=5.6% NORMAL</content>
<content>5.7-6.4% SUGGESTS IMPAIRED GLUCOSE METABOLISM/PREDIABETIC</content>
<content>>= 6.5% ABNORMAL</content>
<content></content> Estimated Average Glucose 137 mg/dL 60-110 [facility] ([facility]) ID Date Data Source [id number] 06/28/2020 08:18:00 AM EDT [facility] ([facility]) Name Value Range Interpretation Code Description Data Nadia rce(s) Supporting Document(s) Blood Urea Nitrogen 12 mg/dL 7-18 [facility] ([facility]) Glucose, Fasting 210 mg/dL 70-100 [facility] ([facility]) Creatinine For GFR 0.92 mg/dL 0.55-1.30 [facility] ([facility]) Glomerular Filtration Rate Laboratory [facility]) <content>Units are mL/min/1.73 m2</content>
<content></content>
<content>Chronic Kidney Disease Staging per NKF:</content>
<content></content>
<content>Stage I & II GFR >=60 Normal to Mildly Decreased</content>
<content>Stage III GFR 30- 59 Moderately Decreased</content>
<content>Stage IV GFR 15-29 Severely Decreased</content>
<content>Stage V GFR <15 Very Little GFR Left</content>
<content>ESRD GFR <15 on CONTROL PANEL OPERATOR</content>
<content></content> Sodium Level 130 meq/L 136-145 [facility] ([facility]) Carbon Dioxide Level 28 meq/L 21-32 [facility] ([facility]) Potassium Serum 4.0 meq/L 3.5-5.1 [facility] ([facility]) Chloride Level 93 meq/L 98-107 [facility] ([facility]) Anion Gap 9 meq/L 8-16 [facility] ([facility]) Calcium Level 8.4 mg/dL 8.8-10.2 [facility] ([facility]) ID Date Data Source [id number] 06/04/2020 12:00:00 AM EDT [facility] Rica German MD Patient Name: JUDY CHAIDEZ [id number] [facility] 1955[facility] [address] Date of Exam: 06/04/2020#: Fax: [phone] EXAM: CT LOWER EXTREMITY W/O CONTRASTCLINICAL INFORMATION: Assess degree of healing of talar fracture.Prior exam 03/25/2020 reviewed.Low dose 64 slice helical scanning through the left ankle was obtainedusing 2 mm increments and reconstructed in both coronal and sagittalplanes. 3D reconstructions were also obtained. Post processing wasperformed at the physician's workstation.The previously described fracture of the navicular is again noted withpoorly defined fracture margins and callus formation within the fracturezone and there are stable degenerative changes seen along the dorsalsurface of the talonavicular articulation. The subtalar joints are againseen to be within normal limits and unchanged. There is no acute fracture. There are some degenerative changes seen throughout the imaged portion ofthe mid-foot. The mortise is intact and unchanged. There is no CTevidence of a gross effusion or significant soft tissue swelling.IMPRESSION:Healing navicular fracture as described above.Accredited by the [employer] in [place].SYDNEE Mohr/Astrid you for referring JUDY CHAIDEZ to our office. Electronically Signed - OPAL NELSON DO 06/05/20 16:33 Name Value Range Interpretation Code Description Data Nadia rce(s) Supporting Document(s) ID Date Data Source [id number] 06/01/2020 09:00:00 AM EDT [facility] Name Value Range Interpretation Code Description Data Nadia rce(s) Supporting Document(s) SARS coronavirus 2 RNA [facility] This lab was ordered by [facility] and reported by [facility]. Procedure Social History Code Duration Value Status Description Data Source(s ) Smoking 06/13/2021 12:00:00 AM EDT Former Smoker completed Former Smoker eCW1 ([facility]) Smoking 04/30/2021 12:00:00 AM EDT Unknown if ever smoked comp leted Unknown if [facility] smoked [facility] Smoking 04/23/2021 12:00:00 AM EDT Patient is a former smoker completed Patient is a former smoker [facility] ([facility] Smoking 04/17/2021 12:00:00 AM EDT Patient is a former smoker completed Patient is a former smoker [facility] ([facility] ) Smoking 03/07/2021 12:00:00 AM EDT Former Smoker completed Former Smoker eCW1 ([facility]) Smoking 03/07/2021 12:00:00 AM EDT Former Smoker completed Former Smoker eCW1 ([facility]) Smoking 03/07/2021 12:00:00 AM EDT Former Smoker completed Former Smoker eCW1 ([facility]) Smoking 03/07/2021 12:00:00 AM EDT Former Smoker completed Former Smoker eCW1 ([facility]) Smoking 03/07/2021 12:00:00 AM EDT Former Smoker completed Former Smoker eCW1 ([facility]) Smoking 01/30/2021 12:00:00 AM EDT Unknown if ever smoked comp leted Unknown if ever smoked [facility] ([facility]) Smoking 01/29/2021 12:00:00 AM EDT Former Smoker completed Former Smoker eCW1 ([facility]) Smoking 01/29/2021 12:00:00 AM EDT Former Smoker completed Former Smoker eCW1 ([facility]) Smoking 01/29/2021 12:00:00 AM EDT Former Smoker completed Former Smoker eCW1 ([facility]) Alcohol intake 01/10/2021 12:00:00 AM EDT Current non-d portia of alcohol (finding) completed Current non-drinker of alcohol (finding) [facility] Smoking 12/16/2020 12:00:00 AM EDT Former Smoker completed Former Smoker eCW1 ([facility]) Smoking 12/16/2020 12:00:00 AM EDT Former Smoker completed Former Smoker eCW1 ([facility]) Smoking 12/16/2020 12:00:00 AM EDT Former Smoker completed Former Smoker eCW1 ([facility]) Smoking 12/16/2020 12:00:00 AM EDT Former Smoker completed Former Smoker eCW1 ([facility]) Smoking 12/16/2020 12:00:00 AM EDT Former Smoker completed Former Smoker eCW1 ([facility]) Smoking 12/16/2020 12:00:00 AM EDT Former Smoker completed Former Smoker eCW1 ([facility]) Smoking 11/29/2020 12:00:00 AM EST Former Smoker completed Former Smoker eCW1 ([facility]) Smoking 11/29/2020 12:00:00 AM EST Former Smoker completed Former Smoker eCW1 ([facility]) Smoking 10/24/2020 12:00:00 AM EST Former Smoker completed Former Smoker eCW1 ([facility]) Smoking 09/05/2020 12:00:00 AM EST Former Smoker completed Former Smoker eCW1 ([facility]) Smoking 09/05/2020 12:00:00 AM EST Former Smoker completed Former Smoker eCW1 ([facility]) Smoking 09/05/2020 12:00:00 AM EST Former Smoker completed Former Smoker eCW1 ([facility]) Smoking 09/05/2020 12:00:00 AM EST Former Smoker completed Former Smoker eCW1 ([facility]) Smoking 09/05/2020 12:00:00 AM EST Former Smoker completed Former Smoker eCW1 ([facility]) Smoking 09/05/2020 12:00:00 AM EST Former Smoker completed Former Smoker eCW1 ([facility]) Smoking 07/04/2020 12:00:00 AM EDT Unknown if ever smoked comp leted Unknown if ever smoked [facility] ([facility]) Smoking 06/27/2020 12:00:00 AM EDT Former Smoker completed Former Smoker eCW1 ([facility]) Smoking 06/27/2020 12:00:00 AM EDT Former Smoker completed Former Smoker eCW1 ([facility]) Smoking 06/27/2020 12:00:00 AM EDT Former Smoker completed Former Smoker eCW1 ([facility]) Smoking 06/27/2020 12:00:00 AM EDT Former Smoker completed Former Smoker eCW1 ([facility]) Smoking 06/27/2020 12:00:00 AM EDT Former Smoker completed Former Smoker eCW1 ([facility]) Smoking 06/27/2020 12:00:00 AM EDT Former Smoker completed Former Smoker eCW1 ([facility]) Smoking 06/27/2020 12:00:00 AM EDT Former Smoker completed Former Smoker eCW1 ([facility]) Smoking 06/27/2020 12:00:00 AM EDT Former Smoker completed Former Smoker eCW1 ([facility]) Vital Signs ID Date Data Source UNK Name Value Range Interpretation Code Description Data Source(s) Body temperature 98.0 [degF] 98.0 [degF] MEDENT ([facility]) Heart rate 88 /min 88 /min eCW1 ([facility]) Body mass index (BMI) [Ratio] 34.35 kg/m2 34.35 kg/m2 eCW1 ([facility]) Body weight 197 [lb_av] 197 [lb_av] eCW1 ([facility]) Body height 63.5 [in_i] 63.5 [in_i] eCW1 ([facility]) Respiratory rate 18 /min 18 /min eCW1 ([facility]) Body temperature 97.2 [degF] 97.2 [degF] eCW1 ( [facility]) Systolic blood pressure 130 mm[Hg] 130 mm[Hg] e CW1 ([facility]) Diastolic blood pressure 70 mm[Hg] 70 mm[Hg] eCW1 ([facility]) Body temperature 97.2 [degF] 97.2 [degF] MEDENT ([facility] ) Diastolic blood pressure 80 mm[Hg] 80 mm[Hg] MEDENT ([facility] ) Heart rate 80 /min 80 /min MEDENT ([facility] ) Body height 61.7 [in_i] 61.7 [in_i] MEDENT ([facility]) 5'1.70" Systolic blood pressure 136 mm[Hg] 136 mm[Hg] M EDENT ([facility]) Body weight 201.00 [lb_av] 201.00 [lb_av] MEDEN T ([facility] ) Body mass index (BMI) [Ratio] 37.1 kg/m2 37.1 k g/m2 MEDENT ([facility] ) Oxygen saturation in Arterial blood by Pulse oximetry 96 % 96 % MEDENT ([facility]) Body mass index (BMI) [Ratio] 34.5 kg/m2 34.5 k g/m2 MEDENT ([facility]) Body weight 195.00 [lb_av] 195.00 [lb_av] MEDEN T ([facility]) Body height 63 [in_i] 63 [in_i] MEDENT ([facility]) 5'3" Systolic blood pressure 150 mm[Hg] 150 mm[Hg] M EDENT ([facility]) Diastolic blood pressure 90 mm[Hg] 90 mm[Hg] MEDENT ([facility]) Systolic blood pressure 140 mm[Hg] 140 mm[Hg] M EDENT ([facility]) Diastolic blood pressure 72 mm[Hg] 72 mm[Hg] MEDENT ([facility]) Heart rate 70 /min 70 /min [facility] ([facility] Body temperature 91.8 [degF] 91.8 [degF] MEDENT ([facility]) Body height 62.5 [in_i] 62.5 [in_i] MED[facility] ([facility] 5'2.50" Body weight 195.00 [lb_av] 195.00 [lb_av] MEDEN T ([facility]) Body weight 88.452 kg 88.452 kg MED[facility] ([facility] Body mass index (BMI) [Ratio] 35.1 kg/m2 35.1 k g/m2 MEDENT ([facility]) Systolic blood pressure 142 mm[Hg] 142 mm[Hg] M EDENT ([facility]) Diastolic blood pressure 64 mm[Hg] 64 mm[Hg] MEDENT ([facility]) Heart rate 78 /min 78 /min MEDENT ([facility]) Body height 61.7 [in_i] 61.7 [in_i] MEDENT ([facility]) 5'1.70" Body weight 199.25 [lb_av] 199.25 [lb_av] MEDEN T ([facility]) Body mass index (BMI) [Ratio] 36.8 kg/m2 36.8 k g/m2 MEDENT ([facility]) Oxygen saturation in Arterial blood by Pulse oximetry 95 % 95 % MEDENT ([facility]) Body height 63.5 [in_i] 63.5 [in_i] eCW1 ([facility]) Body weight 193 [lb_av] 193 [lb_av] eCW1 ([facility]) Body mass index (BMI) [Ratio] 33.65 kg/m2 33.65 kg/m2 W1 ([facility]) Heart rate 74 /min 74 /min eCW1 ([facility]) Respiratory rate 18 /min 18 /min eCW1 ([facility]) Body temperature 97.5 [degF] 97.5 [degF] eCW1 ( [facility]) Systolic blood pressure 116 mm[Hg] 116 mm[Hg] e CW1 ([facility]) Diastolic blood pressure 66 mm[Hg] 66 mm[Hg] eCW1 ([facility]) Body height 0.00 in Normal (applies to non-numeric resu lts) 0.00 in [facility] ([facility]) Body weight Measured 0.00 lbs Normal (applies to n on-numeric results) 0.00 lbs [facility] ([facility]) Body mass index (BMI) [Ratio] 0.00 kg/m2 No rmal (applies to non-numeric results) 0.00 kg/m2 [facility] ([facility]) Systolic blood pressure 0 mm[Hg] Normal (applies t o non-numeric results) 0 mm[Hg] [facility] ([facility]) Diastolic blood pressure 0 mm[Hg] Normal (applies to non-numeric results) 0 mm[Hg] [facility] ([facility]) Body weight 204 [lb_av] 204 [lb_av] eCW1 ([facility]) Body height 63.5 [in_i] 63.5 [in_i] eCW1 ([facility]) Body mass index (BMI) [Ratio] 35.57 kg/m2 35.57 kg/m2 eCW1 ([facility]) Heart rate 82 /min 82 /min eCW1 ([facility]) Respiratory rate 18 /min 18 /min eCW1 ([facility]) Body temperature 97.1 [degF] 97.1 [degF] eCW1 ( [facility]) Systolic blood pressure 110 mm[Hg] 110 mm[Hg] e CW1 ([facility]) Diastolic blood pressure 70 mm[Hg] 70 mm[Hg] eCW1 ([facility]) Systolic blood pressure 126 mm[Hg] 126 mm[Hg] [facility] Diastolic blood pressure 62 mm[Hg] 62 mm[Hg] [facility] Heart rate 74 /min 74 /min [facility] Body height 160 cm 160 cm [facility] Body weight 91.808 kg 91.808 kg [facility] Body mass index (BMI) [Ratio] 35.85 kg/m2 35.85 kg/m2 [facility] Oxygen saturation in Arterial blood by Pulse oximetry 96 % 96 % [facility] Systolic blood pressure 139 mm[Hg] 139 mm[Hg[facility] Diastolic blood pressure 74 mm[Hg] 74 mm[Hg] MEDENT ([facility]) Body weight 194.00 [lb_av] 194.00 [lb_av] MEDEN T ([facility]) Body temperature 96.5 [degF] 96.5 [degF] MEDENT ([facility]) Systolic blood pressure 146 mm[Hg] 146 mm[Hg] M EDENT ([facility]) Diastolic blood pressure 72 mm[Hg] 72 mm[Hg] [facility] ([facility]) Body weight 194.00 [lb_av] 194.00 [lb_av] MEDEN T ([facility]) Body temperature 97.4 [degF] 97.4 [degF] MED[facility] ([facility]) Body weight 197.8 [lb_av] 197.8 [lb_av] eCW1 ([facility]) Body height 63.5 [in_i] 63.5 [in_i] eCW1 ([facility]) Body mass index (BMI) [Ratio] 34.49 kg/m2 34.49 kg/m2 eCW1 ([facility]) Heart rate 77 /min 77 /min eCW1 ([facility]) Respiratory rate 18 /min 18 /min eCW1 ([facility]) Body temperature 96.5 [degF] 96.5 [degF] eCW1 ( [facility]) Body temperature 91.8 [degF] 91.8 [degF] MEDENT ([facility]) Body weight 200 [lb_av] 200 [lb_av] eCW1 ([facility]) Body height 63.5 [in_i] 63.5 [in_i] eCW1 ([facility]) Body mass index (BMI) [Ratio] 34.87 kg/m2 34.87 kg/m2 eCW1 ([facility]) Heart rate 82 /min 82 /min eCW1 ([facility]) Respiratory rate 18 /min 18 /min eCW1 ([facility]) Body temperature 96.6 [degF] 96.6 [degF] eCW1 ( [facility]) Systolic blood pressure 130 mm[Hg] 130 mm[Hg] e CW1 ([facility]) Diastolic blood pressure 70 mm[Hg] 70 mm[Hg] eCW1 ([facility]) Body temperature 96.6 [degF] 96.6 [degF] MEDENT ([facility]) Body temperature 96.8 [degF] 96.8 [degF] MEDENT ([facility]) Body weight 210 [lb_av] 210 [lb_av] eCW1 ([facility]) Body height 63.5 [in_i] 63.5 [in_i] eCW1 ([facility]) Body mass index (BMI) [Ratio] 36.61 kg/m2 36.61 kg/m2 eCW1 ([facility]) Heart rate 82 /min 82 /min eCW1 ([facility]) Respiratory rate 18 /min 18 /min eCW1 ([facility]) Body temperature 96.4 [degF] 96.4 [degF] eCW1 ( [facility]) Systolic blood pressure 140 mm[Hg] 140 mm[Hg] e CW1 ([facility]) Diastolic blood pressure 72 mm[Hg] 72 mm[Hg] eCW1 ([facility]) Body temperature 97.5 [degF] 97.5 [degF] MEDENT ([facility]) Body temperature 96.3 [degF] 96.3 [degF] MEDENT ([facility]) Body temperature 96.3 [degF] 96.3 [degF] MEDENT ([facility]) Body height 63.5 [in_i] 63.5 [in_i] eCW1 ([facility]) Body weight 214 [lb_av] 214 [lb_av] eCW1 ([facility]) Body mass index (BMI) [Ratio] 37.31 kg/m2 37.31 kg/m2 eCW1 ([facility]) Heart rate 88 /min 88 /min eCW1 ([facility]) Respiratory rate 18 /min 18 /min eCW1 ([facility]) Body temperature 96 [degF] 96 [degF] eCW1 ([facility]) Systolic blood pressure 130 mm[Hg] 130 mm[Hg] e CW1 ([facility]) Diastolic blood pressure 70 mm[Hg] 70 mm[Hg] eCW1 ([facility]) Patient Treatment Plan of Care Planned Activity Planned Date Details Description Data Source (s) Amlodipine 10 MG Oral Tablet 01/10/2021 12:00:00 AM EDT [facility] pregabalin 100 MG Oral Capsule 12/24/2020 12:00:00 AM EDT [facility] NITROFURANTOIN, MACROCRYSTALS 25 MG / Ni trofurantoin, Monohydrate 75 MG Oral Capsule [Macrobid] 12/19/2020 12:00:00 AM EDT eC W1 ([facility]) NITROFURANTOIN, MACROCRYSTALS 25 MG / Ni trofurantoin, Monohydrate 75 MG Oral Capsule [Macrobid] 12/19/2020 12:00:00 AM EDT eC W1 ([facility]) NITROFURANTOIN, MACROCRYSTALS 25 MG / Ni trofurantoin, Monohydrate 75 MG Oral Capsule [Macrobid] 12/19/2020 12:00:00 AM EDT eC W1 ([facility]) NITROFURANTOIN, MACROCRYSTALS 25 MG / Ni trofurantoin, Monohydrate 75 MG Oral Capsule [Macrobid] 12/19/2020 12:00:00 AM EDT eC W1 ([facility]) NITROFURANTOIN, MACROCRYSTALS 25 MG / Ni trofurantoin, Monohydrate 75 MG Oral Capsule [Macrobid] 12/19/2020 12:00:00 AM EDT eC W1 ([facility]) NITROFURANTOIN, MACROCRYSTALS 25 MG / Ni trofurantoin, Monohydrate 75 MG Oral Capsule 12/02/2020 12:00:00 AM EDT eCW1 ([facility]) NITROFURANTOIN, MACROCRYSTALS 25 MG / Ni trofurantoin, Monohydrate 75 MG Oral Capsule 12/02/2020 12:00:00 AM EDT eCW1 ([facility]) [place] 10-325 MG 10/11/2020 12:00:00 AM EST eCW1 ([facility]) [place] 10-325 MG 10/11/2020 12:00:00 AM EST eCW1 ([facility]) Acetaminophen 325 MG / Hydrocodone Bitartrate 10 MG Or al Tablet [[place]] 10/11/2020 12:00:00 AM EST eCW1 ([facility]) Acetaminophen 325 MG / Hydrocodone Bitartrate 10 MG Or al Tablet [[place]] 10/11/2020 12:00:00 AM EST eCW1 ([facility]) Acetaminophen 325 MG / Hydrocodone Bitartrate 10 MG Or al Tablet [[place]] 10/11/2020 12:00:00 AM EST eCW1 ([facility]) Acetaminophen 325 MG / Hydrocodone Bitartrate 10 MG Or al Tablet [[place]] 10/11/2020 12:00:00 AM EST eCW1 ([facility]) Acetaminophen 325 MG / Hydrocodone Bitartrate 10 MG Or al Tablet [[place]] 09/11/2020 12:00:00 AM EST eCW1 ([facility]) Acetaminophen 325 MG / Hydrocodone Bitartrate 10 MG Or al Tablet [[place]] 08/14/2020 12:00:00 AM EST eCW1 ([facility]) Amlodipine 10 MG Oral Tablet 08/09/2020 12:00:00 AM EST [facility] Acetaminophen 325 MG / Hydrocodone Bitartrate 10 MG Or al Tablet [[place]] 07/16/2020 12:00:00 AM EDT eCW1 ([facility]) Acetaminophen 325 MG / Hydrocodone Bitartrate 10 MG Or al Tablet [[place]] 07/16/2020 12:00:00 AM EDT eCW1 ([facility]) 120 ACTUAT Fluticasone propionate 0.044 MG/ACTUAT Metered Dose Inhaler [Flovent] 06/27/2020 12:00:00 AM EDT eCW1 ([facility]) 200 ACTUAT Albuterol 0.09 MG/ACTUAT Metered Dose Inhal er [ProAir] 06/27/2020 12:00:00 AM EDT eCW1 ([facility]) 200 ACTUAT Albuterol 0.09 MG/ACTUAT Metered Dose Inhal er [ProAir] 06/27/2020 12:00:00 AM EDT eCW1 ([facility]) 120 ACTUAT Fluticasone propionate 0.044 MG/ACTUAT Metered Dose Inhaler [Flovent] 06/27/2020 12:00:00 AM EDT eCW1 ([facility]) 200 ACTUAT Albuterol 0.09 MG/ACTUAT Metered Dose Inhal er [ProAir] 06/27/2020 12:00:00 AM EDT eCW1 ([facility]) 120 ACTUAT Fluticasone propionate 0.044 MG/ACTUAT Metered Dose Inhaler [Flovent] 06/27/2020 12:00:00 AM EDT eCW1 ([facility]) 200 ACTUAT Albuterol 0.09 MG/ACTUAT Metered Dose Inhal er [ProAir] 06/27/2020 12:00:00 AM EDT eCW1 ([facility]) 120 ACTUAT Fluticasone propionate 0.044 MG/ACTUAT Metered Dose Inhaler [Flovent] 06/27/2020 12:00:00 AM EDT eCW1 ([facility]) 200 ACTUAT Albuterol 0.09 MG/ACTUAT Metered Dose Inhal er [ProAir] 06/27/2020 12:00:00 AM EDT eCW1 ([facility]) 120 ACTUAT Fluticasone propionate 0.044 MG/ACTUAT Metered Dose Inhaler [Flovent] 06/27/2020 12:00:00 AM EDT eCW1 ([facility]) 200 ACTUAT Albuterol 0.09 MG/ACTUAT Metered Dose Inhal er [ProAir] 06/27/2020 12:00:00 AM EDT eCW1 ([facility]) 120 ACTUAT Fluticasone propionate 0.044 MG/ACTUAT Metered Dose Inhaler [Flovent] 06/27/2020 12:00:00 AM EDT eCW1 ([facility]) 200 ACTUAT Albuterol 0.09 MG/ACTUAT Metered Dose Inhal er [ProAir] 06/27/2020 12:00:00 AM EDT eCW1 ([facility]) 120 ACTUAT Fluticasone propionate 0.044 MG/ACTUAT Metered Dose Inhaler [Flovent] 06/27/2020 12:00:00 AM EDT eCW1 ([facility]) 200 ACTUAT Albuterol 0.09 MG/ACTUAT Metered Dose Inhal er [ProAir] 06/27/2020 12:00:00 AM EDT eCW1 ([facility]) 120 ACTUAT Fluticasone propionate 0.044 MG/ACTUAT Metered Dose Inhaler [Flovent] 06/27/2020 12:00:00 AM EDT eCW1 ([facility]) 200 ACTUAT Albuterol 0.09 MG/ACTUAT Metered Dose Inhal er [ProAir] 06/27/2020 12:00:00 AM EDT eCW1 ([facility]) 120 ACTUAT Fluticasone propionate 0.044 MG/ACTUAT Metered Dose Inhaler [Flovent] 06/27/2020 12:00:00 AM EDT eCW1 ([facility]) 200 ACTUAT Albuterol 0.09 MG/ACTUAT Metered Dose Inhal er [ProAir] 06/27/2020 12:00:00 AM EDT eCW1 ([facility]) 120 ACTUAT Fluticasone propionate 0.044 MG/ACTUAT Metered Dose Inhaler [Flovent] 06/27/2020 12:00:00 AM EDT eCW1 ([facility]) 120 ACTUAT Fluticasone propionate 0.044 MG/ACTUAT Metered Dose Inhaler [Flovent] 06/27/2020 12:00:00 AM EDT eCW1 ([facility]) 200 ACTUAT Albuterol 0.09 MG/ACTUAT Metered Dose Inhal er [ProAir] 06/27/2020 12:00:00 AM EDT eCW1 ([facility]) 120 ACTUAT Fluticasone propionate 0.044 MG/ACTUAT Metered Dose Inhaler [Flovent] 06/27/2020 12:00:00 AM EDT eCW1 ([facility]) 200 ACTUAT Albuterol 0.09 MG/ACTUAT Metered Dose Inhal er [ProAir] 06/27/2020 12:00:00 AM EDT eCW1 ([facility]) 120 ACTUAT Fluticasone propionate 0.044 MG/ACTUAT Metered Dose Inhaler [Flovent] 06/27/2020 12:00:00 AM EDT eCW1 ([facility]) 200 ACTUAT Albuterol 0.09 MG/ACTUAT Metered Dose Inhal er [ProAir] 06/27/2020 12:00:00 AM EDT eCW1 ([facility]) 120 ACTUAT Fluticasone propionate 0.044 MG/ACTUAT Metered Dose Inhaler [Flovent] 06/27/2020 12:00:00 AM EDT eCW1 ([facility]) 200 ACTUAT Albuterol 0.09 MG/ACTUAT Metered Dose Inhal er [ProAir] 06/27/2020 12:00:00 AM EDT eCW1 ([facility]) 200 ACTUAT Albuterol 0.09 MG/ACTUAT Metered Dose Inhal er [ProAir] 06/27/2020 12:00:00 AM EDT eCW1 ([facility]) 120 ACTUAT Fluticasone propionate 0.044 MG/ACTUAT Metered Dose Inhaler [Flovent] 06/27/2020 12:00:00 AM EDT eCW1 ([facility]) 120 ACTUAT Fluticasone propionate 0.044 MG/ACTUAT Metered Dose Inhaler [Flovent] 06/27/2020 12:00:00 AM EDT eCW1 ([facility]) 200 ACTUAT Albuterol 0.09 MG/ACTUAT Metered Dose Inhal er [ProAir] 06/27/2020 12:00:00 AM EDT eCW1 ([facility]) 120 ACTUAT Fluticasone propionate 0.044 MG/ACTUAT Metered Dose Inhaler [Flovent] 06/27/2020 12:00:00 AM EDT eCW1 ([facility]) 200 ACTUAT Albuterol 0.09 MG/ACTUAT Metered Dose Inhal er [ProAir] 06/27/2020 12:00:00 AM EDT eCW1 ([facility]) 120 ACTUAT Fluticasone propionate 0.044 MG/ACTUAT Metered Dose Inhaler [Flovent] 06/27/2020 12:00:00 AM EDT eCW1 ([facility]) 200 ACTUAT Albuterol 0.09 MG/ACTUAT Metered Dose Inhal er [ProAir] 06/27/2020 12:00:00 AM EDT eCW1 ([facility]) gabapentin 300 MG Oral Capsule 04/15/2020 12:00:00 AM EDT [facility] Famotidine 10 MG Oral Tablet 04/03/2020 12:00:00 AM EDT [facility] Methylprednisolone 32 MG Oral Tablet 02/20/2020 12:00:00 AM EDT [facility] Diphenhydramine Hydrochloride 25 MG Oral Capsule [Andrew phen] 02/20/2020 12:00:00 AM EDT [facility] gabapentin 800 MG Oral Tablet 02/19/2020 12:00:00 AM EDT [facility] Estradiol 0.1 MG/ML Vaginal Cream [Estrace] 07/11/2019 12:00:00 AM EDT [facility]
[2021-07-17] MEDS ORDERED: ONDANSETRON 4MG/2ML VIAL IV ONE (13:20)
--- NOTE | 2021-07-17 13:41 | REP ---
INDICATION: dizziness; posterior headache. COMPARISON: 05/03/2019 TECHNIQUE: 5 mm contiguous transaxial sections were obtained from the skull base to the cerebral convexities. FINDINGS: The ventricles and sulci are consistent with the patient's age. There are no extra-axial fluid collections. There is no mass effect. There are scattered diffuse lucency seen throughout the deep cerebral white matter and in a fashion unchanged from the prior exam with the exception of possible extension of lucency in the left parietal lobe centrum semiovale deep white matter. There is no evidence of an acute intracranial hemorrhage. The orbital and petrous structures, cerebellopontine angles, and posterior fossa are unremarkable. The sella turcica, cavernous, and paracavernous structures are essentially unremarkable. The visualized portions of the paranasal sinuses and mastoid air cells are clear. Images of the skull base show no gross abnormality. IMPRESSION: Although there is evidence of deep white matter ischemic change which appears essentially stable when compared to the prior exam of 05/03/2019 there is a potential area of additional deep white matter lucency on the left as described above raising the concern for an acute nonhemorrhagic infarction. This should be correlated clinically and if necessary obtain brain MRI. <Electronically signed by Oswaldo Kim > 07/17/21 [id number]
[2021-07-17] MEDS ORDERED: ACETAMINOPHEN TAB 650MG DOSE (2X325MG) PO ONE (14:25)
[2021-07-17 15:04] LABS: RSV AMPLIFICATION NEGATIVE (NEGATIVE)
[2021-07-17] MEDS ORDERED: ANEXSIA, NORCO 7.5MG/325MG TABLET(HYDROCODONE/APAP) PO ONE (15:05)
[2021-07-17 16:25] LABS: BASO % 0.5 % (0.0-1.0); EOS # 0.1 10^3/uL (0.0-0.5); EOS % 1.1 % (0.0-3.0); HEMATOCRIT 38.3 % (36.0-47.0); LYMPH # 1.4 10^3/uL (1.5-5.0); LYMPH % 22.2 % (24.0-44.0); MEAN CORPUSCULAR HGB CONC 33.9 g/dl (32.0-36.5); MEAN CORPUSCULAR VOLUME 82.4 fl (80.0-96.0); MONO # 0.4 10^3/uL (0.0-0.8); MONO % 6.8 % (2.0-8.0); NEUTROPHILS # 4.4 10^3/uL (1.5-8.5); NEUTROPHILS % 69.1 % (36.0-66.0); PLATELET COUNT, AUTOMATED 281 10^3/uL (150-450); RED BLOOD COUNT 4.65 10^6/uL (4.00-5.40); WHITE BLOOD COUNT 6.4 10^3/uL (4.0-10.0)
[2021-07-17 17:09] LABS: ALBUMIN 3.7 GM/DL (3.2-5.2); ALT/SGPT 21 U/L (12-78); BILIRUBIN,DIRECT 0.1 MG/DL (0.0-0.2); BILIRUBIN,TOTAL 0.3 MG/DL (0.2-1.0); BLOOD UREA NITROGEN 9 MG/DL (7-18); CALCIUM LEVEL 8.9 MG/DL (8.8-10.2); CARBON DIOXIDE LEVEL 30 MEQ/L (21-32); CHLORIDE LEVEL 96 MEQ/L (98-107); CK-MB VALUE MASS 2.7 NG/ML (<3.6); CPK CREATINE PHOSPHOKINASE 86 U/L (26-192); CREATININE FOR GFR 0.74 MG/DL (0.55-1.30); GLOMERULAR FILTRATION RATE > 60.0 (>45); GLUCOSE, FASTING 105 MG/DL (70-100); MB/CK RELATIVE INDEX 3.14 (< OR =4); NT-PRO BNP 42 PG/ML (<125); POTASSIUM SERUM 4.4 MEQ/L (3.5-5.1); SODIUM LEVEL 128 MEQ/L (136-145); TOTAL PROTEIN 6.1 GM/DL (6.4-8.2); TROPONIN I < 0.02 NG/ML (< 0.10)
--- OUTSIDE RECORDS SUMMARY | 2021-07-17 18:12 | CCD ---
Author Author [facility] Organization [facility] Address Unknown Phone Unavailable Care Team Providers Care Bike Assembler Name Role Phone Ruma Munoz Unavailable Unavailable [...] M Barratt PA Unavailable Unavailable Jamey NICHOLS [id number] Unavailable Unavailable RICA GERMAN MD Unavailable Unavailable RICA GERMAN MD Unavailable Unavailable RICA GERMAN MD Unavailable Unavailable RICA GERMAN MD Unavailable Unavailable RICA GERMAN MD Unavailable Unavailable RICA GERMAN MD Unavailable Unavailable RICA GERMAN MD Unavailable Unavailable RICA GERMAN MD Unavailable Unavailable RICA GERAMN MD Unavailable Unavailable RICA GERMAN MD Unavailable [...] Unavailable LEONCIO, M SINTIA PA Unavailable Unavailable ELONCIO, M SINTIA PA Unavailable Unavailable LEONCIO, M [...] Unavailable MARQUES, YANES MD Unavailable Unavailable MARQUES, YAENS MD Unavailable Unavailable MARQUES, YANES MD Unavailable [...] Unavailable Unavailable MEREDITH GEORGES MD Unavailable Unavailable MEREDTIH GEORGES MD Unavailable Unavailable MEREDITH GEORGES MD [...] Saenz MD Unavailable Unavailable Ashby, D Callie PUNCH OUT CREW MEMBER-C Unavailable Unavailable Ashby, D Callie [employer]CH OUT CREW MEMBER-C Unavailable Unavailable Ashby, D Callie P[employer]CH OUT CREW MEMBER-C Unavailable Unavailable Ashby, D Callie P[employer]CH OUT CREW MEMBER-C Unavailable Unavailable Ashby, D Callie P[employer]CH OUT CREW MEMBER-C Unavailable Unavailable Ashby, D Callie P[employer]CH OUT CREW MEMBER-C Unavailable Unavailable Ashby, D Callie P[employer]CH OUT CREW MEMBER-C Unavailable Unavailable Fish, B Magalys VENEGAS Unavailable [...] N Justice MD Unavailable Unavailable MACQUEEN, MARCELLA NECK SKEWER Unavailable Unavailable MACQUEEN, MARCELLA NECK SKEWER Unavailable Unavailable MACQUEEN, MARCELLA NECK SKEWER Unavailable Unavailable MACQUEEN, MARCELLA NECK SKEWER Unavailable Unavailable MACQUEEN, MARCELLA NECK SKEWER Unavailable Unavailable MACQUEEN, MARCELLA NECK SKEWER Unavailable Unavailable MACQUEEN, MARCELLA NECK SKEWER Unavailable Unavailable MACQUEEN, MARCELLA NECK SKEWER Unavailable Unavailable MACQUEEN, MARCELLA NECK SKEWER Unavailable Unavailable MACQUEEN, MARCELLA NECK SKEWER Unavailable Unavailable SCOT I WILLY PA Unavailable Unavailable DRAZEK, I WILLY PA Unavailable Unavailable DRAZEK, I WILYL PA Unavailable Unavailable DRAZEK, I WILLY PA [...] is protected by Article 27-F of the [place] State Public Health law. If you continue you may have access to information: Regarding HIV / AIDS; Provided by facilities licensed or operated by the [facility] Office of Mental Health; or Provided by the [facility] Office for People With Developmental Disabilities. If such information is present, then the following [facility] mandated warning applies: This information has been [...] law may result in a fine or assisted sentence or both. A general authorization for the release of medical or other information is NOT sufficient authorization for further disc losure. Allergies and Adverse Reactions Type Description Substance Reaction Status Data Source(s ) Propensity to adverse reactions to substance Penicillins Penicillins Active [facility] ([facility]) Propensity to adverse reactions to substance Keflex Cephalexin 250 MG Oral Capsule [Keflex] Active [facility] ([facility]) Propensity to adverse reactions to substance Chantix S tarting Month Box (varenicline) Chantix Starting Month Box (varenicline) Active [facility] ([facility]) Family History Family Member Name Family Member Gender Family Member Status Date o f Status Description Data Source(s) Unknown Unknown Problem [facility] ([facility]) sister Dx age 50s Unknown Female Problem [facility] ([facility] ) Encounters Encounter Providers Location Date Indications Data Source(s ) Outpatient Attender: Derrick FABIAN Physical Therapy 10:30:00 AM EDT [facility] ([facility] ) Outpatient Attender: Callie GONZALEZ-C Main Office 06/24/2021 02:30:00 PM EDT [facility] ([facility]) Outpatient Attender: Derrick FABIAN Physical Therapy 03:30:00 PM EDT [facility] ([facility] ) Office Visit, Est Pt., Level [address] [place] [address] 06/13/2021 12:00:00 AM EDT eCW1 ([facility]) OFFICE OUTPATIENT VISIT 15 MINUTES Attender: Magalys De Paz MD Phy sical Therapy 05/19/2021 12:45:00 PM EDT [facility] ([facility]) Office Visit Attender: Magalys De Paz MD Physical Therapy 05/06 10:30:00 AM EDT [facility] ([facility]) Outpatient Attender: Derrick FABIAN Physical Therapy 01:00:00 PM EDT [facility] ([facility]) Outpatient Attender: MARCELLA COLE NP [facility] 04/30/2021 02:30:00 AM EDT - 04/30/2021 02:30:00 AM EDT [facility] ([facility]) Attender: MARCELLA COLE NP 04/30/2021 12:00:00 AM EDT [facility] ([facility]) [place] [address] [address] 04/25/2021 12:00:00 AM EDT [facility] Outpatient Attender: Justice Farah MD Main Office 04/23/2021 08:30:00 AM EDT [facility] ([facility]) OFFICE OUTPATIENT NEW 60 MINUTES Attender: Magalys De Paz MD Physi cindy Therapy 04/17/2021 02:45:00 PM EDT [facility] ([facility]) [place] [address] [address] 04/03/2021 12:00:00 AM EDT eCW1 ([facility]) [place] [address] [facility] [address] 04/03/2021 12:00:00 AM EDT eCW1 ([facility]) [place] [address] [facility] [address] 03/18/2021 12:00:00 AM EDT eCW1 ([facility]) [place] [address] [facility] [address] 03/07/2021 12:00:00 AM EDT eCW1 ([facility]) [place] [address] [address] 03/05/2021 12:00:00 AM EDT eCW1 ([facility]) [place] [address] [address] 03/05/2021 12:00:00 AM EDT eCW1 ([facility]) OFFICE OUTPATIENT VISIT 15 MINUTES Attender: Derrick FABIAN Physical Therapy 03/04/2021 01:45:00 PM EDT [facility] ([facility]) Outpatient Attender: MARCELLA COLE NP [facility] 01/30/2021 02:30:00 AM EDT - 01/30/2021 02:30:00 AM EDT [facility] ([facility]) Attender: MARCELLA COLE NP 01/30/2021 12:00:00 AM EDT [facility] ([facility]) [place] [address] [address] 01/29/2021 12:00:00 AM EDT eCW1 ([facility]) [place] [address] [address] 01/21/2021 12:00:00 AM EDT eCW1 ([facility]) Outpatient Attender: Derrick FABIAN Physical Therapy 09:30:00 AM EDT [facility] ([facility]) Outpatient Attender: FARZANA MOHAN MD [email or web address] 12:00:00 AM EDT - 01/10/2021 03:35:46 PM EDT [facility] [place] [address] [facility] [address] 01/01/2021 12:00:00 AM EDT eCW1 ([facility]) [place] [address] [address] 12/31/2020 12:00:00 AM EDT eCW1 ([facility]) [place] [address] [facility] [address] 12/24/2020 12:00:00 AM EDT eCW1 ([facility]) [place] [address] [facility] [address] 12/19/2020 12:00:00 AM EDT eCW1 ([facility]) [place] [address] [facility] [address] 12/16/2020 12:00:00 AM EDT eCW1 ([facility]) [place] [address] [facility] [address] 12/02/2020 12:00:00 AM EDT eCW1 ([facility]) [place] [address] [facility] [address] 11/29/2020 12:00:00 AM EST eCW1 ([facility]) [place] [address] [facility] [address] 10/24/2020 12:00:00 AM EST eCW1 ([facility]) [place] [address] [facility] [address] 10/11/2020 12:00:00 AM EST eCW1 ([facility]) [place] [address] [facility] [address] 10/10/2020 12:00:00 AM EST eCW1 ([facility]) [place] [address] [facility] [address] 10/10/2020 12:00:00 AM EST eCW1 ([facility]) Outpatient Attender: PEG NICHOLS [id number] 10/04/2020 12:00 :00 AM [facility] Office Visit Attender: MEREDITH GEORGES MD Physical Therapy 10:00:00 AM EST [facility] ([facility]) Office Visit Attender: RICA GERMAN MD Physical Therapy 02:15:00 PM EST [facility] ([facility]) [place] [address] [facility] [address] 09/11/2020 12:00:00 AM EST eCW1 ([facility]) [place] [address] [facility] [address] 09/10/2020 12:00:00 AM EST eCW1 ([facility]) Outpatient Attender: MEREDITH GEORGES MD Physical Therapy 01:15:00 PM EST [facility] ([facility]) Outpatient Attender: SINTIA FABIAN Physical Therapy 08/20 04:00:00 PM EST [facility] ([facility]) [place] [address] [facility] [facility] [address] 09/05/2020 12:00:00 AM EST eCW1 ([facility]) Outpatient Attender: Dottie Saenz MD Main office - [place] 09/04/2020 10:45:00 AM EST [facility] ([facility]) [place] [address] [facility] [facility] [address] 08/28/2020 12:00:00 AM EST eCW1 ([facility]) Office Visit Attender: RICA GERMAN MD Physical Therapy 12:30:00 PM EST [facility] ([facility]) Office Visit Attender: WILLY FABIAN Physical Therapy 2019 10:15:00 AM EST [facility] ([facility]) Office Visit Attender: RICA GERMAN MD Physical Therapy 07:00:00 AM EST [facility] ([facility]) [place] [address] [facility] [address] 07/16/2020 12:00:00 AM EDT eCW1 ([facility]) [place] [address] [facility] [address] 07/16/2020 12:00:00 AM EDT eCW1 ([facility]) [place] [address] [facility] [address] 07/10/2020 12:00:00 AM EDT eCW1 ([facility]) [place] [address] [facility] [address] 07/08/2020 12:00:00 AM EDT eCW1 ([facility]) [place] [address] [facility] [address] 07/05/2020 12:00:00 AM EDT eCW1 ([facility]) Outpatient Attender: MARCELLA COLE NP [facility] 07/04/2020 02:00:00 AM EDT - 07/04/2020 02:00:00 AM EDT [facility] Attender: MARCELLA COLE NP 07/04/2020 12:00:00 AM EDT [facility] ([facility]) [place] [address] [facility] [address] 07/01/2020 12:00:00 AM EDT eCW1 ([facility]) Out[place] [address] [facility] [address] 06/27/2020 12:00:00 AM EDT eCW1 ([facility]) [place] [address] [facility] [address] 06/24/2020 12:00:00 AM EDT eCW1 ([facility]) [place] [address] [facility] [address] 06/24/2020 12:00:00 AM EDT eCW1 ([facility]) Outpatient Attender: MAGALIS EASTON 06/10/2020 12:00:00 [facility] Outpatient Attender: Dottie Saenz MD Main office - [place] 06/05/2020 10:30:00 AM EDT [facility] ([facility]) Outpatient Attender: RICA GERMAN MD Physical Therapy 02:45:00 PM EDT [facility] ([facility]) Functional Status Immunizations Vaccine Date Status Description Data Source(s) COVID-19 VACCINE Moderna 12/20/2020 12:00:00 AM EDT completed [facility] Vaccine Series Complete: YESThis Data wa s Submitted to [facility] COVID-19 VACCINE, MRNA-1273, LNP-S (MODERNA)/PF 12/20/2020 1 2:00:00 AM EDT completed [facility] COVID-19 VACCINE Moderna 11/22/2020 12:00:00 AM EST completed [facility] Vaccine Series Complete: NOThis Data was Submitted to [facility] Via [facility]. COVID-19 VACCINE, MRNA-1273, LNP-S (MODERNA)/PF 11/22/2020 1 2:00:00 AM EST completed [facility] influenza, recombinant, quadrIvalent,injectable, prese rvative free 06/20/2020 02:36:00 PM EDT completed eCW1 ([facility]) influenza, recombinant, quadrIvalent,injectable, prese rvative free 06/20/2020 02:36:00 PM EDT completed eCW1 ([facility]) influenza, recombinant, quadrIvalent,injectable, prese rvative free 06/20/2020 02:36:00 PM EDT completed eCW1 ([facility]) influenza, recombinant, quadrIvalent,injectable, prese rvative free 06/20/2020 02:36:00 PM EDT completed eCW1 ([facility]) influenza, recombinant, quadrIvalent,injectable, prese rvative free 06/20/2020 02:36:00 PM EDT completed eCW1 ([facility]) influenza, recombinant, quadrIvalent,injectable, prese rvative free 06/20/2020 02:36:00 PM EDT completed eCW1 ([facility]) influenza, recombinant, quadrIvalent,injectable, prese rvative free 06/20/2020 02:36:00 PM EDT completed eCW1 ([facility]) influenza, recombinant, quadrIvalent,injectable, prese rvative free 06/20/2020 02:36:00 PM EDT completed eCW1 ([facility]) influenza, recombinant, quadrIvalent,injectable, prese rvative free 06/20/2020 02:36:00 PM EDT completed eCW1 ([facility]) influenza, recombinant, quadrIvalent,injectable, prese rvative free 06/20/2020 02:36:00 PM EDT completed eCW1 ([facility]) influenza, recombinant, quadrIvalent,injectable, prese rvative free 06/20/2020 02:36:00 PM EDT completed eCW1 ([facility]) influenza, recombinant, quadrIvalent,injectable, prese rvative free 06/20/2020 02:36:00 PM EDT completed eCW1 ([facility]) influenza, recombinant, quadrIvalent,injectable, prese rvative free 06/20/2020 02:36:00 PM EDT completed eCW1 ([facility]) influenza, recombinant, quadrIvalent,injectable, prese rvative free 06/20/2020 02:36:00 PM EDT completed eCW1 ([facility]) influenza, recombinant, quadrIvalent,injectable, prese rvative free 06/20/2020 02:36:00 PM EDT completed eCW1 ([facility]) influenza, recombinant, quadrIvalent,injectable, prese rvative free 06/20/2020 02:36:00 PM EDT completed eCW1 ([facility]) influenza, recombinant, quadrIvalent,injectable, prese rvative free 06/20/2020 02:36:00 PM EDT completed eCW1 ([facility]) influenza, recombinant, quadrIvalent,injectable, prese rvative free 06/20/2020 02:36:00 PM EDT completed eCW1 ([facility]) influenza, recombinant, quadrIvalent,injectable, prese rvative free 06/20/2020 02:36:00 PM EDT completed eCW1 ([facility]) influenza, recombinant, quadrIvalent,injectable, prese rvative free 06/20/2020 02:36:00 PM EDT completed eCW1 ([facility]) influenza, recombinant, quadrIvalent,injectable, prese rvative free 06/20/2020 02:36:00 PM EDT completed eCW1 ([facility]) influenza, recombinant, quadrIvalent,injectable, prese rvative free 06/20/2020 02:36:00 PM EDT completed eCW1 ([facility]) influenza, recombinant, quadrIvalent,injectable, prese rvative free 06/20/2020 02:36:00 PM EDT completed eCW1 ([facility]) influenza, recombinant, quadrIvalent,injectable, prese rvative free 06/20/2020 02:36:00 PM EDT completed eCW1 ([facility]) influenza, recombinant, quadrIvalent,injectable, prese rvative free 06/20/2020 02:36:00 PM EDT completed eCW1 ([facility]) influenza, recombinant, quadrIvalent,injectable, prese rvative free 06/20/2020 02:36:00 PM EDT completed eCW1 ([facility]) influenza, recombinant, quadrIvalent,injectable, prese rvative free 06/20/2020 02:36:00 PM EDT completed eCW1 ([facility]) influenza, recombinant, quadrIvalent,injectable, prese rvative free 06/20/2020 02:36:00 PM EDT completed eCW1 ([facility]) influenza, recombinant, quadrIvalent,injectable, prese rvative free 06/20/2020 02:36:00 PM EDT completed eCW1 ([facility]) influenza, recombinant, quadrIvalent,injectable, prese rvative free 06/20/2020 02:36:00 PM EDT completed eCW1 ([facility]) influenza, recombinant, quadrIvalent,injectable, prese rvative free 06/20/2020 02:36:00 PM EDT completed eCW1 ([facility]) influenza, recombinant, quadrIvalent,injectable, prese rvative free 06/20/2020 02:36:00 PM EDT completed eCW1 ([facility]) INFLUENZA VIRUS VACCINE QUADRIVAL [id number](6 MOS AND UP)/PF 06/18/2020 12:00:00 AM EDT [...] :00:00 AM EDT ORAL active [facility] ([facility] ) pregabalin 150 MG Oral Capsule Pregabalin 03/04/2021 12:00:00 AM EDT ORAL completed [facility] ([facility] ) Amlodipine 10 MG Oral Tablet amLODIPine (NORVASC) 10 M G tablet amLODIPine (NORVASC) 10 MG tablet 01/10/2021 12:00:00 AM EDT 10 mg Oral active Hypertension, essentialCoronary artery disease involving [place] coronary artery of [place] heart without angina pectoris Take 1 tablet (10 mg total) by mouth daily [facility] Hypertension, essential Coronary artery disease involving [place] coronary artery of [place] heart without angina pectoris pregabalin 100 MG Oral Capsule pregabalin (LYRICA) 100 MG capsule pregabalin (LYRICA) 100 MG capsule 12/24/2020 12:00:00 AM EDT active TAKE ONE CAPSULE BY MOUTH TWICE DAILY MAX DAILY DOSE TWO CAPSULES [facility] NITROFURANTOIN, MACROCRYSTALS 25 MG / Ni trofurantoin, Monohydrate 75 MG Oral Capsule [Macrobid] Macrobid 100 MG Macrobid 100 MG 12/19/2020 12:00:00 AM EDT active Macrobid 100 MG eCW1 ([facility]) NITROFURANTOIN, MACROCRYSTALS 25 MG / Ni trofurantoin, Monohydrate 75 MG Oral Capsule [Macrobid] Macrobid 100 MG Macrobid 100 MG 12/19/2020 12:00:00 AM EDT suspended Macrobid 100 MG eCW1 ( [facility]) NITROFURANTOIN, MACROCRYSTALS 25 MG / Ni trofurantoin, Monohydrate 75 MG Oral Capsule [Macrobid] Macrobid 100 MG Macrobid 100 MG 12/19/2020 12:00:00 AM EDT active Macrobid 100 MG eCW1 ([facility]) NITROFURANTOIN, MACROCRYSTALS 25 MG / Ni trofurantoin, Monohydrate 75 MG Oral Capsule [Macrobid] Macrobid 100 MG Macrobid 100 MG 12/19/2020 12:00:00 AM EDT suspended Macrobid 100 MG eCW1 ( [facility]) NITROFURANTOIN, MACROCRYSTALS 25 MG / Ni trofurantoin, Monohydrate 75 MG Oral Capsule [Macrobid] Macrobid 100 MG Macrobid 100 MG 12/19/2020 12:00:00 AM EDT suspended Macrobid 100 MG eCW1 ( [facility]) NITROFURANTOIN, MACROCRYSTALS 25 MG / Ni trofurantoin, Monohydrate 75 MG Oral Capsule [Macrobid] Macrobid 100 MG Macrobid 100 MG 12/19/2020 12:00:00 AM EDT suspended Macrobid 100 MG eCW1 ( [facility]) NITROFURANTOIN, MACROCRYSTALS 25 MG / Ni trofurantoin, Monohydrate 75 MG Oral Capsule [Macrobid] Macrobid 100 MG Macrobid 100 MG 12/19/2020 12:00:00 AM EDT suspended Macrobid 100 MG eCW1 ( [facility]) NITROFURANTOIN, MACROCRYSTALS 25 MG / Ni trofurantoin, Monohydrate 75 MG Oral Capsule [Macrobid] Macrobid 100 MG Macrobid 100 MG 12/19/2020 12:00:00 AM EDT active Macrobid 100 MG eCW1 ([facility]) NITROFURANTOIN, MACROCRYSTALS 25 MG / Ni trofurantoin, Monohydrate 75 MG Oral Capsule [Macrobid] Macrobid 100 MG Macrobid 100 MG 12/19/2020 12:00:00 AM EDT active Macrobid 100 MG eCW1 ([facility]) NITROFURANTOIN, MACROCRYSTALS 25 MG / Ni trofurantoin, Monohydrate 75 MG Oral Capsule [Macrobid] Macrobid 100 MG Macrobid 100 MG 12/19/2020 12:00:00 AM EDT suspended Macrobid 100 MG eCW1 ( [facility]) NITROFURANTOIN, MACROCRYSTALS 25 MG / Ni trofurantoin, Monohydrate 75 MG Oral Capsule [Macrobid] Macrobid 100 MG Macrobid 100 MG 12/19/2020 12:00:00 AM EDT active Macrobid 100 MG eCW1 ([facility]) NITROFURANTOIN, MACROCRYSTALS 25 MG / Ni trofurantoin, Monohydrate 75 MG Oral Capsule [Macrobid] Macrobid 100 MG Macrobid 100 MG 12/19/2020 12:00:00 AM EDT suspended Macrobid 100 MG eCW1 ( [facility]) NITROFURANTOIN, MACROCRYSTALS 25 MG / Ni trofurantoin, Monohydrate 75 MG Oral Capsule [Macrobid] Macrobid 100 MG Macrobid 100 MG 12/19/2020 12:00:00 AM EDT suspended Macrobid 100 MG eCW1 ( [facility]) gabapentin 800 MG Oral Tablet Gabapentin 12/16/2020 12:00:00 AM EDT completed [facility] ([facility]) NITROFURANTOIN, MACROCRYSTALS 25 MG / Ni trofurantoin, Monohydrate 75 MG Oral Capsule Nitrofurantoin Monohyd Macro 100 MG Nitrofurantoin Monohyd Macro 100 MG 12/02/2020 12:00:00 AM EDT suspended Nitrofurantoin Monohyd Macro 100 MG eCW1 ([facility]) NITROFURANTOIN, MACROCRYSTALS 25 MG / Ni trofurantoin, Monohydrate 75 MG Oral Capsule Nitrofurantoin Monohyd Macro 100 MG Nitrofurantoin Monohyd Macro 100 MG 12/02/2020 12:00:00 AM EDT active Nitrofurantoin Monohyd Macro 100 MG eCW1 ([facility]) NITROFURANTOIN, MACROCRYSTALS 25 MG / Ni trofurantoin, Monohydrate 75 MG Oral Capsule Nitrofurantoin Monohyd Macro 100 MG Nitrofurantoin Monohyd Macro 100 MG 12/02/2020 12:00:00 AM EDT active Nitrofurantoin Monohyd Macro 100 MG eCW1 ([facility]) NITROFURANTOIN, MACROCRYSTALS 25 MG / Ni trofurantoin, Monohydrate 75 MG Oral Capsule Nitrofurantoin Monohyd Macro 100 MG Nitrofurantoin Monohyd Macro 100 MG 12/02/2020 12:00:00 AM EDT suspended Nitrofurantoin Monohyd Macro 100 MG eCW1 ([facility]) NITROFURANTOIN, MACROCRYSTALS 25 MG / Ni trofurantoin, Monohydrate 75 MG Oral Capsule Nitrofurantoin Monohyd Macro 100 MG Nitrofurantoin Monohyd Macro 100 MG 12/02/2020 12:00:00 AM EDT suspended Nitrofurantoin Monohyd Macro 100 MG eCW1 ([facility]) NITROFURANTOIN, MACROCRYSTALS 25 MG / Ni trofurantoin, Monohydrate 75 MG Oral Capsule Nitrofurantoin Monohyd Macro 100 MG Nitrofurantoin Monohyd Macro 100 MG 12/02/2020 12:00:00 AM EDT suspended Nitrofurantoin Monohyd Macro 100 MG eCW1 ([facility]) NITROFURANTOIN, MACROCRYSTALS 25 MG / Ni trofurantoin, Monohydrate 75 MG Oral Capsule Nitrofurantoin Monohyd Macro 100 MG Nitrofurantoin Monohyd Macro 100 MG 12/02/2020 12:00:00 AM EDT suspended Nitrofurantoin Monohyd Macro 100 MG eCW1 ([facility]) NITROFURANTOIN, MACROCRYSTALS 25 MG / Ni trofurantoin, Monohydrate 75 MG Oral Capsule Nitrofurantoin Monohyd Macro 100 MG Nitrofurantoin Monohyd Macro 100 MG 12/02/2020 12:00:00 AM EDT active Nitrofurantoin Monohyd Macro 100 MG eCW1 ([facility]) NITROFURANTOIN, MACROCRYSTALS 25 MG / Ni trofurantoin, Monohydrate 75 MG Oral Capsule Nitrofurantoin Monohyd Macro 100 MG Nitrofurantoin Monohyd Macro 100 MG 12/02/2020 12:00:00 AM EDT active Nitrofurantoin Monohyd Macro 100 MG eCW1 ([facility]) NITROFURANTOIN, MACROCRYSTALS 25 MG / Ni trofurantoin, Monohydrate 75 MG Oral Capsule Nitrofurantoin Monohyd Macro 100 MG Nitrofurantoin Monohyd Macro 100 MG 12/02/2020 12:00:00 AM EDT suspended Nitrofurantoin Monohyd Macro 100 MG eCW1 ([facility]) NITROFURANTOIN, MACROCRYSTALS 25 MG / Ni trofurantoin, Monohydrate 75 MG Oral Capsule Nitrofurantoin Monohyd Macro 100 MG Nitrofurantoin Monohyd Macro 100 MG 12/02/2020 12:00:00 AM EDT active Nitrofurantoin Monohyd Macro 100 MG eCW1 ([facility]) NITROFURANTOIN, MACROCRYSTALS 25 MG / Ni trofurantoin, Monohydrate 75 MG Oral Capsule Nitrofurantoin Monohyd Macro 100 MG Nitrofurantoin Monohyd Macro 100 MG 12/02/2020 12:00:00 AM EDT suspended Nitrofurantoin Monohyd Macro 100 MG eCW1 ([facility]) NITROFURANTOIN, MACROCRYSTALS 25 MG / Ni trofurantoin, Monohydrate 75 MG Oral Capsule Nitrofurantoin Monohyd Macro 100 MG Nitrofurantoin Monohyd Macro 100 MG 12/02/2020 12:00:00 AM EDT active Nitrofurantoin Monohyd Macro 100 MG eCW1 ([facility]) NITROFURANTOIN, MACROCRYSTALS 25 MG / Ni trofurantoin, Monohydrate 75 MG Oral Capsule Nitrofurantoin Monohyd Macro 100 MG Nitrofurantoin Monohyd Macro 100 MG 12/02/2020 12:00:00 AM EDT active Nitrofurantoin Monohyd Macro 100 MG eCW1 ([facility]) NITROFURANTOIN, MACROCRYSTALS 25 MG / Ni trofurantoin, Monohydrate 75 MG Oral Capsule Nitrofurantoin Monohyd Macro 100 MG Nitrofurantoin Monohyd Macro 100 MG 12/02/2020 12:00:00 AM EDT active Nitrofurantoin Monohyd Macro 100 MG eCW1 ([facility]) NITROFURANTOIN, MACROCRYSTALS 25 MG / Ni trofurantoin, Monohydrate 75 MG Oral Capsule Nitrofurantoin Monohyd Macro 100 MG Nitrofurantoin Monohyd Macro 100 MG 12/02/2020 12:00:00 AM EDT suspended Nitrofurantoin Monohyd Macro 100 MG eCW1 ([facility]) gabapentin 300 MG Oral Capsule Gabapentin 10/15/2020 12:00:00 AM EST active [facility] Acetaminophen 325 MG / Hydrocodone Karli trate 10 MG Oral Tablet [[place]] [place] 10-325 MG [place] 10-325 MG 10/11/2020 12:00:00 AM EST 1.0 {tablet_as_ needed} active [place] 10-325 MG eCW1 ([facility]) Acetaminophen 325 MG / Hydrocodone Karli trate 10 MG Oral Tablet [[place]] [place] 10-325 MG [place] 10-325 MG 10/11/2020 12:00:00 AM EST 1.0 {tablet_as_ needed} active [place] 10-325 MG eCW1 ([facility]) [place] 10-325 MG UNK 10/11/2020 12:00:00 AM EST 1.0 {tablet_a s_needed} active [place] 10-325 MG eCW1 ([facility]) [place] 10-325 MG UNK 10/11/2020 12:00:00 AM EST 1.0 {tablet_a s_needed} active [place] 10-325 MG eCW1 ([facility]) [place] 10-325 MG UNK 10/11/2020 12:00:00 AM EST 1.0 {tablet_a s_needed} active [place] 10-325 MG eCW1 ([facility]) Acetaminophen 325 MG / Hydrocodone Karli trate 10 MG Oral Tablet [[place]] [place] 10-325 MG [place] 10-325 MG 10/11/2020 12:00:00 AM EST 1.0 {tablet_as_ needed} active [place] 10-325 MG eCW1 ([facility]) [place] 10-325 MG UNK 10/11/2020 12:00:00 AM EST 1.0 {tablet_a s_needed} active [place] 10-325 MG eCW1 ([facility]) [place] 10-325 MG UNK 10/11/2020 12:00:00 AM EST 1.0 {tablet_a s_needed} active [place] 10-325 MG eCW1 ([facility]) [place] 10-325 MG UNK 10/11/2020 12:00:00 AM EST 1.0 {tablet_a s_needed} active [place] 10-325 MG eCW1 ([facility]) [place] 10-325 MG UNK 10/11/2020 12:00:00 AM EST 1.0 {tablet_a s_needed} active [place] 10-325 MG eCW1 ([facility]) [place] 10-325 MG UNK 10/11/2020 12:00:00 AM EST 1.0 {tablet_a s_needed} active [place] 10-325 MG eCW1 ([facility]) [place] 10-325 MG UNK 10/11/2020 12:00:00 AM EST 1.0 {tablet_a s_needed} active [place] 10-325 MG eCW1 ([facility]) [place] 10-325 MG UNK 10/11/2020 12:00:00 AM EST 1.0 {tablet_a s_needed} active [place] 10-325 MG eCW1 ([facility]) [place] 10-325 MG UNK 10/11/2020 12:00:00 AM EST 1.0 {tablet_a s_needed} active [place] 10-325 MG eCW1 ([facility]) [place] 10-325 MG UNK 10/11/2020 12:00:00 AM EST 1.0 {tablet_a s_needed} active [place] 10-325 MG eCW1 ([facility]) [place] 10-325 MG UNK 10/11/2020 12:00:00 AM EST 1.0 {tablet_a s_needed} active [place] 10-325 MG eCW1 ([facility]) [place] 10-325 MG UNK 10/11/2020 12:00:00 AM EST 1.0 {tablet_a s_needed} active [place] 10-325 MG eCW1 ([facility]) [place] 10-325 MG UNK 10/11/2020 12:00:00 AM EST 1.0 {tablet_a s_needed} active [place] 10-325 MG eCW1 ([facility]) [place] 10-325 MG UNK 10/11/2020 12:00:00 AM EST 1.0 {tablet_a s_needed} active [place] 10-325 MG eCW1 ([facility]) Acetaminophen 325 MG / Hydrocodone Karli trate 10 MG Oral Tablet [[place]] [place] 10-325 MG [place] 10-325 MG 10/11/2020 12:00:00 AM EST 1.0 {tablet_as_ needed} active [place] 10-325 MG eCW1 ([facility]) [place] 10-325 MG UNK 10/11/2020 12:00:00 AM EST 1.0 {tablet_a s_needed} active [place] 10-325 MG eCW1 ([facility]) pregabalin 100 MG Oral Capsule Pregabalin 10/10/2020 12:00:00 AM EST ORAL active MEDENT ([facility] ) Acetaminophen 325 MG / Hydrocodone Karli trate 10 MG Oral Tablet [[place]] [place] 10-325 MG [place] 10-325 MG 09/11/2020 12:00:00 AM EST 1.0 {tablet_as_ needed} active [place] 10-325 MG eCW1 ([facility]) pregabalin 50 MG Oral Capsule Pregabalin 09/05/2020 12:00:00 AM EST ORAL completed [facility] Acetaminophen 325 MG / Hydrocodone Karli trate 10 MG Oral Tablet [[place]] [place] 10-325 MG [place] 10-325 MG 08/14/2020 12:00:00 AM EST 1.0 {tablet_as_ needed} active [place] 10-325 MG eCW1 ([facility]) Acetaminophen 325 MG / Hydrocodone Karli trate 10 MG Oral Tablet [[place]] [place] 10-325 MG [place] 10-325 MG 08/14/2020 12:00:00 AM EST 1.0 {tablet_as_ needed} active [place] 10-325 MG eCW1 ([facility]) Acetaminophen 325 MG / Hydrocodone Karli trate 10 MG Oral Tablet [[place]] [place] 10-325 MG [place] 10-325 MG 08/14/2020 12:00:00 AM EST 1.0 {tablet_as_ needed} active [place] 10-325 MG eCW1 ([facility]) Amlodipine 10 MG Oral Tablet amLODIPine (NORVASC) 10 M G tablet amLODIPine (NORVASC) 10 MG tablet 08/09/2020 12:00:00 AM EST aborted Coronary artery disease involving [place] coronary artery of [place] heart without angina pectorisHypertension, essential TAKE ONE TABLET BY MOUTH @8A M [facility] Coronary artery disease involving [place] coronary artery of [place] heart without angina pectoris Hypertension, essential Acetaminophen 325 MG / Hydrocodone Karli trate 10 MG Oral Tablet [[place]] [place] 10-325 MG [place] 10-325 MG 07/16/2020 12:00:00 AM EDT 1.0 {tablet_as_ needed} active [place] 10-325 MG eCW1 ([facility]) Acetaminophen 325 MG / Hydrocodone Karli trate 10 MG Oral Tablet [[place]] [place] 10-325 MG [place] 10-325 MG 07/16/2020 12:00:00 AM EDT 1.0 {tablet_as_ needed} active [place] 10-325 MG eCW1 ([facility]) 200 ACTUAT Albuterol 0.09 MG/ACTUAT Mete red Dose Inhaler [ProAir] ProAir HFA 108 (90 Base) MCG/ACT ProAir HFA 108 (90 Base) MCG/ACT 06/27/2020 12:00:00 AM EDT 2.0 {puff_as_needed} active Pro Air HFA 108 (90 Base) MCG/ACT eCW1 ([facility]) 120 ACTUAT Fluticasone propionate 0.044 MG/ACTUAT Metered Dose Inhaler [Flovent] Flovent HFA 44 MCG/ACT Flovent HFA 44 MCG/ACT 06/27/2020 12:00:00 AM EDT 1.0 {puff} active Flovent HFA 44 MCG/ACT e CW1 ([facility]) 200 ACTUAT Albuterol 0.09 MG/ACTUAT Mete red Dose Inhaler [ProAir] ProAir HFA 108 (90 Base) MCG/ACT ProAir HFA 108 (90 Base) MCG/ACT 06/27/2020 12:00:00 AM EDT 2.0 {puff_as_needed} active Pro Air HFA 108 (90 Base) MCG/ACT eCW1 ([facility]) 200 ACTUAT Albuterol 0.09 MG/ACTUAT Mete red Dose Inhaler [ProAir] ProAir HFA 108 (90 Base) MCG/ACT ProAir HFA 108 (90 Base) MCG/ACT 06/27/2020 12:00:00 AM EDT 2.0 {puff_as_needed} active Pro Air HFA 108 (90 Base) MCG/ACT eCW1 ([facility]) 200 ACTUAT Albuterol 0.09 MG/ACTUAT Mete red Dose Inhaler [ProAir] ProAir HFA 108 (90 Base) MCG/ACT ProAir HFA 108 (90 Base) MCG/ACT 06/27/2020 12:00:00 AM EDT 2.0 {puff_as_needed} active Pro Air HFA 108 (90 Base) MCG/ACT eCW1 ([facility]) 120 ACTUAT Fluticasone propionate 0.044 MG/ACTUAT Metered Dose Inhaler [Flovent] Flovent HFA 44 MCG/ACT Flovent HFA 44 MCG/ACT 06/27/2020 12:00:00 AM EDT 1.0 {puff} active Flovent HFA 44 MCG/ACT e CW1 ([facility]) 120 ACTUAT Fluticasone propionate 0.044 MG/ACTUAT Metered Dose Inhaler [Flovent] Flovent HFA 44 MCG/ACT Flovent HFA 44 MCG/ACT 06/27/2020 12:00:00 AM EDT 1.0 {puff} active Flovent HFA 44 MCG/ACT e CW1 ([facility]) 120 ACTUAT Fluticasone propionate 0.044 MG/ACTUAT Metered Dose Inhaler [Flovent] Flovent HFA 44 MCG/ACT Flovent HFA 44 MCG/ACT 06/27/2020 12:00:00 AM EDT 1.0 {puff} active Flovent HFA 44 MCG/ACT e CW1 ([facility]) 200 ACTUAT Albuterol 0.09 MG/ACTUAT Mete red Dose Inhaler [ProAir] ProAir HFA 108 (90 Base) MCG/ACT ProAir HFA 108 (90 Base) MCG/ACT 06/27/2020 12:00:00 AM EDT 2.0 {puff_as_needed} active Pro Air HFA 108 (90 Base) MCG/ACT eCW1 ([facility]) 120 ACTUAT Fluticasone propionate 0.044 MG/ACTUAT Metered Dose Inhaler [Flovent] Flovent HFA 44 MCG/ACT Flovent HFA 44 MCG/ACT 06/27/2020 12:00:00 AM EDT 1.0 {puff} active Flovent HFA 44 MCG/ACT e CW1 ([facility]) 200 ACTUAT Albuterol 0.09 MG/ACTUAT Mete red Dose Inhaler [ProAir] ProAir HFA 108 (90 Base) MCG/ACT ProAir HFA 108 (90 Base) MCG/ACT 06/27/2020 12:00:00 AM EDT 2.0 {puff_as_needed} active Pro Air HFA 108 (90 Base) MCG/ACT eCW1 ([facility]) 120 ACTUAT Fluticasone propionate 0.044 MG/ACTUAT Metered Dose Inhaler [Flovent] Flovent HFA 44 MCG/ACT Flovent HFA 44 MCG/ACT 06/27/2020 12:00:00 AM EDT 1.0 {puff} active Flovent HFA 44 MCG/ACT e CW1 ([facility]) 120 ACTUAT Fluticasone propionate 0.044 MG/ACTUAT Metered Dose Inhaler [Flovent] Flovent HFA 44 MCG/ACT Flovent HFA 44 MCG/ACT 06/27/2020 12:00:00 AM EDT 1.0 {puff} active Flovent HFA 44 MCG/ACT e CW1 ([facility]) 120 ACTUAT Fluticasone propionate 0.044 MG/ACTUAT Metered Dose Inhaler [Flovent] Flovent HFA 44 MCG/ACT Flovent HFA 44 MCG/ACT 06/27/2020 12:00:00 AM EDT 1.0 {puff} active Flovent HFA 44 MCG/ACT e CW1 ([facility]) 120 ACTUAT Fluticasone propionate 0.044 MG/ACTUAT Metered Dose Inhaler [Flovent] Flovent HFA 44 MCG/ACT Flovent HFA 44 MCG/ACT 06/27/2020 12:00:00 AM EDT 1.0 {puff} active Flovent HFA 44 MCG/ACT e CW1 ([facility]) 120 ACTUAT Fluticasone propionate 0.044 MG/ACTUAT Metered Dose Inhaler [Flovent] Flovent HFA 44 MCG/ACT Flovent HFA 44 MCG/ACT 06/27/2020 12:00:00 AM EDT 1.0 {puff} active Flovent HFA 44 MCG/ACT e CW1 ([facility]) 200 ACTUAT Albuterol 0.09 MG/ACTUAT Mete red Dose Inhaler [ProAir] ProAir HFA 108 (90 Base) MCG/ACT ProAir HFA 108 (90 Base) MCG/ACT 06/27/2020 12:00:00 AM EDT 2.0 {puff_as_needed} active Pro Air HFA 108 (90 Base) MCG/ACT eCW1 ([facility]) 120 ACTUAT Fluticasone propionate 0.044 MG/ACTUAT Metered Dose Inhaler [Flovent] Flovent HFA 44 MCG/ACT Flovent HFA 44 MCG/ACT 06/27/2020 12:00:00 AM EDT 1.0 {puff} active Flovent HFA 44 MCG/ACT e CW1 ([facility]) 120 ACTUAT Fluticasone propionate 0.044 MG/ACTUAT Metered Dose Inhaler [Flovent] Flovent HFA 44 MCG/ACT Flovent HFA 44 MCG/ACT 06/27/2020 12:00:00 AM EDT 1.0 {puff} active Flovent HFA 44 MCG/ACT e CW1 ([facility]) 120 ACTUAT Fluticasone propionate 0.044 MG/ACTUAT Metered Dose Inhaler [Flovent] Flovent HFA 44 MCG/ACT Flovent HFA 44 MCG/ACT 06/27/2020 12:00:00 AM EDT 1.0 {puff} active Flovent HFA 44 MCG/ACT e CW1 ([facility]) 120 ACTUAT Fluticasone propionate 0.044 MG/ACTUAT Metered Dose Inhaler [Flovent] Flovent HFA 44 MCG/ACT Flovent HFA 44 MCG/ACT 06/27/2020 12:00:00 AM EDT 1.0 {puff} active Flovent HFA 44 MCG/ACT e CW1 ([facility]) 120 ACTUAT Fluticasone propionate 0.044 MG/ACTUAT Metered Dose Inhaler [Flovent] Flovent HFA 44 MCG/ACT Flovent HFA 44 MCG/ACT 06/27/2020 12:00:00 AM EDT 1.0 {puff} active Flovent HFA 44 MCG/ACT e CW1 ([facility]) 200 ACTUAT Albuterol 0.09 MG/ACTUAT Mete red Dose Inhaler [ProAir] ProAir HFA 108 (90 Base) MCG/ACT ProAir HFA 108 (90 Base) MCG/ACT 06/27/2020 12:00:00 AM EDT 2.0 {puff_as_needed} active Pro Air HFA 108 (90 Base) MCG/ACT eCW1 ([facility]) 200 ACTUAT Albuterol 0.09 MG/ACTUAT Mete red Dose Inhaler [ProAir] ProAir HFA 108 (90 Base) MCG/ACT ProAir HFA 108 (90 Base) MCG/ACT 06/27/2020 12:00:00 AM EDT 2.0 {puff_as_needed} active Pro Air HFA 108 (90 Base) MCG/ACT eCW1 ([facility]) 120 ACTUAT Fluticasone propionate 0.044 MG/ACTUAT Metered Dose Inhaler [Flovent] Flovent HFA 44 MCG/ACT Flovent HFA 44 MCG/ACT 06/27/2020 12:00:00 AM EDT 1.0 {puff} active Flovent HFA 44 MCG/ACT e CW1 ([facility]) 200 ACTUAT Albuterol 0.09 MG/ACTUAT Mete red Dose Inhaler [ProAir] ProAir HFA 108 (90 Base) MCG/ACT ProAir HFA 108 (90 Base) MCG/ACT 06/27/2020 12:00:00 AM EDT 2.0 {puff_as_needed} active Pro Air HFA 108 (90 Base) MCG/ACT eCW1 ([facility]) 120 ACTUAT Fluticasone propionate 0.044 MG/ACTUAT Metered Dose Inhaler [Flovent] Flovent HFA 44 MCG/ACT Flovent HFA 44 MCG/ACT 06/27/2020 12:00:00 AM EDT 1.0 {puff} active Flovent HFA 44 MCG/ACT e CW1 ([facility]) 200 ACTUAT Albuterol 0.09 MG/ACTUAT Mete red Dose Inhaler [ProAir] ProAir HFA 108 (90 Base) MCG/ACT ProAir HFA 108 (90 Base) MCG/ACT 06/27/2020 12:00:00 AM EDT 2.0 {puff_as_needed} active Pro Air HFA 108 (90 Base) MCG/ACT eCW1 ([facility]) 200 ACTUAT Albuterol 0.09 MG/ACTUAT Mete red Dose Inhaler [ProAir] ProAir HFA 108 (90 Base) MCG/ACT ProAir HFA 108 (90 Base) MCG/ACT 06/27/2020 12:00:00 AM EDT 2.0 {puff_as_needed} active Pro Air HFA 108 (90 Base) MCG/ACT eCW1 ([facility]) 120 ACTUAT Fluticasone propionate 0.044 MG/ACTUAT Metered Dose Inhaler [Flovent] Flovent HFA 44 MCG/ACT Flovent HFA 44 MCG/ACT 06/27/2020 12:00:00 AM EDT 1.0 {puff} active Flovent HFA 44 MCG/ACT e CW1 ([facility]) 200 ACTUAT Albuterol 0.09 MG/ACTUAT Mete red Dose Inhaler [ProAir] ProAir HFA 108 (90 Base) MCG/ACT ProAir HFA 108 (90 Base) MCG/ACT 06/27/2020 12:00:00 AM EDT 2.0 {puff_as_needed} active Pro Air HFA 108 (90 Base) MCG/ACT eCW1 ([facility]) 120 ACTUAT Fluticasone propionate 0.044 MG/ACTUAT Metered Dose Inhaler [Flovent] Flovent HFA 44 MCG/ACT Flovent HFA 44 MCG/ACT 06/27/2020 12:00:00 AM EDT 1.0 {puff} active Flovent HFA 44 MCG/ACT e CW1 ([facility]) 200 ACTUAT Albuterol 0.09 MG/ACTUAT Mete red Dose Inhaler [ProAir] ProAir HFA 108 (90 Base) MCG/ACT ProAir HFA 108 (90 Base) MCG/ACT 06/27/2020 12:00:00 AM EDT 2.0 {puff_as_needed} active Pro Air HFA 108 (90 Base) MCG/ACT eCW1 ([facility]) 200 ACTUAT Albuterol 0.09 MG/ACTUAT Mete red Dose Inhaler [ProAir] ProAir HFA 108 (90 Base) MCG/ACT ProAir HFA 108 (90 Base) MCG/ACT 06/27/2020 12:00:00 AM EDT 2.0 {puff_as_needed} active Pro Air HFA 108 (90 Base) MCG/ACT eCW1 ([facility]) 200 ACTUAT Albuterol 0.09 MG/ACTUAT Mete red Dose Inhaler [ProAir] ProAir HFA 108 (90 Base) MCG/ACT ProAir HFA 108 (90 Base) MCG/ACT 06/27/2020 12:00:00 AM EDT 2.0 {puff_as_needed} active Pro Air HFA 108 (90 Base) MCG/ACT eCW1 ([facility]) 120 ACTUAT Fluticasone propionate 0.044 MG/ACTUAT Metered Dose Inhaler [Flovent] Flovent HFA 44 MCG/ACT Flovent HFA 44 MCG/ACT 06/27/2020 12:00:00 AM EDT 1.0 {puff} active Flovent HFA 44 MCG/ACT e CW1 ([facility]) 120 ACTUAT Fluticasone propionate 0.044 MG/ACTUAT Metered Dose Inhaler [Flovent] Flovent HFA 44 MCG/ACT Flovent HFA 44 MCG/ACT 06/27/2020 12:00:00 AM EDT 1.0 {puff} active Flovent HFA 44 MCG/ACT e CW1 ([facility]) 200 ACTUAT Albuterol 0.09 MG/ACTUAT Mete red Dose Inhaler [ProAir] ProAir HFA 108 (90 Base) MCG/ACT ProAir HFA 108 (90 Base) MCG/ACT 06/27/2020 12:00:00 AM EDT 2.0 {puff_as_needed} active Pro Air HFA 108 (90 Base) MCG/ACT eCW1 ([facility]) 200 ACTUAT Albuterol 0.09 MG/ACTUAT Mete red Dose Inhaler [ProAir] ProAir HFA 108 (90 Base) MCG/ACT ProAir HFA 108 (90 Base) MCG/ACT 06/27/2020 12:00:00 AM EDT 2.0 {puff_as_needed} active Pro Air HFA 108 (90 Base) MCG/ACT eCW1 ([facility]) 200 ACTUAT Albuterol 0.09 MG/ACTUAT Mete red Dose Inhaler [ProAir] ProAir HFA 108 (90 Base) MCG/ACT ProAir HFA 108 (90 Base) MCG/ACT 06/27/2020 12:00:00 AM EDT 2.0 {puff_as_needed} active Pro Air HFA 108 (90 Base) MCG/ACT eCW1 ([facility]) 120 ACTUAT Fluticasone propionate 0.044 MG/ACTUAT Metered Dose Inhaler [Flovent] Flovent HFA 44 MCG/ACT Flovent HFA 44 MCG/ACT 06/27/2020 12:00:00 AM EDT 1.0 {puff} active Flovent HFA 44 MCG/ACT e CW1 ([facility]) 120 ACTUAT Fluticasone propionate 0.044 MG/ACTUAT Metered Dose Inhaler [Flovent] Flovent HFA 44 MCG/ACT Flovent HFA 44 MCG/ACT 06/27/2020 12:00:00 AM EDT 1.0 {puff} active Flovent HFA 44 MCG/ACT e CW1 ([facility]) 120 ACTUAT Fluticasone propionate 0.044 MG/ACTUAT Metered Dose Inhaler [Flovent] Flovent HFA 44 MCG/ACT Flovent HFA 44 MCG/ACT 06/27/2020 12:00:00 AM EDT 1.0 {puff} active Flovent HFA 44 MCG/ACT e CW1 ([facility]) 120 ACTUAT Fluticasone propionate 0.044 MG/ACTUAT Metered Dose Inhaler [Flovent] Flovent HFA 44 MCG/ACT Flovent HFA 44 MCG/ACT 06/27/2020 12:00:00 AM EDT 1.0 {puff} active Flovent HFA 44 MCG/ACT e CW1 ([facility]) 200 ACTUAT Albuterol 0.09 MG/ACTUAT Mete red Dose Inhaler [ProAir] ProAir HFA 108 (90 Base) MCG/ACT ProAir HFA 108 (90 Base) MCG/ACT 06/27/2020 12:00:00 AM EDT 2.0 {puff_as_needed} active Pro Air HFA 108 (90 Base) MCG/ACT eCW1 ([facility]) 120 ACTUAT Fluticasone propionate 0.044 MG/ACTUAT Metered Dose Inhaler [Flovent] Flovent HFA 44 MCG/ACT Flovent HFA 44 MCG/ACT 06/27/2020 12:00:00 AM EDT 1.0 {puff} active Flovent HFA 44 MCG/ACT e CW1 ([facility]) 200 ACTUAT Albuterol 0.09 MG/ACTUAT Mete red Dose Inhaler [ProAir] ProAir HFA 108 (90 Base) MCG/ACT ProAir HFA 108 (90 Base) MCG/ACT 06/27/2020 12:00:00 AM EDT 2.0 {puff_as_needed} active Pro Air HFA 108 (90 Base) MCG/ACT eCW1 ([facility]) 200 ACTUAT Albuterol 0.09 MG/ACTUAT Mete red Dose Inhaler [ProAir] ProAir HFA 108 (90 Base) MCG/ACT ProAir HFA 108 (90 Base) MCG/ACT 06/27/2020 12:00:00 AM EDT 2.0 {puff_as_needed} active Pro Air HFA 108 (90 Base) MCG/ACT eCW1 ([facility]) 200 ACTUAT Albuterol 0.09 MG/ACTUAT Mete red Dose Inhaler [ProAir] ProAir HFA 108 (90 Base) MCG/ACT ProAir HFA 108 (90 Base) MCG/ACT 06/27/2020 12:00:00 AM EDT 2.0 {puff_as_needed} active Pro Air HFA 108 (90 Base) MCG/ACT eCW1 ([facility]) 120 ACTUAT Fluticasone propionate 0.044 MG/ACTUAT Metered Dose Inhaler [Flovent] Flovent HFA 44 MCG/ACT Flovent HFA 44 MCG/ACT 06/27/2020 12:00:00 AM EDT 1.0 {puff} active Flovent HFA 44 MCG/ACT e CW1 ([facility]) 200 ACTUAT Albuterol 0.09 MG/ACTUAT Mete red Dose Inhaler [ProAir] ProAir HFA 108 (90 Base) MCG/ACT ProAir HFA 108 (90 Base) MCG/ACT 06/27/2020 12:00:00 AM EDT 2.0 {puff_as_needed} active Pro Air HFA 108 (90 Base) MCG/ACT eCW1 ([facility]) 200 ACTUAT Albuterol 0.09 MG/ACTUAT Mete red Dose Inhaler [ProAir] ProAir HFA 108 (90 Base) MCG/ACT ProAir HFA 108 (90 Base) MCG/ACT 06/27/2020 12:00:00 AM EDT 2.0 {puff_as_needed} active Pro Air HFA 108 (90 Base) MCG/ACT eCW1 ([facility]) 200 ACTUAT Albuterol 0.09 MG/ACTUAT Mete red Dose Inhaler [ProAir] ProAir HFA 108 (90 Base) MCG/ACT ProAir HFA 108 (90 Base) MCG/ACT 06/27/2020 12:00:00 AM EDT 2.0 {puff_as_needed} active Pro Air HFA 108 (90 Base) MCG/ACT eCW1 ([facility]) 200 ACTUAT Albuterol 0.09 MG/ACTUAT Mete red Dose Inhaler [ProAir] ProAir HFA 108 (90 Base) MCG/ACT ProAir HFA 108 (90 Base) MCG/ACT 06/27/2020 12:00:00 AM EDT 2.0 {puff_as_needed} active Pro Air HFA 108 (90 Base) MCG/ACT eCW1 ([facility]) 120 ACTUAT Fluticasone propionate 0.044 MG/ACTUAT Metered Dose Inhaler [Flovent] Flovent HFA 44 MCG/ACT Flovent HFA 44 MCG/ACT 06/27/2020 12:00:00 AM EDT 1.0 {puff} active Flovent HFA 44 MCG/ACT e CW1 ([facility]) 200 ACTUAT Albuterol 0.09 MG/ACTUAT Mete red Dose Inhaler [ProAir] ProAir HFA 108 (90 Base) MCG/ACT ProAir HFA 108 (90 Base) MCG/ACT 06/27/2020 12:00:00 AM EDT 2.0 {puff_as_needed} active Pro Air HFA 108 (90 Base) MCG/ACT eCW1 ([facility]) 200 ACTUAT Albuterol 0.09 MG/ACTUAT Mete red Dose Inhaler [ProAir] ProAir HFA 108 (90 Base) MCG/ACT ProAir HFA 108 (90 Base) MCG/ACT 06/27/2020 12:00:00 AM EDT 2.0 {puff_as_needed} active Pro Air HFA 108 (90 Base) MCG/ACT eCW1 ([facility]) 120 ACTUAT Fluticasone propionate 0.044 MG/ACTUAT Metered Dose Inhaler [Flovent] Flovent HFA 44 MCG/ACT Flovent HFA 44 MCG/ACT 06/27/2020 12:00:00 AM EDT 1.0 {puff} active Flovent HFA 44 MCG/ACT e CW1 ([facility]) 120 ACTUAT Fluticasone propionate 0.044 MG/ACTUAT Metered Dose Inhaler [Flovent] Flovent HFA 44 MCG/ACT Flovent HFA 44 MCG/ACT 06/27/2020 12:00:00 AM EDT 1.0 {puff} active Flovent HFA 44 MCG/ACT e CW1 ([facility]) 120 ACTUAT Fluticasone propionate 0.044 MG/ACTUAT Metered Dose Inhaler [Flovent] Flovent HFA 44 MCG/ACT Flovent HFA 44 MCG/ACT 06/27/2020 12:00:00 AM EDT 1.0 {puff} active Flovent HFA 44 MCG/ACT e CW1 ([facility]) 200 ACTUAT Albuterol 0.09 MG/ACTUAT Mete red Dose Inhaler [ProAir] ProAir HFA 108 (90 Base) MCG/ACT ProAir HFA 108 (90 Base) MCG/ACT 06/27/2020 12:00:00 AM EDT 2.0 {puff_as_needed} active Pro Air HFA 108 (90 Base) MCG/ACT eCW1 ([facility]) 200 ACTUAT Albuterol 0.09 MG/ACTUAT Mete red Dose Inhaler [ProAir] ProAir HFA 108 (90 Base) MCG/ACT ProAir HFA 108 (90 Base) MCG/ACT 06/27/2020 12:00:00 AM EDT 2.0 {puff_as_needed} active Pro Air HFA 108 (90 Base) MCG/ACT eCW1 ([facility]) 120 ACTUAT Fluticasone propionate 0.044 MG/ACTUAT Metered Dose Inhaler [Flovent] Flovent HFA 44 MCG/ACT Flovent HFA 44 MCG/ACT 06/27/2020 12:00:00 AM EDT 1.0 {puff} active Flovent HFA 44 MCG/ACT e CW1 ([facility]) 200 ACTUAT Albuterol 0.09 MG/ACTUAT Mete red Dose Inhaler [ProAir] ProAir HFA 108 (90 Base) MCG/ACT ProAir HFA 108 (90 Base) MCG/ACT 06/27/2020 12:00:00 AM EDT 2.0 {puff_as_needed} active Pro Air HFA 108 (90 Base) MCG/ACT eCW1 ([facility]) Trazodone Hydrochloride 50 MG Oral Tablet trazodone 2019 12:00:00 AM EDT 50 mg by mouth completed <td ID="Medic ationRxNorm_3">[id number]</td><td ID="MedicationMedication_3">trazodone</td><td ID="MedicationRoute_3">by mouth</td><td ID="MedicationRouteConcept_3">[id number]</td><td ID="MedicationStartDate_3">06/19/2020</td><td ID="MedicationStopDate_3"></td><td ID="MedicationDosageFrequency_3">at bedtime</td><td ID="MedicationDuration_3"></td><td ID="MedicationFormulaStrength_3">50 mg</td><td ID="MedicationDosageForm_3">tablet</td><td ID="MedicationDosageFormCode_3"></td><td ID="MedicationDosageDescription_3">as needed</td><td ID="MedicationMedicationId_3">[id number]</td><td ID="MedicationAccount_3">[id number]</td><td ID="MedicationNpid_3">[id number]</td><td ID="MedicationAuthorFirstName_3">Chloe</td><td ID="MedicationAuthorLastName_3">Kareem</td><td ID="MedicationTaxonomyCode_3">[id number]</td><td ID="MedicationTaxonomyDesc_3">Psychiatric/Mental Health</td><td ID="MedicationPhoneNumber_3">[phone]</td> [facility]) chlorhexidine gluconate 40 MG/ML Medicated Liquid Soap [Hibi clens] Hibiclens 06/12/2020 12:00:00 AM EDT TOPICAL active MEDENT ([facility] ) gabapentin 300 MG Oral Capsule gabapentin (NEURONTIN) 300 MG capsule gabapentin (NEURONTIN) 300 MG capsule 04/15/2020 12:00:00 AM EDT aborted TAKE ONE CAPSULE BY MOUTH @8PM [facility] Famotidine 10 MG Oral Tablet ACID LIME SUPERVISOR 10 MG tablet ACID LIME SUPERVISOR 10 MG tablet 04/03/2020 12:00:00 AM EDT aborted TAKE ONE TABLET BY MOUTH ONE HOUR PRIOR TO PROCEDURE [facility] Methylprednisolone 32 MG Oral Tablet methylPREDNISolon e (MEDROL) 32 MG tablet methylPREDNISolone (MEDROL) 32 MG tablet 02/20/2020 12:00:00 AM EDT aborted TAKE ONE TABLET BY M OUTH 12 HOURS BEFORE PROCEDURE, THEN TAKE ONE TABLET TWO HOURS BEFORE PROCEDURE [facility] Diphenhydramine Hydrochloride 25 MG Oral Capsule [Banophen] BANOPHEN 25 MG capsule BANOPHEN 25 MG capsule 02/20/2020 12:00:00 AM EDT aborted TAKE TWO CAPSULES BY MOUTH ONE HOUR BEFORE PROCEDURE [facility] gabapentin 800 MG Oral Tablet gabapentin (NEURONTIN) 8 00 MG tablet gabapentin (NEURONTIN) 800 MG tablet 02/19/2020 12:00:00 AM EDT aborted TAKE ONE TABLET BY MOUTH @8AM and TAKE ONE TABLET BY MOUTH @2PM and TAKE ONE TABLET BY MOUTH @8PM [facility] Estradiol 0.1 MG/ML Vaginal Cream [Estra ce] ESTRACE VAGINAL 0.1 MG/GM vaginal cream ESTRACE VAGINAL 0.1 MG/GM vaginal cream 07/11/2019 12:00:00 AM EDT aborted INSERT ONE GRAM VAGINALLY TWICE A WEEK [facility] Insurance Providers Payer name Policy type / Coverage type Policy ID Covered alliance party ID Covered alliance party's relationship to terry Policy Terry Plan Information MEDICARE 4 [id number] 1 [id number] A MEDICARE [id number] Liz [id number] A MEDICARE [id number] Liz [id number] G89 MEDICARE A [id number] Self [id number] G89 MEDICARE [id number] SP [id number] A MEDICARE [id number] SP [id number] A MEDICARE [id number] xxxxxxxxxxx [id number] MEDICARE [id number] SP [id number] G89 MEDICARE A [id number] Self [id number] A MEDICARE [id number] SP [id number] A MEDICAID [id number] Liz [id number] MEDICAID [id number] Liz [id number] MEDICAID [id number] xxxxxxxx [id number] MEDICAID [id number] SP [id number] MEDICAID [id number] SP [id number] MEDICAID M [id number] Self [id number] MEDICAID PENDING [id number] Liz [id number] Medicaid [facility] Part B [id number] Self [id number] MEDICARE C [id number] S [id number] A Medicaid [place] Medigap Part B [id number] Medicaid [place] Medigap Part B [id number] Self [id number] Medicaid [facility] Part B [id number] [place] Medicare [place] Primary [id number] Self SELF PAY UNAVAILABLE SP UNAVAILA BLE SELF PAY 2 UNAVAILABLE 1 UNAVAILA BLE MEDICAID [facility] 3 [id number] T [facility] MEDICAID [id number] SP [id number] T [id number] A MEDICARE [id number] SP [id number] G89 [place] [id number] SP [id number] SELF PAY ONLY [id number] SP [id number] MEDICARE C [id number] S [id number] G89 MEDICAID M [id number] S [id number] MEDICARE C [id number] S [id number] [id number] Medicare P [id number] S [id number] [id number] Medicaid S UNAVAILABLE S UNAVAILA BLE MEDICAID [id number] SP [id number] ANS-Medicare Part B [id number] ANS-Medicaid [id number] [place] Medicare Primary [id number] Self [id number] [place] Medicare Primary [id number] Self [id number] MEDICARE PI PI MEDICAID PI PI Problems, Conditions, and Diagnoses Code Display Name Description Problem Type Effective Dates Data Source(s) I10 Essential (primary) hypertension Essential (primary) h ypertension Diagnosis 01/10/2021 02:56:28 PM EDT [facility] I25.10 Atherosclerotic heart diseas e of [place] coronary artery without angina pectoris Atherosclerotic heart disease of [place] Diagnosis 01/10/2021 02:56:28 PM EDT [facility] E11.9 [id number] Type 2 diabetes cole itus without complication, without long-term current use of insulin Problem 06/13/2021 12:00:00 AM EDT eCW1 ([facility]) F31.9 Bipolar disorder, unspecified Unspecified [place] r and Related Disorder Condition 04/30/2021 12:00:00 AM EDT [facility] ([facility]) [id number] Essential hypertension Essential hypertension Problem 04/14/2021 12:00:00 AM EDT [facility] ([facility] ) E04.1 [id number] Thyroid nodule Problem 03/07/2021 12:00:00 A M EDT eCW1 ([facility]) N39.43 [id number] Urinary dribbling Problem 11/29/2020 12:00:0 0 AM EST eCW1 ([facility]) J45.40 [id number] Moderate persistent asthma without compli cation Problem 06/27/2020 12:00:00 AM EDT eCW1 ([facility]) [id number] Hypoxemia Hypoxemia Problem 06/05/2020 12:00:00 AM ED T [facility] ([facility] ) [id number] Lesion of ulnar nerve Lesion of ulnar nerve Problem 06/05/2020 12:00:00 AM EDT [facility] ([facility] ) Surgeries/Procedures Procedure Description Date Indications Data Source(s) OFFICE OUTPATIENT VISIT 25 MINUTES 07/14/2021 12:00:00 AM EDT [facility] ([facility]) INCISION & DRAINAGE ABSCESS SIMPLE/SINGLE 06/24/2021 1 2:00:00 AM EDT [facility] ([facility]) OFFICE OUTPATIENT VISIT 25 MINUTES 06/24/2021 12:00:00 AM EDT [facility] ([facility]) X-Ray Spine Lumbosacral Complete Inc Bending Views Min Of 6 06/16/2021 12:00:00 AM EDT [facility] ([facility]) OFFICE OUTPATIENT VISIT 25 MINUTES 06/16/2021 12:00:00 AM EDT [facility] ([facility] ) OFFICE OUTPATIENT VISIT 15 MINUTES 05/19/2021 12:00:00 AM EDT [facility] ([facility] ) Fine Needle Aspiration Biopsy Inlcd Ultrasound Guidance 05/06/2021 12:00:00 AM EDT [facility] ([facility] ) RADEX FOOT COMPLETE MINIMUM 3 VIEWS 05/01/2021 12:00:0 0 AM EDT [facility] ([facility] ) OFFICE OUTPATIENT VISIT 25 MINUTES 05/01/2021 12:00:00 AM EDT [facility] ([facility] ) MHC Telemed E/M Lvl 3--Est pt 04/30/2021 12:00:00 AM EDT - 04/30/2021 12:00:00 AM EDT [facility] ([facility]) Telemed A/O 30" 04/30/2021 12:00:00 AM EDT [facility] ([facility]) MHC Telemed E/M Lvl 3--Est pt 04/30/2021 12:00:00 AM E DT [facility] ([facility]) OFFICE OUTPATIENT NEW 60 MINUTES 04/17/2021 12:00:00 A M EDT [facility] ([facility] ) OFFICE OUTPATIENT VISIT 15 MINUTES 03/04/2021 12:00:00 AM EDT [facility] ([facility] ) MHC Telemed E/M Lvl 3--Est pt 01/30/2021 12:00:00 AM EDT - 01/30/2021 12:00:00 AM EDT [facility] ([facility]) MHC Telemed E/M Lvl 3--Est pt 01/30/2021 12:00:00 AM E DT [facility] ([facility]) RADEX SPINE CRV COMPL W/OBLQ&FLEX&/XTN STDS 01/17/2021 12:00:00 AM EDT [facility] ([facility] ) OFFICE OUTPATIENT VISIT 25 MINUTES 01/17/2021 12:00:00 AM EDT [facility] ([facility] ) POCT AMB EKG <td>POCT AMB EKG</td><td>Rou ellis</td><td>01/10/2021 3:55 PM EDT</td><td> Coronary artery disease involving [place] coronary artery of [place] heart without angina pectoris Hypertension, essential</td><td> </td> 01/10/2021 03:55:00 PM EDT Hypertension, essentialCoronary artery d isease involving [place] coronary artery of [place] heart without angina pectoris [facility] Hypertension, essential Coronary artery disease involving [place] coronary artery of [place] heart without angina pectoris DESTRUCTION BENIGN LESIONS UP TO 14 01/07/2021 12:00:0 0 AM EDT [facility] ([facility]) DUP-SCAN LXTR ART/ARTL BPGS UNI/LMTD STUDY 12/12/2020 12:00:00 AM EDT [facility] ([facility]) DUP-SCAN LXTR ART/ARTL BPGS UNI/LMTD STUDY 12/12/2020 12:00:00 AM EDT [facility] ([facility]) PHYSICIAN TELEPHONE EVALUATION 5-10 MIN 10/01/2020 12: 00:00 AM EST [facility] ([facility] ) RADEX FOOT COMPLETE MINIMUM 3 VIEWS 09/19/2020 12:00:0 0 AM EST [facility] ([facility] ) MRI Lower Extremity Any Joint 09/18/2020 12:00:[address] [facility] ([facility] ) MRI Lower Extremity Any Joint 09/18/2020 12:00:[address] [facility] ([facility] ) ARTHROCENTESIS ASPIR&/INJECTION MAJOR JT/BURSA 020 12:00:00 AM EST [facility] ([facility] ) RADIOLOGIC EXAM KNEE COMPLETE 4/MORE VIEWS 09/09/2020 12:00:00 AM EST [facility] ([facility] ) RADEX FOOT COMPLETE MINIMUM 3 VIEWS 08/09/2020 12:00:0 0 AM EST [facility] ([facility] ) APPLICATION SHORT LEG CAST BELOW KNEE-TOE 08/07/2020 1 2:00:00 AM EST [facility] ([facility] ) RADEX FOOT COMPLETE MINIMUM 3 VIEWS 08/07/2020 12:00:0 0 AM EST [facility] ([facility] ) Polysomnography Sleep Staging 4+ Parameters W/Cpap 08/01/2020 12:00:00 AM EST [facility] ([facility]) RADEX FOOT COMPLETE MINIMUM 3 VIEWS 07/22/2020 12:00:0 0 AM EST [facility] ([facility]) APPLICATION SHORT LEG CAST BELOW KNEE-TOE 07/22/2020 1 2:00:00 AM EST [facility] ([facility]) APPLICATION SHORT LEG CAST BELOW KNEE-TOE 07/11/2020 1 2:00:00 AM EDT [facility] ([facility]) RADEX FOOT COMPLETE MINIMUM 3 VIEWS 07/11/2020 12:00:0 0 AM EDT [facility] ([facility]) MHC Telemed E/M Lvl 3--Est pt 07/04/2020 12:00:00 AM EDT - 07/04/2020 12:00:00 AM EDT [facility] ([facility]) MHC Telemed E/M Lvl 3--Est pt 07/04/2020 12:00:00 AM E DT [facility] ([facility]) FX Tarsal Bone Open TX W/Fixation 07/04/2020 12:00:00 AM EDT [facility] ([facility]) Results ID Date Data Source [id number] 07/14/2021 10:29:00 AM EDT [facility] ([facility]) Name Value Range Interpretation Code Description Data Andia rce(s) Supporting Document(s) Covid Rapid Testing Laboratory test result [facility] ([facility]) Care[facility] Covid-19 Antigen Test Lot# [id number] 07/14/21 at 10:36am ID Date Data Source [id number] 06/30/2021 12:00:00 AM EDT [facility] Name Value Range Interpretation Code Description Data Nadia rce(s) Supporting Document(s) Covid Rapid Testing Negative [facility] This lab was ordered by [place] and re ported by [facility]. ID Date Data Source [id number] 06/13/2021 01:59:00 PM EDT [facility] ([facility]) Name Value Range Interpretation Code Description Data Nadia rce(s) Supporting Document(s) Covid Rapid Testing Laboratory test result [facility] ([facility]) ID Date Data Source [id number] 06/13/2021 12:00:00 AM EDT [facility] Name Value Range Interpretation Code Description Data Nadia rce(s) Supporting Document(s) Covid Rapid Testing Negative [facility] This lab was ordered by [place] and re ported by [facility]. ID Date Data Source Basic Metabolic Profile (BMP) 06/13/2021 12:00:00 AM EDT eCW 1 ([facility]) Name Value Range Interpretation Code Description Data Nadia rce(s) Supporting Document(s) 126 70-100 GLUCOSE, FASTING eCW1 ([facility]) 12 7-18 BLOOD UREA NITROGEN eCW1 ([facility]) 4.4 3.5-5.1 POTASSIUM SERUM eCW1 ([facility]) > 60.0 >45 GLOMERULAR FILTRATION RATE eCW 1 ([facility]) 130 136-145 SODIUM LEVEL eCW1 ([facility]) 0.82 0.55-1.30 CREATININE FOR GFR eCW1 ([facility]) 94 98-107 CHLORIDE LEVEL eCW1 ([facility]) 8.6 8.8-10.2 CALCIUM LEVEL eCW1 ([facility]) 29 21-32 CARBON DIOXIDE LEVEL eCW1 ([facility]) ID Date Data Source [id number] 06/13/2021 12:00:00 AM EDT eCW1 ([facility]) Name Value Range Interpretation Code Description Data Nadia rce(s) Supporting Document(s) Hemoglobin A1c/Hemoglobin.total in Blood 6.1 HEMOGLOBIN A1c eCW1 ([facility]) ID Date Data Source [id number] 06/04/2021 08:57:00 AM EDT [facility] ([facility] ) Name Value Range Interpretation Code Description Data Nadia rce(s) Supporting Document(s) Covid Rapid Testing [facility] ) CARE START COVID-19 ANTIGEN LOT #[id number] 06/30/21 1:21 P.M. ID Date Data Source [id number] 05/06/2021 10:27:00 AM EDT [facility] ([facility] ) Name Value Range Interpretation Code Description Data Nadia rce(s) Supporting Document(s) Laboratory test finding (navigational concept) Laboratory test result [facility] ([facility]) ID Date Data Source [id number] 05/06/2021 04:55:00 AM EDT [facility]) Name Value Range Interpretation Code Description Data Nadia rce(s) Supporting Document(s) Microscopic observation [Identifier] in Unspecified specimen by Non- gynecological cytology method Laboratory test result [facility] ([facility]) SPECIMEN: FNA Right [...] MD 05/07/2021 1046 ID Date Data Source [id number] 04/23/2021 09:01:00 AM EDT [facility] ([facility]) Name Value Range Interpretation Code Description Data Nadia rce(s) Supporting Document(s) Cross Femoral Bypass Ultrasound Laboratory [facility]) ID Date Data Source URINE CULTURE 12/17/2020 12:00:00 AM EDT eCW1 ([facility]) Name Value Range Interpretation Code Description Data Nadia rce(s) Supporting Document(s) URINE CULTURE eCW1 ([facility]) ID Date Data Source UA URINALYSIS 12/17/2020 12:00:00 AM EDT eCW1 ([facility]) Name Value Range Interpretation Code Description Data Nadia rce(s) Supporting Document(s) UA URINALYSIS eCW1 ([facility]) ID Date Data Source [id number] 12/12/2020 02:11:00 PM EDT [facility] ([facility]) Name Value Range Interpretation Code Description Data Nadia rce(s) Supporting Document(s) Cross Femoral Bypass Ultrasound Laboratory [facility]) ID Date Data Source [id number] 12/11/2020 01:05:00 PM EDT [facility] Name Value Range Interpretation Code Description Data Nadia rce(s) Supporting Document(s) SARS-CoV-2 (COVID-19) RNA [Presence] in Respiratory specimen by JACKI with probe detection Not Detected [facility] This lab was ordered by [facility] and reported by [employer] ID Date Data Source RBC FOLATE PROFILE 11/30/2020 12:00:00 AM EST eCW1 ([facility]) Name Value Range Interpretation Code Description Data Nadia rce(s) Supporting Document(s) 35.5 36.0-47.0 eCW1 ([facility]) 632 280791 eCW1 ([facility]) ID Date Data Source VITAMIN [id number] 11/30/2020 12:00:00 AM EST eCW1 ([facility]) Name Value Range Interpretation Code Description Data Nadia rce(s) Supporting Document(s) 72.5 30.0-100.0 eCW1 ([facility]) ID Date Data Source VITAMIN B12 LEVEL 11/30/2020 12:00:00 AM EST eCW1 ([facility]) Name Value Range Interpretation Code Description Data Nadia rce(s) Supporting Document(s) 582 338-328 eCW1 ([facility]) ID Date Data Source [id number] 11/30/2020 12:00:00 AM EST eCW1 ([facility]) Name Value Range Interpretation Code Description Data Nadia rce(s) Supporting Document(s) Microalbumin/Creatinine [Ratio] in Urine 39.5 0.0-30.0 eCW1 ([facility]) Microalbumin/Creatinine [Mass Ratio] in Urine 31.6 eCW1 ([facility]) Albumin/Creatinine [Mass Ratio] in Urine 12.5 eCW1 ([facility]) ID Date Data Source FREE T4 & TSH PANEL 11/30/2020 12:00:00 AM EST eCW1 ([facility]) Name Value Range Interpretation Code Description Data Nadia rce(s) Supporting Document(s) 2.450 0.358-3.740 eCW1 ([facility]) 0.98 0.76-1.46 eCW1 ([facility]) ID Date Data Source TOTAL IRON BINDING CAPACIT 11/30/2020 12:00:00 AM EST eCW1 ( [facility]) Name Value Range Interpretation Code Description Data Nadia rce(s) Supporting Document(s) 58 50-170 eCW1 ([facility]) 300 250-450 eCW1 ([facility]) 19.3 13.2-45.0 eCW1 ([facility]) ID Date Data Source MAGNESIUM LEVEL 11/30/2020 12:00:00 AM EST eCW1 ([facility]) Name Value Range Interpretation Code Description Data Nadia rce(s) Supporting Document(s) 1.6 1.8-2.4 eCW1 ([facility]) ID Date Data Source PHOSPHOROUS LEVEL 11/30/2020 12:00:00 AM EST eCW1 ([facility]) Name Value Range Interpretation Code Description Data Nadia rce(s) Supporting Document(s) 4.2 2.5-4.9 eCW1 ([facility]) ID Date Data Source LIPID PANEL (CARDIAC RISK) 11/30/2020 12:00:00 AM EST eCW1 ( [facility]) Name Value Range Interpretation Code Description Data Nadia rce(s) Supporting Document(s) Cholesterol [Moles/volume] in Serum or Plasma 115 <200 eCW1 ([facility]) Triglyceride [Mass/volume] in Serum or Plasma by calculation 248 <150 eCW1 ([facility]) Cholesterol in HDL [Moles/volume] in Serum or Plasma 38 >40 eCW1 ([facility]) 3.026 <5 eCW1 ([facility]) Cholesterol in LDL [Mass/volume] in Serum or Plasma by calculation 27 <100 eCW1 ([facility]) 77 eCW1 ([facility]) ID Date Data Source FERRITIN 11/30/2020 12:00:00 AM EST eCW1 ([facility]) Name Value Range Interpretation Code Description Data Nadia rce(s) Supporting Document(s) 40 8-252 eCW1 ([facility]) ID Date Data Source Comprehensive Metabolic Profile (CMP) 11/30/2020 12:00:00 AM EST eCW1 ([facility]) Name Value Range Interpretation Code Description Data Nadia rce(s) Supporting Document(s) 124 70-100 eCW1 ([facility]) 10 7-18 eCW1 ([facility]) 130 136-145 eCW1 ([facility]) 95 98-107 eCW1 ([facility]) > 60.0 >45 eCW1 ([facility]) 4.5 3.5-5.1 eCW1 ([facility]) 0.82 0.55-1.30 eCW1 ([facility]) 20 12-78 eCW1 ([facility]) 11 7-37 eCW1 ([facility]) 8.5 8.8-10.2 eCW1 ([facility]) 28 21-32 eCW1 ([facility]) 113 45-117 eCW1 ([facility]) 6.1 6.4-8.2 eCW1 ([facility]) 0.3 0.2-1.0 eCW1 ([facility]) 3.8 3.2-5.2 eCW1 ([facility]) 1.7 1.2-2.2 eCW1 ([facility]) ID Date Data Source CBC - Complete Blood Count 11/30/2020 12:00:00 AM EST eCW1 ( [facility]) Name Value Range Interpretation Code Description Data Nadia rce(s) Supporting Document(s) 4.25 4.00-5.40 RED BLOOD COUNT eCW1 ([facility]) 6.1 4.0-10.0 WHITE BLOOD COUNT eCW1 ([facility]) 34.1 32.0-36.5 MEAN CORPUSCULAR HGB CONC eCW1 ([facility]) 12.1 12.0-15.5 HEMOGLOBIN eCW1 ([facility]) 35.5 36.0-47.0 HEMATOCRIT eCW1 ([facility]) 28.5 27.0-33.0 MEAN CORPUSCULAR HEMOGLOB IN eCW1 ([facility]) 83.5 80.0-96.0 MEAN CORPUSCULAR VOLUME e CW1 ([facility]) 13.0 11.5-14.5 RED CELL DISTRIBUTION WID TH eCW1 ([facility]) 254 150-450 PLATELET COUNT, AUTOMATED eCW1 ([facility]) ID Date Data Source [id number] 10/22/2020 12:00:00 AM EST [facility] Name Value Range Interpretation Code Description Data Nadia rce(s) Supporting Document(s) SARS-CoV-2 (COVID-19) RNA [Presence] in Respiratory specimen by JACKI with probe detection Positive for 2019-nCoV [facility] This lab was ordered by [facility] and reported by [employer] ID Date Data Source [id number] 10/10/2020 10:27:00 AM EST [facility] ([facility]) Name Value Range Interpretation Code Description Data Nadia rce(s) Supporting Document(s) Covid Rapid Testing Laboratory test result [facility] ([facility]) ID Date Data Source [id number] 09/24/2020 01:00:00 PM EST [facility] Name Value Range Interpretation Code Description Data Nadia rce(s) Supporting Document(s) SARS coronavirus 2 RNA Detected [facility] This lab was ordered by [facility] and reported by [facility]. ID Date Data Source [id number] 09/23/2020 10:21:00 AM EST [facility] ([facility]) Name Value Range Interpretation Code Description Data Nadia rce(s) Supporting Document(s) Laboratory test finding (navigational concept) Laboratory test result [facility] ([facility]) ID Date Data Source [id number] 06/29/2020 09:00:00 AM EDT [facility] Name Value Range Interpretation Code Description Data Nadia rce(s) Supporting Document(s) SARS coronavirus 2 RNA [facility] This lab was ordered by [facility] and reported by [facility]. ID Date Data Source [id number] 06/28/2020 08:18:00 AM EDT [facility] ([facility]) Name Value Range Interpretation Code Description Data Nadia rce(s) Supporting Document(s) Hemoglobin A1c 6.4 % [facility] ([facility]) <content>REFERENCE RANGES:</content><br/ ><content></content>
<content><=5.6% NORMAL</content>
<content>5.7-6.4% SUGGESTS IMPAIRED GLUCOSE METABOLISM/PREDIABETIC</content>
<content>>= 6.5% ABNORMAL</content>
<content></content> Estimated Average Glucose 137 mg/dL 60-110 [facility] ([facility]) ID Date Data Source [id number] 06/28/2020 08:18:00 AM EDT [facility] ([facility]) Name Value Range Interpretation Code Description Data Nadia rce(s) Supporting Document(s) Blood Urea Nitrogen 12 mg/dL 7-18 [facility] ([facility]) Glucose, Fasting 210 mg/dL 70-100 [facility] ([facility]) Creatinine For GFR 0.92 mg/dL 0.55-1.30 [facility] ([facility]) Glomerular Filtration Rate [facility] <content>Units are mL/min/1.73 m2</content>
<content></content>
<content>Chronic Kidney Disease Staging per NKF:</content>
<content></content>
<content>Stage I & II GFR >=60 Normal to Mildly Decreased</content>
<content>Stage III GFR 30- 59 Moderately Decreased</content>
<content>Stage IV GFR 15-29 Severely Decreased</content>
<content>Stage V GFR <15 Very Little GFR Left</content>
<content>ESRD GFR <15 on ESTIMATOR BINDING</content>
<content></content> Sodium Level 130 meq/L 136-145 [facility] ([facility]) Carbon Dioxide Level 28 meq/L 21-32 [facility] ([facility]) Potassium Serum 4.0 meq/L 3.5-5.1 [facility] ([facility]) Chloride Level 93 meq/L 98-107 [facility] ([facility]) Anion Gap 9 meq/L 8-16 [facility] ([facility]) Calcium Level 8.4 mg/dL 8.8-10.2 [facility] ([facility]) ID Date Data Source [id number] 06/04/2020 12:00:00 AM EDT [facility] Rica German MD Patient Name: JUDY CHAIDEZ [id number] [facility] 1955[facility] [place] [address] Date of Exam: 06/04/2020#: Fax: [phone] EXAM: [...] navicular fracture as described above.Accredited by the [employer] in [place].SYDNEE Mohr/Astrid you for referring JUDY CHAIDEZ to our office. Electronically Signed - OPAL NELSON DO 06/05/20 16:33 Name Value Range Interpretation Code Description Data Nadia rce(s) Supporting Document(s) ID Date Data Source [id number] 06/01/2020 09:00:00 AM EDT [facility] Name Value Range Interpretation Code Description Data Nadia rce(s) Supporting Document(s) SARS coronavirus 2 RNA [facility] This lab was ordered by [facility] and reported by [facility]. Procedure Social History Code Duration Value Status Description Data Source(s ) Smoking 06/13/2021 12:00:00 AM EDT Former Smoker completed Former Smoker eCW1 ([facility]) Smoking 04/30/2021 12:00:00 AM EDT Unknown if ever smoked comp leted Unknown if [facility] smoked [facility] Smoking 04/23/2021 12:00:00 AM EDT Patient is a former smoker completed Patient is a former smoker [facility] ([facility]) Smoking 04/17/2021 12:00:00 AM EDT Patient is a former smoker completed Patient is a former smoker [facility] ([facility] ) Smoking 03/07/2021 12:00:00 AM EDT Former Smoker completed Former Smoker eCW1 ([facility]) Smoking 03/07/2021 12:00:00 AM EDT Former Smoker completed Former Smoker eCW1 ([facility]) Smoking 03/07/2021 12:00:00 AM EDT Former Smoker completed Former Smoker eCW1 ([facility]) Smoking 03/07/2021 12:00:00 AM EDT Former Smoker completed Former Smoker eCW1 ([facility]) Smoking 03/07/2021 12:00:00 AM EDT Former Smoker completed Former Smoker eCW1 ([facility]) Smoking 01/30/2021 12:00:00 AM EDT Unknown if ever smoked comp leted Unknown if ever smoked [facility] ([facility]) Smoking 01/29/2021 12:00:00 AM EDT Former Smoker completed Former Smoker eCW1 ([facility]) Smoking 01/29/2021 12:00:00 AM EDT Former Smoker completed Former Smoker eCW1 ([facility]) Smoking 01/29/2021 12:00:00 AM EDT Former Smoker completed Former Smoker eCW1 ([facility]) Alcohol intake 01/10/2021 12:00:00 AM EDT Current non-d portia of alcohol (finding) completed Current non-drinker of alcohol (finding) [facility] Smoking 12/16/2020 12:00:00 AM EDT Former Smoker completed Former Smoker eCW1 ([facility]) Smoking 12/16/2020 12:00:00 AM EDT Former Smoker completed Former Smoker eCW1 ([facility]) Smoking 12/16/2020 12:00:00 AM EDT Former Smoker completed Former Smoker eCW1 ([facility]) Smoking 12/16/2020 12:00:00 AM EDT Former Smoker completed Former Smoker eCW1 ([facility]) Smoking 12/16/2020 12:00:00 AM EDT Former Smoker completed Former Smoker eCW1 ([facility]) Smoking 12/16/2020 12:00:00 AM EDT Former Smoker completed Former Smoker eCW1 ([facility]) Smoking 11/29/2020 12:00:00 AM EST Former Smoker completed Former Smoker eCW1 ([facility]) Smoking 11/29/2020 12:00:00 AM EST Former Smoker completed Former Smoker eCW1 ([facility]) Smoking 10/24/2020 12:00:00 AM EST Former Smoker completed Former Smoker eCW1 ([facility]) Smoking 09/05/2020 12:00:00 AM EST Former Smoker completed Former Smoker eCW1 ([facility]) Smoking 09/05/2020 12:00:00 AM EST Former Smoker completed Former Smoker eCW1 ([facility]) Smoking 09/05/2020 12:00:00 AM EST Former Smoker completed Former Smoker eCW1 ([facility]) Smoking 09/05/2020 12:00:00 AM EST Former Smoker completed Former Smoker eCW1 ([facility]) Smoking 09/05/2020 12:00:00 AM EST Former Smoker completed Former Smoker eCW1 ([facility]) Smoking 09/05/2020 12:00:00 AM EST Former Smoker completed Former Smoker eCW1 ([facility]) Smoking 07/04/2020 12:00:00 AM EDT Unknown if ever smoked comp leted Unknown if ever smoked [facility] ([facility]) Smoking 06/27/2020 12:00:00 AM EDT Former Smoker completed Former Smoker eCW1 ([facility]) Smoking 06/27/2020 12:00:00 AM EDT Former Smoker completed Former Smoker eCW1 ([facility]) Smoking 06/27/2020 12:00:00 AM EDT Former Smoker completed Former Smoker eCW1 ([facility]) Smoking 06/27/2020 12:00:00 AM EDT Former Smoker completed Former Smoker eCW1 ([facility]) Smoking 06/27/2020 12:00:00 AM EDT Former Smoker completed Former Smoker eCW1 ([facility]) Smoking 06/27/2020 12:00:00 AM EDT Former Smoker completed Former Smoker eCW1 ([facility]) Smoking 06/27/2020 12:00:00 AM EDT Former Smoker completed Former Smoker eCW1 ([facility]) Smoking 06/27/2020 12:00:00 AM EDT Former Smoker completed Former Smoker eCW1 ([facility]) Vital Signs ID Date Data Source UNK Name Value Range Interpretation Code Description Data Source(s) Body temperature 98.0 [degF] 98.0 [degF] [facility] ([facility]) Body weight 197 [lb_av] 197 [lb_av] eCW1 ([facility]) Body height 63.5 [in_i] 63.5 [in_i] eCW1 ([facility]) Body mass index (BMI) [Ratio] 34.35 kg/m2 34.35 kg/m2 eCW1 ([facility]) Heart rate 88 /min 88 /min eCW1 ([facility]) Respiratory rate 18 /min 18 /min eCW1 ([facility]) Body temperature 97.2 [degF] 97.2 [degF] eCW1 ( [facility]) Systolic blood pressure 130 mm[Hg] 130 mm[Hg] e CW1 ([facility]) Diastolic blood pressure 70 mm[Hg] 70 mm[Hg] eCW1 ([facility]) Body temperature 97.2 [degF] 97.2 [degF] [facility] ([facility] ) Diastolic blood pressure 80 mm[Hg] 80 mm[Hg] [facility] ([facility] ) Heart rate 80 /min 80 /min [facility] ([facility] ) Body height 61.7 [in_i] 61.7 [in_i] [facility] ([facility]) 5'1.70" Systolic blood pressure 136 mm[Hg] 136 mm[Hg] M EDENT ([facility]) Body weight 201.00 [lb_av] 201.00 [lb_av] MEDEN T ([facility] ) Body mass index (BMI) [Ratio] 37.1 kg/m2 37.1 k g/m2 [facility] ([facility] ) Oxygen saturation in Arterial blood by Pulse oximetry 96 % 96 % [facility] ([facility]) Body mass index (BMI) [Ratio] 34.5 kg/m2 34.5 k g/m2 [facility] ([facility]) Body weight 195.00 [lb_av] 195.00 [lb_av] MEDEN T ([facility]) Body height 63 [in_i] 63 [in_i] [facility] ([facility]) 5'3" Systolic blood pressure 150 mm[Hg] 150 mm[Hg] M EDENT ([facility]) Diastolic blood pressure 90 mm[Hg] 90 mm[Hg] [...] pressure 142 mm[Hg] 142 mm[Hg] M EDENT ([facility]) Diastolic blood pressure 64 mm[Hg] 64 mm[Hg] [facility] ([facility]) Heart rate 78 /min 78 /min [facility] ([facility]) Body height 61.7 [in_i] 61.7 [in_i] [facility] ([facility]) 5'1.70" Body weight 199.25 [lb_av] 199.25 [lb_av] MEDEN T ([facility]) Body mass index (BMI) [Ratio] 36.8 kg/m2 36.8 k g/m2 [facility] ([facility]) Oxygen saturation in Arterial blood by Pulse oximetry 95 % 95 % [facility] ([facility]) Body weight 193 [lb_av] 193 [lb_av] eCW1 ([facility]) Body height 63.5 [in_i] 63.5 [in_i] eCW1 ([facility]) Body mass index (BMI) [Ratio] 33.65 kg/m2 33.65 kg/m2 W1 ([facility]) Heart rate 74 /min 74 /min eCW1 ([facility]) Respiratory rate 18 /min 18 /min eCW1 ([facility]) Body temperature 97.5 [degF] 97.5 [degF] eCW1 ( [facility]) Systolic blood pressure 116 mm[Hg] 116 mm[Hg] e CW1 ([facility]) Diastolic blood pressure 66 mm[Hg] 66 mm[Hg] eCW1 ([facility]) Body height 0.00 in Normal (applies to non-numeric resu lts) 0.00 in [facility] ([facility]) Body weight Measured 0.00 lbs Normal (applies to n on-numeric results) 0.00 lbs [facility] ([facility]) Body mass index (BMI) [Ratio] 0.00 kg/m2 No rmal (applies to non-numeric results) 0.00 kg/m2 [facility] ([facility]) Systolic blood pressure 0 mm[Hg] Normal (applies t o non-numeric results) 0 mm[Hg] [facility] ([facility]) Diastolic blood pressure 0 mm[Hg] Normal (applies to non-numeric results) 0 mm[Hg] [facility] ([facility]) Body weight 204 [lb_av] 204 [lb_av] eCW1 ([facility]) Body height 63.5 [in_i] 63.5 [in_i] eCW1 ([facility]) Body mass index (BMI) [Ratio] 35.57 kg/m2 35.57 kg/m2 eCW1 ([facility]) Heart rate 82 /min 82 /min eCW1 ([facility]) Respiratory rate 18 /min 18 /min eCW1 ([facility]) Body temperature 97.1 [degF] 97.1 [degF] eCW1 ( [facility]) Systolic blood pressure 110 mm[Hg] 110 mm[Hg] e CW1 ([facility]) Diastolic blood pressure 70 mm[Hg] 70 mm[Hg] eCW1 ([facility]) Systolic blood pressure 126 mm[Hg] 126 mm[Hg] [facility] Diastolic blood pressure 62 mm[Hg] 62 mm[Hg] [facility] Heart rate 74 /min 74 /min [facility] Body height 160 cm 160 cm [facility] Body weight 91.808 kg 91.808 kg [facility] Body mass index (BMI) [Ratio] 35.85 kg/m2 35.85 kg/m2 [facility] Oxygen saturation in Arterial blood by Pulse oximetry 96 % 96 % [facility] Systolic blood pressure 139 mm[Hg] 139 mm[facility]Hg[facility] Diastolic blood pressure [...] Body weight 197.8 [lb_av] 197.8 [lb_av] eCW1 ([facility]) Body height 63.5 [in_i] 63.5 [in_i] eCW1 ([facility]) Body mass index (BMI) [Ratio] 34.49 kg/m2 34.49 kg/m2 eCW1 ([facility]) Heart rate 77 /min 77 /min eCW1 ([facility]) Respiratory rate 18 /min 18 /min eCW1 ([facility]) Body temperature 96.5 [degF] 96.5 [degF] eCW1 ( [facility]) Body temperature 91.8 [degF] 91.8 [degF] [facility] ([facility]) Body weight 200 [lb_av] 200 [lb_av] eCW1 ([facility]) Body height 63.5 [in_i] 63.5 [in_i] eCW1 ([facility]) Body mass index (BMI) [Ratio] 34.87 kg/m2 34.87 kg/m2 eCW1 ([facility]) Heart rate 82 /min 82 /min eCW1 ([facility]) Respiratory rate 18 /min 18 /min eCW1 ([facility]) Body temperature 96.6 [degF] 96.6 [degF] eCW1 ( [facility]) Systolic blood pressure 130 mm[Hg] 130 mm[Hg] e CW1 ([facility]) Diastolic blood pressure 70 mm[Hg] 70 mm[Hg] eCW1 ([facility]) Body temperature 96.6 [degF] 96.6 [degF] [facility] ([facility]) Body temperature 96.8 [degF] 96.8 [degF] [facility] ([facility]) Body weight 210 [lb_av] 210 [lb_av] eCW1 ([facility]) Body height 63.5 [in_i] 63.5 [in_i] eCW1 ([facility]) Body mass index (BMI) [Ratio] 36.61 kg/m2 36.61 kg/m2 eCW1 ([facility]) Heart rate 82 /min 82 /min eCW1 ([facility]) Respiratory rate 18 /min 18 /min eCW1 ([facility]) Body temperature 96.4 [degF] 96.4 [degF] eCW1 ( [facility]) Systolic blood pressure 140 mm[Hg] 140 mm[Hg] e CW1 ([facility]) Diastolic blood pressure 72 mm[Hg] 72 mm[Hg] eCW1 ([facility]) Body temperature 97.5 [degF] 97.5 [degF] [facility] ([facility]) Body temperature 96.3 [degF] 96.3 [degF] [facility] ([facility]) Body temperature 96.3 [degF] 96.3 [degF] [facility] ([facility]) Body weight 214 [lb_av] 214 [lb_av] eCW1 ([facility]) Body height 63.5 [in_i] 63.5 [in_i] eCW1 ([facility]) Body mass index (BMI) [Ratio] 37.31 kg/m2 37.31 kg/m2 eCW1 ([facility]) Heart rate 88 /min 88 /min eCW1 ([facility]) Respiratory rate 18 /min 18 /min eCW1 ([facility]) Body temperature 96 [degF] 96 [degF] eCW1 ([facility]) Systolic blood pressure 130 mm[Hg] 130 mm[Hg] e CW1 ([facility]) Diastolic blood pressure 70 mm[Hg] 70 mm[Hg] eCW1 ([facility]) Patient Treatment Plan of Care Planned Activity Planned Date Details Description Data Source (s) Amlodipine 10 MG Oral Tablet 01/10/2021 12:00:00 AM EDT [facility] pregabalin 100 MG Oral Capsule 12/24/2020 12:00:00 AM EDT [facility] NITROFURANTOIN, MACROCRYSTALS 25 MG / Ni trofurantoin, Monohydrate 75 MG Oral Capsule [Macrobid] 12/19/2020 12:00:00 AM EDT eC W1 ([facility]) NITROFURANTOIN, MACROCRYSTALS 25 MG / Ni trofurantoin, Monohydrate 75 MG Oral Capsule [Macrobid] 12/19/2020 12:00:00 AM EDT eC W1 ([facility]) NITROFURANTOIN, MACROCRYSTALS 25 MG / Ni trofurantoin, Monohydrate 75 MG Oral Capsule [Macrobid] 12/19/2020 12:00:00 AM EDT eC W1 ([facility]) NITROFURANTOIN, MACROCRYSTALS 25 MG / Ni trofurantoin, Monohydrate 75 MG Oral Capsule [Macrobid] 12/19/2020 12:00:00 AM EDT eC W1 ([facility]) NITROFURANTOIN, MACROCRYSTALS 25 MG / Ni trofurantoin, Monohydrate 75 MG Oral Capsule [Macrobid] 12/19/2020 12:00:00 AM EDT eC W1 ([facility]) NITROFURANTOIN, MACROCRYSTALS 25 MG / Ni trofurantoin, Monohydrate 75 MG Oral Capsule 12/02/2020 12:00:00 AM EDT eCW1 ([facility]) NITROFURANTOIN, MACROCRYSTALS 25 MG / Ni trofurantoin, Monohydrate 75 MG Oral Capsule 12/02/2020 12:00:00 AM EDT eCW1 ([facility]) [place] 10-325 MG 10/11/2020 12:00:00 AM EST eCW1 ([facility]) [place] 10-325 MG 10/11/2020 12:00:00 AM EST eCW1 ([facility]) Acetaminophen 325 MG / Hydrocodone Bitartrate 10 MG Or al Tablet [[place]] 10/11/2020 12:00:00 AM EST eCW1 ([facility]) Acetaminophen 325 MG / Hydrocodone Bitartrate 10 MG Or al Tablet [[place]] 10/11/2020 12:00:00 AM EST eCW1 ([facility]) Acetaminophen 325 MG / Hydrocodone Bitartrate 10 MG Or al Tablet [[place]] 10/11/2020 12:00:00 AM EST eCW1 ([facility]) Acetaminophen 325 MG / Hydrocodone Bitartrate 10 MG Or al Tablet [[place]] 10/11/2020 12:00:00 AM EST eCW1 ([facility]) Acetaminophen 325 MG / Hydrocodone Bitartrate 10 MG Or al Tablet [[place]] 09/11/2020 12:00:00 AM EST eCW1 ([facility]) Acetaminophen 325 MG / Hydrocodone Bitartrate 10 MG Or al Tablet [[place]] 08/14/2020 12:00:00 AM EST eCW1 ([facility]) Amlodipine 10 MG Oral Tablet 08/09/2020 12:00:00 AM EST [facility] Acetaminophen 325 MG / Hydrocodone Bitartrate 10 MG Or al Tablet [[place]] 07/16/2020 12:00:00 AM EDT eCW1 ([facility]) Acetaminophen 325 MG / Hydrocodone Bitartrate 10 MG Or al Tablet [[place]] 07/16/2020 12:00:00 AM EDT eCW1 ([facility]) 120 ACTUAT Fluticasone propionate 0.044 MG/ACTUAT Metered Dose Inhaler [Flovent] 06/27/2020 12:00:00 AM EDT eCW1 ([facility]) 200 ACTUAT Albuterol 0.09 MG/ACTUAT Metered Dose Inhal er [ProAir] 06/27/2020 12:00:00 AM EDT eCW1 ([facility]) 200 ACTUAT Albuterol 0.09 MG/ACTUAT Metered Dose Inhal er [ProAir] 06/27/2020 12:00:00 AM EDT eCW1 ([facility]) 120 ACTUAT Fluticasone propionate 0.044 MG/ACTUAT Metered Dose Inhaler [Flovent] 06/27/2020 12:00:00 AM EDT eCW1 ([facility]) 200 ACTUAT Albuterol 0.09 MG/ACTUAT Metered Dose Inhal er [ProAir] 06/27/2020 12:00:00 AM EDT eCW1 ([facility]) 120 ACTUAT Fluticasone propionate 0.044 MG/ACTUAT Metered Dose Inhaler [Flovent] 06/27/2020 12:00:00 AM EDT eCW1 ([facility]) 200 ACTUAT Albuterol 0.09 MG/ACTUAT Metered Dose Inhal er [ProAir] 06/27/2020 12:00:00 AM EDT eCW1 ([facility]) 120 ACTUAT Fluticasone propionate 0.044 MG/ACTUAT Metered Dose Inhaler [Flovent] 06/27/2020 12:00:00 AM EDT eCW1 ([facility]) 200 ACTUAT Albuterol 0.09 MG/ACTUAT Metered Dose Inhal er [ProAir] 06/27/2020 12:00:00 AM EDT eCW1 ([facility]) 120 ACTUAT Fluticasone propionate 0.044 MG/ACTUAT Metered Dose Inhaler [Flovent] 06/27/2020 12:00:00 AM EDT eCW1 ([facility]) 200 ACTUAT Albuterol 0.09 MG/ACTUAT Metered Dose Inhal er [ProAir] 06/27/2020 12:00:00 AM EDT eCW1 ([facility]) 120 ACTUAT Fluticasone propionate 0.044 MG/ACTUAT Metered Dose Inhaler [Flovent] 06/27/2020 12:00:00 AM EDT eCW1 ([facility]) 200 ACTUAT Albuterol 0.09 MG/ACTUAT Metered Dose Inhal er [ProAir] 06/27/2020 12:00:00 AM EDT eCW1 ([facility]) 120 ACTUAT Fluticasone propionate 0.044 MG/ACTUAT Metered Dose Inhaler [Flovent] 06/27/2020 12:00:00 AM EDT eCW1 ([facility]) 200 ACTUAT Albuterol 0.09 MG/ACTUAT Metered Dose Inhal er [ProAir] 06/27/2020 12:00:00 AM EDT eCW1 ([facility]) 120 ACTUAT Fluticasone propionate 0.044 MG/ACTUAT Metered Dose Inhaler [Flovent] 06/27/2020 12:00:00 AM EDT eCW1 ([facility]) 200 ACTUAT Albuterol 0.09 MG/ACTUAT Metered Dose Inhal er [ProAir] 06/27/2020 12:00:00 AM EDT eCW1 ([facility]) 120 ACTUAT Fluticasone propionate 0.044 MG/ACTUAT Metered Dose Inhaler [Flovent] 06/27/2020 12:00:00 AM EDT eCW1 ([facility]) 200 ACTUAT Albuterol 0.09 MG/ACTUAT Metered Dose Inhal er [ProAir] 06/27/2020 12:00:00 AM EDT eCW1 ([facility]) 120 ACTUAT Fluticasone propionate 0.044 MG/ACTUAT Metered Dose Inhaler [Flovent] 06/27/2020 12:00:00 AM EDT eCW1 ([facility]) 120 ACTUAT Fluticasone propionate 0.044 MG/ACTUAT Metered Dose Inhaler [Flovent] 06/27/2020 12:00:00 AM EDT eCW1 ([facility]) 200 ACTUAT Albuterol 0.09 MG/ACTUAT Metered Dose Inhal er [ProAir] 06/27/2020 12:00:00 AM EDT eCW1 ([facility]) 120 ACTUAT Fluticasone propionate 0.044 MG/ACTUAT Metered Dose Inhaler [Flovent] 06/27/2020 12:00:00 AM EDT eCW1 ([facility]) 200 ACTUAT Albuterol 0.09 MG/ACTUAT Metered Dose Inhal er [ProAir] 06/27/2020 12:00:00 AM EDT eCW1 ([facility]) 120 ACTUAT Fluticasone propionate 0.044 MG/ACTUAT Metered Dose Inhaler [Flovent] 06/27/2020 12:00:00 AM EDT eCW1 ([facility]) 200 ACTUAT Albuterol 0.09 MG/ACTUAT Metered Dose Inhal er [ProAir] 06/27/2020 12:00:00 AM EDT eCW1 ([facility]) 120 ACTUAT Fluticasone propionate 0.044 MG/ACTUAT Metered Dose Inhaler [Flovent] 06/27/2020 12:00:00 AM EDT eCW1 ([facility]) 200 ACTUAT Albuterol 0.09 MG/ACTUAT Metered Dose Inhal er [ProAir] 06/27/2020 12:00:00 AM EDT eCW1 ([facility]) 200 ACTUAT Albuterol 0.09 MG/ACTUAT Metered Dose Inhal er [ProAir] 06/27/2020 12:00:00 AM EDT eCW1 ([facility]) 120 ACTUAT Fluticasone propionate 0.044 MG/ACTUAT Metered Dose Inhaler [Flovent] 06/27/2020 12:00:00 AM EDT eCW1 ([facility]) 120 ACTUAT Fluticasone propionate 0.044 MG/ACTUAT Metered Dose Inhaler [Flovent] 06/27/2020 12:00:00 AM EDT eCW1 ([facility]) 200 ACTUAT Albuterol 0.09 MG/ACTUAT Metered Dose Inhal er [ProAir] 06/27/2020 12:00:00 AM EDT eCW1 ([facility]) 120 ACTUAT Fluticasone propionate 0.044 MG/ACTUAT Metered Dose Inhaler [Flovent] 06/27/2020 12:00:00 AM EDT eCW1 ([facility]) 200 ACTUAT Albuterol 0.09 MG/ACTUAT Metered Dose Inhal er [ProAir] 06/27/2020 12:00:00 AM EDT eCW1 ([facility]) 120 ACTUAT Fluticasone propionate 0.044 MG/ACTUAT Metered Dose Inhaler [Flovent] 06/27/2020 12:00:00 AM EDT eCW1 ([facility]) 200 ACTUAT Albuterol 0.09 MG/ACTUAT Metered Dose Inhal er [ProAir] 06/27/2020 12:00:00 AM EDT eCW1 ([facility]) gabapentin 300 MG Oral Capsule 04/15/2020 12:00:00 AM EDT [facility] Famotidine 10 MG Oral Tablet 04/03/2020 12:00:00 AM EDT [facility] Methylprednisolone 32 MG Oral Tablet 02/20/2020 12:00:00 AM EDT [facility] Diphenhydramine Hydrochloride 25 MG Oral Capsule [Andrew phen] 02/20/2020 12:00:00 AM EDT [facility] gabapentin 800 MG Oral Tablet 02/19/2020 12:00:00 AM EDT [facility] Estradiol 0.1 MG/ML Vaginal Cream [Estrace] 07/11/2019 12:00:00 AM EDT [facility]
[2021-07-17] MEDS ORDERED: DEXTROSE 50% 50 ML SYRINGE IV PRN (18:25)
[2021-07-17] MEDS ORDERED: NS 1,000 ML IV SCH (18:25)
[2021-07-17] MEDS ORDERED: GLUCOSE 4GM CHEW TABLET PO PRN (18:25)
[2021-07-17] MEDS ORDERED: MORPHINE 2 MG/ML 1ML VIAL (J2270) IV ONE (18:25)
[2021-07-17] MEDS ORDERED: GLUCAGON INJ 1MG VIAL SC PRN (18:25)
--- NOTE | 2021-07-17 19:17 | HPEPDOC ---
[facility] Medical History & Physical Date of Admission Jul 17, 2021 Date of Service: Jul 17, 2021 Attending Physician: REGINA HAWKINS MD History and Physical CHIEF COMPLAINT: Dizziness HISTORY OF PRESENT ILLNESS: Ms. Lopez is a 65 yo female who presents to ED via EMS with one day history of dizziness with nausea. Patient describes dizziness as feeling like she is spinning. Pt states she woke up this morning at 0330am feeling dizzy and "feeling like she would fall but she would catch herself". Pt denied headache at the time. Pt then went back to bed and slept till 0700 when she woke up and she was still dizzy, nauseous and had a headache rated a 10/10. She also noticed pain when lifting her head, which was worse than her baseline chronic neck pain. Pt states this has never happened to her before and the dizziness got to a point that she felt unsafe ambulating due to difficulty maintaining her balance. Reports right lower extremity weakness. Reports urinary frequency/urgency/hesitancy of 1 week. Patient tells me she feels like she has a "UTI." Patient also notes loose stool and occasional episodes of diarrhea which began 07/16. Denies changes in vision, vertigo, tinnitus, chest pain, shortness of breath, abdominal pain, vomiting. Denies dysuria, hematuria, hematochezia. denies changes in sensation, changes in gait. In ED, patient found to have Na+ 128, Cl- 96. CBC WNL, troponins negative, BNP 42, TSH 1.21. Respiratory panel negative. EKG normal sinus rhythm. Head CT without contrast significant for possible acute nonhemorrhagic infarct, complete image impression noted below. Patient did receive Florence, acetaminophen 650 headache and chronic pain and tells us that her headache is a 9/10. Patient also reported improved nausea following Zofran given to her in ED. PAST MEDICAL HISTORY: 1. COPD/asthma 2. HTN 3. NIDDM 4. Hypothyroidism 5. HLD 6. Osteoporosis 7. Arthritis 8. DDD with sciatica 9. Bipolar type II disorder 10. Depression/anxiety 11. ROBERT on CPAP 12. GERD PAST SURGICAL HISTORY: 1. T&A 2. Aorticiliac artery bypass 3. Femoral bilateral stent placement secondary to obstruction 4. Gastric bypass surgery 5. Hernia repair 6. Cholecystectomy 7. Appendectomy 8. Right ovary removal 9. Lower back and neck surgery with plate installment 10. Bilateral carpal tunnel repair 11. Left knee and left foot surgery SOCIAL HISTORY: Marital status: Resides in: Home Tobacco use: Former smoker, quit 8-9 years ago, 30 pack-year history ETOH: Denies Illicit drug use: Denies FAMILY HISTORY: Heart disease, renal disease, colon cancer ALLERGIES: Please see below. REVIEW OF SYSTEMS: CONSTITUTIONAL: Denies fever/chills, fatigue HEENT: Headache, dizziness. Denies tinnitus, rhinorrhea, nasal congestion, sore throat CARDIOVASCULAR: Denies chest pain RESPIRATORY: Denies SOB, cough GASTROINTESTINAL: Nausea, diarrhea. Denies vomiting, constipation, abdominal pain GENITOURINARY: Urinary hesitancy, frequency, urgency. Denies dysuria, hematuria MUSCULOSKELETAL: Right lower extremity weakness. NEUROLOGICAL: Denies changes in sensation, numbness/tingling HOME MEDICATIONS: Please see below. PHYSICAL EXAMINATION: VITAL SIGNS: Temperature 96.9, pulse 67, respiratory rate 20, blood pressure 152/69, pulse oximetry 95% on room air. GENERAL APPEARANCE: Alert, awake, laying in bed, NAD. HEENT: NC/AT, EOMI, nares patent, moist mucous membranes, upper and lower dentures, Mallampati 3. CARDIOVASCULAR: RRR, normal heart sounds, no MRG. LUNGS: CTA bilaterally, no WRR, no accessory muscles used. ABDOMEN: Soft, nontender, normal bowel sounds. MUSCULOSKELETAL: Normal ROM. EXTREMITIES: No edema, 2/4 DP/PT pulses. NEUROLOGICAL: CN III-XII grossly intact, 3/5 strength right lower extremity and right upper extremity, 5/5 strength left lower extremity and left upper extremity, sensation grossly intact PSYCHIATRIC: No depressed/anxious mood. LABORATORY DATA: See below. IMAGING: (07/17) CT head without contrast Although there is evidence of deep white matter ischemic change which appears essentially stable when compared to the prior exam of 05/03/2019 there is a potential area of additional deep white matter lucency on the left as described above raising the concern for an acute nonhemorrhagic infarction. This should be correlated clinically and if necessary obtain brain MRI. MICROBIOLOGY: Please see below. ASSESSMENT/PLAN: Judy is a 65-year-old female who presented with new onset dizziness and headache was found to have possible left parietal lobe acute nonhemorrhagic infarct on head CT, she will be admitted for further management and treatment. #Dizziness 2/2 possible acute nonhemorrhagic infarct in left parietal lobe (07/17) Head CT, as noted above Order cardiac risk profile Will order brain MRI Will order echocardiogram Will order head and neck MRA Start ASA, Lipitor 40 PT/OT pending Patient will be monitored on telemetry We will monitor daily labs Discussed patient in further management with neurology (Dr. Saenz), appreciate recommendations #Urinary changes 2/2 possible UTI, acute Patient tells me she had a bladder scan performed in ED today which was normal. UA with reflex pending #Hyponatremia and Hypochloremia, acute, asymptomatic In the ED, Na+ 128 We will give patient 1 bag normal saline We will recheck BMP #COPD/asthma, chronicstable Continue home albuterol, Flovent #ROBERT, chronicstable Continue home CPAP #HTN, chronicstable Continue home amlodipine 10 mg, losartan 100 mg #HLD, chronicstable Start Lipitor 40 mg #NIDDM, chronicstable Start FSBS, SSI #Chronic back and neck pain 2/2 DDD with sciatica, chronic We will give patient 1 dose of morphine 2 mg Continue home celecoxib 200 mg as needed, cyclobenzaprine 10 mg as needed, [place] 1 tab 4 times daily as needed, Lyrica 150 mg #Bipolar disorder type II, chronicstable Continue home Latuda 80 mg #Depression/anxiety, chronicstable Continue home sertraline 150 mg #DVT prophylaxis On Lovenox DIET: Consistent carb ACTIVITY: OOB ad mely., fall precautions DISPO: pending clinical improvement CODE STATUS: Full code Attending Attestation: I saw and evaluated the patient. I agree with the finding and the plan of care as documented in the residents note. Vital Signs Vital Signs Date Time Temp Pulse Resp B/P (MAP) Pulse Ox O2 Delivery O2 Flow Rate FiO2 07/17/21 16:31 96.9 67 20 152/69 (96) 95 Room Air Laboratory Data Labs 24H Laboratory Tests 2 07/17/21 14:04: Coronavirus (COVID-19)(PCR) NEGATIVE, Influenza Type A (RT-PCR) NEGATIVE, Influenza Type B (RT-PCR) NEGATIVE, Respiratory Syncytial Virus (PCR) NEGATIVE 07/17/21 16:15: Immature Granulocyte % (Auto) 0.3, Neutrophils (%) (Auto) 69.1H, Lymphocytes (%) (Auto) 22.2L, Monocytes (%) (Auto) 6.8, Eosinophils (%) (Auto) 1.1, Basophils (%) (Auto) 0.5, Neutrophils # (Auto) 4.4, Lymphocytes # (Auto) 1.4L, Monocytes # (Auto) 0.4, Eosinophils # (Auto) 0.1, Basophils # (Auto) 0.0, Nucleated Red Blood Cells % (auto) 0.0, Anion Gap 2L, Glomerular Filtration Rate > 60.0, Calcium Level 8.9, Total Bilirubin 0.3, Direct Bilirubin 0.1, Aspartate Amino Transf (AST/SGOT) 14, Alanine Aminotransferase (ALT/SGPT) 21, Alkaline Phosphatase 109, Total Creatine Kinase 86, Creatine Kinase MB 2.7, Creatine Kinase MB Relative Index 3.14, Troponin I < 0.02, SR-Rsf-N-Type Natriuretic Peptide 42, Total Protein 6.1L, Albumin 3.7, Albumin/Globulin Ratio 1.5, Thyroid Stimulating Hormone (TSH) 1.210 CBC/BMP Laboratory Tests 07/17/21 16:15 Home Medications Scheduled Amlodipine Besylate (Amlodipine Besylate) 10 Mg Tablet, 10 MG PO DAILY Aspirin (Ecotrin) 81 Mg Tablet.dr, 81 MG PO DAILY Atorvastatin Calcium (Atorvastatin Calcium) 20 Mg Tablet, 20 MG PO DAILY Celecoxib (Celecoxib) 100 Mg Capsule, 100 MG PO BID Ergocalciferol (Vitamin D2) (Vitamin D2) 50,000 Units Cap, 1 CAP PO QWEEK Esomeprazole Magnesium (Esomeprazole Magnesium Dr) 40 Mg Capsule.dr, 40 MG PO DAILY Fluticasone Propionate (Flovent Hfa) 44 Mcg/Act Aer.w.adap, 2 PUFF INH BID Losartan Potassium (Losartan Potassium) 50 Mg Tablet, 50 MG PO BID Lurasidone HCl (Latuda) 80 Mg Tablet, 80 MG PO DAILY Magnesium Oxide (Magnesium Oxide) 400 Mg Tablet, 400 MG PO BID Metformin HCl (Metformin HCl ER) 750 Mg Tab.er.24h, 750 MG PO BID Multivitamins (Thera M Plus Tablet) 1 Each Tablet, 1 TAB PO DAILY Pregabalin (Lyrica) 150 Mg Capsule, 150 MG PO BID Sertraline Hcl (Zoloft) 100 Mg Tablet, 150 MG PO DAILY TOTAL OF 150 Scheduled PRN Albuterol Sulfate (Ventolin Hfa) 18 Gm Hfa.aer.ad, 2 PUFF INH Q4-6HP PRN for wheezing Cyclobenzaprine HCl (Cyclobenzaprine HCl) 10 Mg Tablet, 10 MG PO PRN PRN for MUSCLE SPASMS Docusate Sodium (Stool Softener) 100 Mg Capsule, 100 MG PO BID PRN for CONSTIPATION Hydrocodone/Acetaminophen (Hydrocodone-Acetamin 10-325 mg) 1 Each Tablet, 1 TAB PO QIDP PRN for pain Trazodone HCl (Trazodone HCl) 50 Mg Tablet, PO QHS PRN for SLEEP Miscellaneous Medications Sertraline Hcl (Zoloft) 50 Mg Tablet, 150 MG PO TOTAL OF 150 Allergies Coded Allergies: Contrast Media (Verified Allergy, Mild, rash, 06/27/20) Penicillins (Verified Allergy, Mild, rash, 06/27/20) cephalexin (Verified Allergy, Mild, rash, 06/27/20) FRITZ PALAFOX OMS-4 Jul 17, 2021 18:35 Gabrielle Connor DO Jul 17, 2021 19:17 REGINA HAWKINS MD Jul 18, 2021 06:36
[2021-07-17] MEDS ORDERED: NORCO, ANEXSIA 5/325MG TABLET (HYDROcodone/ACETAMINOPHEN) PO PRN (19:45)
[2021-07-17] MEDS: ASPIRIN 325 MG TAB PO SCH (19:54)
[2021-07-17] MEDS ORDERED: LATU80TA PO (20:15)
[2021-07-17] MEDS ORDERED: VITMTA PO (20:15)
[2021-07-17] MEDS ORDERED: ECOT81TA5 PO (20:15)
[2021-07-17] MEDS ORDERED: ZOLO100T PO (20:15)
[2021-07-17] MEDS ORDERED: HOME MED LIST COMPLETE! XX SCH (20:15)
[2021-07-17] MEDS ORDERED: ZOLO50TA PO (20:15)
[2021-07-17] MEDS ORDERED: CELE1CAP7 PO (20:15)
[2021-07-17] MEDS ORDERED: LOSA50TA88 PO (20:21)
--- NOTE | 2021-07-17 20:24 | ECGEPIP ---
[facility] - ED Test Date: 2021-07-17 Pat Name: ANDREW CHAIDEZ Department: Room: - Gender: Female Retrieval Specialist: JUAN DIEGODARIN : 1955 Requested By: MARIE GONZALEZ Order Number: [id number] Reading MD: Virginia Burnett Measurements Intervals [place] Rate: 70 P: 21 RI: 162 QRS: 19 QRSD: 74 T: 59 QT: 390 QTc: 421 Interpretive Statements Normal sinus rhythm increased rate 11/05/18 Electronically Signed on 07-17-2021 20:24:02 EDT by Virginia Burnett
[2021-07-17] MEDS: NITROFURANTOIN (MACROBID) 100 MG CAP PO SCH (22:49)
[2021-07-17] MEDS: HumaLOG INSULIN (NovoLOG) PER UNIT SC SCH (22:50)
[2021-07-17] MEDS: ATORVASTATIN 20 MG TAB PO SCH (22:50)
[2021-07-17] MEDS ORDERED: ANEXSIA, NORCO 7.5MG/325MG TABLET(HYDROCODONE/APAP) PO PRN (23:50)
[2021-07-18] MEDS: CYCLOBENZAPRINE 10MG TABLET PO PRN ×2 (00:27→14:56)
[2021-07-18] MEDS: PREGABALIN 75 MG CAP(LYRICA) PO SCH ×3 (00:27→22:44)
[2021-07-18] MEDS: LOSARTAN 50MG TABLET PO SCH ×3 (02:47→22:43)
[2021-07-18] MEDS ORDERED: hydrALAZINE 20MG/ML 1ML VIAL (J0360 PER 20MG) IV ONE (04:45)
[2021-07-18] MEDS ORDERED: ALBUTEROL 90 MCG/ACT 8GM HFA INHALER INH PRN (04:50)
[2021-07-18 07:32] LABS: HEMATOCRIT 39.6 % (36.0-47.0); HEMOGLOBIN 13.2 g/dl (12.0-15.5); MEAN CORPUSCULAR HEMOGLOBIN 28.1 pg (27.0-33.0); MEAN CORPUSCULAR HGB CONC 33.3 g/dl (32.0-36.5); MEAN CORPUSCULAR VOLUME 84.4 fl (80.0-96.0); PLATELET COUNT, AUTOMATED 249 10^3/uL (150-450); RED BLOOD COUNT 4.69 10^6/uL (4.00-5.40); WHITE BLOOD COUNT 5.1 10^3/uL (4.0-10.0)
[2021-07-18 07:52] LABS: BLOOD UREA NITROGEN 9 MG/DL (7-18); CARBON DIOXIDE LEVEL 28 MEQ/L (21-32); CHLORIDE LEVEL 100 MEQ/L (98-107); CHOLESTEROL LEVEL 133 MG/DL (<200); CHOLESTEROL RISK RATIO 2.955 (<5); CREATININE FOR GFR 0.76 MG/DL (0.55-1.30); GLOMERULAR FILTRATION RATE > 60.0 (>45); GLUCOSE, FASTING 130 MG/DL (70-100); HDL CHOLESTEROL 45 MG/DL (>40); LDL CHOLESTEROL 46 MG/DL (<100); NON-HDL-C 88 MG/DL; POTASSIUM SERUM 4.3 MEQ/L (3.5-5.1); SODIUM LEVEL 134 MEQ/L (136-145); TRIGLYCERIDES LEVEL 212 MG/DL (<150)
[2021-07-18] MEDS ORDERED: MORPHINE 2 MG/ML 1ML VIAL (J2270) IV ONE (08:40)
[2021-07-18] MEDS: FLUTICASONE HFA 44 MCG 10.6GM INHALER (FLOVENT) INH SCH ×2 (08:48→20:32)
[2021-07-18] MEDS: ENOXAPARIN 40MG/0.4ML SYRINGE (J1650 PER 10MG) SC SCH (09:03)
[2021-07-18] MEDS: NITROFURANTOIN (MACROBID) 100 MG CAP PO SCH ×2 (09:03→23:11)
[2021-07-18] MEDS: SERTRALINE HCL 50 MG TAB PO SCH (09:03)
[2021-07-18] MEDS: HumaLOG INSULIN (NovoLOG) PER UNIT SC SCH ×4 (09:04→21:00)
[2021-07-18] MEDS: ASPIRIN 325 MG TAB PO SCH (10:21)
--- NOTE | 2021-07-18 10:43 | IPNPDOC ---
Text Note Date of Service The patient was seen on 07/18/21. NOTE S: Patient seen and evaluated at bedside this a.m. Reports significant chronic neck and back pain and tells me that she cannot tolerate laying in the hospital bed without additional pain medication. Reports headache, which she tells me is unchanged from initial presentation. Denies photophobia, phonophobia. Reports nausea without vomiting. Patient does tell me she has not asked for nausea or pain medication. Denies changes in vision, chest pain, palpitations, shortness of breath, abdominal pain. O: GEN: Alert, awake, laying in bed, NAD HEENT: NC/AT, EOMI, nares patent, moist mucous membranes, upper and lower dentures CARDIO: RRR, normal heart sounds, no MRG PULM: CTA b/l, no WRR, no accessory muscles used ABD: soft, nontender, nondistended EXTREMITIES: no edema, normal ROM, 2/4 pulses NEURO: CN III through XII grossly intact, 4/5 strength right lower extremity, 3/5 strength right upper extremity, 5/5 strength left lower and upper extremities IMAGING: (07/17) CT head without contrast Although there is evidence of deep white matter ischemic change which appears essentially stable when compared to the prior exam of 05/03/2019 there is a potential area of additional deep white matter lucency on the left as described above raising the concern for an acute nonhemorrhagic infarction. This should be correlated clinically and if necessary obtain brain MRI. A/P: Judy is a 65-year-old female presenting with new onset dizziness and headache, was found to have possible left parietal lobe acute nonhemorrhagic infarct on head CT and right upper and lower extremity weakness on examination, with unchanged symptoms today, pending further imaging. #Dizziness 2/2 possible left parietal lobe acute nonhemorrhagic infarct (07/18) Cardiac risk profile, as noted below Brain MRI pending Echocardiogram pending Head and neck MRA pending Continue ASA 325 mg, Lipitor 40 mg PT/OT pending Continue telemetry Neurology (Dr. Saenz) on consult, appreciate recommendations #Urinary changes 2/2 possible UTI, acute (07/17) UA 2+ LE, 16 WBC. Urine culture pending Continue Macrobid 100 mg twice daily (started 07/17) Of note, bladder scan performed in ED (07/17) normal. #Hyponatremia and Hypochloremia, acute, asymptomaticresolved (07/18) Na+ 134, Cl- 100 Continue to monitor daily BMP Of note, in the ED, Na+ 128 and Cl- 96. Patient received 1 bag of normal saline and responded adequately #NIDDM, chronicstable (07/18) Fasting blood glucose 130 Patient did not receive any Humalog through 07/17 Continue FSBS, SSI #HTN, chronicstable BP this a.m. 149/65. Patient does tell me her BP has been elevated but denies symptoms. While in the room this morning, patient's BP 186/80. Continue home amlodipine 10 mg, losartan 50 mg twice daily #COPD/asthma, chronicstable Continue home albuterol, Flovent #ROBERT, chronicstable Patient was placed on 2L NC overnight due to SPO2 88-93% Continue home CPAP #HLD, chronicstable Continue Lipitor 40 mg #Chronic back and neck pain 2/2 DDD with sciatica, chronic Continue home celecoxib 200 mg as needed, cyclobenzaprine 10 mg as needed, [place] 1 tab 4 times daily as needed, Lyrica 150 mg #Bipolar disorder type II, chronicstable Continue home Latuda 80 mg #Depression/anxiety, chronicstable Continue home sertraline 150 mg #DVT Prophylaxis On Lovenox DIET: Consistent carb ACTIVITY: OOB ad mely., fall precautions DISPO: Pending clinical improvement Attending Attestation: I saw and evaluated the patient. I agree with the finding and the plan of care as documented in the residents note. VS,Baldevbone, I+O VS, Fishbone, I+O Laboratory Tests 07/17/21 16:15 07/18/21 07:17 Vital Signs Date Time Temp Pulse Resp B/P (MAP) Pulse Ox O2 Delivery O2 Flow Rate FiO2 07/18/21 09:04 18 07/18/21 09:03 73 191/79 07/18/21 07:00 99 Nasal Cannula 2.0 07/17/21 16:31 96.9 I&O- Last 24 Hours up to 6 AM 07/18/21 06:00 Intake Total 750 ml Balance 750 ml Gabrielle Connor DO Jul 18, 2021 10:43 REGINA HAWKINS MD Jul 19, 2021 06:37
[2021-07-18] MEDS: NORCO, ANEXSIA 5/325MG TABLET (HYDROcodone/ACETAMINOPHEN) PO PRN ×2 (14:56→22:45)
--- NOTE | 2021-07-18 16:57 | ECHO ---
ECHOCARDIOGRAM DATE OF PROCEDURE: 07/18/2021 Age: 65 Gender: Female Height: 64 inches Weight: 202 pounds Body surface area: 1.97 m2 Inpatient, currently in the emergency room. REFERRING PROVIDER: Hailee Kamara D.O. INDICATION: Cerebrovascular accident (CVA), cardiac source of embolic material? MEASUREMENTS: 2D Measurements RV - 2.4 cm LV - 3.7 cm Septum 12. cm Posterior wall 1.2 cm Aortic root 2.8 cm LA - 4.2 cm LVEF 75% Doppler Measurements: AV - 1.26 m/s LVOT - 0.97 m/s LVOT diameter 1.8 cm MV-E 81, A 92, E/A ratio 0.9 Early mitral deceleration time 243 msec PV - 1.07 m/s Pulmonary artery acceleration time 110 msec PASP 34 mmHg IVC - 1.6 cm COMMENTS: Normal sinus rhythm without intraventricular conduction disturbance. Somewhat challenging study in light of the patient's body habitus, but diagnostically useful information was still obtained. M-mode and 2-dimensional echocardiography was performed with pulse, continuous wave, color flow, and tissue Doppler studies. Borderline concentric left ventricular hypertrophy with hyperkinetic wall motion. Mildly dilated left atrium with grade 1 LV diastolic dysfunction. Normal right heart chamber sizes and motion with single Doppler sign of borderline pulmonary hypertension. Normal IVC size and collapse against an elevated central venous pressure. Normal aortic diameters. Mild aortic valvular sclerosis without functional valvular abnormality. Very slightly thickened mitral annulus but normal leaflet thickness and excursion with no posterior systolic buckling. No more than trace physiologic insufficiency. Normal-appearing tricuspid valve with mild insufficiency. No apparent intracardiac mass or pericardial effusion.
--- NOTE | 2021-07-18 17:58 | REPVR ---
PROCEDURE INFORMATION: Exam: MR Head Without Contrast Exam date and time: 07/18/2021 4:50 PM Age: 65 years old Clinical indication: Condition or disease; Other: CVA TECHNIQUE: Imaging protocol: MR of the head without contrast. COMPARISON: CT Head without contrast 07/17/2021 1:05 PM FINDINGS: No abnormal restriction of diffusion to indicate acute CVA. Midline structures and cerebellar tonsillar position appear normal. Ventricles, cisterns and sulci are symmetric and normal for age. No intracranial mass, midline shift or abnormal extra-axial fluid. No acute intracranial hemorrhage or hemosiderin deposition. Moderate pattern of increased T2 and flair signal in supratentorial white matter. Optic chiasm and pituitary infundibulum appear normal. Normal vascular flow voids in major intracranial arteries and dural venous sinuses. Paranasal sinuses are normally aerated. Mastoid air cells are normally aerated. Optic globes and orbits are unremarkable. IMPRESSION: No acute intracranial abnormality. Specifically no evidence of an acute cortical infarct. Moderate pattern of symmetric chronic supratentorial white matter microvascular ischemic change or less likely chronic demyelination/gliosis Electronically signed by: Andreas Richardson On 07/18/2021 17:57:21 PM
--- NOTE | 2021-07-18 17:59 | REPVR ---
PROCEDURE INFORMATION: Exam: MRA Head Without Contrast; Arteriography Exam date and time: 07/18/2021 4:50 PM Age: 65 years old Clinical indication: Condition or disease; Other: CVA TECHNIQUE: Imaging protocol: Magnetic resonance angiography head without contrast. Exam focused on the arteries. COMPARISON: CT Head without contrast 07/17/2021 1:05 PM FINDINGS: Anterior circulation: Normal flow signal and luminal caliber in the petrous, cavernous and supraclinoid internal carotid arteries. Normal appearance of the anterior cerebral artery branches and middle cerebral artery branches through the MCA trifurcations. No occlusion, high-grade focal stenosis or dissection. No aneurysm. Posterior circulation: Normal distal vertebral arteries, with patent normal caliber basilar artery, and normal superior cerebellar and posterior cerebral arteries. No occlusion, high-grade stenosis or aneurysm. IMPRESSION: Unremarkable MR angiogram of the [place] and intracranial vertebrobasilar system. Electronically signed by: Andreas Richardson On 07/18/2021 17:59:05 PM
--- NOTE | 2021-07-18 18:00 | REPVR ---
PROCEDURE INFORMATION: Exam: MRA Neck Without Contrast Exam date and time: 07/18/2021 4:50 PM Age: 65 years old Clinical indication: Other: CVA TECHNIQUE: Imaging protocol: Magnetic resonance angiography of the neck without contrast. COMPARISON: CT Spine,cervical w/o contrast 02/22/2021 1:49 PM FINDINGS: Slightly limited by motion. Bilateral common carotid arteries, carotid bulbs, internal carotids and proximal external carotid branches show normal symmetric luminal caliber and flow signal. No high-grade stenosis. No occlusion or dissection. Both vertebral arteries are normal in luminal caliber and flow signal to the level of the skull base. No dissection, or occlusion or focal stenosis. No abnormality of the great vessel origins from the aortic arch. IMPRESSION: Unremarkable MR angiogram of the neck. Slightly limited secondary to patient motion. REFERENCES: NASCET CRITERIA. The degree of internal carotid artery stenosis is based on NASCET criteria. Normal is no stenosis. Mild is less than 50% stenosis. Moderate is 50-69% stenosis. Severe is 70% to 99% stenosis. Total occlusion is no detectable patent lumen. Electronically signed by: Andreas Richardson On 07/18/2021 18:00:09 PM
[2021-07-18 22:28] VITALS: BP 166/72
[2021-07-18] MEDS: ATORVASTATIN 20 MG TAB PO SCH (22:44)
[2021-07-19] VITALS (7 sets, daily range): BP systolic 138–180; BP diastolic 63–79
[2021-07-19] MEDS: CYCLOBENZAPRINE 10MG TABLET PO PRN (01:27)
[2021-07-19 06:26] LABS: HEMATOCRIT 37.6 % (36.0-47.0); HEMOGLOBIN 12.6 g/dl (12.0-15.5); MEAN CORPUSCULAR HEMOGLOBIN 27.9 pg (27.0-33.0); MEAN CORPUSCULAR HGB CONC 33.5 g/dl (32.0-36.5); MEAN CORPUSCULAR VOLUME 83.2 fl (80.0-96.0); PLATELET COUNT, AUTOMATED 274 10^3/uL (150-450); RED BLOOD COUNT 4.52 10^6/uL (4.00-5.40); WHITE BLOOD COUNT 5.8 10^3/uL (4.0-10.0)
[2021-07-19 06:42] LABS: BLOOD UREA NITROGEN 12 MG/DL (7-18); CALCIUM LEVEL 9.3 MG/DL (8.8-10.2); CARBON DIOXIDE LEVEL 30 MEQ/L (21-32); CHLORIDE LEVEL 94 MEQ/L (98-107); CREATININE FOR GFR 0.78 MG/DL (0.55-1.30); GLOMERULAR FILTRATION RATE > 60.0 (>45); GLUCOSE, FASTING 128 MG/DL (70-100); POTASSIUM SERUM 4.3 MEQ/L (3.5-5.1); SODIUM LEVEL 132 MEQ/L (136-145)
[2021-07-19] MEDS: FLUTICASONE HFA 44 MCG 10.6GM INHALER (FLOVENT) INH SCH ×2 (07:59→19:58)
--- NOTE | 2021-07-19 08:46 | IPNPDOC ---
Text Note Date of Service The patient was seen on 07/19/21. NOTE Subjective: Patient seen and examined at bedside. No acute overnight events reported. Patient voices no new medical complaints this morning. States her neck pain has improved also states her dizziness has essentially resolved. Objective: Vital Signs: reviewed General: NAD, lying comfortably in bed HEENT: NC/AT, EOMI Neck: supple, no masses Chest: lungs CTA B/L Heart: +S1S2, RRR Abd: soft, mild suprapubic tenderness, ND, +BS Ext: no edema Skin: no rashes Psych: AAOx3 NEURO: CN III through XII grossly intact, 4/5 strength right lower extremity, 3/5 strength right upper extremity, 5/5 strength left lower and upper extremities A/P: 65-year-old female presenting with new onset dizziness and headache, was found to have possible left parietal lobe acute nonhemorrhagic infarct on head CT and right upper and lower extremity weakness on examination, with unchanged symptoms today. MRI/MRA with no acute pathology #Dizziness 2/2 - MRI/MRA/echo completed - no acute pathology, no cardiac source for emboli - Continue ASA 81 mg, Lipitor 20 mg - PT/OT pending - Continue telemetry - Neurology (Dr. Saenz) on consult, appreciate recommendations # UTI - some suprapubic tenderness - will likely obtain CT abd/pelvis - UCx contaminated - Continue Macrobid 100 mg twice daily (started 07/17) - bladder scan performed in ED (07/17) normal. #Hyponatremia and Hypochloremia #NIDDM, chronicstable - Continue FSBS, SSI #HTN - chronicstable - continue home amlodipine 10 mg, losartan 50 mg twice daily #COPD/asthma, chronicstable - Continue home albuterol, Flovent #ROBERT, chronicstable - Continue home CPAP #HLD, chronicstable Continue Lipitor 20 mg #Chronic back and neck pain 2/2 DDD with sciatica, chronic Continue home celecoxib 200 mg as needed, cyclobenzaprine 10 mg as needed, [place] 1 tab 4 times daily as needed, Lyrica 150 mg #Bipolar disorder type II, chronicstable Continue home Latuda 80 mg #Depression/anxiety, chronicstable Continue home sertraline 150 mg #DVT Prophylaxis On Lovenox DISPO: Pending PT eval, transfer to floor VS,Wen, I+O VS, Fishbone, I+O Laboratory Tests 07/19/21 05:55 Vital Signs Date Time Temp Pulse Resp B/P (MAP) Pulse Ox O2 Delivery O2 Flow Rate FiO2 07/19/21 04:00 97.1 66 18 180/79 (112) 94 07/18/21 22:45 Room Air 07/18/21 22:28 2.0 I&O- Last 24 Hours up to 6 AM 07/19/21 06:00 Intake Total 1070 ml Output Total 200 ml Balance 870 ml REGINA HAWKINS MD Jul 19, 2021 08:46
[2021-07-19] MEDS ORDERED: FLUBLOK(EGG FREE)(QUAD)INFLUENZA VACC 0.5ML SYRINGE 18YRS & OLDER IM ONE (09:00)
[2021-07-19] MEDS: HumaLOG INSULIN (NovoLOG) PER UNIT SC SCH ×4 (09:17→19:38)
[2021-07-19] MEDS: ENOXAPARIN 40MG/0.4ML SYRINGE (J1650 PER 10MG) SC SCH (09:28)
[2021-07-19] MEDS: SERTRALINE HCL 50 MG TAB PO SCH (09:30)
[2021-07-19] MEDS: PREGABALIN 75 MG CAP(LYRICA) PO SCH ×2 (09:30→20:09)
[2021-07-19] MEDS: LOSARTAN 50MG TABLET PO SCH ×2 (09:31→20:10)
[2021-07-19] MEDS: NITROFURANTOIN (MACROBID) 100 MG CAP PO SCH ×2 (09:31→20:09)
[2021-07-19] MEDS: LURASIDONE HCL 40 MG TAB (LATUDA) PO SCH (09:31)
[2021-07-19] MEDS ORDERED: MECLIZINE 12.5 MG TAB PO PRN (11:50)
[2021-07-19] MEDS: ASPIRIN 81 MG CHEW TABLET PO SCH (13:09)
[2021-07-19] MEDS: NORCO, ANEXSIA 5/325MG TABLET (HYDROcodone/ACETAMINOPHEN) PO PRN ×2 (13:10→20:09)
[2021-07-19] MEDS: ATORVASTATIN 20 MG TAB PO SCH (20:09)
[2021-07-20] MEDS: NORCO, ANEXSIA 5/325MG TABLET (HYDROcodone/ACETAMINOPHEN) PO PRN ×3 (04:06→20:13)
[2021-07-20 06:00] VITALS: BP 149/69
[2021-07-20 07:07] LABS: HEMATOCRIT 37.2 % (36.0-47.0); HEMOGLOBIN 12.5 g/dl (12.0-15.5); MEAN CORPUSCULAR HEMOGLOBIN 28.2 pg (27.0-33.0); MEAN CORPUSCULAR HGB CONC 33.6 g/dl (32.0-36.5); MEAN CORPUSCULAR VOLUME 83.8 fl (80.0-96.0); PLATELET COUNT, AUTOMATED 253 10^3/uL (150-450); RED BLOOD COUNT 4.44 10^6/uL (4.00-5.40); WHITE BLOOD COUNT 5.7 10^3/uL (4.0-10.0)
[2021-07-20] MEDS: FLUTICASONE HFA 44 MCG 10.6GM INHALER (FLOVENT) INH SCH ×2 (08:01→20:00)
[2021-07-20 08:10] LABS: BLOOD UREA NITROGEN 12 MG/DL (7-18); CALCIUM LEVEL 8.9 MG/DL (8.8-10.2); CARBON DIOXIDE LEVEL 29 MEQ/L (21-32); CHLORIDE LEVEL 94 MEQ/L (98-107); CREATININE FOR GFR 0.79 MG/DL (0.55-1.30); GLOMERULAR FILTRATION RATE > 60.0 (>45); GLUCOSE, FASTING 127 MG/DL (70-100); POTASSIUM SERUM 4.4 MEQ/L (3.5-5.1); SODIUM LEVEL 128 MEQ/L (136-145)
[2021-07-20] MEDS: ASPIRIN 81 MG CHEW TABLET PO SCH (09:12)
[2021-07-20] MEDS: SERTRALINE HCL 50 MG TAB PO SCH (09:13)
[2021-07-20] MEDS: PREGABALIN 75 MG CAP(LYRICA) PO SCH ×2 (09:13→20:12)
[2021-07-20] MEDS: HumaLOG INSULIN (NovoLOG) PER UNIT SC SCH ×4 (09:13→20:21)
[2021-07-20] MEDS: LURASIDONE HCL 40 MG TAB (LATUDA) PO SCH (09:13)
[2021-07-20] MEDS: NITROFURANTOIN (MACROBID) 100 MG CAP PO SCH ×2 (09:13→20:12)
[2021-07-20] MEDS: ENOXAPARIN 40MG/0.4ML SYRINGE (J1650 PER 10MG) SC SCH (09:14)
[2021-07-20] MEDS: LOSARTAN 50MG TABLET PO SCH ×2 (09:15→20:14)
--- NOTE | 2021-07-20 10:15 | CR ---
CONSULTATION DATE: 07/18/2021 REFERRING PHYSICIAN: Gualberto Llamas MD REASON FOR CONSULTATION: Dizziness. HISTORY OF PRESENT ILLNESS: The patient is a 65-year-old woman who was brought to [facility] Emergency Department by emergency medical service (EMS) for dizziness and nausea. The patient states that she woke up 3:30 in the morning on the day of admission and felt dizzy, as if she would fall down, but she was able to catch herself. She felt nausea as well. She denied any headache at that time. The patient went back to sleep and slept to 7 am and woke up and felt dizziness, nauseated with a 10/10 headache. She noted pain when lifting her head. She also felt pain in her neck, which was worse than her baseline. She felt unsafe ambulating due to her dizziness. She felt weakness of her right leg. The patient had urinary frequency, urgency and hesitancy for one week. She felt as if she had urinary tract infection (UTI). She denied dysphagia, dysarthria, diplopia, urinary incontinence, falls, loss of consciousness, head injury or trouble sleeping. DIAGNOSTIC STUDIES: Complete blood count (CBC) and metabolic profile were unremarkable. Total cholesterol was 133, LDL was 46. CT scan of head on my review showed small vessel ischemic disease of brain without acute disease. Several TSH was 1.2, HDL was 45. PAST MEDICAL HISTORY: 1. Chronic obstructive pulmonary disease (COPD). 2. Hypertension. 3. Diabetes. 4. Hypothyroidism. 5. Dyslipidemia. 6. Osteoporosis. 7. Arthritis. 8. Degenerative disc disease of lower back. 9. Bipolar disorder. 10.Depression/anxiety. 11.Sleep apnea. 12.Gastric reflux. 13.Gastric bypass 14.Hernia repair. 15.Cholecystectomy. 16.Appendectomy. 17.Right ovary removal. 18.Bilateral carpal tunnel surgery. 19.Left knee and foot surgery. 20.Iliac artery bypass. SOCIAL HISTORY: She is and lives at home. She is a former smoker. She denies illicit drugs and alcohol intake. FAMILY HISTORY: Significant for heart disease, kidney disease and colon cancer. REVIEW OF SYSTEMS: All systems were reviewed and found to be noncontributory except as mentioned. ALLERGIES: CONTRAST DYE, PENICILLIN, CEPHALOSPORINS. HOME MEDICATIONS: Amlodipine 10 mg by mouth daily, aspirin 81 mg by mouth daily, Lipitor 20 mg by mouth daily, Celebrex 100 mg by mouth twice a day, vitamin D, Nexium 40 mg by mouth daily, losartan 50 mg by mouth twice a day, Latuda 80 mg by mouth daily, magnesium oxide 400 mg by mouth twice a day, metformin 750 mg by mouth twice a day, Lyrica 150 mg by mouth twice a day, Zoloft 100 mg daily, multivitamins one tablet by mouth daily, Flexeril 10 mg by mouth three times a day as needed, Vicodin 10/325 mg by mouth q 8 hours as needed, trazodone 50 mg by mouth every night at bedtime, albuterol inhaler, Colace 100 mg by mouth twice a day. PHYSICAL EXAMINATION: Temperature afebrile. Blood pressure 160/70, pulse 69, respiratory rate 16, 98% saturation on room air. Heart: Regular rate and rhythm. Lungs: Clear to auscultation. Abdomen: Soft, nontender, non-distended. No pedal edema. No musculoskeletal abnormalities. No signs of meningeal irritation. The patient is awake, alert, oriented to place, person and time. Normal speech, comprehension and repetition. Extraocular muscles are intact. No facial weakness. Tongue, uvula are midline. 5/5 strength in all four extremities. There was intermittent activation in right arm and leg during testing. Normal sensation throughout. There is no dysmetria or nystagmus. ASSESSMENT: 1. Dizziness and imbalance. 2. Concern for transient ischemic attack (TIA)/stroke. 3. Vestibular neuronitis is in differential diagnosis. PLAN: 1. MRI and MRA brain and carotid ultrasound. 2. Telemetry monitoring and echocardiogram. 3. Continue aspirin 81 mg by mouth daily and Lipitor 20 mg by mouth daily. 4. Allow permissive hypertension during this admission with fdc blood pressure goal below 130/80. 5. Follow with our office in 2-4 weeks after hospital discharge. 6. Consider physical and occupational therapy in the hospital.
--- NOTE | 2021-07-20 10:54 | IPNPDOC ---
Text Note Date of Service The patient was seen on 07/20/21. NOTE Subjective: Patient seen and examined at bedside. No acute overnight events reported. Patient voices no new medical complaints this morning. States her neck pain has improved also states her dizziness has improved. Objective: Vital Signs: reviewed General: NAD, lying comfortably in bed HEENT: NC/AT, EOMI Neck: supple, no masses Chest: lungs CTA B/L Heart: +S1S2, RRR Abd: soft, NT, ND, +BS Ext: no edema Skin: no rashes Psych: AAOx3 NEURO: CN III through XII grossly intact, 5/5 b/l lower and upper extremities A/P: 65-year-old female presenting with new onset dizziness and headache, was found to have possible left parietal lobe acute nonhemorrhagic infarct on head CT and right upper and lower extremity weakness on examination, with unchanged symptoms today. MRI/MRA with no acute pathology #Dizziness 2/2 - MRI/MRA/echo completed - no acute pathology, no cardiac source for emboli - Continue ASA 81 mg, Lipitor 20 mg - continue with PT - Continue telemetry - Neurology consult appreciated # UTI - UCx contaminated - Continue Macrobid 100 mg twice daily (day 45) - bladder scan performed in ED (07/17) normal. 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, chronic Continue home celecoxib 200 mg as needed, cyclobenzaprine 10 mg as needed, [place] 1 tab 4 times daily as needed, Lyrica 150 mg #Bipolar disorder type II, chronicstable Continue home Latuda 80 mg #Depression/anxiety, chronicstable Continue home sertraline 150 mg #DVT Prophylaxis On Lovenox DISPO: Pending further PT for safe dc home, improved BP control; anticipated dc home in 24-48 hours VS,Fishbone, I+O VS, Fishbone, I+O Laboratory Tests 07/20/21 06:38 Vital Signs Date Time Temp Pulse Resp B/P (MAP) Pulse Ox O2 Delivery O2 Flow Rate FiO2 07/20/21 09:15 175/84 07/20/21 06:00 98.1 75 20 97 Room Air 07/18/21 22:28 2.0 I&O- Last 24 Hours up to 6 AM0 07/20/21 06:00 Intake Total 4320 ml Output Total 4300 ml Balance 20 ml REGINA HAWKINS MD Jul 20, 2021 10:54
[2021-07-20] MEDS: hydroCHLOROthiazide 12.5 MG CAPSULE PO SCH (12:42)
[2021-07-20 14:00] VITALS: BP 132/69
[2021-07-20] MEDS: ATORVASTATIN 20 MG TAB PO SCH (20:13)
[2021-07-20] MEDS: traZODone 50 MG TAB PO PRN (21:38)
[2021-07-20 22:00] VITALS: BP 169/85
[2021-07-21] MEDS: NORCO, ANEXSIA 5/325MG TABLET (HYDROcodone/ACETAMINOPHEN) PO PRN ×3 (03:34→18:30)
[2021-07-21 06:00] VITALS: BP 132/61
[2021-07-21 06:22] LABS: HEMATOCRIT 36.5 % (36.0-47.0); HEMOGLOBIN 12.3 g/dl (12.0-15.5); MEAN CORPUSCULAR HEMOGLOBIN 27.9 pg (27.0-33.0); MEAN CORPUSCULAR HGB CONC 33.7 g/dl (32.0-36.5); MEAN CORPUSCULAR VOLUME 82.8 fl (80.0-96.0); PLATELET COUNT, AUTOMATED 265 10^3/uL (150-450); RED BLOOD COUNT 4.41 10^6/uL (4.00-5.40); WHITE BLOOD COUNT 6.3 10^3/uL (4.0-10.0)
[2021-07-21 06:47] LABS: BLOOD UREA NITROGEN 13 MG/DL (7-18); CALCIUM LEVEL 8.4 MG/DL (8.8-10.2); CARBON DIOXIDE LEVEL 25 MEQ/L (21-32); CHLORIDE LEVEL 88 MEQ/L (98-107); CREATININE FOR GFR 0.81 MG/DL (0.55-1.30); GLOMERULAR FILTRATION RATE > 60.0 (>45); GLUCOSE, FASTING 208 MG/DL (70-100); SODIUM LEVEL 123 MEQ/L (136-145)
[2021-07-21] MEDS: FLUTICASONE HFA 44 MCG 10.6GM INHALER (FLOVENT) INH SCH ×2 (08:04→22:39)
[2021-07-21] MEDS: NITROFURANTOIN (MACROBID) 100 MG CAP PO SCH ×2 (08:22→20:51)
[2021-07-21] MEDS: DOCUSATE SODIUM 100MG CAPSULE PO PRN ×2 (08:22→20:51)
[2021-07-21] MEDS: ASPIRIN 81 MG CHEW TABLET PO SCH (08:22)
[2021-07-21] MEDS: ENOXAPARIN 40MG/0.4ML SYRINGE (J1650 PER 10MG) SC SCH (08:22)
[2021-07-21] MEDS: LURASIDONE HCL 40 MG TAB (LATUDA) PO SCH (08:23)
[2021-07-21] MEDS: SERTRALINE HCL 50 MG TAB PO SCH (08:23)
[2021-07-21] MEDS: PREGABALIN 75 MG CAP(LYRICA) PO SCH ×2 (08:23→20:51)
[2021-07-21] MEDS: hydroCHLOROthiazide 12.5 MG CAPSULE PO SCH (08:24)
[2021-07-21] MEDS: LOSARTAN 50MG TABLET PO SCH ×2 (08:24→20:51)
[2021-07-21] MEDS: HumaLOG INSULIN (NovoLOG) PER UNIT SC SCH ×4 (08:24→20:40)
[2021-07-21 10:59] LABS: OSMOLALITY SERUM 261 MOSM/KG (280-301)
--- NOTE | 2021-07-21 11:42 | IPNPDOC ---
Text Note Date of Service The patient was seen on 07/21/21. NOTE Subjective: Patient seen and examined at bedside. No acute overnight events reported. Patient voices no new medical complaints this morning. Objective: Vital Signs: reviewed General: NAD, lying comfortably in bed HEENT: NC/AT, EOMI Neck: supple, no masses Chest: lungs CTA B/L Heart: +S1S2, RRR Abd: soft, NT, ND, +BS Ext: no edema Skin: no rashes Psych: AAOx3 NEURO: CN III through XII grossly intact A/P: 65-year-old female presenting with new onset dizziness and headache, was found to have possible left parietal lobe acute nonhemorrhagic infarct on head CT and right upper and lower extremity weakness on examination, with unchanged symptoms today. MRI/MRA with no acute pathology #Dizziness - essentially resolved - MRI/MRA/echo completed - no acute pathology, no cardiac source for emboli - Continue ASA 81 mg, Lipitor 20 mg - continue with PT - Continue telemetry - Neurology consult appreciated #hyponatremia - appears to be hypotonic, likely secondary to polydypsia - discussed with patient to limit fluid intake - possibly complicated with HCTZ - started for elevated blood pressure - d/c HCTZ, gentle hydration - recheck BMP later today # UTI - UCx contaminated - Completed 5 day course of macrobid - bladder scan performed in ED (07/17) normal. 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, chronic Continue home celecoxib 200 mg as needed, cyclobenzaprine 10 mg as needed, [place] 1 tab 4 times daily as needed, Lyrica 150 mg #Bipolar disorder type II, chronicstable Continue home Latuda 80 mg #Depression/anxiety, chronicstable Continue home sertraline 150 mg #DVT Prophylaxis On Lovenox DISPO: IV fluids for hyponatremia; anticipated dc home in 24 hours VS,Fishbone, I+O VS, Fishbone, I+O Laboratory Tests 07/21/21 05:38 Vital Signs Date Time Temp Pulse Resp B/P (MAP) Pulse Ox O2 Delivery O2 Flow Rate FiO2 07/21/21 08:24 80 140/58 07/21/21 06:00 97.9 19 99 Room Air 07/18/21 22:28 2.0 I&O- Last 24 Hours up to 6 AM 07/21/21 06:00 Intake Total 3534 ml Output Total 3500 ml Balance 34 ml REGINA HAWKINS MD Jul 21, 2021 11:42
[2021-07-21] MEDS: NS 1,000 ML IV SCH (12:18)
[2021-07-21 14:00] VITALS: BP 151/70
[2021-07-21] MEDS ORDERED: POLYETHYLENE GLYCOL (MIRALAX) 238GM BOTTLE PO ONE (15:00)
[2021-07-21] MEDS: MIRALAX *UNIT DOSE* 17GM PACKET PO SCH ×2 (15:15→20:51)
[2021-07-21 18:42] LABS: BLOOD UREA NITROGEN 16 MG/DL (7-18); CALCIUM LEVEL 8.5 MG/DL (8.8-10.2); CARBON DIOXIDE LEVEL 27 MEQ/L (21-32); CHLORIDE LEVEL 89 MEQ/L (98-107); GLOMERULAR FILTRATION RATE > 60.0 (>45); GLUCOSE, FASTING 227 MG/DL (70-100); POTASSIUM SERUM 4.2 MEQ/L (3.5-5.1); SODIUM LEVEL 124 MEQ/L (136-145)
[2021-07-21] MEDS: ATORVASTATIN 20 MG TAB PO SCH (20:51)
[2021-07-21 22:00] VITALS: BP 155/75
[2021-07-21] MEDS: traZODone 50 MG TAB PO PRN (22:41)
[2021-07-22] MEDS: NS 1,000 ML IV SCH (02:56)
[2021-07-22 06:00] VITALS: BP 146/58
[2021-07-22] MEDS: NORCO, ANEXSIA 5/325MG TABLET (HYDROcodone/ACETAMINOPHEN) PO PRN (06:13)
[2021-07-22 06:43] LABS: HEMATOCRIT 38.1 % (36.0-47.0); HEMOGLOBIN 12.9 g/dl (12.0-15.5); MEAN CORPUSCULAR HEMOGLOBIN 27.9 pg (27.0-33.0); MEAN CORPUSCULAR HGB CONC 33.9 g/dl (32.0-36.5); MEAN CORPUSCULAR VOLUME 82.3 fl (80.0-96.0); PLATELET COUNT, AUTOMATED 283 10^3/uL (150-450); RED BLOOD COUNT 4.63 10^6/uL (4.00-5.40); WHITE BLOOD COUNT 5.3 10^3/uL (4.0-10.0)
[2021-07-22 06:55] LABS: BLOOD UREA NITROGEN 12 MG/DL (7-18); CARBON DIOXIDE LEVEL 28 MEQ/L (21-32); CHLORIDE LEVEL 96 MEQ/L (98-107); CREATININE FOR GFR 0.69 MG/DL (0.55-1.30); GLOMERULAR FILTRATION RATE > 60.0 (>45); GLUCOSE, FASTING 129 MG/DL (70-100); POTASSIUM SERUM 4.1 MEQ/L (3.5-5.1); SODIUM LEVEL 130 MEQ/L (136-145)
[2021-07-22] MEDS: FLUTICASONE HFA 44 MCG 10.6GM INHALER (FLOVENT) INH SCH (07:57)
[2021-07-22] MEDS: HumaLOG INSULIN (NovoLOG) PER UNIT SC SCH (08:55)
[2021-07-22] MEDS: ENOXAPARIN 40MG/0.4ML SYRINGE (J1650 PER 10MG) SC SCH (08:55)
[2021-07-22] MEDS: ASPIRIN 81 MG CHEW TABLET PO SCH (08:56)
[2021-07-22] MEDS: LURASIDONE HCL 40 MG TAB (LATUDA) PO SCH (08:56)
[2021-07-22] MEDS: SERTRALINE HCL 50 MG TAB PO SCH (08:56)
[2021-07-22] MEDS: PREGABALIN 75 MG CAP(LYRICA) PO SCH (08:56)
[2021-07-22] MEDS: NITROFURANTOIN (MACROBID) 100 MG CAP PO SCH (08:56)
[2021-07-22 08:58] VITALS: BP 125/51
[2021-07-22] MEDS: LOSARTAN 50MG TABLET PO SCH (08:59)
[2021-07-22] MEDS: MIRALAX *UNIT DOSE* 17GM PACKET PO SCH (09:00)
[2021-07-22] MEDS: CYCLOBENZAPRINE 10MG TABLET PO PRN (10:33)
[2021-07-22] MEDS ORDERED: ONDANSETRON 4MG/2ML VIAL IV ONE (10:45)
--- NOTE | 2021-07-22 14:41 | DS.PDOC ---
Discharge Summary General Date of Admission Jul 17, 2021 at 17:53 Date of Discharge 07/22/2021 Discharge Summary PROCEDURES PERFORMED DURING STAY: [None]. ADMITTING DIAGNOSES / DISCHARGE DIAGNOSES: s/p Dizziness Hyponatremia - likely 2/2 hypotonic euvolemic / hypovolemic etiology Suspected UTI NIDDM2 HTN COPD ROBERT on CPAP DLP Chronic back and neck pain 2/2 DDD with sciatica Bipolar disorder / Depression / Anxiety DVT Prophylaxis COMPLICATIONS/CHIEF COMPLAINT: Dizziness. HISTORY OF PRESENT ILLNESS: Patient is a 65-year-old female with a PMHx of HTN, NIDDM2, DLP, COPD/Asthma, ROBERT on CPAP, Hypothyroidism, Osteoporosis, Arthritis, DDD w/ sciatica, Bipolar disorder / Depression / Anxiety, GERD who presented to the ER with symptoms of dizziness. Patient reported that the room was spinning. Patient was admitted to the hospital service for further evaluation and treatment. Patient was seen and examined at the bedside. Currently she has reported that she does not experience any more dizziness. Denies any abdominal pain, diarrhea, or urinary discomfort. Denies any chest pain, shortness breath or palpitations. Patient did report some nausea this morning that was alleviated with Zofran. HOSPITAL COURSE: s/p Dizziness - Patient has reported resolution of her symptoms - Imaging noted above - c/w ASA 81 mg, Atorvastatin 20 mg - Neurology on consultation; appreciate their input - Cleared PT for DC Home - Will have outpatient follow-up with neurology and primary care provider within the next 7 days Hyponatremia - likely 2/2 hypotonic euvolemic / hypovolemic etiology - Improved - Patient recently chronically hyponatremic since 2019 - Sodium has improved after discontinuing HCTZ and providing gentle IV fluid hydration - Patient was advised to reduce free water consumption and instead consider some electrolyte based fluids Suspected UTI - s/p 5 day course of Macrobid NIDDM2 - c/w ISS HTN - BP well controlled - s/p HCTZ - c/w Amlodipine / Losartan COPD - No evidence of exacerbation - c/w inhaled therapy as ordered ROBERT on CPAP - c/w CPAP DLP - c/w Atorvastatin Chronic back and neck pain 2/2 DDD with sciatica - c/w Tylenol PRN / Cyclobenzaprine / [place] / Lyrica Bipolar disorder / Depression / Anxiety - c/w Sertraline / Lurasidone DVT Prophylaxis - c/w Lovenox DISCHARGE MEDICATIONS: Please see below. ALLERGIES: Please see below. PHYSICAL EXAMINATION ON DISCHARGE: Vitals (See below) General: Lying in bed, appears comfortable, AAOx3 HEENT: NC, AT CVS: +S1S2 Lungs: Fair air entry b/l, -w/r/r Abdomen: Soft, ND, NT Extremities: - Edema, - Calf tenderness LABORATORY DATA: Please see below. IMAGING: CT head 07/17: Although there is evidence of deep white matter ischemic change which appears essentially stable when compared to the prior exam of 05/03/2019 there is a potential area of additional deep white matter lucency on the left as described above raising the concern for an acute nonhemorrhagic infarction. This should be correlated clinically and if necessary obtain brain MRI. Brain MRI 07/18: No acute intracranial abnormality. Specifically no evidence of an acute cortical infarct. Moderate pattern of symmetric chronic supratentorial white matter microvascular ischemic change or less likely chronic demyelination/gliosis Brain MRA 07/18: Unremarkable MR angiogram of the [place] and intracranial vertebrobasilar system. Carotid artery MRI 07/18: Unremarkable MR angiogram of the neck. Slightly limited secondary to patient motion. ACTIVITY: [As tolerated]. DISCHARGE PLAN: Follow-up with primary care provider, and neurology within the next 7 days Remain compliant with treatment plan and medications Return to the ER if you experience any problems DISPOSITION: Home Health Service. DISCHARGE CONDITION: [Stable]. TIME SPENT ON DISCHARGE: 35 minutes. Vital Signs/I&Os Vital Signs Date Time Temp Pulse Resp B/P (MAP) Pulse Ox O2 Delivery O2 Flow Rate FiO2 07/22/21 08:58 74 125/51 07/22/21 06:43 18 07/22/21 06:00 97.8 96 Room Air 07/18/21 22:28 2.0 I&O- Last 24 Hours up to 6 AM 07/22/21 06:00 Intake Total 1740 ml Output Total 2200 ml Balance -460 ml Laboratory Data Labs 24H Laboratory Tests 2 07/21/21 17:38: Anion Gap 8, Glomerular Filtration Rate > 60.0, Calcium Level 8.5L 07/21/21 17:50: Bedside Glucose (Misc Panel) 224H 07/21/21 20:22: Bedside Glucose (Misc Panel) 167H 07/22/21 06:17: Anion Gap 6L, Glomerular Filtration Rate > 60.0, Calcium Level 9.0, Nucleated Red Blood Cells % (auto) 0.0 CBC/BMP Laboratory Tests 07/21/21 17:38 07/22/21 06:17 FSBS Laboratory Tests Test 07/21/21 17:50 07/21/21 20:22 Range/Units Bedside Glucose (Misc Panel) 224 167 80-115 MG/DL Microbiology Microbiology 07/17/21 Urine Culture - Final, Complete Discharge Medications Scheduled Amlodipine Besylate (Amlodipine Besylate) 10 Mg Tablet, 10 MG PO DAILY, (Reported) Aspirin (Ecotrin) 81 Mg Tablet.dr, 81 MG PO DAILY, (Reported) Atorvastatin Calcium (Atorvastatin Calcium) 20 Mg Tablet, 20 MG PO DAILY, (Reported) Ergocalciferol (Vitamin D2) (Vitamin D2) 50,000 Units Cap, 1 CAP PO QWEEK, (Reported) Esomeprazole Magnesium (Esomeprazole Magnesium Dr) 40 Mg Capsule.dr, 40 MG PO DAILY, (Reported) Fluticasone Propionate (Flovent Hfa) 44 Mcg/Act Aer.w.adap, 2 PUFF INH BID, (Reported) Losartan Potassium (Losartan Potassium) 50 Mg Tablet, 50 MG PO BID, (Reported) Lurasidone HCl (Latuda) 80 Mg Tablet, 80 MG PO DAILY, (Reported) Magnesium Oxide (Magnesium Oxide) 400 Mg Tablet, 400 MG PO BID, (Reported) Metformin HCl (Metformin HCl ER) 750 Mg Tab.er.24h, 750 MG PO BID, (Reported) Multivitamins (Thera M Plus Tablet) 1 Each Tablet, 1 TAB PO DAILY, (Reported) Pregabalin (Lyrica) 150 Mg Capsule, 150 MG PO BID, (Reported) Sertraline Hcl (Zoloft) 100 Mg Tablet, 150 MG PO DAILY, (Reported) TOTAL OF 150 Scheduled PRN Albuterol Sulfate (Ventolin Hfa) 18 Gm Hfa.aer.ad, 2 PUFF INH Q4-6HP PRN for wheezing, (Reported) Cyclobenzaprine HCl (Cyclobenzaprine HCl) 10 Mg Tablet, 10 MG PO PRN PRN for MUSCLE SPASMS, (Reported) Docusate Sodium (Stool Softener) 100 Mg Capsule, 100 MG PO BID PRN for CONSTIPATION, (Reported) Hydrocodone/Acetaminophen (Hydrocodone-Acetamin 10-325 mg) 1 Each Tablet, 1 TAB PO QIDP PRN for pain, (Reported) Trazodone HCl (Trazodone HCl) 50 Mg Tablet, PO QHS PRN for SLEEP, (Reported) Miscellaneous Medications Sertraline Hcl (Zoloft) 50 Mg Tablet, 150 MG PO, (Reported) TOTAL OF 150 Allergies Coded Allergies: Contrast Media (Verified Allergy, Mild, rash, 06/27/20) Penicillins (Verified Allergy, Mild, rash, 06/27/20) cephalexin (Verified Allergy, Mild, rash, 06/27/20) RENAN CASIANO MD Jul 22, 2021 14:41
== END 2021-07-22 11:59 | disposition home health service (06) | DRG 149 ==
LOC: EDBD 12:36 → M ED 12:36 → M ED INP 17:53 → M PCU 07-18 22:11 → M MSPAV 07-19 18:09
PROVIDERS: ADMIT Internal Medicine; ATTEND Internal Medicine
DX: R42 Dizziness and giddiness (principal); F31.81 Bipolar II disorder; E87.1 Hypo-osmolality and hyponatremia; N39.0 Urinary tract infection, site not specified; J44.9 Chronic obstructive pulmonary disease, unspecified; M54.30 Sciatica, unspecified side; I10 Essential (primary) hypertension; E11.9 Type 2 diabetes mellitus without complications; E03.9 Hypothyroidism, unspecified; E78.5 Hyperlipidemia, unspecified; M81.0 Age-related osteoporosis without current pathological fracture; M06.9 Rheumatoid arthritis, unspecified; F41.9 Anxiety disorder, unspecified; F32.A Depression, unspecified; G47.33 Obstructive sleep apnea (adult) (pediatric); K21.9 Gastro-esophageal reflux disease without esophagitis; Z95.828 Presence of other vascular implants and grafts; Z98.84 Bariatric surgery status; Z90.49 Acquired absence of other specified parts of digestive tract; Z90.79 Acquired absence of other genital organ(s); Z98.1 Arthrodesis status; Z87.891 Personal history of nicotine dependence; Z20.822 Contact with and (suspected) exposure to COVID-19; Z79.82 Long term (current) use of aspirin; Z79.84 Long term (current) use of oral hypoglycemic drugs; Z79.899 Other long term (current) drug therapy; Z88.0 Allergy status to penicillin; Z88.1 Allergy status to other antibiotic agents; Z91.041 Radiographic dye allergy status; E87.8 Other disorders of electrolyte and fluid balance, not elsewhere classified

== ENCOUNTER → 2021-08-01 | Outpatient (CLI) | payer MEDICARE, MEDICAID ==
[~2021-08-01] MED LIST changes: +AMLO1TAB25 PO; +CELE1CAP7 PO; +ECOT81TA5 PO; +LATU80TA PO; +LOSA50TA88 PO; +VITMTA PO; +ZOLO100T PO; +ZOLO50TA PO
--- NOTE | 2021-08-01 18:35 | REPVR ---
PROCEDURE INFORMATION: Exam: MR Thoracic Spine Without Contrast Exam date and time: 08/01/2021 5:22 PM Age: 65 years old Clinical indication: Pain in thoracic spine; Without myelpathy or radiculopathy; Prior surgery; Surgery date: 6+ months; Surgery type: C-spine TECHNIQUE: Imaging protocol: Multiplanar magnetic resonance images of the thoracic spine without contrast. COMPARISON: CT Spine,cervical w/o contrast 02/22/2021 1:49 PM FINDINGS: Vertebrae: Minimal decreased marrow space signal at T9 and T10 demonstrated on T1 weighted and STIR weighted imaging without abnormality on T2 weighted images. Findings consistent with artifact. Correlation with plain films to exclude sclerotic foci suggested. Otherwise unremarkable. Spinal cord: Posterior disc protrusion at T5-T6 results in moderate mid and right cynthia cord impingement. Broad posterior disc protrusion at T4-5 effaces the ventral subarachnoid space without cord impingement. Diffusely bulging annulus at T3-4 effaces the ventral subarachnoid space without cord impingement. Discs/Spinal canal/Neural foramina: No significant disc disease. No significant spinal canal stenosis. Soft tissues: Unremarkable. IMPRESSION: 1. Posterior disc protrusion at T5-T6 results in moderate mid and right cynthia cord impingement. 2. Broad posterior disc protrusion T4-5 and bulging annulus at C3-C4 effaces the ventral subarachnoid space without cord impingement. Electronically signed by: Speedy Mesa On 08/01/2021 18:34:52 PM
--- NOTE | 2021-08-01 18:43 | REPVR ---
PROCEDURE INFORMATION: Exam: MR Lumbar Spine Without Contrast Exam date and time: 08/01/2021 5:22 PM Age: 65 years old Clinical indication: Low back pain; Additional info: Pain in thoracic spine TECHNIQUE: Imaging protocol: Multiplanar magnetic resonance images of the lumbar spine without intravenous contrast. COMPARISON: MRI-Spine, L.S. without con 10/13/2019 6:12 PM FINDINGS: Vertebrae: Mild anterolisthesis of L4 on L5. The alignment otherwise unremarkable. Spinal cord: Normal signal. No cord compression. L1-L2: No significant disc disease. No significant spinal canal stenosis. No neural foraminal stenosis. L2-L3: Mild annular bulge at L2-L3 without spinal stenosis. L3-L4: There is a rdvw-ke-ucgmntqa degenerative central spinal stenosis at L3-L4 secondary to diffuse annular bulging, thickened ligamentum flavum with mild facet joint arthropathy. L4-L5: There is a moderate degenerative central spinal stenosis at L4-L5 secondary to diffuse annular bulging, anterolisthesis of L4 on L5, thickened ligamentum flavum with severe bilateral facet joint arthropathy. Status post decompressive bilateral laminectomies at L4. Moderate bilateral foraminal stenosis. L5-S1: There is a moderate to severe degenerative central spinal stenosis at L5-S1 secondary to diffuse annular bulging, thickened ligamentum flavum with moderate facet joint arthropathy. Moderate bilateral foraminal stenosis. Soft tissues: Bilateral simple appearing renal cysts. Otherwise unremarkable. IMPRESSION: 1. Status post bilateral decompressive laminectomies at L4. Moderate degenerative central spinal stenosis L4-L5. 2. Qwkv-wu-vzfvhxay degenerative central spinal stenosis at L3-L4 and a moderate to severe degenerative central spinal stenosis at L5-S1. 3. Bilateral foraminal stenosis at L4-L5 and L5-S1. Electronically signed by: Speedy Mesa On 08/01/2021 18:42:21 PM
== END ==
LOC: M RAD 15:47
PROVIDERS: ATTEND Physician Assistant
DX: M51.24 Other intervertebral disc displacement, thoracic region (principal); M51.26 Other intervertebral disc displacement, lumbar region; M48.061 Spinal stenosis, lumbar region without neurogenic claudication

== ENCOUNTER → 2021-08-07 | Outpatient (CLI) | payer MEDICARE, MEDICAID ==
--- NOTE | 2021-08-08 09:41 | REP ---
INDICATION: VJ SCR MAMMO. COMPARISON: Multiple prior screening examinations, the most recent, 01/12/2020 TECHNIQUE: Digital screening (2D) mammography was performed bilaterally in the CC and MLO projections. Additionally, breast tomosynthesis (3D mammography) was performed bilaterally in the CC and MLO projections. FINDINGS: By history, the patient has no complaints of a palpable breast abnormality or other significant breast complaints. The [place] volumetric breast density pattern is b, there are scattered areas of fibroglandular density. In the middle 3rd of the left breast, above and lateral to the nipple, in the upper outer quadrant, 10-15 cm deep to the nipple, there is a group of indeterminate calcifications. The right breast has a stable appearance. IMPRESSION: BIRADS/ACR : Category 0: Incomplete, need additional imaging evaluation. This patient's Tyrer-Cuzick lifetime breast cancer risk assessment score is 8.1%. This mammogram was interpreted with the aid of an FDA-approved computer-aided detection system. The patient states she had a clinical breast exam in 08/08/2021. The patient letter being requested is M0. RECOMMENDATION: 2D and 3D focal compression magnification views of the left breast in the CC and MLO orientations, and a true lateral view. <Electronically signed by Eduardo Fraga > 08/08/21 0925
== END ==
LOC: M WHC 15:48
PROVIDERS: ATTEND Nurse Practitioner Women's Health
DX: Z01.419 Encounter for gynecological examination (general) (routine) without abnormal findings (principal); Z12.31 Encounter for screening mammogram for malignant neoplasm of breast; R92.1 Mammographic calcification found on diagnostic imaging of breast
CPT/HCPCS: 77063; 77067; G0101

== ENCOUNTER → 2021-08-07 | Outpatient (REF) | payer MEDICARE, MEDICAID | LOC: M SFHCWAGY 13:18 | PROVIDERS: ATTEND Nurse Practitioner Women's Health | DX: Z12.4 Encounter for screening for malignant neoplasm of cervix (principal); N95.2 Postmenopausal atrophic vaginitis ==

== ENCOUNTER → 2021-09-02 | Outpatient (CLI) | payer MEDICARE, MEDICAID ==
[~2021-09-02] MED LIST changes: -LATU40TA PO; +LATU40TA2 PO; -LATU80TA PO; +LATU80TA2 PO; +LOSA25TA13 PO; -LOSA25TA14 PO; +LOSA50TA28 PO; -LOSA50TA88 PO
== END ==
LOC: M WHC 09:25
PROVIDERS: ATTEND Nurse Practitioner Women's Health
DX: R92.8 Other abnormal and inconclusive findings on diagnostic imaging of breast (principal); R92.1 Mammographic calcification found on diagnostic imaging of breast
CPT/HCPCS: 77065; G0279

== ENCOUNTER → 2021-09-03 | Outpatient (CLI) | payer MEDICARE, MEDICAID ==
[~2021-09-03] MED LIST changes: +LATU40TA PO; -LATU40TA2 PO; +LATU80TA PO; -LATU80TA2 PO; -LOSA25TA13 PO; +LOSA25TA14 PO; -LOSA50TA28 PO; +LOSA50TA88 PO
[2021-09-03 12:03] LABS: BLOOD UREA NITROGEN 12 MG/DL (7-18); CALCIUM LEVEL 9.9 MG/DL (8.8-10.2); CARBON DIOXIDE LEVEL 30 MEQ/L (21-32); CHLORIDE LEVEL 96 MEQ/L (98-107); CREATININE FOR GFR 0.81 MG/DL (0.55-1.30); GLOMERULAR FILTRATION RATE > 60.0 (>45); GLUCOSE, FASTING 128 MG/DL (70-100); POTASSIUM SERUM 4.6 MEQ/L (3.5-5.1); SODIUM LEVEL 132 MEQ/L (136-145)
== END ==
LOC: M LAB 10:52
PROVIDERS: ATTEND Physician Assistant
DX: R42 Dizziness and giddiness (principal)
CPT/HCPCS: 36415; 80048; G0463

== ENCOUNTER → 2021-09-04 | Outpatient (CLI) | payer MEDICARE, MEDICAID ==
[~2021-09-04] MED LIST changes: -LATU40TA PO; +LATU40TA2 PO; -LATU80TA PO; +LATU80TA2 PO; +LOSA25TA13 PO; -LOSA25TA14 PO; +LOSA50TA28 PO; -LOSA50TA88 PO
== END ==
LOC: M PLALAB 11:44
PROVIDERS: ATTEND Surgery
DX: Z13.71 Encounter for nonprocreative screening for genetic disease carrier status (principal); Z80.0 Family history of malignant neoplasm of digestive organs; Z80.49 Family history of malignant neoplasm of other genital organs

== ENCOUNTER → 2021-09-10 | Outpatient (CLI) | payer MEDICARE, MEDICAID ==
[2021-09-10 11:24] VITALS: BP 138/70
== END ==
LOC: M WHCPRO 09:38
PROVIDERS: ATTEND Surgery
DX: D24.2 Benign neoplasm of left breast (principal); R92.1 Mammographic calcification found on diagnostic imaging of breast

== ENCOUNTER → 2021-10-30 | Outpatient (CLI) | payer MEDICARE, MEDICAID | LOC: M PLAIMG 14:47 | PROVIDERS: ATTEND Physician Assistant | DX: M50.31 Other cervical disc degeneration, high cervical region (principal); Z98.1 Arthrodesis status; M43.12 Spondylolisthesis, cervical region; M50.21 Other cervical disc displacement, high cervical region; M50.221 Other cervical disc displacement at C4-C5 level; M50.323 Other cervical disc degeneration at C6-C7 level ==

== ENCOUNTER → 2021-11-06 | Outpatient (CLI) | payer MEDICARE, MEDICAID | LOC: M RAD 12:16 | PROVIDERS: ATTEND Family Medicine | DX: R91.1 Solitary pulmonary nodule (principal); F17.211 Nicotine dependence, cigarettes, in remission ==

== ENCOUNTER → 2021-12-12 | Outpatient (REF) | payer MEDICARE, MEDICAID ==
[~2021-12-12] MED LIST changes: -D31000TA2 PO; +VITA100093 PO
[2021-12-12 17:08] LABS: APPEARANCE, URINE CLEAR (CLEAR); BACTERIA, URINE AUTO 2+ (NEGATIVE); BILIRUBIN, URINE AUTO NEGATIVE (NEGATIVE); BLOOD, URINE BLOOD NEGATIVE (NEGATIVE); COLOR, URINE STRAW (YELLOW); GLUCOSE, URINE (UA) AUTO NEGATIVE (NEGATIVE); KETONE, URINE AUTO NEGATIVE (NEGATIVE); LEUKOCYTE ESTERASE, URINE AUTO NEGATIVE (NEGATIVE); NITRITE, URINE AUTO NEGATIVE (NEGATIVE); PROTEIN, URINE AUTO NEGATIVE (NEGATIVE); RBC, URINE AUTO 0 /HPF (0-3); SPECIFIC GRAVITY URINE AUTO 1.003 (1.002-1.035); SQUAMOUS EPITHELIAL CELL UR AU 0 /HPF (0-6); UROBILINOGEN, URINE AUTO 0.2 mg/dL (0.0-2.0); WBC, URINE AUTO 1 /HPF (0-3)
[2021-12-24 23:07] LABS: CODEINE, URINE Negative (Cutoff=100); CREATININE, URINE 19.1 mg/dL (20.0-300.0); HYDROCODONE CONFIRM, URINE 927 ng/mL (Cutoff=100); HYDROCODONE, URINE Positive (.); HYDROMORPHONE, URINE Negative (Cutoff=100); MORPHINE, URINE Negative (Cutoff=100); OPIATES, URINE Positive ng/mL (Cutoff=300)
== END ==
LOC: M SFHCPLAZ 16:41
PROVIDERS: ATTEND Family Medicine
DX: Z51.81 Encounter for therapeutic drug level monitoring (principal); R35.0 Frequency of micturition; Z79.899 Other long term (current) drug therapy

== ENCOUNTER → 2022-02-13 | Outpatient (CLI) | payer MEDICARE, MEDICAID ==
[2022-02-13 07:54] LABS: APPEARANCE, URINE MANUAL HAZY (CLEAR); COLOR, URINE MANUAL LT YELLOW (YELLOW); PH,URINE MAN 5.5 UNITS (5.0 - 7.0)
[2022-02-13 07:55] LABS: BILIRUBIN, URINE MANUAL NEGATIVE (NEGATIVE); BLOOD URINE MANUAL NEGATIVE (NEGATIVE); GLUCOSE, URINE (UA) MANUAL NEGATIVE (NEGATIVE); KETONE, URINE MANUAL NEGATIVE (NEGATIVE); LEUKOCYTE ESTERASE, URINE MAN POSITIVE (NEGATIVE); NITRITE, URINE MANUAL NEGATIVE (NEGATIVE); PROTEIN, URINE MANUAL NEGATIVE (NEGATIVE); UROBILINOGEN, URINE MANUAL NORMAL (NORMAL)
[2022-02-13 08:03] LABS: HEMATOCRIT 36.6 % (36.0-47.0); HEMOGLOBIN 12.1 g/dl (12.0-15.5); MEAN CORPUSCULAR HEMOGLOBIN 27.5 pg (27.0-33.0); MEAN CORPUSCULAR HGB CONC 33.1 g/dl (32.0-36.5); MEAN CORPUSCULAR VOLUME 83.2 fl (80.0-96.0); PLATELET COUNT, AUTOMATED 245 10^3/uL (150-450); WHITE BLOOD COUNT 5.8 10^3/uL (4.0-10.0)
[2022-02-13 08:11] LABS: AMORPHOUS SEDIMENT, URINE SMALL AMOUNT (NEGATIVE); BACTERIA, URINE SMALL AMOUNT; HYALINE CAST, URINE NONE SEEN /lpf (0-1); RBC, URINE NONE SEEN /hpf (0-3); SQUAMOUS EPITHELIAL CELL URINE SMALL AMOUNT /hpf (SMALL AMT)
[2022-02-13 08:12] LABS: CREATININE, URINE 15.4 MG/DL; MALB URINE SIEMENS 25.2 MG/L; MAU/CREAT RATIO 163.6 MCG/MG (0.0-30.0)
[2022-02-13 08:38] LABS: ALBUMIN 3.5 GM/DL (3.2-5.2); ALT/SGPT 28 U/L (12-78); BILIRUBIN,TOTAL 0.3 MG/DL (0.2-1.0); BLOOD UREA NITROGEN 10 MG/DL (7-18); CALCIUM LEVEL 9.3 MG/DL (8.8-10.2); CARBON DIOXIDE LEVEL 28 MEQ/L (21-32); CHLORIDE LEVEL 94 MEQ/L (98-107); CHOLESTEROL LEVEL 96 MG/DL (<200); CREATININE FOR GFR 0.83 MG/DL (0.55-1.30); FERRITIN 24 NG/ML (8-252); GLOMERULAR FILTRATION RATE > 60.0 (>45); GLUCOSE, FASTING 127 MG/DL (70-100); HDL CHOLESTEROL 32 MG/DL (>40); IRON (FE) 54 UG/DL (50-170); LDL CHOLESTEROL 25 MG/DL (<100); MAGNESIUM LEVEL 1.7 MG/DL (1.8-2.4); NON-HDL-C 64 MG/DL; PERCENT SATURATION 16.5 % (13.2-45.0); POTASSIUM SERUM 4.6 MEQ/L (3.5-5.1); SODIUM LEVEL 132 MEQ/L (136-145); TOTAL IRON BINDING CAPACITY 328 UG/DL (250-450); TOTAL PROTEIN 6.2 GM/DL (6.4-8.2); TRIGLYCERIDES LEVEL 194 MG/DL (<150)
[2022-02-13 09:32] LABS: HEMATOCRIT 36.6 % (36.0-47.0)
[2022-02-13 11:00] LABS: TOTAL 25(OH) VITAMIN D 78.4 NG/ML (30.0-100.0); VITAMIN B12 LEVEL 220 PG/ML (247-911)
[2022-02-13 13:51] LABS: HEMOGLOBIN A1c 6.1 %
== END ==
LOC: M LAB 07:03
PROVIDERS: ATTEND Family Medicine
DX: Z51.81 Encounter for therapeutic drug level monitoring (principal); R35.0 Frequency of micturition; E11.9 Type 2 diabetes mellitus without complications; I10 Essential (primary) hypertension; E78.2 Mixed hyperlipidemia; K91.2 Postsurgical malabsorption, not elsewhere classified; E55.9 Vitamin D deficiency, unspecified; D50.9 Iron deficiency anemia, unspecified; E04.1 Nontoxic single thyroid nodule; Z79.899 Other long term (current) drug therapy

== ENCOUNTER → 2022-02-18 | Outpatient (CLI) | payer MEDICAID, MEDICARE | LOC: M PLALAB 08:46 | PROVIDERS: ATTEND Physician Assistant | DX: M77.32 Calcaneal spur, left foot (principal); M79.672 Pain in left foot; M25.572 Pain in left ankle and joints of left foot ==

== ENCOUNTER → 2022-03-16 | Outpatient (CLI) | payer MEDICARE, MEDICAID | LOC: M WHC 14:17 | PROVIDERS: ATTEND Nurse Practitioner Women's Health | DX: R92.8 Other abnormal and inconclusive findings on diagnostic imaging of breast (principal) | CPT/HCPCS: 77065; G0279 ==

== ENCOUNTER 2022-04-05 13:41 | Emergency (ER) | payer MEDICARE, MEDICAID ==
[~2022-04-05] VITALS: Ht 160 cm; Wt 90.9 kg
[2022-04-05 13:42] VITALS: BP 148/62
== END 2022-04-05 15:22 | disposition home or self-care (01) ==
LOC: M ED 13:41
DX: M79.672 Pain in left foot (principal); E11.9 Type 2 diabetes mellitus without complications; I10 Essential (primary) hypertension; M48.00 Spinal stenosis, site unspecified; Z79.82 Long term (current) use of aspirin; Z79.84 Long term (current) use of oral hypoglycemic drugs; Z79.899 Other long term (current) drug therapy; Z88.0 Allergy status to penicillin; Z88.8 Allergy status to other drugs, medicaments and biological substances; Z91.041 Radiographic dye allergy status

== ENCOUNTER → 2022-04-08 | Outpatient (CLI) | payer MEDICARE, MEDICAID ==
[~2022-04-08] MED LIST changes: +FISH10005 PO; -FISH7.5C PO
[2022-04-08 15:22] LABS: BASO # 0.1 10^3/uL (0.0-0.2); BASO % 0.8 % (0.0-1.0); EOS # 0.1 10^3/uL (0.0-0.5); EOS % 1.2 % (0.0-3.0); HEMOGLOBIN 12.7 g/dl (12.0-15.5); LYMPH # 1.8 10^3/uL (1.5-5.0); LYMPH % 26.4 % (24.0-44.0); MEAN CORPUSCULAR HEMOGLOBIN 28.7 pg (27.0-33.0); MEAN CORPUSCULAR HGB CONC 34.3 g/dl (32.0-36.5); MEAN CORPUSCULAR VOLUME 83.7 fl (80.0-96.0); MONO # 0.4 10^3/uL (0.0-0.8); MONO % 6.6 % (2.0-8.0); NEUTROPHILS # 4.3 10^3/uL (1.5-8.5); NEUTROPHILS % 64.7 % (36.0-66.0); PLATELET COUNT, AUTOMATED 263 10^3/uL (150-450); RED BLOOD COUNT 4.42 10^6/uL (4.00-5.40); WHITE BLOOD COUNT 6.6 10^3/uL (4.0-10.0)
[2022-04-08 16:15] LABS: ALBUMIN 4.1 GM/DL (3.2-5.2); ALT/SGPT 22 U/L (12-78); BILIRUBIN,TOTAL 0.3 MG/DL (0.2-1.0); BLOOD UREA NITROGEN 10 MG/DL (7-18); CALCIUM LEVEL 9.1 MG/DL (8.8-10.2); CARBON DIOXIDE LEVEL 27 MEQ/L (21-32); CHLORIDE LEVEL 94 MEQ/L (98-107); CREATININE FOR GFR 0.79 MG/DL (0.55-1.30); GLOMERULAR FILTRATION RATE > 60.0 (>45); GLUCOSE, FASTING 98 MG/DL (70-100); POTASSIUM SERUM 4.4 MEQ/L (3.5-5.1); SODIUM LEVEL 129 MEQ/L (136-145); TOTAL PROTEIN 6.5 GM/DL (6.4-8.2)
[2022-04-08 17:10] LABS: VITAMIN B12 LEVEL 351 PG/ML (247-911)
== END ==
LOC: M PLALAB 14:23
PROVIDERS: ATTEND Physician Assistant
DX: E53.8 Deficiency of other specified B group vitamins (principal); R10.13 Epigastric pain

== ENCOUNTER → 2022-04-27 | Outpatient (CLI) | payer MEDICARE, MEDICAID | LOC: M WHC 11:13 | PROVIDERS: ATTEND Physician Assistant | DX: E04.2 Nontoxic multinodular goiter (principal) ==

== ENCOUNTER → 2022-05-14 | Outpatient (CLI) | payer MEDICARE, MEDICAID | LOC: M RAD 07:07 | PROVIDERS: ATTEND Physician Assistant | DX: M21.072 Valgus deformity, not elsewhere classified, left ankle (principal); R93.7 Abnormal findings on diagnostic imaging of other parts of musculoskeletal system ==

== ENCOUNTER 2022-07-15 11:54 | Emergency (ER) | payer MEDICARE, MEDICAID ==
[~2022-07-15] VITALS: Ht 162.6 cm; Wt 87.9 kg
[2022-07-15] MEDS ORDERED: NORCO, ANEXSIA 5/325MG TABLET (HYDROcodone/ACETAMINOPHEN) PO ONE (15:35)
[2022-07-15] MEDS ORDERED: LIDOCAINE 5% (LIDODERM) PATCH TD ONE (15:35)
[2022-07-15] MEDS ORDERED: LIDO5DIS41 TD (16:33)
[2022-07-15 16:44] VITALS: BP 180/84
== END 2022-07-15 16:47 | disposition home or self-care (01) ==
LOC: M ED 11:54
DX: M54.2 Cervicalgia (principal); E11.9 Type 2 diabetes mellitus without complications; I10 Essential (primary) hypertension; J45.909 Unspecified asthma, uncomplicated; J44.9 Chronic obstructive pulmonary disease, unspecified; G47.33 Obstructive sleep apnea (adult) (pediatric); E03.9 Hypothyroidism, unspecified; K21.9 Gastro-esophageal reflux disease without esophagitis; M19.90 Unspecified osteoarthritis, unspecified site; Z98.84 Bariatric surgery status; M43.12 Spondylolisthesis, cervical region; M48.02 Spinal stenosis, cervical region; Z79.82 Long term (current) use of aspirin; Z79.899 Other long term (current) drug therapy; Z91.041 Radiographic dye allergy status; Z88.0 Allergy status to penicillin; Z88.1 Allergy status to other antibiotic agents

== ENCOUNTER → 2022-08-27 | Outpatient (REF) | payer MEDICARE, MEDICAID ==
[~2022-08-27] MED LIST changes: +CLOP75TA99 PO; +LIDO5DIS41 TD; -PLAV1TAB2 PO
== END ==
LOC: M SFHCPLAZ 16:46
PROVIDERS: ATTEND Physician Assistant
DX: R30.0 Dysuria (principal)

== ENCOUNTER → 2022-10-15 | Outpatient (CLI) | payer MEDICARE, MEDICAID ==
[2022-10-15 13:40] LABS: BASO % 0.6 % (0.0-1.0); EOS # 0.1 10^3/uL (0.0-0.5); EOS % 1.3 % (0.0-3.0); HEMATOCRIT 40.2 % (36.0-47.0); HEMOGLOBIN 13.2 g/dl (12.0-15.5); LYMPH # 1.9 10^3/uL (1.5-5.0); LYMPH % 26.5 % (24.0-44.0); MEAN CORPUSCULAR HEMOGLOBIN 28.5 pg (27.0-33.0); MEAN CORPUSCULAR HGB CONC 32.8 g/dl (32.0-36.5); MEAN CORPUSCULAR VOLUME 86.8 fl (80.0-96.0); MONO # 0.4 10^3/uL (0.0-0.8); MONO % 5.2 % (2.0-8.0); NEUTROPHILS # 4.6 10^3/uL (1.5-8.5); NEUTROPHILS % 65.8 % (36.0-66.0); PLATELET COUNT, AUTOMATED 338 10^3/uL (150-450); RED BLOOD COUNT 4.63 10^6/uL (4.00-5.40)
[2022-10-15 13:46] LABS: INR 0.85; PROTHROMBIN TIME 11.8 SECONDS (12.5-14.5)
[2022-10-15 13:47] LABS: PARTIAL THROMBOPLASTIN TIME 26.4 SECONDS (24.8-34.2)
[2022-10-15 13:51] LABS: HEMOGLOBIN A1c 5.6 % (4.0-6.0)
[2022-10-15 14:06] LABS: ALBUMIN 3.9 G/DL (3.2-5.2); ALKALINE PHOSPHATASE 128 U/L (46-116); ALT/SGPT 24 U/L (7.0-40); AST/SGOT 20 U/L (<34); BILIRUBIN,TOTAL 0.3 MG/DL (0.3-1.2); BLOOD UREA NITROGEN 12 MG/DL (9-23); CALCIUM LEVEL 9.1 MG/DL (8.3-10.6); CARBON DIOXIDE LEVEL 29 MMOL/L (20-31); CHLORIDE LEVEL 98 MMOL/L (98-107); CREATININE FOR GFR 0.74 MG/DL (0.55-1.30); FERRITIN 26.3 NG/ML (7.3-270.7); GLOMERULAR FILTRATION RATE > 60.0 (>45); GLUCOSE, FASTING 110 MG/DL (74-106); POTASSIUM SERUM 4.7 MMOL/L (3.5-5.1); SODIUM LEVEL 131 MMOL/L (136-145); TOTAL PROTEIN 6.5 G/DL (5.7-8.2)
== END ==
LOC: M PLALAB 12:09
PROVIDERS: ATTEND Family Medicine
DX: Z01.818 Encounter for other preprocedural examination (principal); I25.10 Atherosclerotic heart disease of native coronary artery without angina pectoris; M47.812 Spondylosis without myelopathy or radiculopathy, cervical region; G47.33 Obstructive sleep apnea (adult) (pediatric); E78.2 Mixed hyperlipidemia; I10 Essential (primary) hypertension; G89.4 Chronic pain syndrome; E11.9 Type 2 diabetes mellitus without complications

== ENCOUNTER 2022-11-04 17:12 | Emergency (ER) | payer MEDICARE, MEDICAID ==
[2022-11-04] MEDS: fentaNYL 100 MCG/2 ML INJECTION IV PRN ×2 (17:50→18:37)
[2022-11-04] MEDS ORDERED: HYDROMORPHONE HCL 0.5 MG/ 0.5 ML SYRINGE IV PRN (20:00)
[2022-11-04 20:47] LABS: BASO # 0.1 10^3/uL (0.0-0.2); BASO % 0.7 % (0.0-1.0); EOS # 0.3 10^3/uL (0.0-0.5); EOS % 4.1 % (0.0-3.0); HEMATOCRIT 36.2 % (36.0-47.0); LYMPH # 1.6 10^3/uL (1.5-5.0); LYMPH % 19.6 % (24.0-44.0); MEAN CORPUSCULAR HEMOGLOBIN 29.1 pg (27.0-33.0); MEAN CORPUSCULAR HGB CONC 33.1 g/dl (32.0-36.5); MEAN CORPUSCULAR VOLUME 87.9 fl (80.0-96.0); MONO # 0.5 10^3/uL (0.0-0.8); MONO % 6.7 % (2.0-8.0); NEUTROPHILS # 5.5 10^3/uL (1.5-8.5); NEUTROPHILS % 68.2 % (36.0-66.0); PLATELET COUNT, AUTOMATED 280 10^3/uL (150-450); RED BLOOD COUNT 4.12 10^6/uL (4.00-5.40); WHITE BLOOD COUNT 8.1 10^3/uL (4.0-10.0)
[2022-11-04 20:58] LABS: INR 0.88; PROTHROMBIN TIME 12.1 SECONDS (12.5-14.5)
[2022-11-04 20:59] LABS: PARTIAL THROMBOPLASTIN TIME 30.1 SECONDS (24.8-34.2)
[2022-11-04 21:08] LABS: ETHYL ALCOHOL (ETHANOL) < 0.003 % (0.000-0.010)
[2022-11-04 21:10] LABS: BLOOD UREA NITROGEN 12 MG/DL (9-23); CALCIUM LEVEL 8.6 MG/DL (8.3-10.6); CARBON DIOXIDE LEVEL 27 MMOL/L (20-31); CHLORIDE LEVEL 94 MMOL/L (98-107); CREATININE FOR GFR 0.68 MG/DL (0.55-1.30); GLOMERULAR FILTRATION RATE > 60.0 (>45); GLUCOSE, FASTING 113 MG/DL (74-106); POTASSIUM SERUM 4.8 MMOL/L (3.5-5.1); SODIUM LEVEL 128 MMOL/L (136-145)
[2022-11-04 21:24] LABS: RSV AMPLIFICATION NEGATIVE (NEGATIVE)
[2022-11-04 21:35] VITALS: BP 151/78
== END 2022-11-04 21:37 | disposition short-term general hospital (02) ==
LOC: EDBD 17:12 → M ED 17:12
DX: S42.201A Unspecified fracture of upper end of right humerus, initial encounter for closed fracture (principal); S42.202A Unspecified fracture of upper end of left humerus, initial encounter for closed fracture; W01.198A Fall on same level from slipping, tripping and stumbling with subsequent striking against other object, initial encounter; Y92.099 Unspecified place in other non-institutional residence as the place of occurrence of the external cause; M25.711 Osteophyte, right shoulder; M48.02 Spinal stenosis, cervical region; Z98.1 Arthrodesis status; E11.9 Type 2 diabetes mellitus without complications; Z98.84 Bariatric surgery status; Z87.891 Personal history of nicotine dependence; Z79.899 Other long term (current) drug therapy; Z88.0 Allergy status to penicillin; Z88.1 Allergy status to other antibiotic agents; Z91.041 Radiographic dye allergy status
CPT/HCPCS: 51702; 70450; 72125; 73030; 73080; 73110; 80048; 82077; 85025; 85610; 85730; 87631; 96374; 96375; 96376; 99285; J1170; J3010

== ENCOUNTER → 2022-12-29 | Outpatient (CLI) | payer MEDICARE, MEDICAID ==
[2022-12-29 14:25] LABS: ALKALINE PHOSPHATASE 190 U/L (46-116); ALT/SGPT 11 U/L (7.0-40); AST/SGOT 12 U/L (<34); BILIRUBIN,TOTAL 0.3 MG/DL (0.3-1.2); BLOOD UREA NITROGEN 14 MG/DL (9-23); CALCIUM LEVEL 9.5 MG/DL (8.3-10.6); CARBON DIOXIDE LEVEL 26 MMOL/L (20-31); CHLORIDE LEVEL 96 MMOL/L (98-107); CREATININE FOR GFR 0.68 MG/DL (0.55-1.30); GLOMERULAR FILTRATION RATE > 60.0 (>45); GLUCOSE, FASTING 133 MG/DL (74-106); MAGNESIUM LEVEL 1.2 MG/DL (1.8-2.4); POTASSIUM SERUM 4.5 MMOL/L (3.5-5.1); SODIUM LEVEL 131 MMOL/L (136-145); TOTAL PROTEIN 6.5 G/DL (5.7-8.2)
[2022-12-29 14:26] LABS: THYROID STIMULATING HORMONE 0.888 uIU/ML (0.55-4.78)
[2022-12-29 15:00] LABS: BASO # 0.1 10^3/uL (0.0-0.2); BASO % 0.7 % (0.0-1.0); EOS # 0.1 10^3/uL (0.0-0.5); EOS % 0.7 % (0.0-3.0); HEMATOCRIT 44.7 % (36.0-47.0); HEMOGLOBIN 14.7 g/dl (12.0-15.5); LYMPH # 1.7 10^3/uL (1.5-5.0); LYMPH % 21.1 % (24.0-44.0); MEAN CORPUSCULAR HEMOGLOBIN 28.4 pg (27.0-33.0); MEAN CORPUSCULAR HGB CONC 32.9 g/dl (32.0-36.5); MEAN CORPUSCULAR VOLUME 86.3 fl (80.0-96.0); MONO # 0.4 10^3/uL (0.0-0.8); MONO % 4.8 % (2.0-8.0); NEUTROPHILS % 72.2 % (36.0-66.0); RED BLOOD COUNT 5.18 10^6/uL (4.00-5.40); WHITE BLOOD COUNT 8.3 10^3/uL (4.0-10.0)
[2022-12-29 15:02] LABS: PLATELET COUNT, AUTOMATED 354 10^3/uL (150-450)
== END ==
LOC: M PLALAB 11:25
PROVIDERS: ATTEND Physician Assistant
DX: R42 Dizziness and giddiness (principal); Z79.899 Other long term (current) drug therapy

== ENCOUNTER → 2023-01-01 | Outpatient (CLI) | payer MEDICARE, MEDICAID ==
[2023-01-01 10:01] LABS: ALBUMIN 3.8 G/DL (3.2-5.2); ALKALINE PHOSPHATASE 168 U/L (46-116); ALT/SGPT 15 U/L (7.0-40); AST/SGOT 18 U/L (<34); BILIRUBIN,TOTAL 0.3 MG/DL (0.3-1.2); BLOOD UREA NITROGEN 11 MG/DL (9-23); CALCIUM LEVEL 8.9 MG/DL (8.3-10.6); CARBON DIOXIDE LEVEL 28 MMOL/L (20-31); CHLORIDE LEVEL 98 MMOL/L (98-107); CREATININE FOR GFR 0.75 MG/DL (0.55-1.30); GLOMERULAR FILTRATION RATE > 60.0 (>45); GLUCOSE, FASTING 123 MG/DL (74-106); MAGNESIUM LEVEL 1.4 MG/DL (1.8-2.4); POTASSIUM SERUM 4.3 MMOL/L (3.5-5.1); SODIUM LEVEL 134 MMOL/L (136-145); TOTAL PROTEIN 6.2 G/DL (5.7-8.2)
== END ==
LOC: M LAB 08:45
PROVIDERS: ATTEND Physician Assistant
DX: E83.42 Hypomagnesemia (principal)

== ENCOUNTER → 2023-01-14 | Outpatient (CLI) | payer MEDICARE, MEDICAID ==
[2023-01-14 10:57] LABS: BLOOD UREA NITROGEN 14 MG/DL (9-23); CALCIUM LEVEL 8.6 MG/DL (8.3-10.6); CARBON DIOXIDE LEVEL 25 MMOL/L (20-31); CHLORIDE LEVEL 100 MMOL/L (98-107); GLOMERULAR FILTRATION RATE > 60.0 (>45); GLUCOSE, FASTING 236 MG/DL (74-106); MAGNESIUM LEVEL 1.4 MG/DL (1.8-2.4); POTASSIUM SERUM 4.3 MMOL/L (3.5-5.1); SODIUM LEVEL 133 MMOL/L (136-145)
== END ==
LOC: M PLALAB 07:50
PROVIDERS: ATTEND Physician Assistant
DX: E83.42 Hypomagnesemia (principal)

== ENCOUNTER → 2023-03-04 | Outpatient (CLI) | payer MEDICARE, MEDICAID ==
[2023-03-04 15:57] LABS: BLOOD UREA NITROGEN 14 MG/DL (9-23); CALCIUM LEVEL 9.6 MG/DL (8.3-10.6); CARBON DIOXIDE LEVEL 27 MMOL/L (20-31); CHLORIDE LEVEL 94 MMOL/L (98-107); CREATININE FOR GFR 0.69 MG/DL (0.55-1.30); GLOMERULAR FILTRATION RATE > 60.0 (>45); GLUCOSE, FASTING 104 MG/DL (74-106); MAGNESIUM LEVEL 1.6 MG/DL (1.8-2.4); POTASSIUM SERUM 4.9 MMOL/L (3.5-5.1); SODIUM LEVEL 127 MMOL/L (136-145)
== END ==
LOC: M PLALAB 11:48
PROVIDERS: ATTEND Physician Assistant
DX: I10 Essential (primary) hypertension (principal)

== ENCOUNTER → 2023-03-08 | Outpatient (CLI) | payer MEDICARE, MEDICAID ==
[2023-03-08 13:11] LABS: APPEARANCE, URINE CLOUDY (CLEAR); BACTERIA, URINE AUTO 1+ (NEGATIVE); BILIRUBIN, URINE AUTO NEGATIVE (NEGATIVE); BLOOD, URINE BLOOD 1+ (NEGATIVE); COLOR, URINE YELLOW (YELLOW); GLUCOSE, URINE (UA) AUTO NEGATIVE (NEGATIVE); KETONE, URINE AUTO NEGATIVE (NEGATIVE); LEUKOCYTE ESTERASE, URINE AUTO 3+ (NEGATIVE); MUCUS, URINE SMALL (NEGATIVE); NITRITE, URINE AUTO NEGATIVE (NEGATIVE); PROTEIN, URINE AUTO NEGATIVE (NEGATIVE); RBC, URINE AUTO 3 /HPF (0-3); SPECIFIC GRAVITY URINE AUTO 1.006 (1.002-1.035); SQUAMOUS EPITHELIAL CELL UR AU 0 /HPF (0-6); UROBILINOGEN, URINE AUTO 0.2 mg/dL (0.0-2.0); WBC, URINE AUTO TNTC /HPF (0-3)
[2023-03-08 13:34] LABS: BLOOD UREA NITROGEN 13 MG/DL (9-23); CALCIUM LEVEL 9.2 MG/DL (8.3-10.6); CARBON DIOXIDE LEVEL 28 MMOL/L (20-31); CHLORIDE LEVEL 94 MMOL/L (98-107); CREATININE FOR GFR 0.72 MG/DL (0.55-1.30); GLOMERULAR FILTRATION RATE > 60.0 (>45); GLUCOSE, FASTING 74 MG/DL (74-106); POTASSIUM SERUM 4.6 MMOL/L (3.5-5.1); SODIUM LEVEL 128 MMOL/L (136-145)
== END ==
LOC: M LAB 11:24
PROVIDERS: ATTEND Nurse Practitioner Family
DX: E87.1 Hypo-osmolality and hyponatremia (principal); N39.0 Urinary tract infection, site not specified

== ENCOUNTER → 2023-04-29 | Outpatient (CLI) | payer MEDICARE, MEDICAID ==
[~2023-04-29] MED LIST changes: -GABA-283 PO; +GABA-284 PO
[2023-04-29 11:43] LABS: ALBUMIN 3.9 G/DL (3.2-5.2); ALKALINE PHOSPHATASE 134 U/L (46-116); ALT/SGPT 17 U/L (7.0-40); AST/SGOT 12 U/L (<34); BILIRUBIN,TOTAL 0.4 MG/DL (0.3-1.2); BLOOD UREA NITROGEN 12 MG/DL (9-23); CALCIUM LEVEL 9.1 MG/DL (8.3-10.6); CARBON DIOXIDE LEVEL 29 MMOL/L (20-31); CHLORIDE LEVEL 98 MMOL/L (98-107); CHOLESTEROL LEVEL 80 MG/DL (<200); CHOLESTEROL RISK RATIO 2.05 (<5); CREATININE FOR GFR 0.73 MG/DL (0.55-1.30); GLOMERULAR FILTRATION RATE > 60.0 (>45); GLUCOSE, FASTING 114 MG/DL (74-106); LDL CHOLESTEROL 23.8 MG/DL (<100); MAGNESIUM LEVEL 1.6 MG/DL (1.8-2.4); POTASSIUM SERUM 4.7 MMOL/L (3.5-5.1); SODIUM LEVEL 133 MMOL/L (136-145); TOTAL PROTEIN 6.1 G/DL (5.7-8.2); TRIGLYCERIDES LEVEL 86 MG/DL (<150)
[2023-04-29 11:44] LABS: THYROID STIMULATING HORMONE 3.248 uIU/ML (0.55-4.78)
[2023-04-29 11:48] LABS: FERRITIN 32.5 NG/ML (7.3-270.7); FREE T4 1.14 NG/DL (0.89-1.76); TOTAL 25(OH) VITAMIN D 92.8 NG/ML (20.0-100.0); VITAMIN B12 LEVEL 466 PG/ML (211-911)
[2023-04-29 15:01] LABS: BASO # 0.1 10^3/uL (0.0-0.2); BASO % 0.8 % (0.0-1.0); EOS # 0.1 10^3/uL (0.0-0.5); EOS % 1.2 % (0.0-3.0); HEMATOCRIT 38.2 % (36.0-47.0); HEMOGLOBIN 12.8 g/dl (12.0-15.5); LYMPH # 1.9 10^3/uL (1.5-5.0); LYMPH % 21.9 % (24.0-44.0); MEAN CORPUSCULAR HEMOGLOBIN 28.8 pg (27.0-33.0); MEAN CORPUSCULAR HGB CONC 33.5 g/dl (32.0-36.5); MONO # 0.4 10^3/uL (0.0-0.8); MONO % 5.1 % (2.0-8.0); NEUTROPHILS # 6.1 10^3/uL (1.5-8.5); NEUTROPHILS % 70.4 % (36.0-66.0); PLATELET COUNT, AUTOMATED 311 10^3/uL (150-450); RED BLOOD COUNT 4.44 10^6/uL (4.00-5.40); WHITE BLOOD COUNT 8.6 10^3/uL (4.0-10.0)
== END ==
LOC: M LAB 09:57
PROVIDERS: ATTEND Physician Assistant
DX: I10 Essential (primary) hypertension (principal); E11.9 Type 2 diabetes mellitus without complications; D50.9 Iron deficiency anemia, unspecified; E78.2 Mixed hyperlipidemia; E55.9 Vitamin D deficiency, unspecified; E03.9 Hypothyroidism, unspecified; E83.42 Hypomagnesemia

== ENCOUNTER → 2023-05-14 | Outpatient (CLI) | payer MEDICARE, MEDICAID | LOC: M WHC 15:13 | PROVIDERS: ATTEND Physician Assistant | DX: Z12.31 Encounter for screening mammogram for malignant neoplasm of breast (principal) ==

== ENCOUNTER → 2023-06-02 | Outpatient (CLI) | payer MEDICARE, MEDICAID ==
[~2023-06-02] MED LIST changes: +CELE0.09 PO; -CELE1CAP7 PO; +CELE1CAP8 PO; -CELE1CAP9 PO; +DULO1CAP5 PO; +DULO1CAP6 PO; +GABA-282 PO; +HYDR-4571 PO; +ICY5PAD2 TOP; +MECL-136 PO; +OMEP40CA5 PO; +PROC5TAB57 PO; +prevagen PO
== END ==
LOC: M RAD 14:16
PROVIDERS: ATTEND Physician Assistant
DX: Z12.2 Encounter for screening for malignant neoplasm of respiratory organs (principal); F17.211 Nicotine dependence, cigarettes, in remission

== ENCOUNTER → 2023-06-15 | Outpatient (CLI) | payer MEDICARE, MEDICAID ==
[~2023-06-15] MED LIST changes: -CELE1CAP8 PO; +CELE1CAP99 PO
== END ==
LOC: M PLAIMG 14:50
PROVIDERS: ATTEND Student in an Organized Health Care Education/Training Program
DX: S42.292A Other displaced fracture of upper end of left humerus, initial encounter for closed fracture (principal); X58.XXXA Exposure to other specified factors, initial encounter; Y92.9 Unspecified place or not applicable; Y93.9 Activity, unspecified; Y99.9 Unspecified external cause status

== ENCOUNTER → 2023-07-01 | Outpatient (CLI) | payer MEDICARE, MEDICAID | LOC: M PLAIMG 08:32 | PROVIDERS: ATTEND Student in an Organized Health Care Education/Training Program | DX: S46.212A Strain of muscle, fascia and tendon of other parts of biceps, left arm, initial encounter (principal); X58.XXXA Exposure to other specified factors, initial encounter; Y92.9 Unspecified place or not applicable; Y93.9 Activity, unspecified; Y99.9 Unspecified external cause status ==

== ENCOUNTER 2023-08-10 15:12 | Emergency (ER) | payer MEDICARE, MEDICAID ==
[~2023-08-10] VITALS: Ht 160 cm; Wt 83.4 kg
[2023-08-10 15:37] VITALS: TEMP 97.9
[2023-08-10 16:30] LABS: BASO % 0.6 % (0.0-1.0); EOS # 0.1 10^3/uL (0.0-0.5); EOS % 1.8 % (0.0-3.0); HEMATOCRIT 35.1 % (36.0-47.0); HEMOGLOBIN 11.8 g/dl (12.0-15.5); LYMPH # 1.6 10^3/uL (1.5-5.0); LYMPH % 31.3 % (24.0-44.0); MEAN CORPUSCULAR HEMOGLOBIN 29.6 pg (27.0-33.0); MEAN CORPUSCULAR HGB CONC 33.6 g/dl (32.0-36.5); MONO # 0.4 10^3/uL (0.0-0.8); MONO % 7.6 % (2.0-8.0); NEUTROPHILS # 2.9 10^3/uL (1.5-8.5); NEUTROPHILS % 58.3 % (36.0-66.0); PLATELET COUNT, AUTOMATED 250 10^3/uL (150-450); RED BLOOD COUNT 3.99 10^6/uL (4.00-5.40)
[2023-08-10 16:42] LABS: INR 0.9; PROTHROMBIN TIME 11.9 SECONDS (12.5-14.5)
[2023-08-10 16:55] LABS: LIPASE 28 U/L (12-53)
[2023-08-10 16:56] LABS: CPK CREATINE PHOSPHOKINASE 65 U/L (34-145)
[2023-08-10 16:57] LABS: ALBUMIN 3.4 G/DL (3.2-5.2); ALKALINE PHOSPHATASE 108 U/L (46-116); ALT/SGPT 18 U/L (7.0-40); AST/SGOT 15 U/L (<34); BILIRUBIN,DIRECT < 0.1 MG/DL (<0.4); BILIRUBIN,TOTAL 0.2 MG/DL (0.3-1.2); BLOOD UREA NITROGEN 15 MG/DL (9-23); CALCIUM LEVEL 8.4 MG/DL (8.3-10.6); CARBON DIOXIDE LEVEL 24 MMOL/L (20-31); CHLORIDE LEVEL 99 MMOL/L (98-107); CK-MB VALUE MASS 1.7 NG/ML (<3.6); CREATININE FOR GFR 0.67 MG/DL (0.55-1.30); GLOMERULAR FILTRATION RATE > 60.0 (>45); GLUCOSE, FASTING 99 MG/DL (74-106); MB/CK RELATIVE INDEX 2.61 (< OR =4); POTASSIUM SERUM 4.7 MMOL/L (3.5-5.1); SODIUM LEVEL 130 MMOL/L (136-145); TOTAL PROTEIN 5.5 G/DL (5.7-8.2)
[2023-08-10 16:59] LABS: FREE T4 0.99 NG/DL (0.89-1.76); THYROID STIMULATING HORMONE 2.606 uIU/ML (0.55-4.78)
[2023-08-10 17:16] LABS: RSV AMPLIFICATION NEGATIVE (NEGATIVE)
[2023-08-10 18:35] LABS: CK-MB VALUE MASS < 1.0 NG/ML (<3.6); CPK CREATINE PHOSPHOKINASE 71 U/L (34-145)
[2023-08-10] MEDS ORDERED: NORCO, ANEXSIA 5/325MG TABLET (HYDROcodone/ACETAMINOPHEN) PO ONE (19:55)
[2023-08-10 20:08] LABS: CK-MB VALUE MASS 1.8 NG/ML (<3.6); MB/CK RELATIVE INDEX 2.4 (< OR =4)
[2023-08-10 20:45] VITALS: BP 133/62; O2SAT 95
== END 2023-08-10 20:49 | disposition home or self-care (01) ==
LOC: M ED 15:12
DX: R07.9 Chest pain, unspecified (principal); I10 Essential (primary) hypertension; E11.9 Type 2 diabetes mellitus without complications; E78.5 Hyperlipidemia, unspecified; J44.9 Chronic obstructive pulmonary disease, unspecified; F31.9 Bipolar disorder, unspecified; Z88.0 Allergy status to penicillin; Z88.1 Allergy status to other antibiotic agents; Z91.041 Radiographic dye allergy status; Z98.84 Bariatric surgery status; Z79.52 Long term (current) use of systemic steroids; Z79.82 Long term (current) use of aspirin; Z79.02 Long term (current) use of antithrombotics/antiplatelets; Z79.811 Long term (current) use of aromatase inhibitors; Z79.899 Other long term (current) drug therapy

== ENCOUNTER → 2023-08-15 | Outpatient (REF) | payer MEDICARE, MEDICAID | LOC: M LAB REF 19:16 | PROVIDERS: ATTEND Physician Assistant Medical | DX: B34.9 Viral infection, unspecified (principal) ==

== ENCOUNTER → 2023-08-25 | Outpatient (CLI) | payer MEDICARE, MEDICAID ==
[2023-08-25 14:21] LABS: BASO % 0.6 % (0.0-1.0); EOS # 0.1 10^3/uL (0.0-0.5); EOS % 1.2 % (0.0-3.0); HEMATOCRIT 37.5 % (36.0-47.0); HEMOGLOBIN 13.1 g/dl (12.0-15.5); LYMPH # 1.9 10^3/uL (1.5-5.0); LYMPH % 26.6 % (24.0-44.0); MEAN CORPUSCULAR HEMOGLOBIN 29.4 pg (27.0-33.0); MEAN CORPUSCULAR HGB CONC 34.9 g/dl (32.0-36.5); MEAN CORPUSCULAR VOLUME 84.3 fl (80.0-96.0); MONO # 0.4 10^3/uL (0.0-0.8); MONO % 6.1 % (2.0-8.0); NEUTROPHILS # 4.7 10^3/uL (1.5-8.5); NEUTROPHILS % 64.9 % (36.0-66.0); PLATELET COUNT, AUTOMATED 283 10^3/uL (150-450); RED BLOOD COUNT 4.45 10^6/uL (4.00-5.40); WHITE BLOOD COUNT 7.3 10^3/uL (4.0-10.0)
[2023-08-25 14:52] LABS: ALBUMIN 3.8 G/DL (3.2-5.2); ALKALINE PHOSPHATASE 112 U/L (46-116); ALT/SGPT 17 U/L (7.0-40); AST/SGOT 18 U/L (<34); BILIRUBIN,TOTAL 0.4 MG/DL (0.3-1.2); BLOOD UREA NITROGEN 11 MG/DL (9-23); CALCIUM LEVEL 8.7 MG/DL (8.3-10.6); CARBON DIOXIDE LEVEL 27 MMOL/L (20-31); CHLORIDE LEVEL 91 MMOL/L (98-107); CHOLESTEROL LEVEL 115 MG/DL (<200); CHOLESTEROL RISK RATIO 2.96 (<5); GLOMERULAR FILTRATION RATE > 60.0 (>45); GLUCOSE, FASTING 105 MG/DL (74-106); HDL CHOLESTEROL 38.8 MG/DL (>40); MAGNESIUM LEVEL 1.5 MG/DL (1.8-2.4); NON-HDL-C 76.2 MG/DL; POTASSIUM SERUM 4.9 MMOL/L (3.5-5.1); SODIUM LEVEL 124 MMOL/L (136-145); TOTAL PROTEIN 6.1 G/DL (5.7-8.2); TRIGLYCERIDES LEVEL 211 MG/DL (<150)
[2023-08-25 14:55] LABS: FREE T4 0.91 NG/DL (0.89-1.76); TOTAL 25(OH) VITAMIN D 85.5 NG/ML (20.0-100.0)
[2023-08-25 15:49] LABS: HEMOGLOBIN A1c 5.3 % (4.0-6.0)
== END ==
LOC: M LAB 13:31
PROVIDERS: ATTEND Physician Assistant
DX: I10 Essential (primary) hypertension (principal); E55.9 Vitamin D deficiency, unspecified; E11.9 Type 2 diabetes mellitus without complications; E78.2 Mixed hyperlipidemia

== ENCOUNTER → 2023-09-02 | Outpatient (CLI) | payer MEDICARE, MEDICAID | LOC: M WHC 12:48 | PROVIDERS: ATTEND Physician Assistant | DX: Z13.820 Encounter for screening for osteoporosis (principal); Z79.51 Long term (current) use of inhaled steroids ==

== ENCOUNTER → 2023-11-25 | Outpatient (REF) | payer MEDICARE, MEDICAID | LOC: M SFHCPLAZ 16:49 | PROVIDERS: ATTEND Physician Assistant | DX: R68.89 Other general symptoms and signs (principal) ==

== ENCOUNTER 2024-01-10 11:26 | Emergency (ER) | payer MEDICARE, MEDICAID ==
[~2024-01-10] VITALS: Ht 162.6 cm; Wt 86.4 kg
[2024-01-10 12:59] LABS: BASO # 0.1 10^3/uL (0.0-0.2); EOS # 0.1 10^3/uL (0.0-0.5); EOS % 1.6 % (0.0-3.0); HEMOGLOBIN 12.2 g/dl (12.0-15.5); LYMPH # 1.8 10^3/uL (1.5-5.0); LYMPH % 30.7 % (24.0-44.0); MEAN CORPUSCULAR HEMOGLOBIN 29.3 pg (27.0-33.0); MEAN CORPUSCULAR VOLUME 88.7 fl (80.0-96.0); MONO # 0.4 10^3/uL (0.0-0.8); MONO % 7.6 % (2.0-8.0); NEUTROPHILS # 3.4 10^3/uL (1.5-8.5); NEUTROPHILS % 58.6 % (36.0-66.0); PLATELET COUNT, AUTOMATED 294 10^3/uL (150-450); RED BLOOD COUNT 4.17 10^6/uL (4.00-5.40); WHITE BLOOD COUNT 5.8 10^3/uL (4.0-10.0)
[2024-01-10 13:12] LABS: INR 0.93; PROTHROMBIN TIME 12.2 SECONDS (12.5-14.5)
[2024-01-10 13:22] LABS: ALBUMIN 3.6 G/DL (3.2-5.2); ALKALINE PHOSPHATASE 110 U/L (46-116); ALT/SGPT 29 U/L (7.0-40); AST/SGOT 42 U/L (<34); BILIRUBIN,DIRECT < 0.1 MG/DL (<0.4); BILIRUBIN,TOTAL 0.2 MG/DL (0.3-1.2); BLOOD UREA NITROGEN 14 MG/DL (9-23); CALCIUM LEVEL 7.9 MG/DL (8.3-10.6); CARBON DIOXIDE LEVEL 27 MMOL/L (20-31); CHLORIDE LEVEL 99 MMOL/L (98-107); CREATININE FOR GFR 0.79 MG/DL (0.55-1.30); GLOMERULAR FILTRATION RATE > 60.0 (>45); GLUCOSE, FASTING 96 MG/DL (74-106); POTASSIUM SERUM 5.2 MMOL/L (3.5-5.1); SODIUM LEVEL 133 MMOL/L (136-145); TOTAL PROTEIN 5.9 G/DL (5.7-8.2)
[2024-01-10] MEDS: MECLIZINE 25 MG TABLET PO ONE (13:33)
[2024-01-10 13:41] LABS: CK-MB VALUE MASS 2.9 NG/ML (<3.6); CPK CREATINE PHOSPHOKINASE 116 U/L (34-145)
[2024-01-10 14:45] LABS: CK-MB VALUE MASS 2.8 NG/ML (<3.6)
[2024-01-10 14:47] LABS: MB/CK RELATIVE INDEX 3.04 (< OR =4)
[2024-01-10 16:03] VITALS: O2SAT 93
[2024-01-10 16:15] VITALS: BP 161/63; O2SAT 94
[2024-01-10] MEDS ORDERED: MECL-209 PO (16:24)
[2024-01-10 16:46] VITALS: TEMP 98
== END 2024-01-10 16:49 | disposition home or self-care (01) ==
LOC: M ED 11:26
DX: M54.9 Dorsalgia, unspecified (principal); R42 Dizziness and giddiness; E11.9 Type 2 diabetes mellitus without complications; I10 Essential (primary) hypertension; E78.5 Hyperlipidemia, unspecified; D64.9 Anemia, unspecified; E55.9 Vitamin D deficiency, unspecified; F31.9 Bipolar disorder, unspecified; G47.33 Obstructive sleep apnea (adult) (pediatric); M48.00 Spinal stenosis, site unspecified; Z87.891 Personal history of nicotine dependence; Z79.82 Long term (current) use of aspirin; Z79.899 Other long term (current) drug therapy; Z88.1 Allergy status to other antibiotic agents; Z88.0 Allergy status to penicillin; Z91.041 Radiographic dye allergy status

== ENCOUNTER → 2024-03-24 | Outpatient (CLI) | payer MEDICARE, MEDICAID ==
[~2024-03-24] MED LIST changes: +MECL-209 PO
[2024-03-24 15:15] LABS: BASO # 0.1 10^3/uL (0.0-0.2); BASO % 0.6 % (0.0-1.0); EOS # 0.1 10^3/uL (0.0-0.5); EOS % 0.8 % (0.0-3.0); HEMATOCRIT 37.3 % (36.0-47.0); HEMOGLOBIN 12.7 g/dl (12.0-15.5); LYMPH # 1.5 10^3/uL (1.5-5.0); LYMPH % 18.4 % (24.0-44.0); MEAN CORPUSCULAR HEMOGLOBIN 29.5 pg (27.0-33.0); MEAN CORPUSCULAR VOLUME 86.7 fl (80.0-96.0); MONO # 0.6 10^3/uL (0.0-0.8); MONO % 7.1 % (2.0-8.0); NEUTROPHILS # 5.7 10^3/uL (1.5-8.5); NEUTROPHILS % 72.5 % (36.0-66.0); PLATELET COUNT, AUTOMATED 308 10^3/uL (150-450); WHITE BLOOD COUNT 7.9 10^3/uL (4.0-10.0)
[2024-03-24 15:38] LABS: HEMOGLOBIN A1c 5.8 % (4.0-6.0)
[2024-03-24 15:40] LABS: IRON (FE) 66 UG/DL (50-170); PERCENT SATURATION 20.2 % (13.2-45.0); TOTAL IRON BINDING CAPACITY 326 UG/DL (250-425)
[2024-03-24 15:41] LABS: ALBUMIN 3.9 G/DL (3.2-5.2); ALKALINE PHOSPHATASE 104 U/L (46-116); ALT/SGPT 37 U/L (7.0-40); AST/SGOT 24 U/L (<34); BILIRUBIN,TOTAL 0.3 MG/DL (0.3-1.2); BLOOD UREA NITROGEN 16 MG/DL (9-23); CALCIUM LEVEL 8.8 MG/DL (8.3-10.6); CARBON DIOXIDE LEVEL 25 MMOL/L (20-31); CHLORIDE LEVEL 94 MMOL/L (98-107); CHOLESTEROL LEVEL 124 MG/DL (<200); CHOLESTEROL RISK RATIO 3.51 (<5); CREATININE FOR GFR 0.78 MG/DL (0.55-1.30); GLOMERULAR FILTRATION RATE > 60.0 (>45); GLUCOSE, FASTING 158 MG/DL (74-106); HDL CHOLESTEROL 35.3 MG/DL (>40); LDL CHOLESTEROL 12.9 MG/DL (<100); NON-HDL-C 88.7 MG/DL; POTASSIUM SERUM 4.6 MMOL/L (3.5-5.1); PTH INTACT 106.9 PG/ML (18.5-88.0); SODIUM LEVEL 126 MMOL/L (136-145); THYROID STIMULATING HORMONE 1.925 uIU/ML (0.55-4.78); TOTAL PROTEIN 6.1 G/DL (5.7-8.2); TRIGLYCERIDES LEVEL 379 MG/DL (<150)
[2024-03-24 15:42] LABS: FERRITIN 48.9 NG/ML (7.3-270.7); FREE T4 1.04 NG/DL (0.89-1.76)
[2024-03-24 15:43] LABS: TOTAL 25(OH) VITAMIN D 70.2 NG/ML (20.0-100.0); VITAMIN B12 LEVEL 302 PG/ML (211-911)
[2024-03-25 16:37] LABS: CREATININE, URINE 27.4 MG/DL
[2024-03-25 16:38] LABS: MAU/CREAT RATIO 29.1 MCG/MG (0.0-30.0)
== END ==
LOC: M LAB 14:10
PROVIDERS: ATTEND Physician Assistant
DX: D50.9 Iron deficiency anemia, unspecified (principal); I10 Essential (primary) hypertension; E78.2 Mixed hyperlipidemia; E04.1 Nontoxic single thyroid nodule; E11.9 Type 2 diabetes mellitus without complications; M80.00XD Age-related osteoporosis with current pathological fracture, unspecified site, subsequent encounter for fracture with routine healing; Z79.899 Other long term (current) drug therapy

== ENCOUNTER 2024-04-17 11:41 | Emergency (ER) | payer MEDICAID, MEDICARE ==
[~2024-04-17] VITALS: Ht 162.6 cm; Wt 86.8 kg
[2024-04-17] MEDS: ONDANSETRON 4MG ORAL DISINTEGRATING TAB PO ONE (12:50)
[2024-04-17] MEDS: KETOROLAC 30 MG/ML 1ML VIAL IM ONE (12:51)
[2024-04-17 14:21] VITALS: BP 188/80; TEMP 96.8; O2SAT 96
== END 2024-04-17 14:13 | disposition home or self-care (01) ==
LOC: M ED 11:41
DX: S22.31XA Fracture of one rib, right side, initial encounter for closed fracture (principal); W01.10XA Fall on same level from slipping, tripping and stumbling with subsequent striking against unspecified object, initial encounter; Y92.89 Other specified places as the place of occurrence of the external cause; Y93.89 Activity, other specified; Y99.9 Unspecified external cause status; E11.9 Type 2 diabetes mellitus without complications; I10 Essential (primary) hypertension; D64.9 Anemia, unspecified; F31.9 Bipolar disorder, unspecified; Z79.82 Long term (current) use of aspirin; Z79.84 Long term (current) use of oral hypoglycemic drugs; Z79.899 Other long term (current) drug therapy; Z88.0 Allergy status to penicillin; Z88.1 Allergy status to other antibiotic agents; Z91.041 Radiographic dye allergy status
CPT/HCPCS: 71046; 71100; 96372; 99283; J1885

== ENCOUNTER → 2024-05-19 | Outpatient (CLI) | payer MEDICARE, MEDICAID | LOC: M WHC 10:04 | PROVIDERS: ATTEND Physician Assistant | DX: Z12.31 Encounter for screening mammogram for malignant neoplasm of breast (principal); R79.89 Other specified abnormal findings of blood chemistry; Z86.39 Personal history of other endocrine, nutritional and metabolic disease; R92.323 Mammographic fibroglandular density, bilateral breasts; E04.2 Nontoxic multinodular goiter ==

== ENCOUNTER 2024-06-03 17:24 | Emergency (ER) | payer MEDICARE, MEDICAID ==
[~2024-06-03] VITALS: Ht 162.6 cm; Wt 89.9 kg
[2024-06-03] MEDS ORDERED: GABA-1490 (17:34)
[2024-06-03] MEDS ORDERED: BENZ0.5T2 (17:34)
[2024-06-03] MEDS: methocarbamoL 500 MG TAB PO ONE (19:55)
[2024-06-03] MEDS: methylPREDNISolone 125MG 2ML VIAL IV ONE (21:22)
[2024-06-03] MEDS: KETOROLAC 30 MG/ML 1ML VIAL IV ONE (21:22)
[2024-06-03 23:20] VITALS: TEMP 97.8
[2024-06-03] MEDS: NORCO, ANEXSIA 5/325MG TABLET (HYDROcodone/ACETAMINOPHEN) PO ONE (23:29)
[2024-06-04] MEDS: NORCO, ANEXSIA 5/325MG TABLET (HYDROcodone/ACETAMINOPHEN) PO ONE (04:00)
[2024-06-04 06:16] VITALS: BP 142/74; O2SAT 97
== END 2024-06-04 06:48 | disposition short-term general hospital (02) ==
LOC: M ED 17:24
DX: M51.36 Other intervertebral disc degeneration, lumbar region (principal); M51.37 Other intervertebral disc degeneration, lumbosacral region; E11.9 Type 2 diabetes mellitus without complications; I10 Essential (primary) hypertension; J44.9 Chronic obstructive pulmonary disease, unspecified; M54.30 Sciatica, unspecified side; D64.9 Anemia, unspecified; Z98.84 Bariatric surgery status; Z79.82 Long term (current) use of aspirin; Z79.899 Other long term (current) drug therapy; Z88.0 Allergy status to penicillin; Z88.1 Allergy status to other antibiotic agents; Z91.041 Radiographic dye allergy status
CPT/HCPCS: 72148; 96374; 96375; 99284; J1885; J2919

== ENCOUNTER 2024-06-17 18:38 | Emergency (ER) | payer MEDICARE, MEDICAID ==
[~2024-06-17] VITALS: Ht 162.6 cm; Wt 86.4 kg
[~2024-06-17 18:38] MED LIST changes: +BENZ0.5T2; +GABA-1172 PO; +GABA-1490; -GABA-282 PO
[2024-06-17] MEDS: KETOROLAC 30 MG/ML 1ML VIAL IM ONE (20:59)
[2024-06-17] MEDS: NORCO, ANEXSIA 5/325MG TABLET (HYDROcodone/ACETAMINOPHEN) PO ONE (21:03)
[2024-06-17 22:25] VITALS: TEMP 98
[2024-06-17] MEDS ORDERED: PRED10TA2 PO (23:17)
[2024-06-17] MEDS: predniSONE 20 MG TAB PO ONE (23:44)
[2024-06-17 23:45] VITALS: BP 156/84; O2SAT 95
== END 2024-06-17 23:54 | disposition home or self-care (01) ==
LOC: EDBD 18:38 → M ED 18:38
DX: S76.011A Strain of muscle, fascia and tendon of right hip, initial encounter (principal); W19.XXXA Unspecified fall, initial encounter; Y92.9 Unspecified place or not applicable; Y93.9 Activity, unspecified; Y99.9 Unspecified external cause status; E11.9 Type 2 diabetes mellitus without complications; I10 Essential (primary) hypertension; E78.5 Hyperlipidemia, unspecified; F31.9 Bipolar disorder, unspecified; Z88.0 Allergy status to penicillin; Z88.1 Allergy status to other antibiotic agents; Z91.041 Radiographic dye allergy status; Z90.49 Acquired absence of other specified parts of digestive tract; Z79.82 Long term (current) use of aspirin; Z79.899 Other long term (current) drug therapy
CPT/HCPCS: 73502; 96372; 99284; J1885; J7512

== ENCOUNTER → 2024-06-21 | Outpatient (CLI) | payer MEDICARE, MEDICAID ==
[~2024-06-21] MED LIST changes: +PRED10TA2 PO
== END ==
LOC: M RAD 13:24
PROVIDERS: ATTEND Physician Assistant
DX: R10.31 Right lower quadrant pain (principal); T14.8XXA Other injury of unspecified body region, initial encounter; W19.XXXA Unspecified fall, initial encounter; Y92.9 Unspecified place or not applicable; Y93.9 Activity, unspecified; Y99.9 Unspecified external cause status; M79.661 Pain in right lower leg

== ENCOUNTER → 2024-06-22 | Outpatient (CLI) | payer MEDICARE, MEDICAID | LOC: M RAD 16:12 | PROVIDERS: ATTEND Physician Assistant | DX: S76.091A Other specified injury of muscle, fascia and tendon of right hip, initial encounter (principal); W19.XXXA Unspecified fall, initial encounter; Y93.9 Activity, unspecified; Y92.9 Unspecified place or not applicable; M25.551 Pain in right hip; R10.31 Right lower quadrant pain ==

== ENCOUNTER → 2024-07-31 | Outpatient (REF) | payer MEDICARE, MEDICAID ==
[2024-07-31 10:48] LABS: APPEARANCE, URINE CLEAR (CLEAR); BACTERIA, URINE AUTO 1+ (NEGATIVE); BILIRUBIN, URINE AUTO NEGATIVE (NEGATIVE); BLOOD, URINE BLOOD NEGATIVE (NEGATIVE); COLOR, URINE YELLOW (YELLOW); GLUCOSE, URINE (UA) AUTO NEGATIVE (NEGATIVE); KETONE, URINE AUTO NEGATIVE (NEGATIVE); LEUKOCYTE ESTERASE, URINE AUTO NEGATIVE (NEGATIVE); NITRITE, URINE AUTO POSITIVE (NEGATIVE); PROTEIN, URINE AUTO NEGATIVE (NEGATIVE); RBC, URINE AUTO 0 /HPF (0-3); SPECIFIC GRAVITY URINE AUTO 1.004 (1.002-1.035); SQUAMOUS EPITHELIAL CELL UR AU 0 /HPF (0-6); UROBILINOGEN, URINE AUTO 0.2 mg/dL (0.0-2.0); WBC, URINE AUTO 2 /HPF (0-3)
== END ==
LOC: M SFHCPLAZ 09:51
PROVIDERS: ATTEND Family Medicine
DX: R30.0 Dysuria (principal)

== ENCOUNTER → 2024-09-01 | Outpatient (CLI) | payer MEDICARE, MEDICAID | LOC: M RAD 06:37 | PROVIDERS: ATTEND Physician Assistant | DX: Z12.2 Encounter for screening for malignant neoplasm of respiratory organs (principal); F17.210 Nicotine dependence, cigarettes, uncomplicated; Z79.899 Other long term (current) drug therapy ==

== ENCOUNTER → 2024-09-01 | Outpatient (CLI) | payer MEDICARE, MEDICAID ==
[2024-09-01 08:11] LABS: ALBUMIN 3.6 G/DL (3.2-5.2); ALKALINE PHOSPHATASE 73 U/L (35-104); ALT/SGPT 18 U/L (7.0-40); AST/SGOT 11 U/L (<34); BILIRUBIN,TOTAL 0.2 MG/DL (0.3-1.2); BLOOD UREA NITROGEN 15 MG/DL (9-23); CALCIUM LEVEL 9.4 MG/DL (8.3-10.6); CARBON DIOXIDE LEVEL 26 MMOL/L (20-31); CHLORIDE LEVEL 95 MMOL/L (98-107); CHOLESTEROL LEVEL 117 MG/DL (<200); CHOLESTEROL RISK RATIO 2.32 (<5); CREATININE FOR GFR 0.72 MG/DL (0.55-1.30); GLOMERULAR FILTRATION RATE > 60.0 (>39); GLUCOSE, FASTING 117 MG/DL (74-106); HDL CHOLESTEROL 50.4 MG/DL (>40); LDL CHOLESTEROL 33.8 MG/DL (<100); NON-HDL-C 66.6 MG/DL; POTASSIUM SERUM 4.9 MMOL/L (3.5-5.1); SODIUM LEVEL 129 MMOL/L (136-145); TRIGLYCERIDES LEVEL 164 MG/DL (<150)
[2024-09-01 08:25] LABS: CREATININE,RANDOM URINE 31.8 MG/DL
[2024-09-01 09:15] LABS: HEMOGLOBIN A1c 5.8 % (4.0-6.0)
== END ==
LOC: M LAB 06:45
PROVIDERS: ATTEND Family Medicine
DX: E87.1 Hypo-osmolality and hyponatremia (principal); E78.1 Pure hyperglyceridemia; E11.9 Type 2 diabetes mellitus without complications

== ENCOUNTER 2024-10-09 14:54 | Emergency (ER) | payer MEDICARE, MEDICAID ==
[~2024-10-09] VITALS: Ht 162.6 cm; Wt 86.4 kg
[2024-10-09] MEDS: NORCO, ANEXSIA 5/325MG TABLET (HYDROcodone/ACETAMINOPHEN) PO ONE (15:10)
[2024-10-09 15:29] VITALS: BP 147/87; TEMP 98; O2SAT 94
== END 2024-10-09 17:35 | disposition home or self-care (01) ==
LOC: EDBD 14:54 → M ED 14:54
DX: S82.001A Unspecified fracture of right patella, initial encounter for closed fracture (principal); W01.198A Fall on same level from slipping, tripping and stumbling with subsequent striking against other object, initial encounter; Y92.009 Unspecified place in unspecified non-institutional (private) residence as the place of occurrence of the external cause; Y93.9 Activity, unspecified; Y99.9 Unspecified external cause status; I10 Essential (primary) hypertension; E78.5 Hyperlipidemia, unspecified; J44.9 Chronic obstructive pulmonary disease, unspecified; Z98.84 Bariatric surgery status; F31.9 Bipolar disorder, unspecified; Z79.82 Long term (current) use of aspirin; Z79.899 Other long term (current) drug therapy; Z88.0 Allergy status to penicillin; Z88.1 Allergy status to other antibiotic agents; Z91.041 Radiographic dye allergy status

== ENCOUNTER → 2024-10-13 | Outpatient (CLI) | payer MEDICARE, MEDICAID | LOC: M SOG 07:53 | PROVIDERS: ATTEND Orthopaedic Surgery | DX: S82.001A Unspecified fracture of right patella, initial encounter for closed fracture (principal); Y93.9 Activity, unspecified; Y92.9 Unspecified place or not applicable ==

== ENCOUNTER → 2024-10-20 | Outpatient (CLI) | payer MEDICARE, MEDICAID | LOC: M SOG 07:54 | PROVIDERS: ATTEND Orthopaedic Surgery | DX: S82.001A Unspecified fracture of right patella, initial encounter for closed fracture (principal); Y93.9 Activity, unspecified; Y92.9 Unspecified place or not applicable ==

== ENCOUNTER → 2024-11-03 | Outpatient (CLI) | payer MEDICARE, MEDICAID | LOC: M SOG 07:54 | PROVIDERS: ATTEND Orthopaedic Surgery | DX: S82.034D Nondisplaced transverse fracture of right patella, subsequent encounter for closed fracture with routine healing (principal) ==

== ENCOUNTER → 2024-11-17 | Outpatient (CLI) | payer MEDICARE, MEDICAID | LOC: M SOG 07:54 | PROVIDERS: ATTEND Orthopaedic Surgery | DX: S82.034D Nondisplaced transverse fracture of right patella, subsequent encounter for closed fracture with routine healing (principal) ==

== ENCOUNTER → 2024-12-14 | Outpatient (CLI) | payer MEDICARE, MEDICAID | LOC: M PLAIMG 11:46 | PROVIDERS: ATTEND Family Medicine | DX: M47.812 Spondylosis without myelopathy or radiculopathy, cervical region (principal) ==

== ENCOUNTER → 2024-12-14 | Outpatient (REF) | payer MEDICARE, MEDICAID ==
[2024-12-14 13:36] LABS: APPEARANCE, URINE HAZY (CLEAR); BACTERIA, URINE AUTO 1+ (NEGATIVE); BILIRUBIN, URINE AUTO NEGATIVE (NEGATIVE); BLOOD, URINE BLOOD 1+ (NEGATIVE); COLOR, URINE YELLOW (YELLOW); GLUCOSE, URINE (UA) AUTO NEGATIVE (NEGATIVE); KETONE, URINE AUTO NEGATIVE (NEGATIVE); LEUKOCYTE ESTERASE, URINE AUTO 2+ (NEGATIVE); NITRITE, URINE AUTO NEGATIVE (NEGATIVE); PROTEIN, URINE AUTO NEGATIVE (NEGATIVE); RBC, URINE AUTO 1 /HPF (0-3); SPECIFIC GRAVITY URINE AUTO 1.006 (1.002-1.035); SQUAMOUS EPITHELIAL CELL UR AU 1 /HPF (0-6); UROBILINOGEN, URINE AUTO 0.2 mg/dL (0.0-2.0); WBC, URINE AUTO 16 /HPF (0-3)
== END ==
LOC: M SFHCPLAZ 12:42
PROVIDERS: ATTEND Family Medicine
DX: M47.812 Spondylosis without myelopathy or radiculopathy, cervical region (principal)

== ENCOUNTER 2025-04-18 14:18 | Outpatient (RCR) | payer MEDICARE, MEDICAID ==
[~2025-04-18 14:18] MED LIST changes: -AMBI10TA PO; +LIDO1ADH93 TD; -LIDO5DIS41 TD; +ZOLP-533 PO
== END 2025-04-19 ==
LOC: M PT 14:18
PROVIDERS: ATTEND Orthopaedic Surgery
DX: Z98.890 Other specified postprocedural states (principal)

== ENCOUNTER → 2025-07-27 | Outpatient (CLI) | payer MEDICARE, MEDICAID ==
[~2025-07-27] MED LIST changes: -PROC5TAB57 PO; +PROC5TAB81 PO
== END ==
LOC: M WHC 14:11
PROVIDERS: ATTEND Family Medicine
DX: Z12.31 Encounter for screening mammogram for malignant neoplasm of breast (principal); Z53.9 Procedure and treatment not carried out, unspecified reason

== ENCOUNTER 2025-07-29 09:54 | Emergency (ER) | payer MEDICARE, MEDICAID ==
[~2025-07-29] VITALS: Ht 162.6 cm; Wt 80.0 kg
[2025-07-29] MEDS: PERCOCET 5MG/325MG TAB PO ONE (12:30)
[2025-07-29 12:31] LABS: BASO # 0.0 10^3/uL (0.0-0.2); BASO % 0.3 % (0.0-1.0); EOS # 0.1 10^3/uL (0.0-0.5); EOS % 0.9 % (0.0-3.0); LYMPH # 1.3 10^3/uL (1.5-5.0); LYMPH % 14.6 % (24.0-44.0); MONO # 0.6 10^3/uL (0.0-0.8); MONO % 6.2 % (2.0-8.0); NEUTROPHILS # 6.9 10^3/uL (1.5-8.5); NEUTROPHILS % 77.6 % (36.0-66.0); PLATELET COUNT, AUTOMATED 323 10^3/uL (150-450)
[2025-07-29 13:00] LABS: ALT/SGPT 19 U/L (7.0-40); AST/SGOT 42 U/L (<34)
[2025-07-29 15:13] VITALS: O2SAT 94
[2025-07-29 15:58] VITALS: BP 146/68; TEMP 97.6; O2SAT 96
== END 2025-07-29 15:59 | disposition home or self-care (01) ==
LOC: M ED 09:54
DX: S20.222A Contusion of left back wall of thorax, initial encounter (principal); S30.11XA Contusion of abdominal wall, initial encounter; W01.0XXA Fall on same level from slipping, tripping and stumbling without subsequent striking against object, initial encounter; Y92.9 Unspecified place or not applicable; Y93.9 Activity, unspecified; Y99.9 Unspecified external cause status; E11.9 Type 2 diabetes mellitus without complications; J44.9 Chronic obstructive pulmonary disease, unspecified; F31.10 Bipolar disorder, current episode manic without psychotic features, unspecified; R51.9 Headache, unspecified; Z98.84 Bariatric surgery status; Z87.81 Personal history of (healed) traumatic fracture; G47.33 Obstructive sleep apnea (adult) (pediatric); Z79.82 Long term (current) use of aspirin; Z79.899 Other long term (current) drug therapy; Z88.0 Allergy status to penicillin; Z88.1 Allergy status to other antibiotic agents; Z91.041 Radiographic dye allergy status

== ENCOUNTER → 2025-08-24 | Outpatient (CLI) | payer MEDICARE, MEDICAID ==
[~2025-08-24] MED LIST changes: -FISH10005 PO; +FISH1CAP38 PO
== END ==
LOC: M WHC 13:33
PROVIDERS: ATTEND Family Medicine
DX: Z12.31 Encounter for screening mammogram for malignant neoplasm of breast (principal)

== ENCOUNTER → 2025-09-07 | Outpatient (CLI) | payer MEDICARE, MEDICAID ==
[2025-09-07 14:06] LABS: ESTIMATED AVERAGE GLUCOSE 117.0 MG/DL (60-110)
== END ==
LOC: M LAB 11:58
PROVIDERS: ATTEND Family Medicine
DX: E11.9 Type 2 diabetes mellitus without complications (principal)